=== PATIENT | male | born 1950 | race Caucasian/White ===

== ENCOUNTER 2018-10-28 15:31 | Emergency (ER) | payer MEDICARE, OTHER, SELFPAY ==
[2018-10-28 15:41] VITALS: BP 102/56; PULSE 75; RESP 16; TEMP 36.6; O2SAT 99; BMI 27.1
--- NOTE | 2018-10-28 15:46 | CT_ITS ---
CT abdomen pelvis w con CLINICAL INDICATION: Epigastric pain with nausea ITS.REASON: abd pain ORDERING PHYSICIAN: Shon Hedrick MD PATIENT AGE: 68 years COMPARISON: None TECHNIQUE: Axial images obtained with sagittal and coronal reformats. All CT scans at the facility use one or more dose reduction, viz: automated exposure control, ma/kV adjustment per patient size (including targeted exams where dose is matched to indication, i.e. head), or iterative reconstruction technique. PROCEDURE: Oral Contrast: None IV Contrast: 75 mL's Optiray 350. FINDINGS: Artifact is present from cardiac pacemaker device. There is a too small to categorize isodensity is present in the left hepatic lobe anteriorly at 5 mm. Subtle isodensity is also present in the mid aspect of the spleen at 7 mm. There is an additional subtle isodensity in the infrahilar aspect of the spleen anteriorly at 6 mm. There is borderline splenomegaly at 13 cm. The adrenal glands and pancreas have an unremarkable appearance. Unremarkable appearing gallbladder. There is an indeterminant lobular isodensity involving the right aspect of the kidney and 19 x 12 mm with irregular margins. No renal or ureteral calculi. No hydronephrosis. No evidence of appendicitis or diverticulitis. There is colonic diverticulosis. Bowel gas pattern is nonspecific. There are scattered gas-filled loops of small bowel the jejunum with questionable bowel wall thickening. This raises the possibility of enteritis. Prostate is enlarged at 5 cm x 6 cm with some coarse calcification. Along the anterior inferior aspect of the urinary bladder there is a rounded opacity measuring 2 cm which abuts the superior aspect of the symphysis pubis and contains a central area of decreased density. This is of questionable etiology possibly due to a year Muriel diverticulum or even prominent synovium from the symphysis pubis follow-up suggested to confirm stability. Hyperostosis is present along the lateral aspect of the superior acetabular region on the right. This has a somewhat irregular appearance and could be due to prior trauma.. IMPRESSION: 1. Indeterminate irregular low density mass of the right kidney. Recommend ultrasound for further evaluation. 2. Colonic diverticulosis. No diverticulitis. 3. Possible enteritis. 4. Rounded isodensity along the anterior and inferior aspect of the urinary bladder which could be due to a urachal diverticulum. Suggest follow-up to confirm stability
[2018-10-28 15:58] LABS: Microscopic, Urine URINE MICROSCOPIC (MICROSCOPIC)
[2018-10-28 16:00] LABS: Basophils % 0.4 % (0.1-2.0); Eosinophils # 0.1 K/mm3 (0.0-0.4); Eosinophils % 1.4 % (0.1-12.0); Hematocrit 36.8 % (42.0-52.0); Hemoglobin 12.2 g/dL (14.1-18.0); Lymphocytes # 0.9 K/mm3 (0.7-4.5); Lymphocytes % 9.5 % (10-50); Mean Corpuscular HGB Conc 33.3 g/dL (31.8-35.4); Mean Corpuscular Hemoglobin 30.2 pg (27.0-31.2); Mean Corpuscular Volume 90.5 fl (80-94); Mean Platelet Volume 7.3 fl (7.4-10.4); Monocytes # 0.4 K/mm3 (0.1-1.0); Monocytes % 4.5 % (1.7-9.3); Neutrophils # 7.5 K/mm3 (1.8-7.8); Neutrophils % 84.1 % (37.0-80.0); Platelet Count 353 K/mm3 (142-424); Red Blood Count 4.06 M/mm3 (4.60-6.20); Red Cell Distribution Width 12.4 % (11.5-17.5); White Blood Count 8.9 K/mm3 (4.8-10.8)
[2018-10-28 16:02] VITALS: BP 129/71; PULSE 74; O2SAT 94
[2018-10-28 16:08] LABS: Appearance,Urine SL CLOUDY (Clear); Bilirubin,Urine Negative (Negative); Blood, Urine 3+ (Negative); Color,Urine YELLOW (Yellow); Glucose,Urine (UA) Negative (Negative); Ketones,Urine Negative (Negative); Leukocyte Esterase,Urine 1+ (Negative); Nitrate,Urine Negative (Negative); Protein,Urine TRACE (Negative); Urobilinogen,Urine 0.2 EU/dl (0.2)
[2018-10-28 16:11] LABS: Alanine Aminotransferase 46 U/L (12-78); Albumin Level 3.1 gm/dL (3.4-5.0); Albumin/Globulin Ratio 0.7 (1.1-1.8); Alkaline Phosphatase 93 U/L (46-116); Amylase 49 U/L (25-115); Anion Gap 14.3 mEq/L (5-15); Aspartate Amino Transferase 22 U/L (15-37); Bilirubin,Total 0.8 mg/dL (0.2-1.0); Blood Urea Nitrogen 23 mg/dL (7-18); Calcium 8.5 mg/dL (8.5-10.1); Carbon Dioxide 25 mmol/L (21.0-32.0); Chloride 102 mmol/L (98-107); Creatinine Clearance Estimated 54 mL/min (50-200); Estimated Glomerular Filt Rate 43 ml/min (>60); GFR (African American) 52 ML/MIN (>60); Globulin 4.5 gm/dl (1.3-3.2); Glucose 115 mg/dL (74-106); Lipase 153 u/L (73-393); Potassium 4.3 mmoL/L (3.5-5.1); Sodium 137 mmol/L (136-145); Total Protein,Serum 7.6 gm/dL (6.4-8.2)
--- NOTE | 2018-10-28 16:12 | HMH.EDABDPAI ---
ED Disposition Clinical Impression: Abdominal pain, Malaise Disposition: Home, Self-Care Condition on Discharge: Good Instructions: DI for Acute Abdomen Prescriptions: levoFLOXacin [Levaquin 500mg tab] 500 mg PO DAILY #7 tab Referrals: Samson Valdez MD [Primary Care Provider] - Time of Disposition: 19:15 - Critical Care Critical Care Time: No Attestation: On , the high probability of a clinically significant, sudden or life threatening deterioration of the following system(s) required my full and direct attention, intervention and personal management. The time I documented below is in addition to time spent performing reported procedures but includes the following listed in this critical care notation. Medical Decision Making - Medical Records Medical records reviewed: Yes: I reviewed the patient's medical records. - Luigi Inquiry Pt receiving controlled substance: No Luigi was queried for this patient: No Vital Signs: 10/28/18 15:41 10/28/18 16:02 10/28/18 17:22 Temperature 97.8 F Temperature Source Oral Pulse Rate Pulse Rate [Right Brachial] 75 74 69 Respiratory Rate 16 Blood Pressure Blood Pressure [Right Arm] 102/56 L 129/71 145/71 H Blood Pressure Mean [Right Arm] 71 90 95 Blood Pressure Source [Right Arm] Automatic Cuff Blood Pressure Position [Right Arm] Sitting 02 Sat by Pulse Oximetry 99 94 L 99 Oxygen Delivery Method Room Air 10/28/18 19:20 Temperature 98.6 F Temperature Source Pulse Rate 70 Pulse Rate [Right Brachial] Respiratory Rate 20 Blood Pressure 140/70 Blood Pressure [Right Arm] Blood Pressure Mean [Right Arm] Blood Pressure Source [Right Arm] Blood Pressure Position [Right Arm] 02 Sat by Pulse Oximetry Oxygen Delivery Method - Lab Data Lab results reviewed: Yes: I reviewed the patient's lab results. Lab Results 10/28/18 15:50: WBC 8.9, RBC 4.06 L, Hgb 12.2 L, Hct 36.8 L, MCV 90.5, MCH 30.2, MCHC 33.3, RDW 12.4, Plt Count 353, MPV 7.3 L, Neut % (Auto) 84.1 H, Lymph % (Auto) 9.5 L, [place] % (Auto) 4.5, Eos % (Auto) 1.4, Baso % (Auto) 0.4, Neut # (Auto) 7.5, Lymph # (Auto) 0.9, [place] # (Auto) 0.4, Eos # (Auto) 0.1, Baso # (Auto) 0.0 10/28/18 15:50: Sodium 137, Potassium 4.3, Chloride 102, Carbon Dioxide 25, Anion Gap 14.3, BUN 23 H, Creatinine 1.60 H, Estimated Creat Clear 54, Estimated GFR 43 L, Est GFR ( Amer) 52 L, Glucose 115 H, Calcium 8.5, Total Bilirubin 0.8, AST 22, ALT 46, Alkaline Phosphatase 93, Total Protein 7.6, Albumin 3.1 L, Globulin 4.5 H, Albumin/Globulin Ratio 0.7 L, Amylase 49, Lipase 153 10/28/18 15:54: Urine Color Yellow, Urine Appearance Sl cloudy, Urine pH 6.0, Ur Specific [place] 1.020, Urine Protein Trace, Urine Glucose (UA) Negative, Urine Ketones Negative, Urine Blood 3+, Urine Nitrate Negative, Urine Bilirubin Negative, Urine Urobilinogen 0.2, Ur Leukocyte Esterase 1+ A, Urine RBC 3-5, Urine WBC 10-20, Ur Squamous Epith Cells Occasional, Urine Bacteria 2+, Hyaline Casts 3-5, Urine Mucus 1+ Result diagrams: 10/28/18 15:50 10/28/18 15:50 Orders (Tests/Meds): ED MEDICATIONS Discontinued Medications Generic Name Dose Route Start Last Admin Trade Name Freq PRN Reason Stop Dose Admin Lactated Ringer's 1,000 mls @ 999 mls/hr 10/28/18 16:30 10/28/18 16:28 Lactated Ringer's 1000 Ml Bag IV 10/28/18 17:30 999 mls/hr .Q1H1M MABEL Administration Ioversol 75 ml 10/28/18 17:09 10/28/18 17:13 Rad-Optiray 350 100ml Vial IV 10/28/18 17:10 75 ml ONCE ONE Administration Protocol Levofloxacin 500 mg 10/28/18 19:22 10/28/18 19:34 Levaquin 500mg Tab PO 10/28/18 19:23 500 mg ONCE ONE Administration Protocol Ondansetron HCl 4 mg 10/28/18 16:21 10/28/18 16:29 Zofran 4mg/2ml Vial IV 10/28/18 16:22 4 mg ONCE ONE Administration Sodium Chloride 10 ml 10/28/18 17:09 10/28/18 17:13 Rad-Saline Flush 10ml Syringe IV 10/28/18 17:10 10 ml ONCE ONE Administration
--- NOTE | 2018-10-28 16:16 | ED_ITS ---
ED Disposition Clinical Impression: Abdominal pain, Malaise Disposition: Home, Self-Care Condition on Discharge: Good Instructions: DI for Acute Abdomen Prescriptions: levoFLOXacin [Levaquin 500mg tab] 500 mg PO DAILY #7 tab Referrals: Samson Valdez MD [Primary Care Provider] - Time of Disposition: 19:15 - Critical Care Critical Care Time: No Attestation: On , the high probability of a clinically significant, sudden or life threatening deterioration of the following system(s) required my full and direct attention, intervention and personal management. The time I documented below is in addition to time spent performing reported procedures but includes the following listed in this critical care notation. Medical Decision Making - Medical Records Medical records reviewed: Yes: I reviewed the patient's medical records. - Luigi Inquiry Pt receiving controlled substance: No Luigi was queried for this patient: No Vital Signs: 10/28/18 15:41 10/28/18 16:02 10/28/18 17:22 Temperature 97.8 F Temperature Source Oral Pulse Rate Pulse Rate [Right Brachial] 75 74 69 Respiratory Rate 16 Blood Pressure Blood Pressure [Right Arm] 102/56 L 129/71 145/71 H Blood Pressure Mean [Right Arm] 71 90 95 Blood Pressure Source [Right Arm] Automatic Cuff Blood Pressure Position [Right Arm] Sitting 02 Sat by Pulse Oximetry 99 94 L 99 Oxygen Delivery Method Room Air 10/28/18 19:20 Temperature 98.6 F Temperature Source Pulse Rate 70 Pulse Rate [Right Brachial] Respiratory Rate 20 Blood Pressure 140/70 Blood Pressure [Right Arm] Blood Pressure Mean [Right Arm] Blood Pressure Source [Right Arm] Blood Pressure Position [Right Arm] 02 Sat by Pulse Oximetry Oxygen Delivery Method - Lab Data Lab results reviewed: Yes: I reviewed the patient's lab results. Lab Results 10/28/18 15:50: WBC 8.9, RBC 4.06 L, Hgb 12.2 L, Hct 36.8 L, MCV 90.5, MCH 30.2, MCHC 33.3, RDW 12.4, Plt Count 353, MPV 7.3 L, Neut % (Auto) 84.1 H, Lymph % (Auto) 9.5 L, [place] % (Auto) 4.5, Eos % (Auto) 1.4, Baso % (Auto) 0.4, Neut # (Auto) 7.5, Lymph # (Auto) 0.9, [place] # (Auto) 0.4, Eos # (Auto) 0.1, Baso # (Auto) 0.0 10/28/18 15:50: Sodium 137, Potassium 4.3, Chloride 102, Carbon Dioxide 25, Anion Gap 14.3, BUN 23 H, Creatinine 1.60 H, Estimated Creat Clear 54, Estimated GFR 43 L, Est GFR ( Amer) 52 L, Glucose 115 H, Calcium 8.5, Total Bilirubin 0.8, AST 22, ALT 46, Alkaline Phosphatase 93, Total Protein 7.6, Albumin 3.1 L, Globulin 4.5 H, Albumin/Globulin Ratio 0.7 L, Amylase 49, Lipase 153 10/28/18 15:54: Urine Color Yellow, Urine Appearance Sl cloudy, Urine pH 6.0, Ur Specific [place] 1.020, Urine Protein Trace, Urine Glucose (UA) Negative, Urine Ketones Negative, Urine Blood 3+, Urine Nitrate Negative, Urine Bilirubin Negative, Urine Urobilinogen 0.2, Ur Leukocyte Esterase 1+ A, Urine RBC 3-5, Urine WBC 10-20, Ur Squamous Epith Cells Occasional, Urine Bacteria 2+, Hyaline Casts 3-5, Urine Mucus 1+ Result diagrams: 10/28/18 15:50 10/28/18 15:50 Orders (Tests/Meds): ED MEDICATIONS Discontinued Medications Generic Name Dose
[2018-10-28 16:17] LABS: Bacteria,Urine 2+ /lpf; Squamous Epithelial Cell,Urine Occasional #/hpf (0-5)
[2018-10-28 16:18] LABS: Mucus,Urine 1+ /lpf
[2018-10-28 17:22] VITALS: BP 145/71; PULSE 69; O2SAT 99
[2018-10-28 19:20] VITALS: BP 140/70; PULSE 70; RESP 20; TEMP 37; O2SAT 98
== END 2018-10-28 19:34 | disposition home or self-care (01) ==
PROVIDERS: Emergency Provider Emergency Medicine; PCP Family Medicine
DX: R10.30 Lower abdominal pain, unspecified (principal); Z87.442 Personal history of urinary calculi; E11.9 Type 2 diabetes mellitus without complications; I10 Essential (primary) hypertension; Z95.0 Presence of cardiac pacemaker
CPT/HCPCS: 74177; 80053; 81001; 82150; 83690; 85025; 87086; 96365; 96375; 99284; J2405; Q9967

== ENCOUNTER → 2018-10-29 15:46 | Outpatient (CLI) | payer MEDICARE, OTHER, SELFPAY ==
--- NOTE | 2018-10-29 15:52 | US_ITS ---
US Kidney CLINICAL INDICATION: ITS.REASON: RENAL MASS, irregular right renal lesion ORDERING PHYSICIAN: Samson Valdez MD PATIENT AGE: 68 years Comparison: 10/28/2018 FINDINGS: The right kidney measures 13 x 7 x 8 cm. No hydronephrosis. There is a 2.4 x 1 cm cyst in the upper pole of the right kidney is lobular in configuration which has the same appearance as the CT scan abnormality. The left kidney is 12 x 6 x 6 cm and has an unremarkable appearance. IMPRESSION: Lobulated right renal cyst probably benign. Recommend 6 month sonographic follow-up
== END ==
PROVIDERS: PCP Family Medicine; Visit Provider Family Medicine
DX: N28.89 Other specified disorders of kidney and ureter
CPT/HCPCS: 76770

== ENCOUNTER 2020-01-30 01:41 | Emergency (ER) | payer MEDICARE, OTHER, SELFPAY ==
[2020-01-30 01:42] VITALS: BP 167/84; PULSE 87; RESP 18; TEMP 36.8; O2SAT 100; BMI 28.7
--- NOTE | 2020-01-30 02:06 | HMH.EDUROGM ---
ED Disposition Clinical Impression: Acute retention of urine Disposition: Home, Self-Care Condition on Discharge: Good Instructions: DI for Urinary Tract Infection (UTI), DI for Urinary Tract Infection in Children, How to Care for Your Carter Catheter -- Male Additional Instructions: Take flomax at night. Leave catheter in place until you see urology. Call to make appt by end of week. Return if issues with catheter or recurrent pain. Prescriptions: Tamsulosin HCl 0.4 mg PO HS 7 Days #7 cap Prescription Printed Referrals: Samosn Valdez MD [Primary Care Provider] - Roberto Ramos MD [Staff Physician] - (Followup within 7 days for catheter removal and further treatment of acute urinary retention most likely 2/2 bph) - Critical Care Critical Care Time: No Attestation: On 01/30/20, the high probability of a clinically significant, sudden or life threatening deterioration of the following system(s) required my full and direct attention, intervention and personal management. The time I documented below is in addition to time spent performing reported procedures but includes the following listed in this critical care notation. Medical Decision Making - Medical Records Medical records reviewed: Yes: I reviewed the patient's medical records. - Luigi Inquiry Pt receiving controlled substance: No Vital Signs: 01/30/20 01:42 01/30/20 02:40 Temperature 98.2 F Temperature Source Oral Pulse Rate [Right] 87 70 Respiratory Rate 18 18 Blood Pressure [Right Arm] 167/84 H 152/67 H Blood Pressure Mean [Right Arm] 111 95 02 Sat by Pulse Oximetry 100 94 L - Lab Data Lab Results 01/30/20 01:50: Urine Color Yellow, Urine Appearance Clear, Urine pH 6.0, Ur Specific [place] 1.010, Urine Protein Negative, Urine Glucose (UA) Negative, Urine Ketones Negative, Urine Blood 1+, Urine Nitrate Negative, Urine Bilirubin Negative, Urine Urobilinogen 0.2, Ur Leukocyte Esterase Negative, Urine RBC 5-10, Urine WBC 3-5 01/30/20 02:06: WBC 7.7, RBC 4.56 L, Hgb 14.6, Hct 42.7, MCV 93.7, MCH 32.1 H, MCHC 34.3, RDW 13.4, Plt Count 176, MPV 8.3, Neut % (Auto) 86.4 H, Lymph % (Auto) 8.3 L, [place] % (Auto) 3.3, Eos % (Auto) 1.6, Baso % (Auto) 0.4, Neut # (Auto) 6.6, Lymph # (Auto) 0.6 L, [place] # (Auto) 0.3, Eos # (Auto) 0.1, Baso # (Auto) 0.0, Total Counted 100, Neutrophils % (Manual) 83 H, Band Neutrophils % 5.0, Lymphocytes % (Manual) 10, Monocytes % (Manual) 1 L, Eosinophils % (Manual) 1, Platelet Estimate Normal, RBC Morphology Normal 01/30/20 02:06: Sodium 134 L, Potassium 4.3, Chloride 99, Carbon Dioxide 23, Anion Gap 16.3 H, BUN 22 H, Creatinine 1.20, Estimated Creat Clear 75, Estimated GFR 60, Est GFR ( Amer) 73, Glucose 169 H, Calcium 9.8, Total Bilirubin 0.9, AST 32, ALT 22, Alkaline Phosphatase 92, Total Protein 7.8, Albumin 4.7, Globulin 3.1, Albumin/Globulin Ratio 1.5 Result diagrams: 01/30/20 02:06 01/30/20 02:06 Medical Decision Narrative: Patient presents with acute urinary retention. Patient not on anticholinergic/antihistamine medicines I do not believe this is secondary to toxicity. Patient has been told by his primary care doctor that he has an enlarged prostate somewhat likely this is BPH causing acute urinary retention. Other differential diagnoses include cystitis versus stricture versus blood clot. Patient not a neurologic symptoms so low suspicion for neurogenic causes. No history of trauma. No tenderness to palpation of prostate on exam so less concern for prostatitis. At this time, basic lab will be obtained to ensure no renal insufficiency as well as urinalysis to ensure no cystitis. Patient comfortable after Carter catheter placed and output will be closely monitored. UA negative for infection. Only 1+ blood without obvious blood clots or significant hematuria. No renal insufficiency on lab work. At this time patient does not had significant post void diuresis and is rather well-appearing. Patient will be
[2020-01-30 02:11] LABS: Microscopic, Urine URINE MICROSCOPIC (MICROSCOPIC)
[2020-01-30 02:14] LABS: Appearance,Urine CLEAR (Clear); Bilirubin,Urine Negative (Negative); Blood, Urine 1+ (Negative); Color,Urine YELLOW (Yellow); Glucose,Urine (UA) Negative (Negative); Ketones,Urine Negative (Negative); Leukocyte Esterase,Urine Negative (Negative); Nitrate,Urine Negative (Negative); Protein,Urine Negative (Negative); Urobilinogen,Urine 0.2 EU/dl (0.2)
[2020-01-30 02:17] LABS: Basophils % 0.4 % (0.1-2.0); Eosinophils # 0.1 K/mm3 (0.0-0.4); Eosinophils % 1.6 % (0.1-12.0); Hematocrit 42.7 % (42.0-52.0); Hemoglobin 14.6 g/dL (14.1-18.0); Lymphocytes # 0.6 K/mm3 (0.7-4.5); Lymphocytes % 8.3 % (10-50); Mean Corpuscular HGB Conc 34.3 g/dL (31.8-35.4); Mean Corpuscular Hemoglobin 32.1 pg (27.0-31.2); Mean Corpuscular Volume 93.7 fl (80-94); Mean Platelet Volume 8.3 fl (7.4-10.4); Monocytes # 0.3 K/mm3 (0.1-1.0); Monocytes % 3.3 % (1.7-9.3); Neutrophils # 6.6 K/mm3 (1.8-7.8); Neutrophils % 86.4 % (37.0-80.0); Platelet Count 176 K/mm3 (142-424); Red Blood Count 4.56 M/mm3 (4.60-6.20); Red Cell Distribution Width 13.4 % (11.5-17.5); White Blood Count 7.7 K/mm3 (4.8-10.8)
[2020-01-30 02:21] LABS: MANUAL DIFFERENTIAL MANUAL DIFFERENTIAL (MANUAL DIFF)
[2020-01-30 02:25] LABS: Alanine Aminotransferase 22 U/L (12-78); Albumin Level 4.7 g/dl (3.5-5.0); Albumin/Globulin Ratio 1.5 (1.1-1.8); Alkaline Phosphatase 92 U/L (38-126); Anion Gap 16.3 mEq/L (5-15); Aspartate Amino Transferase 32 U/L (17-59); Bilirubin,Total 0.9 mg/dl (0.2-1.3); Blood Urea Nitrogen 22 mg/dl (9-20); Calcium 9.8 mg/dl (8.4-10.2); Carbon Dioxide 23 mmol/L (22.0-30.0); Chloride 99 mmol/L (98-107); Creatinine Clearance Estimated 75 mL/min (50-200); Estimated Glomerular Filt Rate 60 ml/min (>60); GFR (African American) 73 ML/MIN (>60); Globulin 3.1 g/dL (1.3-3.2); Glucose 169 mg/dl (74-100); Potassium 4.3 mmoL/L (3.5-5.1); Sodium 134 mmol/L (136-145); Total Protein,Serum 7.8 g/dl (6.3-8.2)
[2020-01-30 02:34] LABS: Eosinophils % 1 % (0-3); Lymphocytes % 10 % (10-50); Monocytes % 1 % (2-9); Neutrophils % 83 % (42-76); Platelet Estimate Normal; RBC Morphology Normal; Total Cells Counted 100
[2020-01-30 02:40] VITALS: BP 152/67; PULSE 70; RESP 18; O2SAT 94
[2020-01-30 03:23] VITALS: BP 156/73; PULSE 85; RESP 18; TEMP 37
== END 2020-01-30 03:25 | disposition home or self-care (01) ==
PROVIDERS: Emergency Provider Emergency Medicine; PCP Family Medicine
DX: R33.8 Other retention of urine (principal); N40.1 Benign prostatic hyperplasia with lower urinary tract symptoms; I10 Essential (primary) hypertension; Z95.0 Presence of cardiac pacemaker; E10.9 Type 1 diabetes mellitus without complications
CPT/HCPCS: 80053; 81001; 85007; 85025; 99284

== ENCOUNTER → 2020-07-25 13:07 | Outpatient (CLI) | payer MEDICARE, OTHER, SELFPAY ==
--- NOTE | 2020-07-25 13:10 | US_ITS ---
PROCEDURE: US KIDNEY CLINICAL INDICATION: RENAL MASS COMPARISON: CT [id number] CT abdomen pelvis w con from 10/28/2018 US KIDNEY US Kidney from 10/29/2018 FINDINGS: The right kidney is 10 x 8 cm. There is some mild cortical thinning. No hydronephrosis is apparent. Previously noted cyst in the mid aspect of the right kidney is no longer demonstrated. A small cyst is present in the upper pole measuring 8 mm. The left kidney is 11 x 6 x 7 cm and has an unremarkable appearance. IMPRESSION: Previously noted complex right renal cyst is no longer apparent. There is a small cyst in the upper pole at 8 mm. There is mild cortical thinning on the right. Dictated by: Jr Gambino MD 07/25/2020 18:16 Jr Gambino MD in [place] 07/25/2020 18:16
== END ==
PROVIDERS: PCP Family Medicine; Visit Provider Family Medicine
DX: N28.89 Other specified disorders of kidney and ureter (principal)
CPT/HCPCS: 76770

== ENCOUNTER → 2021-10-03 09:59 | Outpatient (CLI) | payer MEDICARE, OTHER, SELFPAY ==
--- NOTE | 2021-10-03 10:01 | CA_ITS ---
APPROVED REPORT EXAM: Comprehensive 2D, Doppler, and color-flow Echocardiogram Ice Crusher: DARWIN Raygoza, RVS Ht: 5 ft 9 in Wt: 211lbs BSA: 2.11 BP: 120/80 mmHg Indications: CM, AICD, HTN, DM 2D Dimensions IVSd 1.19 cm M: 0.6-1.2 LVEF (Visual) 55.00 % PWd 1.17 cm M: 0.6 - 1.2 LA Volume 67.20 mL LVDd 5.48 cm M: 4.2 - 5.9 LA Volume Index 31.84 mL/m2 (M/F) 16-34 LVDs 3.68 cm M: 2.5 - 4.0 Aortic Root 3.32 cm M: 3.1 - 3.7 Left Atrium 4.07 cm M: 3.0 - 4.0 LVOT 2.09 cm (M/F) 1.5-2.5 M-Mode Dimensions RVDd 3.05 cm (0.9-2.6) LA Diam 4.08 cm (1.9-4.0) LVDd 5.42 cm (3.5-5.7) Ao Diam 3.15 cm (2.0-3.7) LVDs 3.89 cm (3.5-5.7) IVSd 1.33 cm (0.6-1.1) PWd 0.84 cm (0.6-1.1) EF (Teich) 50.00% EPSs 0.69 cm FS 26.20% EDV (Teich) 142.50 mL TAPSE 2.47 (<1.7) ESV (Teich) 65.50 mL LV Diastology E Decel Time 200.00 (160-240 msec) E/A Ratio 1.38 MED E' 6.40 (< 7 cm/sec) MED A' 8.80 cm/s E'/MED E' Ratio 13.67 (>14) LAT E' 8.00 (<10 cm/sec) LAT A' 6.10 cm/s E/LAT E' Ratio 10.94 (>14) Aortic Valve LVOT Max 87.00 (70-110 cm/s) LVOT VTI 20.39 cm AoV Peak Juan. 114.00 (50-130 cm/s) AI PHT 384.00 ms AO Peak GR. 5.20 mmHg AO Mean GR. 2.60 (<5 mmHg) AO VTI 25.00 (18-25 cm) MOLINA (VTI) 2.80 (2.5-4.5 cm2) Mitral Valve MV A Velocity 63.00 (40-130 cm/s) E/A Ratio 1.38 MV Decel. Time 200.00 (160-240 ms) MV Mean Gr. 1.20 (<2mmHg) MV PHT 60.00 ms Pulmonary Valve PV Peak Velocity 84.00 (50-150 cm/s) [place] End VMAX 172.00 cm/s Tricuspid Valve TR P. Velocity 251.00 cm/s RAP Estimate 10.00 mmHg RVSP 35.10 mmHg Left Ventricle Atrium is mildly enlarged, left ventricle is normal size, mild concentric left ventricular hypertrophy, estimated ejection fraction 50% with no obvious regional wall motion abnormality, endocardial surfaces are poorly visualized, grade 1 diastolic dysfunction seen without tissue Doppler evidence of raise left atrial pressure. Right Ventricle Right atrium and right ventricle are normal size and contractility, there is an AICD leads in the right ventricle. Aortic Valve Aortic valve is minimally thickened and fibrosed there is no aortic stenosis, there is trace aortic insufficiency. Mitral Valve Mitral valve grossly normal, there is trace mitral regurgitation. Tricuspid Valve Tricuspid grossly normal, there is trace tricuspid rotation, tricuspid regurgitation jet velocity is inadequate for calculation of the right ventricular systolic pressure. Pulmonic Valve Pulmonic valve is poorly visualized. Great Vessels Aortic root is normal size. Inferior vena cava is normal size with normal inspiratory collapse. Pericardium No significant pericardial effusion noted. Conclusion 1. Mildly enlarged left atrium, normal left ventricular size, mild concentric left ventricular hypertrophy, estimated ejection fraction 50% with no regional wall motion abnormality, grade 1 diastolic dysfunction seen without tissue Doppler evidence of left atrial pressure. 2. Trace aortic, mitral and tricuspid regurgitation. 3. No significant pericardial effusion. 4. Inferior vena cava is normal size with normal inspiratory collapse. Electronically signed by : Ronald Brito MD 10/04/2021 11:23:21
== END ==
PROVIDERS: PCP Family Medicine; Visit Provider Family Medicine
DX: I42.0 Dilated cardiomyopathy (principal)
CPT/HCPCS: 93306

== ENCOUNTER → 2021-12-02 08:38 | Outpatient (CLI) | payer MEDICARE, OTHER, SELFPAY ==
[2021-11-29 19:59] LABS: Erythrocyte Sedimentation Rate 18 mm/hr (0-20)
[2021-12-01 09:40] LABS: RA Latex Turbid. <10.0 IU/mL (<14.0)
[2021-12-03 13:38] LABS: Anti-Centromere B Antibodies <0.2 AI (0.0-0.9); Anti-DNA (DS) Ab Qn <1 IU/mL (0-9); Anti-Jo-1 <0.2 AI (0.0-0.9); Anti-Smith Antibody <0.2 AI (0.0-0.9); Antichromatin Antibodies <0.2 AI (0.0-0.9); Antiscleroderma-70 Antibodies <0.2 AI (0.0-0.9); RNP Antibodies <0.2 AI (0.0-0.9); Sjogren's Anti-SS-A <0.2 AI (0.0-0.9); Sjogren's Anti-SS-B <0.2 AI (0.0-0.9)
== END ==
PROVIDERS: Visit Provider Family Medicine
DX: M79.605 Pain in left leg (principal); M79.604 Pain in right leg
CPT/HCPCS: 85651; 86225; 86235; 86431

== ENCOUNTER → 2022-04-08 10:10 | Outpatient (CLI) | payer MEDICARE, OTHER, SELFPAY ==
[2022-04-08 18:58] LABS: Blood Urea Nitrogen 14 mg/dl (9-20); Calcium 9.4 mg/dl (8.4-10.2); Carbon Dioxide 29 mmol/L (22.0-30.0); Chloride 100 mmol/L (98-107); Estimated Glomerular Filt Rate 73 ml/min (>60); GFR (African American) 89 ML/MIN (>60); Glucose 111 mg/dl (74-100); Sodium 138 mmol/L (136-145)
[2022-04-08 19:30] LABS: Prostate Specific Ag Screen 3.2 ng/ml (0.0-4.0)
[2022-04-08 21:15] LABS: Anion Gap 13.7 mEq/L (5-15); Potassium 4.7 mmoL/L (3.5-5.1)
== END ==
PROVIDERS: PCP Family Medicine; Visit Provider Family Medicine
DX: N40.0 Benign prostatic hyperplasia without lower urinary tract symptoms (principal); E11.9 Type 2 diabetes mellitus without complications; Z79.84 Long term (current) use of oral hypoglycemic drugs; Z12.5 Encounter for screening for malignant neoplasm of prostate
CPT/HCPCS: 80048; G0103

== ENCOUNTER → 2022-10-21 10:42 | Outpatient (CLI) | payer MEDICARE, OTHER, SELFPAY ==
[2022-10-21 18:28] LABS: Basophils % 0.5 % (0.1-2.0); Eosinophils # 0.1 K/mm3 (0.0-0.4); Eosinophils % 2.6 % (0.1-12.0); Hematocrit 46.2 % (42.0-52.0); Lymphocytes # 0.8 K/mm3 (0.7-4.5); Lymphocytes % 20.2 % (10-50); Mean Corpuscular HGB Conc 32.5 g/dL (31.8-35.4); Mean Corpuscular Hemoglobin 31.1 pg (27.0-31.2); Mean Corpuscular Volume 95.7 fl (80-94); Mean Platelet Volume 9.8 fl (7.4-10.4); Monocytes # 0.4 K/mm3 (0.1-1.0); Monocytes % 10.3 % (1.7-9.3); Neutrophils # 2.6 K/mm3 (1.8-7.8); Neutrophils % 66.4 % (37.0-80.0); Platelet Count 176 K/mm3 (142-424); Red Blood Count 4.83 M/mm3 (4.60-6.20); Red Cell Distribution Width 13.7 % (11.5-17.5); White Blood Count 3.9 K/mm3 (4.8-10.8)
[2022-10-21 18:37] LABS: Alanine Aminotransferase 30 U/L (12-78); Albumin Level 4.3 g/dl (3.5-5.0); Albumin/Globulin Ratio 1.8 (1.1-1.8); Alkaline Phosphatase 78 U/L (38-126); Anion Gap 16.4 mEq/L (5-15); Aspartate Amino Transferase 31 U/L (17-59); Bilirubin,Total 1.3 mg/dl (0.2-1.3); Blood Urea Nitrogen 23 mg/dl (9-20); Carbon Dioxide 28 mmol/L (22.0-30.0); Chloride 96 mmol/L (98-107); Estimated Glomerular Filt Rate 66 ml/min (>60); GFR (African American) 80 ML/MIN (>60); Globulin 2.4 g/dL (1.3-3.2); Glucose 104 mg/dl (74-100); Potassium 4.4 mmoL/L (3.5-5.1); Sodium 136 mmol/L (136-145); Total Protein,Serum 6.7 g/dl (6.3-8.2)
== END ==
PROVIDERS: PCP Family Medicine; Visit Provider Family Medicine
DX: I10 Essential (primary) hypertension (principal); R10.9 Unspecified abdominal pain
CPT/HCPCS: 80053; 85025

== ENCOUNTER → 2022-12-17 13:21 | Outpatient (CLI) | payer MEDICARE, OTHER, SELFPAY | PROVIDERS: PCP Family Medicine; Visit Provider Physician Assistant | DX: E11.9 Type 2 diabetes mellitus without complications (principal); I10 Essential (primary) hypertension; I50.20 Unspecified systolic (congestive) heart failure; R06.00 Dyspnea, unspecified; Z95.810 Presence of automatic (implantable) cardiac defibrillator; Z79.84 Long term (current) use of oral hypoglycemic drugs | CPT/HCPCS: 93306 ==

== ENCOUNTER → 2023-03-24 10:53 | Outpatient (CLI) | payer MEDICARE, OTHER, SELFPAY ==
[2023-03-24 17:59] LABS: Alanine Aminotransferase 37 U/L (12-78); Albumin Level 4.3 g/dl (3.5-5.0); Albumin/Globulin Ratio 1.7 (1.1-1.8); Alkaline Phosphatase 69 U/L (38-126); Anion Gap 11.3 mEq/L (5-15); Aspartate Amino Transferase 39 U/L (17-59); Bilirubin,Total 1.2 mg/dl (0.2-1.3); Blood Urea Nitrogen 17 mg/dl (9-20); Calcium 9.1 mg/dl (8.4-10.2); Carbon Dioxide 28 mmol/L (22.0-30.0); Chloride 101 mmol/L (98-107); Estimated Glomerular Filt Rate 66 ml/min (>60); GFR (African American) 79 ML/MIN (>60); Globulin 2.5 g/dL (1.3-3.2); Glucose 114 mg/dl (74-100); Potassium 4.3 mmoL/L (3.5-5.1); Sodium 136 mmol/L (136-145); Total Protein,Serum 6.8 g/dl (6.3-8.2)
== END ==
PROVIDERS: PCP Family Medicine; Visit Provider Family Medicine
DX: E11.9 Type 2 diabetes mellitus without complications (principal); I10 Essential (primary) hypertension; N40.0 Benign prostatic hyperplasia without lower urinary tract symptoms; Z95.810 Presence of automatic (implantable) cardiac defibrillator; Z79.84 Long term (current) use of oral hypoglycemic drugs
CPT/HCPCS: 80053

== ENCOUNTER → 2023-04-20 06:39 | Outpatient (CLI) | payer MEDICARE, OTHER, SELFPAY ==
--- NOTE | 2023-04-20 06:44 | NM_ITS ---
APPROVED REPORT Exam: Nuclear Stress Test Indication: HTN, HYPERLIPIDEMIA, SOB, FATIGUE, PACEMAKER, DE-FIBULATOR, A-FIB, ABN EKG Patient Location: Outpatient Stress Tech: Esther Travis [place] Tech:ALFONSO Jordan RT (R)(N)(M) Ht: 5 ft 10 in Wt: 211 lbs HR: 69 bpm BP: 157/79 mmHg BSA: 2.14 m2 Rhythm: V-paced rhythm TID: 1.18 BMI: 30.2 History: HTN, HYPERLIPIDEMIA, SOB, FATIGUE, PACEMAKER, A-FIB, ABN EKG Procedure: Patient received 0.4 mg of intravenous Lexiscan, resting heart rate 69 bpm, resting blood pressure 157/79 mmHg, with Lexiscan maximum heart rate achieved was 83 bpm which is % of the maximum predicted heart rate and blood pressure was 131/61 mmHg. With Lexiscan, patient denied any complaint of chest pain. Cardiac Stress and Resting SPECT Images: Cardiac Stress and Resting SPECT images were obtained using technetium 99m Myoview 30.5 mCi stress and 10.62 mCi at rest. Raw images demonstrate significant soft tissue overlap with the cardiac borders. This may affect the diagnostic interpretation of the study findings. Resting and stress imaging in supine position demonstrate a large sized, moderate fixed perfusion defect in the inferior and inferoapical LV wall. This is no longer visualized with prone stress imaging. Findings are suggestive of diaphragmatic and soft tissue attenuation, but true perfusion defect cannot be entirely ruled out in the setting of severe reduction in LV systolic function. Gated imaging demonstrates severe reduction in LV systolic function. LVEF is calculated at 28%. However the LVEF is likely inaccurate due to frequent PVCs and history of atrial fibrillation. Conclusion: Raw images demonstrate significant soft tissue overlap with the cardiac borders. This may affect the diagnostic interpretation of the study findings. Resting and stress imaging in supine position demonstrate a large sized, moderate fixed perfusion defect in the inferior and inferoapical LV wall. This is no longer visualized with prone stress imaging. Findings are suggestive of diaphragmatic and soft tissue attenuation, but true perfusion defect cannot be entirely ruled out in the setting of severe reduction in LV systolic function.. Gated imaging demonstrates severe reduction in LV systolic function. LVEF is calculated at 28%. However the LVEF is likely inaccurate due to frequent PVCs and history of atrial fibrillation. Electronically signed by : Danica Burroughs MD 04/21/2023 14:11:03
--- NOTE | 2023-04-20 09:14 | CA_ITS ---
APPROVED REPORT Exam: Pharmacologic Technologist: Esther Travis Ht: 5 ft 10 in Wt: 211 lbs BSA: 2.14 m2 HR: 69 bpm BP: 157/79 mmHg Rhythm: V-paced Indications: Dyspnea Medical History Medications: Amlodipine,,,,, Aspirin,,,,, Metformin,,,,, Carvedilol,,,,, XaRELTO,,,,, TAMSULOSIN,,,,, JaRDiance,,,,, RoSUVASTATIN,,,,, Irbesartan-hctz,,,,, Stress Test Details Test: LEXISCAN HR Resting HR: 67 bpm Max Heart Rate (APMHR): 147 bpm Max HR Achieved: 90 bpm Target HR (85% APMHR): 125 bpm % of APMHR: 61 Recovery HR: 75 bpm BP Resting BP: 157.0/79.0 mmHg Max BP: 157.0/79.0 mmHg Recovery BP: 150.0/71.0 mmHg ECG Resting ECG: V-paced rhythm Stress ECG: No significant ST changes Arrhythmia: PVCs Clinical Exercise duration: 05:33 min Highest Stage Achieved: Exercise capacity: 1.0 METs Stress ECG Conclusion Symptoms: Nausea Arrhythmias/Ectopy: Frequent PVCs ST-T Changes: No significant ST changes Conclusion: Non-diagnostic due to be V paced rhythm Test Summary REST . . . . . . . Resting REST 01:39 . . 67 . 157/ 79 . . Stage 1 . . . . . . . Myoview Injected Stage 1 01:00 . . 79 . . . . Stage 2 01:00 . . 87 . 131/ 61 . . Stage 3 01:00 . . 83 . . . . Stage 4 01:00 . . 80 . 143/ 77 . . Stage 4 02:00 . . 78 . 143/ 73 . . Stage 4 02:33 . . 77 . 135/ 76 . Stop exercise at 05:33 RECOVERY 01:00 . . 75 . . . . RECOVERY 02:00 . . 74 . 140/ 73 . . RECOVERY 02:49 . . 74 . 140/ 73 . . Electronically signed by : Danica Burroughs MD 04/21/2023 14:03:38
== END ==
PROVIDERS: PCP Family Medicine; Visit Provider Physician Assistant
DX: E11.9 Type 2 diabetes mellitus without complications (principal); I48.91 Unspecified atrial fibrillation; I50.20 Unspecified systolic (congestive) heart failure; R06.00 Dyspnea, unspecified; Z95.810 Presence of automatic (implantable) cardiac defibrillator; Z79.84 Long term (current) use of oral hypoglycemic drugs; I11.0 Hypertensive heart disease with heart failure
CPT/HCPCS: 78452; 93017; 93018; A9502; J2785

== ENCOUNTER 2023-04-28 07:56 | Day surgery (SDC) | payer MEDICARE, OTHER, SELFPAY ==
[2023-04-28] VITALS (13 sets, daily range): BP systolic 113–202; BP diastolic 64–174; PULSE 56–80; RESP 18–19; TEMP 37; O2SAT 92–98; BMI 30.2
--- NOTE | 2023-04-28 07:10 | IR_ITS ---
APPROVED REPORT Patient Location: Outpatient Apparel Patternmaker: ALFONSO Castro RT (R) PROCEDURES Left heart catheterization Left ventriculogram Selective coronary angiogram Intravascular ultrasound of the LAD and left main artery INDICATION High risk abnormal Myoview, Preoperative evaluation Informed consent was obtained prior to the procedure. COMPLICATIONS NONE Estimated Blood Loss: LESS THAN 10 ML TECHNIQUE One percent lidocaine used to anesthetize the right anterior aspect of the wrist. The right radial artery was accessed via the Seldinger technique. A 6 Citizen Of [place] sheath was placed in the right radial artery. 2.5 mg of Verapamil, 800 mcg of nitroglycerin, 1mg Lidocaine and 5000 U Heparin were given through the arterial sheath. The papa catheter was also used to perform left heart catheterization, left ventriculogram and selective coronary angiogram. At the end the diagnostic angiogram therapeutic heparin was administered giving a therapeutic ACT and a 6 Citizen Of [place] JL 3 guide catheter was placed in the left main artery followed by a BMW wire down the LAD. Intravascular ultrasound probe was advanced which demonstrated the MLA of the ostial left main artery was greater than 7 mm???. The proximal LAD had an MLA of 4.5 mm??? while the mid LAD had an MLA of 3.1 mm???. Given patient had normal ejection fraction based on both echocardiogram and LV gram the only lesions were in the mid LAD and posterior descending artery it was felt patient would be better served with medical management. A guide liner was also used for the procedure for catheter stabilization ANGIOGRAPHIC RESULTS The left main artery Is an ostial angiographically indeterminate lesion between 30 and 50%. The left anterior descending artery Has a proximal concentric 50% stenosis with mid vessel 60 and 70% stenoses. The distal LAD has additional 50% stenosis The circumflex artery Is nondominant and has mid vessel 60 to 70% stenoses and a solitary small obtuse marginal artery The right coronary artery Is a dominant vessel and has proximal 20% stenoses with a mid vessel eccentric 30% stenosis distal 40 to 50% stenosis. A large posterior descending artery has a proximal eccentric 80% stenosis. A large posterolateral branch is widely patent with mild proximal 20 to 30% stenosis The [place] ventriculogram reveals Normal 60 to 65% The left ventricular end-diastolic pressure 10 mmHg IMPRESSION Mild ostial left main disease as proven by intravascular ultrasound Nonischemic proximal LAD disease as proven by intravascular ultrasound Severe stenosis in the mid LAD which is best managed medically at this time given the normal ejection fraction and patient's preoperative status. Nothing from a percutaneous standpoint will reduce or mitigate patient's already low risk preoperative stratification Severe stenosis in a posterior descending artery which is also best managed medically at this time given the normal ejection fraction and patient's preoperative status. Revascularizing this lesion would not mitigate patient's already low risk preoperative stratification Normal ejection fraction Normal left ventricular end-diastolic pressure PLAN 1. Patient is an acceptable risk to proceed with prostate surgery 2. Continue medical management for coronary artery disease 3. LDL less than 55 to be achieved with high intensity statin 4. Should patient experience recalcitrant angina in the future it would be reasonable to revascularize the mid LAD and posterior descending artery from a symptomatic standpoint. Electronically signed by : Sven Clark MD 04/28/2023 11:03:33
[2023-04-28 08:27] LABS: Basophils % 0.6 % (0.1-2.0); Eosinophils # 0.2 K/mm3 (0.0-0.4); Eosinophils % 3.8 % (0.1-12.0); Hematocrit 50.8 % (42.0-52.0); Hemoglobin 16.8 g/dL (14.1-18.0); Lymphocytes # 0.7 K/mm3 (0.7-4.5); Lymphocytes % 16.2 % (10-50); Mean Corpuscular HGB Conc 33.1 g/dL (31.8-35.4); Mean Corpuscular Hemoglobin 31.9 pg (27.0-31.2); Mean Corpuscular Volume 96.3 fl (80-94); Mean Platelet Volume 8.7 fl (7.4-10.4); Monocytes # 0.4 K/mm3 (0.1-1.0); Monocytes % 8.5 % (1.7-9.3); Neutrophils # 3.3 K/mm3 (1.8-7.8); Platelet Count 162 K/mm3 (142-424); Red Blood Count 5.27 M/mm3 (4.60-6.20); Red Cell Distribution Width 13.5 % (11.5-17.5); White Blood Count 4.6 K/mm3 (4.8-10.8)
[2023-04-28 08:32] LABS: Chloride 102 mmol/L (98-107)
[2023-04-28 08:33] LABS: Sodium 138 mmol/L (136-145)
[2023-04-28 08:35] LABS: Blood Urea Nitrogen 20 mg/dl (9-20); Creatinine Clearance Estimated 69 mL/min (50-200); Estimated Glomerular Filt Rate 54 ml/min (>60); GFR (African American) 65 ML/MIN (>60)
[2023-04-28 08:36] LABS: Calcium 9.4 mg/dl (8.4-10.2); Carbon Dioxide 27 mmol/L (22.0-30.0); Glucose 141 mg/dl (74-100)
== END 2023-04-28 14:00 | disposition home or self-care (01) ==
PROVIDERS: PCP Psychiatry & Neurology Sleep Medicine; Visit Provider Internal Medicine
DX: R94.39 Abnormal result of other cardiovascular function study (principal); Z79.899 Other long term (current) drug therapy; Z79.01 Long term (current) use of anticoagulants; Z79.84 Long term (current) use of oral hypoglycemic drugs; F17.210 Nicotine dependence, cigarettes, uncomplicated; I48.11 Longstanding persistent atrial fibrillation; Z95.810 Presence of automatic (implantable) cardiac defibrillator; I50.20 Unspecified systolic (congestive) heart failure; I25.10 Atherosclerotic heart disease of native coronary artery without angina pectoris; I11.0 Hypertensive heart disease with heart failure
CPT/HCPCS: 80048; 85025; 92978; 92979; 93458; 99152; 99153; C1725; C1760; C1769; J1644; Q9967

== ENCOUNTER 2023-09-15 07:08 | Outpatient (CLI) | payer MEDICARE, OTHER, SELFPAY ==
[2023-09-15 19:34] LABS: Chloride 107 mmol/L (98-107)
[2023-09-15 19:35] LABS: Potassium 4.5 mmoL/L (3.5-5.1); Sodium 138 mmol/L (136-145)
[2023-09-15 19:37] LABS: Alanine Aminotransferase 22 U/L (12-78); Aspartate Amino Transferase 27 U/L (17-59); Blood Urea Nitrogen 22 mg/dl (9-20); Estimated Glomerular Filt Rate 59 ml/min (>60); GFR (African American) 72 ML/MIN (>60)
[2023-09-15 19:38] LABS: Albumin Level 3.9 g/dl (3.5-5.0); Albumin/Globulin Ratio 1.6 (1.1-1.8); Alkaline Phosphatase 84 U/L (38-126); Anion Gap 10.5 mEq/L (5-15); Bilirubin,Total 1.9 mg/dl (0.2-1.3); Calcium 9.4 mg/dl (8.4-10.2); Carbon Dioxide 25 mmol/L (22.0-30.0); Globulin 2.4 g/dL (1.3-3.2); Glucose 120 mg/dl (74-100); Total Protein,Serum 6.3 g/dl (6.3-8.2)
== END 2023-09-15 23:59 | disposition home or self-care (01) ==
LOC: LAB.DROPOF 09-17 07:09
PROVIDERS: PCP Family Medicine; Visit Provider Family Medicine
DX: I50.20 Unspecified systolic (congestive) heart failure (principal)
CPT/HCPCS: 80053

== ENCOUNTER 2023-09-17 09:16 | Outpatient (POV) | payer MEDICARE, OTHER, SELFPAY | END 2023-09-17 23:59 | disposition home or self-care (01) | LOC: SC 09:17 | PROVIDERS: Visit Provider Specialist/Technologist | DX: Z00.00 Encounter for general adult medical examination without abnormal findings (principal) ==

== ENCOUNTER 2023-12-02 10:00 | Outpatient (RCR) | payer MEDICARE, OTHER, SELFPAY ==
--- NOTE | 2023-11-02 13:35 | HMH.PTOPEV ---
PT Outpatient Evaluation Rehab PT Outpatient Evaluation Start: 11/02/23 11:18 Freq: Status: Active Protocol: Document 11/02/23 11:18 MONY (Rec: 11/02/23 12:52 MONY [email or web address]) E-signed By Elizabeth Livingston, PT Outpatient Therapy Subjective History Subjective History This is an initial evaluation for 73 y/o male, Jos Bolivar, who presents with referral for right-sided sciatica with weakness. Pt reports his leg pain began ~6 weeks ago insidiously but reports it has gotten better since. Pt reports all symptoms are right-sided, denies numbness or tingling, and does not recall an injury/falls leading to his pain. Reports weakness and some RLE giving out. Pt denies having any imaging of LB. Pt reports he has a neurology appointment on December 13. Pt is retired and helps care for his . Pt with hopes to get better and be able to do things he enjoys like fishing. PMH: Hypertension, pacemaker placement, Type 2 diabetes mellitus, DDD New diagnosis of cancer in past 12 No months? Chief Complaint Pain Symptom Type Sharp,Stabbing Symptoms Relieved By Rest/Positioning Symptoms Aggravated By Standing,Bending/Stooping, Walking Prior Functional Limitations None Current Functional Limitations Lifting,Desk Work/Reading, Driving,Squatting,Recreation Activity,Walking,Balance Symptom Description Intermittent Level of pain today (0-10) 0 Pain scale - at its best (0-10) 0 Pain scale - at its worst (0-10) 8 Lumbopelvic Eval Posture Thoracic Spine Posture Standing Position Neutral Lumbar Spine Posture Standing Position Neutral Assistive device Assistive Devices None / NA Gait Observation General Gait Pattern Observation Antalgic Gait Palapation tenderness right thoracic spinal tenderness No lumbar spinal tenderness No paraspinal tenderness Yes: 1/4 TTP left thoracic spinal tenderness No lumbar spinal tenderness Yes: 1/4 TTP paraspinal tenderness Yes: 1/4 TTP Range of Motion Lumbar Spine Active Flexion Range of 50 deg, painful Motion (degrees) Lumbar Spine Active Extension Range of 15 deg, painful Motion (degrees) Left Lumbar Spine Lateral Flexion Active WNL, painfree Range of Motion (degrees) Right Lumbar Spine Lateral Flexion WNL, painfree Active Range of Motion (degrees) Lumbar Spine ROM Limitations Soft Tissue Tightness,Pain Manual Muscle Test Right Knee Extension Strength Grade 4 Good Knee Flexion Strength Grade 4 Good Hip Flexion Strength Grade 4 Good Hip Abduction Strength Grade 4 Good Hip Adduction Strength Grade 4 Good Left Knee Extension Strength Grade 5 Normal Knee Flexion Strength Grade 5 Normal Hip Flexion Strength Grade 5 Normal Hip Abduction Strength Grade 5 Normal Hip Adduction Strength Grade 5 Normal Special Tests Hip Scouring (Quadrant) Test Negative Right Hip Gopi (EDSON) Test Negative Right Hip Piriformis Test Positive Right Sciatic Nerve Tension Test Positive Right Crossed Straight Leg Raise Test Negative Left,Negative Right Hip Melissa's Test Negative Left,Negative Right Oswestry Index Section 1 Pain Intensity The pain is severe and does not vary much Section 2 Personal Care (Washing,Dresing) increase the pain, but I manage not to change my way of doing it Section 3 Lifting Pain prevents me from lifting weights off the floor Section 4 Walking I cannot walk at all without increasing pain Section 5 Sitting I can sit in my favorite chair for as long as I like Section 6 Standing I have some pain on standing, but it does not increase with time Section 7 Sleeping I get pain in bed, but it does not prevent me from sleeping well Section 8 Social Life My social life is normal and gives me no extra pain Section 9 Traveling I get extra pain while traveling which compels me to seek alternate fo Section 10 Changing Degreee of Pain My pain is gradually getting worse Score and Risk Level Oswestry Sc 24 Oswestry Risk Level Moderate Disability Outpatient Therapy Assessment Impairments Problems/Impairmments Palpation Tenderness,Impaired Range of Motion,Impaired Strength,Impaired Transfers, Impaired Gait Pattern,Impaired Walking,Impaired Standing, Impaired Bending,Impaired Recreational Activities, Subjective C/O Pain Prognosis Rehab Potential Good Comment Pt presents with complaints and symptoms consistent with his medical diagnosis of sciatica (R). Pt would benefit from skilled OP PT to address deficits and return to PLOF. Clinical Impression Consistent with Diagnosis Yes Short Term Goals Number of Weeks 3 Increase Range of Motion Yes: Increase lumbar AROM by 10 degrees without increase in pain. Improve Oswestry Score Yes: Improve by 4 points to decrease disability Decrease Subjective C/O Pain Yes: At worst 6/10 to decrease pain severity. Patient to be Ind w/ Advanced HEP Yes Ranch Supervisor Goals Number of Weeks 6 Increase Range of Motion Yes: Lumbar AROM WNL to improve daily function. Increase Strength Yes: RLE 5/5 to return to PLOF and maximize functional strength. Improve Gait Pattern without Assistive Yes: Demo 50' with min-no Device antalgic gait/ with even BLE stance time without cues. Improve Oswestry Score Yes: Improve to score reflecting mild disability to improve QOL. Decrease Subjective C/O Pain Yes: At worst 3/10 to decrease severity and improve QOL. Patient to be Ind w/ Advanced HEP Yes Outpatient Therapy Plan of Care Treatment Plan May Include Therapeutic Exercise Including Home Yes Exercise Program Manual Therapy Techniques Yes Neuromuscular Re-education Yes Therapeutic Activities to Return to Yes Previous Functional/Work Level Gait Training Yes ADL/Self Care Education Yes Mechanical Traction Yes Dry Needling Yes Thermal Modalities Yes Electrical Stimulation No: Pacemaker Orthotics/Bracing/Splinting Yes Massage Yes Eval/Re-Eval Yes Aquatic Therapy Yes Frequency Times per week 2x Duration Number of Weeks 5-6 weeks Addendums This patient is a candidate for social No or vocational rehab? Patient/Guardian verbally acknowledges Yes understanding of treatment program and consents to further treatment? Patient/Guardian verbally acknowledges Yes understanding of diagnosis, prognosis and goals for treatment? Eval Complexity PT Charges 50837 - Low Complexity Shoulder/Elbow Eval Shoulder Objective Measurements Elbow Objective Measurements PHYSICIAN CERTIFICATION: I certify the specified therapy services for Jos Bolivar are required, authorized, and reviewed every 30 days.
--- NOTE | 2023-12-02 10:46 | HMH.RHREAS ---
Rehab Reassessment Rehab OP Re-assessment Start: 11/02/23 11:18 Freq: Status: Active Protocol: Document 12/02/23 10:07 VALENTINAURORA (Rec: 12/02/23 10:45 VALENTINAURORA [id number]) E-signed By Elizabeth Livingston, PT Oswestry Index Section 1 Pain Intensity The pain is moderate and does not vary much Section 2 Personal Care (Washing,Dresing) increase the pain, but I manage not to change my way of doing it Section 3 Lifting Pain prevents me from lifting weights off the floor Section 4 Walking I cannot walk at all without increasing pain Section 5 Sitting I can sit in any chair for as long as I like Section 6 Standing I have some pain on standing, but it does not increase with time Section 7 Sleeping I get no pain in bed Section 8 Social Life Pain has restricted my social life and I do not go out often Section 9 Traveling I get some pain when traveling , but none of my usual forms of travel m Section 10 Changing Degreee of Pain My pain fluctuates, but overall is definitely getting better Score and Risk Level Oswestry Sc 18 Oswestry Risk Level Moderate Disability Rehab Re-assessment Subjective Subjective Pt reports he feels 75% improved since IE. 24-hour pain average: 3/10 Pain at worst: 4/10 Pain today: 0/10 Pt reports he has noticed some improvement in his symptoms since starting PT Pt reports he goes to a neurology specialist on December 13 Objective Objective Notes Lumbar AROM: FLEX= 70, nonpainful EXT= 15, nonpainful R SB= WNL L SB= WNL RLE strength: Hip Flexion: 4+/5 Hip ABD: 4+/5 Hip ADD: 5/5 Knee ext: 5/5 Assessment Progress Assessment Progressing as Expected Assessment Notes This is a reassessment for Jos Bolivar who presents to PT for c/o R-sided sciatica. Since IE, pt has been seen for 4 visits that have consisted of modalities prn, education, and therapeutic exercises focusing on lumbar ROM, stretches, and core strengthening. Pt with good attendance to scheduled PT visits and reports adherence to some HEP items. Since IE, pt with improvements in lumbar ROM and self-reported outcome . Pt still presents with the pain complaints present upon initial evaluation and tight RLE HS. Pt wishes to continue therapy until after his neurology appointment. Pt would continue to benefit from skilled outpatient physical therapy to address remaining deficits and achieve LTGs. Patient goals met ST/4 LTG: In progress Plan Plan Continue POC Frequency of Therapy 2x Duration of therapy 3 weeks Time and Billing Re-Eval Time 10 Re-Eval Billing Units 1 PHYSICIAN CERTIFICATION: I certify the specified therapy services for Jos Bolivar are required, authorized, and reviewed every 30 days.
== END 2023-12-02 11:00 | disposition home or self-care (01) ==
LOC: PT 10:00
PROVIDERS: Visit Provider Family Medicine
DX: M54.31 Sciatica, right side (principal)
CPT/HCPCS: 97110; 97163; 97164; 97530; 97535

== ENCOUNTER 2024-02-16 12:20 | Outpatient (CLI) | payer MEDICARE, OTHER, SELFPAY ==
[2024-02-16 20:48] LABS: Alanine Aminotransferase 32 U/L (12-78); Albumin/Globulin Ratio 1.5 (1.1-1.8); Alkaline Phosphatase 75 U/L (38-126); Anion Gap 10.9 mEq/L (5-15); Aspartate Amino Transferase 28 U/L (17-59); Bilirubin,Total 1.3 mg/dl (0.2-1.3); Blood Urea Nitrogen 16 mg/dl (9-20); Calcium 9.1 mg/dl (8.4-10.2); Carbon Dioxide 25 mmol/L (22.0-30.0); Chloride 106 mmol/L (98-107); Estimated Glomerular Filt Rate 59 ml/min (>60); GFR (African American) 72 ML/MIN (>60); Globulin 2.6 g/dL (1.3-3.2); Glucose 139 mg/dl (74-100); Potassium 3.9 mmoL/L (3.5-5.1); Sodium 138 mmol/L (136-145); Total Protein,Serum 6.6 g/dl (6.3-8.2)
[2024-02-16 21:19] LABS: Prostate Specific Ag Screen 1.4 ng/ml (0.0-4.0)
== END 2024-02-16 23:59 | disposition home or self-care (01) ==
LOC: LAB.DROPOF 02-17 12:00
PROVIDERS: PCP Family Medicine; Visit Provider Family Medicine
DX: N40.0 Benign prostatic hyperplasia without lower urinary tract symptoms (principal); I10 Essential (primary) hypertension; I25.10 Atherosclerotic heart disease of native coronary artery without angina pectoris; Z12.5 Encounter for screening for malignant neoplasm of prostate
CPT/HCPCS: 80053; G0103

== ENCOUNTER 2024-04-26 14:31 | Inpatient (IN) | payer MEDICARE, SELFPAY ==
--- OUTSIDE RECORDS SUMMARY | 2024-04-26 14:35 | XMS_ITS | Encounter Summary ---
Author Organization [facility] Address [address] [place] [address] Care Team Providers Care Environmental Projects Advisor Name Role Phone Unavailable Primary Care Provider Unavailabl e Encounter Details Date Type Department Care Team (Latest Contact Info) Description 12/17/2022 3:10 PM EDT Ancillary Procedure [place] [id number] [facility] [address] [place] [address] CHF (congestive heart failure) (CMS/HCC) Social History Tobacco Use Types Packs/Day Years Used Date Smoking Tobacco: Never Assessed Sex and Gender Information Value Date Recorded Sex Assigned at Not on file Legal Sex Male 8:47 PM EDT Gender Identity Not on file Sexual Orientation Not on file documented as of this encounter Last Filed Vital Signs Vital Sign Reading Time Taken Comments Blood Pressure 137/75 12/17/2022 4:52 PM EDT Pulse - - Temperature - - Respiratory Rate - - Oxygen Saturation - - Inhaled Oxygen Concentration - - Weight 96.6 kg (213 lb) 12/17/2022 4:52 PM EDT Height 177.8 cm (5' 10 ) 12/17/2022 4:52 PM EDT Body Mass Index 30.56 12/17/2022 4:52 PM EDT documented in this encounter Plan of Treatment Not on file documented as of this encounter Procedures Procedure Name Priority Date/Time Associated Diagnosis Comments ADULT ECHO OUTSIDE READ Routine 12/17/2022 4:52 PM EDT CHF (congestive heart failure) (CMS/HCC) documented in this encounter Results * ADULT ECHO OUTSIDE READ (12/17/2022 4:52 PM EDT) BSA 2.14 m2 JARED ISCV Height 177.8 JARED ISCV Weight 96.6 JARED ISCV LVIDd 42 mm JARED ISCV LVIDs 27 mm JARED ISCV Anatomical Region Laterality Modality Echocardiography Narrative 12/17/2022 6:13 PM EDT ?Left??Ventricle: The left ventricular systolic function is normal. The LVEF is visually estimated at 60 - 65%. The diastolic function is abnormal. There is grade I (mild) diastolic dysfunction. The left ventricular filling pressure is normal. ?Right??Ventricle: The right ventricular systolic function is normal. ?Pericardium: No pericardial effusion. ?There is no recent study available for direct [id number] comparison. ?? Left Ventricle The left ventricle is normal size. There is normal left ventricular myocardial thickness and mass. No left ventricular mass or thrombus is seen. The left ventricular systolic function is normal. The LVEF is visually estimated at 60 - 65%. The diastolic function is abnormal. There is grade I (mild) diastolic dysfunction. The left ventricular filling pressure is normal. No regional wall motion abnormalities are seen. Right Ventricle The right ventricle was not well visualized. The right ventricle is mildly dilated. A catheter/lead is present in the right ventricle. The right ventricular systolic function is normal. The spectral Doppler envelope of TR is not adequate for calculating the right ventricular systolic pressure (RVSP). Based upon other 2D and Doppler features, the RVSP is probably normal or at most mildly elevated. Left Atrium The left atrium is mildly dilated by visual assessment. The interatrial septum is intact with no evidence for an atrial septal defect. IVC/SVC Based on the IVC size and respiratory variation, the estimated right atrial pressure is 3mmHg. Mitral Valve The mitral valve leaflets are normal in appearance with no evidence of mitral valve prolapse. There is no mitral regurgitation. There is no mitral stenosis. Tricuspid Valve The tricuspid valve is grossly normal in appearance. There is trace tricuspid regurgitation. There is no tricuspid stenosis. Aortic Valve The aortic valve appears grossly normal. There is trace aortic valve regurgitation. There is no hemodynamically significant valvular aortic stenosis. Pulmonic Valve The pulmonic valve is grossly normal. There is mild pulmonic regurgitation. There is no pulmonic stenosis. Pericardium No pericardial effusion. Great Vessels The aortic root is normal in size. The main pulmonary artery is not well visualized. Study Details Height: 177.8 cm. Weight: 96.6 kg. BSA: 2.14 m2. Study Recommendation There is no recent study available for direct [id number]-[id number] comparison. Benson HODGSON CV ECHO PROCEDURES Final Result documented in this encounter Visit Diagnoses Diagnosis CHF (congestive heart failure) (CMS/[facility]) Congestive heart failure, unspecified documented in this encounter
--- OUTSIDE RECORDS SUMMARY | 2024-04-26 14:35 | XMS_ITS ---
Laboratory report Created on: April 06, 2024 ORLY LOPEZ : 1950 Sex: Male Author Organization Unknown PROBLEMS Problems List Code Description RESULTS Laboratory Orders Date Order Code Test 2021-11-29 072599 RHEUMATOID FACTO R (RF) 2021-11-29 [id number] ANTINUCLEAR AB 9 BY MULTIPLEX Laboratory Results Date LOINC Test Value Unit Reference Range Interpre tation 2021-11-29 08129-1 RHEUMATOID FACTOR (RF) <10.0 IU/ML <14.0 2021-11-29 5130-0 ANTI-DNA (DS) AB QN <1 IU/ML 0-9 2021-11-29 69943-3 ENGRAVING PLATE MAKER ANTIBODIES <0.2 AI 0.0-0.9 2021-11-29 95252-1 BERRIOS ANTIBODIES <0.2 AI 0.0-0.9 2021-11-29 36567-2 ANTISCLERODERMA- 70 ANTIBODIES <0.2 AI 0.0-0.9 2021-11-29 38199-1 SJOGREN'S ANTI-SS-A <0.2 AI 0.0-0.9 2021-11-29 75562-2 SJOGREN'S ANTI-SS-B <0.2 AI 0.0-0.9 2021-11-29 67437-8 ANTICHROMATIN ANTIBODIES <0.2 AI 0.0-0.9 2021-11-29 63007-0 ANTI-OPHELIA-1 <0.2 AI 0.0-0.9 2021-11-29 45828-6 ANTI-CENTROMERE B ANTIBODIES <0.2 AI 0.0-0.9
--- OUTSIDE RECORDS SUMMARY | 2024-04-26 14:35 | XMS_ITS ---
Author Organization Unknown ALLERGIES AND ADVERSE REACTIONS No information ASSESSMENT No information CHIEF COMPLAINT No information MEDICATIONS No information OBJECTIVE DATA No information PHYSICAL EXAMINATION No information TREATMENT PLAN Planned Care Start Date Provider Encounter for Check-up [id number] [facility] PROBLEMS No information RESULTS No information REVIEW OF SYSTEMS No information SUBJECTIVE DATA No information VITAL SIGNS No information
--- OUTSIDE RECORDS SUMMARY | 2024-04-26 14:35 | XMS_ITS | Clinical Summary ---
Author Organization [facility] Address [address] [place] [address] Care Team Providers Care Remote Control Assembler Name Role Phone Unavailable Primary Care Provider Unavailabl e Social History Tobacco Use Types Packs/Day Years Used Date Smoking Tobacco: Never Assessed Sex and Gender Information Value Date Recorded Sex Assigned at Not on file Legal Sex Male 8:47 PM EDT Gender Identity Not on file Sexual Orientation Not on file Last Filed Vital Signs Vital Sign Reading Time Taken Comments Blood Pressure 137/75 12/17/2022 4:52 PM EDT Pulse - - Temperature - - Respiratory Rate - - Oxygen Saturation - - Inhaled Oxygen Concentration - - Weight 96.6 kg (213 lb) 12/17/2022 4:52 PM EDT Height 177.8 cm (5' 10 ) 12/17/2022 4:52 PM EDT Body Mass Index 30.56 12/17/2022 4:52 PM EDT Plan of Treatment Health Maintenance Due Date Last Done Comments [facility]-Depression Screening 1950 [facility]-Infant/Child/Adol SDOH Screenings 1950 [facility]- SDOH Screenings 1968 [facility]-Adult SDOH Screenings 1968 CT Colonography 1995 Colonoscopy 1995 FIT-DNA 1995 FIT 1995 FOBT 1995 Sigmoidoscopy 1995 [facility]-Colorectal Cancer Screening 1995 [facility]-Zoster Vaccines (1 of 2) 2000 [facility]-DTaP,Tdap,and Td Vaccine s (2 - Td or Tdap) 04/21/2021 04/21/2011, 08/03/1996 [facility]-Pneumococcal Vaccine: 65 + Years (2 of 2 - PCV) 07/06/2021 07/06/2020 [id number] Vaccine (3 - 2023- season) 2024 07/24/2020, 06/27/2020 [facility]-Influenza Vaccine (#1) 2024 05/10/2021 [facility]-RSV Vaccine: 60+ Years o r (1 - 1-dose 75+ series) 2025 [facility]-HIB Vaccines Aged Out No longer e ligible based on patient's age to complete this topic [facility]-HPV Vaccines Aged Out No longer e ligible based on patient's age to complete this topic [facility]-Hepatitis A Vaccines Aged Out No longer eligible based on patient's age to complete this topic [facility]-IPV Vaccines Aged Out No longer e ligible based on patient's age to complete this topic [facility]-Rotavirus Vaccines Aged Out No lo nger eligible based on patient's age to complete this topic Insurance MEDICARE [facility] [place] [id number]
--- OUTSIDE RECORDS SUMMARY | 2024-04-26 14:36 | XMS_ITS | Encounter Summary ---
Author Organization [facility] Address [address] [place] [address] Care Team Providers Care Clinical Team Lead Name Role Phone Jose Valdez MD Primary Care Provider [phone] Reason for Visit * Reason Onset Date Comments remote monitoring 01/19/2020 Encounter Details Date Type Department Care Team (Late st Contact Info) Description 01/19/[address] [facility] [address] [place] [address] [address] [place] [address] Nadia Cuevas, RN remote monitoring Social History Tobacco Use Types Packs/Day Years Used Date Smoking Tobacco: Former Cigarettes Q uit: 08/01/1981 Smokeless Tobacco: Never Alcohol Use Standard Drinks/Week Comments Yes 0 (1 standard drink = 0.6 oz pur e alcohol) occas Sex and Gender Information Value Date Recorded Sex Assigned at Not on file Legal Sex Male 12:24 PM EDT Gender Identity Not on file Sexual Orientation Not on file documented as of this encounter Miscellaneous Notes * Telephone Encounter - Nadia Cuevas RN - 01/19/2020 3:02 PM EDT Called pt due to Latitude home monitor didn't send in scheduled reading. Left message for pt to return my call. documented in this encounter Plan of Treatment Not on file documented as of this encounter Visit Diagnoses Not on filedocumented in this encounter Care Teams Clinical Team Lead Relationship Specialty Start Date End Date Jose Valdez MD [address] [facility] [address] [place] [address] PCP - General 07/27/15 documented as of this encounter
--- OUTSIDE RECORDS SUMMARY | 2024-04-26 14:36 | XMS_ITS | Encounter Summary ---
Author Organization [facility] Address [address] [place] [id number] Care Team Providers Care Mercerizing Range Controller Name Role Phone Jose Valdez MD Primary Care Provider [phone] Reason for Visit * Reason Onset Date Comments Remote cardiac monitoring 08/04/2022 Vance lin Afib Encounter Details Date Type Department Care Team (Late st Contact Info) Description 08/04/2022 Telephone [facility] [address] [facility] [address] [place] [address] Viktor Nelson MD [address] [facility] [address] [place] [address] Remote cardiac monitoring (Ongoing Afib) Social History Tobacco Use Types Packs/Day Years [...] encounter Miscellaneous Notes * Telephone Encounter - Johnna Chau RN - 08/04/2022 12:50 PM EST Per [facility] remote cardiac device transmission received today, 08/04/2022: Ongoing Afib in presenting EGM & since 07/31/2022. No Afib burden provided by device. V-rates controlled. Pt denies any symptomatology. Pt reports he's been in his usual state of health & denies recentillnesses. Pt states he ...can't take that blood thinner. documented in this encounter Plan of Treatment Not on file documented as of this encounter Visit Diagnoses Not on filedocumented in this encounter Care Teams Mercerizing Range Controller Relationship Specialty Start Date End Date Jose Valdez MD [facility] [address] [facility] [address] [place] [address] PCP - General 07/27/15 documented as of this encounter
--- OUTSIDE RECORDS SUMMARY | 2024-04-26 14:36 | XMS_ITS | Encounter Summary ---
Author Organization [facility] Address [address] [place] [address] Care Team Providers Care City Weighmaster Name Role Phone Jose Valdez MD Primary Care Provider +1 [phone] Reason for Visit * Reason Comments remote monitoring Encounter Details Date Type Department Care Team (Latest Contact Info) Description 03/30/2019 12:05 AM EDT Clinical Support No Requirements [facility] CARDIOLOGY [address] [place] [address] [address] [place] [address] Nonischemic cardiomyopathy; Paroxysmal atrial fibrillation Social History Tobacco Use Types Packs/Day Years [...] on file documented as of this encounter Plan of Treatment Not on file documented as of this encounter Procedures Procedure Name Priority Date/Time Associated Diagnosis Comments PACEART REMOTE DEVICE CHECK 03/30/2019 4:21 AM EDT documented in this encounter Results * PACEART REMOTE DEVICE CHECK (03/30/2019 4:21 AM EDT) Anatomical Region Laterality Modality Other Viktor Nelson MD CV CARDIAC SERVICES ORDERABLES F inal Result documented in this encounter Visit Diagnoses Diagnosis Nonischemic cardiomyopathy Other primary cardiomyopathies Paroxysmal atrial fibrillation Atrial fibrillation documented in this encounter Care Teams City Weighmaster Relationship Specialty Start Date End Date Jose Valdez MD [address] [place] [facility] [address] [facility] [address] [place] [address] PCP - General 07/27/15 documented as of this encounter
--- OUTSIDE RECORDS SUMMARY | 2024-04-26 14:36 | XMS_ITS | Encounter Summary ---
Author Organization [facility] Address [address] [place] [address] Care Team Providers Care Data Report Analyst Name Role Phone Jose Valdez MD Primary Care Provider [phone] [phone] Reason for Visit * Reason Onset Date Comments remote monitoring 04/14/2019 afib Encounter Details Date Type Department Care Team (Late st Contact Info) Description 04/14/2019 Telephone [facility] CARDIOLOGY [address] [place] [address] [address] [place] [address] Nadia Cuevas, RN remote monitoring (afib) Social History Tobacco Use Types Packs/Day Years [...] Telephone Encounter - Nadia Cuevas RN - 04/14/2019 8:32 AM EST Called to check in with pt regarding some afib episodes seen on his home monitor. Wanted to verify he is taking his Xarelto. Left message for pt to return my call. Pt returned my call and his is taking his Xarelto. He is feeling good and will call with any issues. documented in this encounter Plan of Treatment Not on file documented as of this encounter Visit Diagnoses Not on filedocumented in this encounter Care Teams Data Report Analyst Relationship Specialty Start Date End Date Jose Valdez MD 1210 [facility] [address] [facility] 2 [place] [address] PCP - General 07/27/15 documented as of this encounter
--- OUTSIDE RECORDS SUMMARY | 2024-04-26 14:36 | XMS_ITS | Clinical Summary ---
Author Organization [facility] Address [address] [place] [address] Care Team Providers Care Hair Boiler Name Role Phone Jose Valdez MD Primary Care Provider [phone] [phone] Allergies No known active allergies Medications metFORMIN (GLUCOPHAGE) 500 MG tablet Take 500 mg by mouth 2 (Two) Times a Day. 7 Active tamsulosin (FLOMAX) 0.4 MG capsule 24 hr capsule Take 2 capsules by mouth Daily. 7 Active aspirin 81 MG tablet Take 1 tablet by mouth Daily. 30 tablet 11 Active amLODIPine (NORVASC) 10 MG tabletIndications :Essential hypertension Take 1 tablet by mouth Daily. 90 tablet 3 0 Active DULoxetine (CYMBALTA) 30 MG capsule Take 30 mg by mouth Daily. 1 Active irbesartan-hydroc hlorothiazide (AVALIDE) 300-12.5 MG tablet Take 1 tablet by mouth Daily. 1 Active rosuvastatin (CRESTOR) 5 MG tablet Take 1 tablet by mouth Daily. Active empagliflozin (JARDIANCE) 10 MG tablet tablet Take by mouth Daily. Active carvedilol (COREG) 25 MG tablet TAKE 1 TABLET TWICE DAILY WITH MEALS 180 tablet 4 Active Active Problems Problem Noted Date Diagnosed Date Paroxysmal atrial fibrillation 03/04/2019 Overview (03/04/2019): ?? Noted on device interrogation Nonischemic cardiomyopathy 06/11/2016 Overview (08/29/2019): a. [facility] March 2005, showed nonobstructive coronary artery disease. Moderate left ventricular dysfunction with ejection fraction of 45%. b. Echocardiogram in October 2005, showed dilated cardiomyopathy with ejection fraction of 35%. c. [employer] ICD implant by Dr. Hooper on 05/01/2006 d. Echocardiogram (10/01/2012): Ejection fraction 50% to 55%. e. ICD interrogation 07/27/2015 revealed normal ICD function, 1 brief nonsustained ventricular tachycardia, 8 years of battery life. Hypertension 06/11/2016 Dyslipidemia 06/11/2016 Type 2 diabetes mellitus 06/11/2016 Obesity 06/11/2016 Overview (06/11/2016): 1. Obesity, BMI 31.6. Carotid artery disease 06/11/2016 Overview (06/11/2016): Nonocclusive carotid artery disease, has follow-up carotid ultrasound scheduled for today Family History Medical History Relation Name Comments Heart attack Father Relation Name Status Comments Father Mother Social History Tobacco Use Types Packs/Day Years Used Date Smoking Tobacco: Former Cigarettes Q uit: 08/01/1981 Smokeless Tobacco: Never Alcohol Use Standard Drinks/Week Comments Yes 0 (1 standard drink = 0.6 oz pur e alcohol) occas Abuse Screen Answer Date Recorded Unsafe at Home or Work/School Not on file Feels Threatened by Someone? Not on file 01/2023 Does Anyone Keep You from Co ntacting Others or Doint Things Outside the Home? Not on file 03/09/2023 Physical Sign of Abuse Present Not on file 1 Housing Stability Answer Date Recorded Current Living Arrangements Not on file 01/2023 Potentially Unsafe Housing Conditions Not on ifeanyi e 03/09/2023 Family and Community Support Answer Santos e Recorded Help with Day-to-Day Activities Not on file 03/09/2023 Lonely or Isolated Not on file 03/09/2023 Employment Answer Date Recorded Do you want help finding or keeping work or a lalita b? Not on file 03/09/2023 Disabilities Answer Date Recorded Concentrating, Remembering, or Making Decisions Difficulty Not on file 03/09/2023 Doing Errands Independently Difficulty Not on fi le 03/09/2023 Education Answer Date Recorded Help with school or training? Not on file Preferred Language Not on file 03/09/2023 Sex and Gender Information Value Date Recorded Sex Assigned at Not on file Legal Sex Male 12:24 PM EDT Gender Identity Not on file Sexual Orientation Not on file Last Filed Vital Signs Vital Sign Reading Time Taken Comments Blood Pressure 124/68 04/11/2022 1:36 PM EST Pulse 80 04/11/2022 1:36 PM EST Temperature 36.5 ??C (97.7 ??F) 08/02/2020 9:18 AM ES T Respiratory Rate 18 02/21/2019 1:20 PM EDT Oxygen Saturation 98% 04/11/2022 1:36 PM EST Inhaled Oxygen Concentration - - Weight 94.3 kg (208 lb) 04/11/2022 1:36 PM EST Height 177.8 cm (5' 10 ) 04/11/2022 1:36 PM EST Body Mass Index 29.84 04/11/2022 1:36 PM EST Plan of Treatment Health Maintenance Due Date Last Done Comments COLOGUARD 1950 COLON CANCER SCREENING 5 YEA R SIGMOIDOSCOPY 1950 COLONOSCOPY 1950 COLORECTAL CANCER SCREENING [address] COLONOGRAPHY 1950 FECAL OCCULT BLOOD TEST 1950 FIT Testing (1 year) 1950 Pneumococcal Vaccine 65+ (1 of 2 - PCV) 1956 DIABETIC EYE EXAM 1960 DIABETIC FOOT EXAM 1960 ZOSTER VACCINE (1 of 2) 2000 ANNUAL WELLNESS VISIT 12/19/2016 HEMOGLOBIN A1C 12/19/2016 HEPATITIS C SCREENING 12/19/2016 TDAP/TD VACCINES (3 - Td or Tdap) 04/21/2021 011, 08/03/1996 INFLUENZA VACCINE 12/31/2023 04/08/2022, , 03/20/2020 COVID-19 Vaccine ( season) 2024 Medical Devices Implanted Type Area Grant Coordinator Device Identifier Shelf Expiration Date Model / Serial / Lot Icd-12/27/2012 Implanted:12/27 by Austin Hooper MD (Quantity not on file) ICD [employer] Insurance MEDICARE A & B Member Subscriber Plan / Payer (Ef fective 2015-Present) Name:Jos Bolivar Member ID:[id number] Relation to Subscriber:Self Name:Jos Bolivar Subscriber ID:[id number] Payer ID:[id number] Group ID:Not on file Type:Not on file Address: [address] Care Teams Hair Boiler Relationship Specialty Start Date End Date Jose Valdez MD [address] [place] [facility] [address] [place] [address] PCP - General 07/27/15
--- OUTSIDE RECORDS SUMMARY | 2024-04-26 14:36 | XMS_ITS | Encounter Summary ---
Author Organization [facility] Address [address] [place] [address] Care Team Providers Care Distribution Systems Serviceperson Name Role Phone Jose Valdez MD Primary Care Provider [phone] [phone] Reason for Visit * Reason Comments Med Refill Encounter Details Date Type Department Care Team (Late st Contact Info) Description 06/29/2023 Refill [facility] CARDIOLOGY 1720 [facility] [address] [place] [address] Susan Joseph PA-C 1720 [facility] [address] [place] [phone] Med Refill Social History Tobacco Use Types Packs/Day Years [...] on filedocumented in this encounter Care Teams Distribution Systems Serviceperson Relationship Specialty Start Date End Date Jose Valdez MD [address] [place] [facility] [address] [facility] [address] [place] [address] PCP - General 07/27/15 documented as of this encounter
--- OUTSIDE RECORDS SUMMARY | 2024-04-26 14:36 | XMS_ITS | Encounter Summary ---
Author Organization [facility] Address [address] [place] [address] Care Team Providers Care Carpenter/Labor Name Role Phone Jose Valdez MD Primary Care Provider [phone] [phone] Reason for Visit * Reason Comments Med Refill Encounter Details Date Type Department Care Team (Late st Contact Info) Description 09/10/2023 Refill [facility] CARDIOLOGY 1720 [facility] 400 [place] [address] Susan Joseph PA-C 1720 [facility] 400 [place] [id number] Med Refill Social History Tobacco Use Types [...] on filedocumented in this encounter Care Teams Carpenter/Labor Relationship Specialty Start Date End Date Jose Valdez MD 1210 [place] [facility] 36 [address] [facility] [address] [place] [address] PCP - General 07/27/15 documented as of this encounter
--- OUTSIDE RECORDS SUMMARY | 2024-04-26 14:36 | XMS_ITS | Encounter Summary ---
Author Organization [facility] Address [address] [place] [address] Care Team Providers Care Composer Teaching Artist Name Role Phone Jose aVldez MD Primary Care Provider +1 -[phone] Reason for Visit * Reason Comments remote monitoring Encounter Details Date Type Department Care Team (Latest Contact Info) Description 07/14/2019 12:15 AM EST Clinical Support No Requirements [facility] CARDIOLOGY [address] [place] [address] [address] [place] [address] Nonischemic cardiomyopathy; Paroxysmal atrial fibrillation [...] Associated Diagnosis Comments PACEART REMOTE DEVICE CHECK 07/14/2019 5:21 AM EST SCANNED - CARDIOLOGY 07/14/2019 documented in this encounter Results * PACEART REMOTE DEVICE CHECK (07/14/2019 5:21 AM EST) Anatomical Region Laterality Modality Other Viktor Nelson MD CV CARDIAC SERVICES ORDERABLES F inal Result * SCANNED - CARDIOLOGY (07/14/2019) Anatomical Region Laterality Modality Other Viktor Nelson MD CV CARDIAC SERVICES ORDERABLES F inal Result documented in this encounter Visit Diagnoses Diagnosis Nonischemic cardiomyopathy Other primary cardiomyopathies Paroxysmal atrial fibrillation Atrial fibrillation documented in this encounter Care Teams Composer Teaching Artist Relationship Specialty Start Date End Date Jose Valdez MD 1210 [facility] [address] [facility] [address] [place] [address] PCP - General 07/27/15 documented as of this encounter
--- OUTSIDE RECORDS SUMMARY | 2024-04-26 14:36 | XMS_ITS | Encounter Summary ---
Author Organization [facility] Address [address] [place] [address] Care Team Providers Care Tire Repairer Name Role Phone Jose Valdez MD Primary Care Provider +1 -[phone] Reason for Visit * Reason Comments Cardiomyopathy Encounter Details Date Type Department Care Team (Late st Contact Info) Description 03/04/2019 1:30 PM EDT Office Visit [facility] CARDIOLOGY [address] [place] [address] Viktor Nelson MD [address] [facility] [address] [place] [address] Paroxysmal atrial fibrillation (Primary Dx); Nonischemic cardiomyopathy; Essential hypertension; Dyslipidemia Social History Tobacco Use Types Packs/Day Years [...] Sign Reading Time Taken Comments Blood Pressure 108/58 03/04/2019 1:07 PM EDT Pulse 85 03/04/2019 1:07 PM EDT Temperature - - Respiratory Rate - - Oxygen Saturation 96% 03/04/2019 1:07 PM EDT Inhaled Oxygen Concentration - - Weight 91.6 kg (202 lb) 03/04/2019 1:07 PM EDT Height 177.8 cm (5' 10 ) 03/04/2019 1:07 PM EDT Body Mass Index 28.98 03/04/2019 1:07 PM EDT documented in this encounter Progress Notes * Viktor Nelson MD - 03/04/2019 1:30 PM EDT [facility] Cardiology Encounter Date:03/04/2019 Patient ID: Jos Bolivar is a 68 y.o. male. : 1950 PCP: Jose Valdez MD Chief Complaint: Cardiomyopathy PROBLEM LIST: 1. Nonischemic cardiomyopathy. a. Symptoms of progressive angina-type ??symptoms in March 2005. b. Exercise/Cardiolite stress test on 03/13/2005, was remarkable for poor exercise tolerance and reversible anterior wall defect with EF 33%. c. [facility], March 2005, Dr. Nelson: Nonobstructive CAD involving the first diagonal, mid-LAD and RCA without evidence of hemodynamically significant stenosis. EF 45%. d. Onset of CHF type symptoms with initiation of appropriate medical therapy. e. Echocardiogram, October 2005: Dilated cardiomyopathy with EF 35%. f. [employer] ICD implant by Dr. Hooper on 05/01/2006. g. Limited echocardiogram, July 2006: EF 45% with global hypokinesis. h. Echocardiogram, December 2007: EF 50-55% with trace MR/TR/PI. i. Echocardiogram, July ??2008: Mild LVH with EF 45-50% and mild LAE. Trace MR/TR. j. Echocardiogram, March 2011: EF 45-50% with mild TR and trace PI. k. Echocardiogram, 10/01/2012: EF 50-55%. l. Echocardiogram, 09/11/2017: EF 51-55%. Left atrial cavity is borderline dilated. Mild MR, trace TR. 2. Hypertension. 3. Dyslipidemia. 4. Diabetes mellitus, type 2. 5. Episode of vertigo-type symptoms. a. Suspected TIA. b. CT scan of the brain with and without contrast, did not show any significant abnormalities. c. Carotid Duplex, 05/08/2014: 20% right ICA plaque and 20-49% left ICA plaque, essentially all velocities were within normal ??limits and the left ICA peak velocity 116 systolic with 38 diastolic. d. Symptoms resolved over 2-3 days spontaneously. ?? 6. Obesity, BMI 31.6. 7. Former smoker, quit 21 years ago. 8. Status post minor surgery many years ago for leg fracture. History of Present Illness Patient presents today for 6 month follow-up with a history of NICM and cardiac risk factors. Sincelast visit, he has been feeling well overall from a cardiovascular standpoint. He went to the ER two weeks ago for episodes of dizziness c/w vertigo, cardiac and neurologic evaluation in the ER was ne leela.. Pt denies any awareness of tachyarrhythmias. Denies chest pain, shortness of breath, leg swelling, palpitations, and syncope. Remains busy and active with with no significant cardiac limitations. We have previously prescribed Xarelto due to atrial fibrillation noted on his device interrogation but he has not been taking it due to high cost. No Known Allergies Current Outpatient Medications: ??? amLODIPine (NORVASC) 10 MG tablet, Take 1 tablet by mouth Daily., Disp: 90 tablet, Rfl: 3 ??? aspirin 81 MG tablet, Take 1 tablet by mouth Daily., Disp: 30 tablet, Rfl: 11 ??? carvedilol (COREG) 25 MG tablet, Take 1 tablet by mouth 2 (Two) Times a Day With Meals., Disp: 180 tablet, Rfl: 3 ??? metFORMIN (GLUCOPHAGE) 500 MG tablet, Take 500 mg by mouth 2 (Two) Times a Day., Disp: , Rfl: ??? pravastatin (PRAVACHOL) 40 MG tablet, Take 1 tablet by mouth Daily., Disp: 30 tablet, Rfl: 11 ??? tamsulosin (FLOMAX) 0.4 MG capsule 24 hr capsule, Take 1 capsule by mouth Daily., Disp: , Rfl: ??? valsartan-hydrochlorothiazide (DIOVAN-HCT) 320-25 MG per tablet, Take 1 tablet by mouth Daily.,Disp: 90 tablet, Rfl: 3 The following portions of the patient's history were reviewed and updated as appropriate: allergies, current medications, past family history, past medical history, past social history, past surgicalhistory and problem list. ROS Review of Systems Constitution: Negative for chills, fatigue, fever, generalized weakness, weight gain and weight loss. Cardiovascular: Negative for chest pain, claudication, dyspnea on exertion, leg swelling, orthopnea, palpitations, paroxysmal nocturnal dyspnea and syncope. Respiratory: Negative for cough, shortness of breath, and wheezing. HENT: Negative for ear pain, nosebleeds, and tinnitus. Gastrointestinal: Negative for abdominal pain, constipation, diarrhea, nausea and vomiting. Genitourinary: No urinary symptoms Musculoskeletal: Negative for muscle cramps. Neurological: Negative for dizziness, headaches, loss of balance, numbness, and symptoms of stroke. Psychiatric: Normal mental status. All other systems reviewed and are negative. Objective: BP 108/58 (BP Location: Left arm, Patient Position: Sitting) Pulse 85 Ht 177.8 cm (70 ) Wt 91.6 kg (202 lb) SpO2 96% BMI 28.98 kg/m?? Physical Exam Constitutional: Patient appears well-developed and well-nourished. HENT: HEENT exam unremarkable. Neck: Neck supple. No JVD present. No carotid bruits. Cardiovascular: Normal rate, regular rhythm and normal heart sounds. No murmur heard. 2+ symmetric pulses. Pulmonary/Chest: Breath sounds normal. Does not exhibit tenderness. Abdominal: Abdomen benign. Musculoskeletal: Does not exhibit edema. Neurological: Neurological exam unremarkable. Vitals reviewed. Lab Review: Lab Results Component Value Date GLUCOSE 259 (H) 02/21/2019 BUN 18 02/21/2019 CREATININE 1.34 (H) 02/21/2019 EGFRIFNONA 53 (L) 02/21/2019 BCR 13.4 02/21/2019 K 3.8 02/21/2019 CO2 25.0 02/21/2019 CALCIUM 9.4 02/21/2019 ALBUMIN 4.80 02/21/2019 AST 15 02/21/2019 ALT 14 02/21/2019 Lab Results Component Value Date WBC 6.81 02/21/2019 HGB 14.7 02/21/2019 HCT 43.9 02/21/2019 MCV 91.8 02/21/2019 PLT 157 02/21/2019 Procedures Manual device interrogation, 03/04/19: Normal, well-functioning [employer] BiV ICD with 6 years of battery life remaining. Events: 57 mode switches, max 13 hours, total < 1% burden. 41 VHR events. 99% RV paced, 99% LV paced, <1% A-paced. Assessment: Diagnosis Plan 1. Paroxysmal atrial fibrillation (CMS/HCC) Samples of Xarelto 20 mg given to the patient for stroke prophylaxis given his PAF. We will try to get this medication pre-authorized for it. 2. Nonischemic cardiomyopathy (CMS/HCC) Normal functioning ICD, repeat check in 6 months. 3. Essential hypertension Well-controlled, continue current medications. 4. Dyslipidemia Monitored by PCP, continue pravastatin 40 mg. Plan: Samples of Xarelto 20 mg given to the patient for stroke prophylaxis given his PAF. We will try to get this medication pre-authorized for free care. Continue all other current medications. FU in 6 MO with device check, sooner as needed. Thank you for allowing us to participate in the care of your patient. Scribed for Viktor Nelson MD by Alicia De Paz. 03/04/2019 1:27 PM IViktor MD, personally performed the services described in this documentation as scribed bythe above named individual in my presence, and it is both accurate and complete. 03/04/2019 2:08 PM Please note that portions of this note may have been completed with a voice recognition program. Efforts were made to edit the dictations, but occasionally words are mistranscribed. documented in this encounter Plan of Treatment Not on file documented as of this encounter Visit Diagnoses Diagnosis Paroxysmal atrial fibrillation- Primary Atrial fibrillation Nonischemic cardiomyopathy Other primary cardiomyopathies Essential hypertension Unspecified essential hypertension Dyslipidemia Other and unspecified hyperlipidemia documented in this encounter Care Teams Tire Repairer Relationship Specialty Start Date End Date Jose Valdez MD [facility] [place] [address] [address] [facility] [address] [place] [address] PCP - General 07/27/15 documented as of this encounter
--- OUTSIDE RECORDS SUMMARY | 2024-04-26 14:36 | XMS_ITS | Encounter Summary ---
Author Organization [facility] Address [address] [place] [id number] Care Team Providers Care Lasting Machine Operator Bed Name Role Phone Jose Valdez MD Primary Care Provider +1 -[phone] Reason for Visit * Reason Onset Date Comments Remote Device Check 10/17/2021 Encounter Details Date Type Department Care Team (Late st Contact Info) Description 10/17/2021 Telephone [facility] CARDIOLOGY [address] [facility] [address] [place] [address] Viktor Nelson MD [address] [facility] [address] [place] [address] Remote Device Check Social History Tobacco Use Types Packs/Day Years [...] encounter Miscellaneous Notes * Telephone Encounter - Kamala Manuel - 10/17/2021 2:44 PM EDT Left a message on Mr. Bolivar's phone letting him know that his home monitor didn't send in its scheduled reading. Asked him to check the connections and to send in a manual reading or to give me a call back for assistance. documented in this encounter Plan of Treatment Not on file documented as of this encounter Visit Diagnoses Not on filedocumented in this encounter Care Teams Lasting Machine Operator Bed Relationship Specialty Start Date End Date Jose Valdez MD 1210 [facility] [address] [facility] 2 [place] [address] PCP - General 07/27/15 documented as of this encounter
--- OUTSIDE RECORDS SUMMARY | 2024-04-26 14:36 | XMS_ITS | Encounter Summary ---
Author Organization [facility] Address [address] [place] [id number] Care Team Providers Care Sales Consulting Director Name Role Phone Jose Valdez MD Primary Care Provider +1 -[phone] Reason for Visit * Reason Comments Med Refill Encounter Details Date Type Department Care Team (Late st Contact Info) Description 01/30/2023 Refill [facility] CARDIOLOGY [address] [facility] [address] [place] [id number] Susan Joseph PA-C [address] [place] [id number] Med Refill Social History Tobacco Use Types [...] on filedocumented in this encounter Care Teams Sales Consulting Director Relationship Specialty Start Date End Date Jose Valdez MD [address] [place] [address] [place] [address] PCP - General 07/27/15 documented as of this encounter
--- OUTSIDE RECORDS SUMMARY | 2024-04-26 14:36 | XMS_ITS | Encounter Summary ---
Author Organization [facility] Address [address] [place] [address] Care Team Providers Care Copy Supervisor Name Role Phone Jose Valdez MD Primary Care Provider [phone] Reason for Visit * Reason Comments Nonischemic cardiomyopathy (CMS/HCC) Paroxysmal atrial fibrillation (CMS/HCC) Encounter Details Date Type Department Care Team (Late st Contact Info) Description 08/30/2021 12:15 PM EDT Office Visit [facility] CARDIOLOGY [address] [place] [address] Viktor Nelson MD [address] [facility] [address] [place] [address] Nonischemic cardiomyopathy (Primary Dx); Paroxysmal atrial fibrillation; Essential hypertension; Dyslipidemia Social History Tobacco Use [...] Sign Reading Time Taken Comments Blood Pressure 130/72 08/30/2021 12:21 PM EDT Pulse 70 08/30/2021 12:21 PM EDT Temperature - - Respiratory Rate - - Oxygen Saturation 97% 08/30/2021 12:21 PM EDT Inhaled Oxygen Concentration - - Weight 96.2 kg (212 lb) 08/30/2021 12:21 PM EDT Height 177.8 cm (5' 10 ) 08/30/2021 12:21 PM EDT Body Mass Index 30.42 08/30/2021 12:21 PM EDT documented in this encounter Progress Notes * Viktor Nelson MD - 08/30/2021 12:15 PM EDT [facility] Cardiology Encounter Date: 08/30/2021 Patient ID: Jos Bolivar is a 71 y.o. male. : 1950 PCP: Jose Valdez MD Chief Complaint: Nonischemic cardiomyopathy (CMS/HCC) and Paroxysmal atrial fibrillation (CMS/HCC) PROBLEM LIST: 1. Nonischemic cardiomyopathy. a. Symptoms of progressive angina-type symptoms in March 2005. b. Exercise/Cardiolite stress test on 03/13/2005, was remarkable for poor exercise tolerance and reversible anterior wall defect with EF 33%. c. [facility], March 2005, Dr. Nelson: Nonobstructive CAD involving the first diagonal, mid-LAD and RCA without evidence of hemodynamically significant stenosis. EF 45%. d. Onset of CHF type symptoms with initiation of appropriate medical therapy. e. Echocardiogram, October 2005: Dilated cardiomyopathy with EF 35%. f. [employer] ICD implant by Dr. Hooper on 05/01/2006. g. Limited echocardiogram, July 2006: EF 45% with global hypokinesis. h. Echocardiogram, December 2007: EF 50-55% with trace MR/TR/PI. i. Echocardiogram, July?2008: Mild LVH with EF 45-50% and mild LAE. Trace MR/TR. j. Echocardiogram, March 2011: EF 45-50% with mild TR and trace PI. k. Echocardiogram, 10/01/2012: EF 50-55%. l. Echocardiogram, 09/11/2017: EF 51-55%. Left atrial cavity is borderline dilated. Mild MR, trace TR. 2. Paroxysmal atrial fibrillation a. CHADS-VASc = 3 on Eliquis b. Noted on device interrogation 03/2019 and 08/30/2021 3. Hypertension. 4. Dyslipidemia. 5. Diabetes mellitus, type 2. 6. Episode of vertigo-type symptoms. a. Suspected TIA. b. CT scan of the brain with and without contrast, did not show any significant abnormalities. c. Carotid Duplex, 05/08/2014: 20% right ICA plaque and 20-49% left ICA plaque, essentially all velocities were within normal ??limits and the left ICA peak velocity 116 systolic with 38 diastolic. d. Symptoms resolved over 2-3 days spontaneously. ?? 7. Obesity, BMI 31.6. 8. Former smoker, quit 21 years ago. 9. Status post minor surgery many years ago for leg fracture. History of Present Illness Patient presents today for a follow-up with a history of nonischemic cardiomyopathy, paroxysmal atrial fibrillation, and cardiac risk factors. Since last visit, the patient has been doing well overall from a cardiovascular standpoint. He stopped rosuvastatin due to myalgias and is PCP will recheck l ipid panel at next visit. He denies any ICD shocks. Patient denies chest pain, shortness of breath,palpitations, edema, dizziness, and syncope. Patient has had no interim ER visits, hospitalizations, serious illnesses, or injuries. No Known Allergies Current Outpatient Medications: ??? amLODIPine (NORVASC) 10 MG tablet, Take 1 tablet by mouth Daily., Disp: 90 tablet, Rfl: 3 ??? aspirin 81 MG tablet, Take 1 tablet by mouth Daily., Disp: 30 tablet, Rfl: 11 ??? carvedilol (COREG) 25 MG tablet, Take 1 tablet by mouth 2 (Two) Times a Day With Meals., Disp: 180 tablet, Rfl: 3 ??? DULoxetine (CYMBALTA) 30 MG capsule, Take 30 mg by mouth Daily., Disp: , Rfl: ??? irbesartan-hydrochlorothiazide (AVALIDE) 300-12.5 MG tablet, Take 1 tablet by mouth Daily., Disp: , Rfl: ??? metFORMIN (GLUCOPHAGE) 500 MG tablet, Take 500 mg by mouth 2 (Two) Times a Day., Disp: , Rfl: ??? tamsulosin (FLOMAX) 0.4 MG capsule 24 hr capsule, Take 2 capsules by mouth Daily., Disp: , Rfl: ??? apixaban (ELIQUIS) 5 MG tablet tablet, Take 1 tablet by mouth 2 (Two) Times a Day., Disp: 60 tablet, Rfl: 5 The following portions of the patient's history were reviewed and updated as appropriate: allergies, current medications, past family history, past medical history, past social history, past surgicalhistory and problem list. ROS Review of Systems Constitution: Negative for chills, fever, fatigue, generalized weakness. Cardiovascular: Negative for chest pain, dyspnea on exertion, leg swelling, palpitations, orthopnea, and syncope. Respiratory: Negative for cough, shortness of breath, and wheezing. HENT: Negative for ear pain, nosebleeds, and tinnitus. Gastrointestinal: Negative for abdominal pain, constipation, diarrhea, nausea and vomiting. Genitourinary: No urinary symptoms. Musculoskeletal: Negative for muscle cramps. Neurological: Negative for dizziness, headaches, loss of balance, numbness, and symptoms of stroke. Psychiatric: Normal mental status. All other systems reviewed and are negative. Objective: BP 130/72 (BP Location: Right arm, Patient Position: Sitting, Cuff Size: Adult) Pulse 70 Ht 177.8 cm (70 ) Wt 96.2 kg (212 lb) SpO2 97% BMI 30.42 kg/m?? Physical Exam Constitutional: Patient appears well-developed and well-nourished. HENT: HEENT exam unremarkable. Neck: Neck supple. No JVD present. No carotid bruits. Cardiovascular: Normal rate, regular rhythm and normal heart sounds. No murmur heard. 2+ symmetric pulses. Pulmonary/Chest: Breath sounds normal. Does not exhibit tenderness. Abdominal: Abdomen benign. Musculoskeletal: Does not exhibit edema. Neurological: Neurological exam unremarkable. Vitals reviewed. Data Review: Procedures Manual device interrogation, 08/30/21: Normal, well-functioning [employer] ICD with 3.5 years of battery life remaining. Events: 34 1:1 Atach episodes - all <10 sec ~ 180-190 bpm. 3% mode switch longest 48 hrs. Device updates: None Assessment: Diagnosis Plan 1. Nonischemic cardiomyopathy (HCC) Stable and asymptomatic with normal functioning ICD; continue 2. Paroxysmal atrial fibrillation (HCC) DI showed 3% mode switch longest 48 hrs; begin Eliquis 5 mgBID 3. Essential hypertension Well controlled; continue amlodipine 10 mg , carvedilol 25 mg, and Avalide 300-12.5 mg 4. Dyslipidemia Statin intolerant, PCP repeating FLP at next visit to re address Plan: Begin Eliquis 5 mg BID for stroke prophylaxis due to 3% mode switch in the setting of atrial fibrillation lasting up to 48 hrs seen on DI. Continue current medications. FU in 6 MO, sooner as needed. Thank you for allowing us to participate in the care of your patient. Scribed for Viktor Nelson MD by Shireen Rangel. 08/30/2021 12:24 EDT Viktor Chiu MD, personally performed the services described in this documentation as scribed bythe above named individual in my presence, and it is both accurate and complete. 08/30/2021 16:33 EDT Part of this note may be an electronic computer aided design technician/translation of spoken language to printed textusing the TargetingMantraation System. documented in this encounter Plan of Treatment Not on file documented as of this encounter Visit Diagnoses Diagnosis Nonischemic cardiomyopathy- Primary Other primary cardiomyopathies Paroxysmal atrial fibrillation Atrial fibrillation Essential hypertension Unspecified essential hypertension Dyslipidemia Other and unspecified hyperlipidemia documented in this encounter Care Teams Copy Supervisor Relationship Specialty Start Date End Date Jose Valdez MD [address] [place] [address] [address] [facility] [address] [place] [address] PCP - General 07/27/15 documented as of this encounter
--- OUTSIDE RECORDS SUMMARY | 2024-04-26 14:36 | XMS_ITS | Encounter Summary ---
Author Organization [facility] Address [address] [place] [address] Care Team Providers Care Supervisor Matrix Name Role Phone Jose Valdez MD Primary Care Provider [phone] [phone] Reason for Visit * Reason Comments Med Refill Encounter Details Date Type Department Care Team (Late st Contact Info) Description 11/22/2023 Refill [facility] CARDIOLOGY [address] [facility] [address] [place] [address] Susan Joseph PA-C [address] [facility] [address] [place] [id number] Med Refill Social History Tobacco Use Types [...] on filedocumented in this encounter Care Teams Supervisor Matrix Relationship Specialty Start Date End Date Jose Valdez MD [address] [facility] [address] [facility] [address] [place] [address] PCP - General 07/27/15 documented as of this encounter
--- OUTSIDE RECORDS SUMMARY | 2024-04-26 14:36 | XMS_ITS | Encounter Summary ---
[facility] Address [address] [place] [id number] Care Team Providers Care Heel Molder Name Role Phone Jose Valdez MD Primary Care Provider [phone] [phone] Reason for Visit * Reason Comments Coronary Artery Disease Cardiomyopathy Hypertension PAF Encounter Details Date Type Department Care Team (Late st Contact Info) Description 08/02/2020 9:30 AM EST Office Visit [facility] CARDIOLOGY [address] [facility] [address] [place] [address] Roberto Small PA [address] [facility] [address] [place] [address] Nonischemic cardiomyopathy (Primary Dx); Paroxysmal atrial fibrillation; Dyslipidemia; Essential hypertension Social History Tobacco Use Types Packs/Day Years [...] Sign Reading Time Taken Comments Blood Pressure 128/72 08/02/2020 9:18 AM EST Pulse 96 08/02/2020 9:18 AM EST Temperature 36.5 ??C (97.7 ??F) 08/02/2020 9:18 AM ES T Respiratory Rate - - Oxygen Saturation 96% 08/02/2020 9:18 AM EST Inhaled Oxygen Concentration - - Weight 95.3 kg (210 lb) 08/02/2020 9:18 AM EST Height 177.8 cm (5' 10 ) 08/02/2020 9:18 AM EST Body Mass Index 30.13 08/02/2020 9:18 AM EST documented in this encounter Progress Notes * Roberto Small PA - 08/02/2020 9:30 AM EST Encounter Date:08/02/2020 Patient ID: Jos Bolivar is a 70 y.o. male. Jose Valdez MD Chief Complaint: Coronary Artery Disease, Cardiomyopathy, Hypertension, and PAF PROBLEM LIST: Patient Active Problem List Diagnosis Date Noted ??? Paroxysmal atrial fibrillation ([facility]) 03/04/2019 Priority: High Note Last Updated: 03/04/2019 ?? Noted on device interrogation ??? Nonischemic cardiomyopathy ([facility]) 06/11/2016 Priority: High Note Last Updated: 08/29/2019 a. LHC March 2005, showed nonobstructive coronary artery disease. Moderate left ventricular dysfunction with ejection fraction of 45%. b. Echocardiogram in October 2005, showed dilated cardiomyopathy with ejection fraction of 35%. c. [employer] ICD implant by Dr. Hooper on 05/01/2006 d. Echocardiogram (10/01/2012): Ejection fraction 50% to 55%. e. ICD interrogation 07/27/2015 revealed normal ICD function, 1 brief nonsustained ventricular tachycardia, 8 years of battery life. ??? Hypertension 06/11/2016 Priority: Medium ??? Dyslipidemia 06/11/2016 Priority: Medium ??? Type 2 diabetes mellitus ([facility]) 06/11/2016 Priority: Low ??? Carotid artery disease ([facility]) 06/11/2016 Priority: Low Note Last Updated: 06/11/2016 Nonocclusive carotid artery disease, has follow-up carotid ultrasound scheduled for today ??? Obesity 06/11/2016 Note Last Updated: 06/11/2016 2. Obesity, BMI 31.6. History of Present Illness Patient presents today for follow-up with a history of atrial fibrillation, nonischemic cardiomyopathy, hypertension dyslipidemia and nonocclusive carotid artery disease. He returns today for scheduled follow-up. He has no current complaint exertional chest pain or dyspnea orthopnea no PND no claudication no lower extreme edema. He has no awareness of tachyarrhythmias, denies dizziness or syncope. He does not check his blood pressure regularly at home. His primary care recently discontinued pravastatin in favor of rosuvastatin and he is due to have a recheck lipid panel in about a month. States compliance current med regimen reports no significant adverse side effects. He requests a refill of carvedilol. No Known Allergies Current Outpatient Medications Medication Instructions ??? amLODIPine (NORVASC) 10 mg, Oral, Daily ??? aspirin 81 mg, Oral, Daily ??? carvedilol (COREG) 25 mg, Oral, 2 Times Daily With Meals ??? DULoxetine (CYMBALTA) 30 MG capsule No dose, route, or frequency recorded. ??? irbesartan-hydrochlorothiazide (AVALIDE) 300-12.5 MG tablet No dose, route, or frequency recorded. ??? metFORMIN (GLUCOPHAGE) 500 mg, Oral, 2 Times Daily ??? rosuvastatin (CRESTOR) 5 MG tablet No dose, route, or frequency recorded. ??? tamsulosin (FLOMAX) 0.4 MG capsule 24 hr capsule 1 capsule, Oral, Daily ??? valsartan-hydrochlorothiazide (DIOVAN-HCT) 320-25 MG per tablet 1 tablet, Oral, Daily The following portions of the patient's history were reviewed and updated as appropriate: allergies, current medications, past family history, past medical history, past social history, past surgicalhistory and problem list. . Objective: BP 128/72 Pulse 96 Temp 97.7 ??F (36.5 ??C) Ht 177.8 cm (70 ) Wt 95.3 kg (210 lb) SpO2 96% BMI 30.13 kg/m?? Body mass index is 30.13 kg/m??. Constitutional: Appearance: Well-developed. Pulmonary: Effort: Pulmonary effort is normal. No respiratory distress. Breath sounds: Normal breath sounds. No wheezing. No rales. Comments: Bases clear Chest: Chest wall: Not tender to palpatation. Cardiovascular: Normal rate. Regular rhythm. Murmurs: There is no murmur. No gallop. No click. No rub. Pulses: Intact distal pulses. Edema: Peripheral edema absent. Musculoskeletal: Normal range of motion. Lab Review: Procedures Device interrogation: [employer] ICD Mode DDD Right atrium less than 1% paced threshold 0.7 V at 0.5 ms RV is 99% paced, R 12.9 mV, threshold 0.8 V at 0.5 ms, impedance 505 ohms LV 99% paced, R7 0.4 mV, threshold 1 V at 0.5 ms, impedance 718 ohms Battery voltage 4.5-5.9 years, charge time 11.2 seconds Underlying rhythm normal sinus rhythm Events less than 1% mode switching since March 04, 2019 No reprogramming Next normal device function Advance Care Planning ACP discussion was held with the patient during this visit. Patient does not have an advance directive, declines further assistance. Assessment: Diagnosis Plan 1. Nonischemic cardiomyopathy (CMS/HCC) well compensated and without current heart failure symptoms, continue current medical regimen 2. Paroxysmal atrial fibrillation (CMS/HCC) maintaining sinus rhythm, continue current medical regimen 3. Dyslipidemia recently started on rosuvastatin and due for follow-up lipid panel in about 1 monththrough primary care 4. Essential hypertension well managed on current medical regimen, refilled carvedilol at current dose Plan: Stable cardiac status. Continue current medications. in 6 months, sooner as needed. Thank you for allowing us to participate in the care of your patient. Electronically signed by REMA Morse, 08/02/20, 9:44 AM EST. Please note that portions of this note may have been completed with a voice recognition program. Efforts were made to edit the dictations, but occasionally words are mis-translated. documented in this encounter Plan of Treatment Not on file documented as of this encounter Visit Diagnoses Diagnosis Nonischemic cardiomyopathy- Primary Other primary cardiomyopathies Paroxysmal atrial fibrillation Atrial fibrillation Dyslipidemia Other and unspecified hyperlipidemia Essential hypertension Unspecified essential hypertension documented in this encounter Care Teams Heel Molder Relationship Specialty Start Date End Date Jose Valdez MD [facility] [address] [facility] [address] [place] [address] PCP - General 07/27/15 documented as of this encounter
--- OUTSIDE RECORDS SUMMARY | 2024-04-26 14:36 | XMS_ITS ---
Laboratory report Created on: April 04, 2024 ORLY LOPEZ : 1950 Sex: Male Author Name MARANDA MELGAR Organization Unknown PROBLEMS Problems List Code Description E78.5 RESULTS Laboratory Orders Date Order Code Test 2021-09-27 414866 COMP. METABOLIC PANEL (14) Laboratory Results Date LOINC Test Value Unit Reference Range Interpre tation 2021-09-27 2345-7 GLUCOSE 119 MG/DL 65-99 H 2021-09-27 3094-0 BUN 18 MG/DL 8-27 2021-09-27 2160-0 CREATININE 1.16 MG/DL 0.76-1.27 2021-09-27 69341-1 EGFR 67 ML/MIN/1.73 >59 2021-09-27 3097-3 BUN/CREATININE RATIO 16 10-24 2021-09-27 2951-2 SODIUM 138 MMOL/L 612-993 9613-04-29 2823-3 POTASSIUM 4.3 MMOL/L 3.5-5.2 2021-09-27 2075-0 CHLORIDE 100 MMOL/L 96-106 2021-09-27 2028-9 CARBON DIOXIDE, TOTAL 20 MMOL/L -2021-09-27 31938-9 CALCIUM 9 MG/DL 8.6-10.2 2021-09-27 2885-2 PROTEIN, TOTAL 6.5 G/DL 6.0-8.5 2021-09-27 1751-7 ALBUMIN 4.3 G/DL 3.7-4.7 2021-09-27 36333-8 GLOBULIN, TOTAL 2.2 G/DL 1.5-4.5 2021-09-27 1759-0 A/G RATIO 2 1.2-2.2 2021-09-27 1975-2 BILIRUBIN, TOTAL .8 MG/DL 0.0-1.2 2021-09-27 6768-6 ALKALINE PHOSPHATASE 65 IU/L 44-121 2021-09-27 1920-8 AST (SGOT) 15 IU/L 0-40 2021-09-27 1742-6 ALT (SGPT) 20 IU/L 0-44
--- OUTSIDE RECORDS SUMMARY | 2024-04-26 14:36 | XMS_ITS | Encounter Summary ---
Author Organization [facility] Address [address] [place] [address] Care Team Providers Care Loan Reviewer Name Role Phone Jose Valdez MD Primary Care Provider [phone] Reason for Visit * Reason Comments Cardiomyopathy Encounter Details Date Type Department Care Team (Late st Contact Info) Description 04/11/2022 1:45 PM EST Office Visit [facility] CARDIOLOGY [address] [facility] [address] [place] [address] Susan Joseph PA-C [address] [facility] [address] [place] [id number] Nonischemic cardiomyopathy (Primary Dx); Paroxysmal atrial fibrillation; [...] Pulse 80 04/11/2022 1:36 PM EST Temperature - - Respiratory Rate - - Oxygen Saturation 98% 04/11/2022 1:36 PM EST Inhaled Oxygen Concentration - - Weight 94.3 kg (208 lb) 04/11/2022 1:36 PM EST Height 177.8 cm (5' 10 ) 04/11/2022 1:36 PM EST Body Mass Index 29.84 04/11/2022 1:36 PM EST documented in this encounter Progress Notes * Susan Joseph PA-C - 04/11/2022 1:45 PM ESTAssociated Order(s): ECG 12 Lead [facility] Cardiology Encounter Date: 04/11/2022 Patient ID: Jos Bolivar is a 72 y.o. male. : 1950 PCP: Jose Valdez MD Chief Complaint: Cardiomyopathy PROBLEM LIST: 1. Nonischemic cardiomyopathy. a. Symptoms of progressive angina-type symptoms in March 2005. b. Exercise/Cardiolite stress test on 03/13/2005, was remarkable for poor exercise tolerance and reversible anterior wall defect with??EF??33%. c. LHC,??03/2005,??Dr. 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 d. Onset of??CHF??type symptoms with initiation of appropriate medical therapy. e. Echo,??10/2005: Dilated cardiomyopathy with??EF??35%. f. [employer] ICD implant by Dr. Hooper on 05/01/2006. g. Limited echo,??07/2006: EF 45% with global hypokinesis. h. Echo,??12/2007: EF 50-55% with trace??MR/TR/PI. i. Echo,??07/2008: Mild??LVH??with??EF??45-50% and mild??LAE. Trace??MR/TR. j. Echo, 03/2011:??EF 45-50% with mild??TR??and trace PI. k. Echo,??10/01/2012:??EF??50-55%. l. Echo, 09/11/2017: EF 51-55%. Left atrial cavity is [...] not show any significant abnormalities. c. Carotid Duplex,??05/08/2014:??20% right ICA plaque and 20-49% left ICA [...] follow-up with a history of nonischemic cardiomyopathy, PAF, and cardiac risk factors. Since last visit, patient has been doing well overall from a cardiovascular standpoint. He has been monitoring his blood pressure at home with normal measurements. He states that his activity levels have decreased since his is currently ill. Patient no longer takes a blood thinner other than aspirin 81 mg since he had severe nose bleeds while on Eliquis. He would not like to proceed with a procedure as an alternative for medical therapy if he is a candidate to do so. Patient requested a refill of Coreg in visit today. He states that he has not had his device monitored carmen tely since July. Patient denies chest pain, shortness of breath, orthopnea, palpitations, edema, dizziness, and syncope. No Known Allergies Current Outpatient Medications: ??? amLODIPine (NORVASC) 10 MG tablet, Take 1 tablet by mouth Daily., Disp: 90 tablet, Rfl: 3 ??? aspirin 81 MG tablet, Take 1 tablet by mouth Daily., Disp: 30 tablet, Rfl: 11 ??? carvedilol (COREG) 25 MG tablet, TAKE 1 TABLET BY MOUTH 2 (TWO) TIMES A DAY WITH MEALS., Disp: 180 tablet, Rfl: 3 ??? DULoxetine (CYMBALTA) 30 MG capsule, Take 30 mg by mouth Daily., Disp: , Rfl: ??? empagliflozin (JARDIANCE) 10 MG tablet tablet, Take by mouth Daily., Disp: , Rfl: ??? irbesartan-hydrochlorothiazide (AVALIDE) 300-12.5 MG tablet, Take 1 tablet by mouth Daily., Disp: , Rfl: ??? metFORMIN (GLUCOPHAGE) 500 MG tablet, Take 500 mg by mouth 2 (Two) Times a Day., Disp: , Rfl: ??? rosuvastatin (CRESTOR) 5 MG tablet, Take 1 tablet by mouth Daily., Disp: , Rfl: ??? tamsulosin (FLOMAX) 0.4 MG capsule 24 hr capsule, Take 2 capsules by mouth Daily., Disp: , Rfl: The following portions of the patient's history were reviewed and updated as appropriate: allergies, current medications, past family history, past medical history, past social history, past surgicalhistory and problem list. ROS Review of Systems 14 point ROS negative except for that listed in the HPI. Objective: BP 124/68 (BP Location: Right arm, Patient Position: Sitting) Pulse 80 Ht 177.8 cm (70 ) Wt 94.3 kg (208 lb) SpO2 98% BMI 29.84 kg/m?? Physical Exam Constitutional: Patient appears well-developed and well-nourished. HENT: HEENT exam unremarkable. Neck: Neck supple. No JVD present. No carotid bruits. Cardiovascular: Normal rate, regular rhythm and normal heart sounds. No murmur heard. 2+ symmetric pulses. Pulmonary/Chest: Breath sounds normal. Does not exhibit tenderness. Abdominal: Abdomen benign. Musculoskeletal: Does not exhibit edema. Neurological: Neurological exam unremarkable. Vitals reviewed. Data Review: No recent laboratory studies available for review today. ECG 12 Lead Date/Time: 04/11/2022 2:06 PM Performed by: Susan Jospeh PA-C Authorized by: Susan Joseph PA-C Comparison: compared with previous ECG from 02/21/2019 Similar to previous ECG BPM: 79 Clinical impression: abnormal EKG Comments: Atrial-sensed ventricular-paced rhythm DEVICE INTERROGATION: [employer]/2016, BIV-ICD: RA pacing <1%, RV pacing 99%. P wave is 4.0 mV with a threshold of 0.6 V at 0.5 msec and an impedance of 570 ohms. R wave is 22 mV with a threshold of 0.7 V at 0.5 msec and an impedance of 527 ohms. Battery voltage is 3 years. Events: <1%AT/AF, 16 total episodes (longest 13 hour), 12 VHR, all appear 1:1 Assessment: Diagnosis Plan 1. Nonischemic cardiomyopathy (HCC) Stable and asymptomatic. Normal device interrogation in visit. ICD in place. 2. Paroxysmal atrial fibrillation (HCC) 16 Episodes of AF/AT with the longest lasting 13 hours. Continue on aspirin 81 mg for antiplatelet therapy. Patient discontinued his Eliquis secondary to severe nosebleeds. I discussed the importance of anticoagulation in the setting of atrial fibrillation and he does not wish to be on any anticoagulation despite the increased risk for stroke. He does not want to be considered for maze procedure. 3. Essential hypertension Well controlled. Continue on irbesartan-HCTZ 1 tablet daily, amlodipine 10 mg daily, and carvedilol 25 mg BID for hypertension. 4. Dyslipidemia No recent labs for review in visit today. Continue on rosuvastatin 5 mg daily for hyperlipidemia. Plan: Stable cardiac status. No angina or CHF symptoms. 16 episodes of AF/AT with the longest lasting 13 hours. Discussed the importance for need for anticoagulation but the patient declines this due to increased bleeding. He does not wish to take any anticoagulation or be considered for any procedures despite risk for stroke. Continue current medications. FU in 6 MO, sooner as needed. Thank you for allowing us to participate in the care of your patient. Scribed for Susan Joseph PA-C by Albertina Arroyo. 04/11/2022 14:05 EST I have seen and examined the patient, reviewed the above note, necessary changes were made and I agree with the final note. Susan Joseph PA-C Please note that portions of this note may have been completed with a voice recognition program. Efforts were made to edit the dictations, but occasionally words are mistranscribed. documented in this encounter Plan of Treatment Scheduled Orders Name Type Priority Associated Diagnoses Orde r Schedule SCANNED - CARDIOLOGY Cardiac Services Ordered: 04/11/2022 documented as of this encounter Procedures Procedure Name Priority Date/Time Associated Diagnosis Comments ECG 12-LEAD Routine 04/11/2022 Nonischemic cardiomyopathy documented in this encounter Results * ECG 12-LEAD (04/11/2022) Narrative 04/11/2022 Susan Joseph PA-C ? 04/11/2022 ??2:28 PM ECG 12 Lead Date/Time: 04/11/2022 2:06 PM Performed by: Susan Joseph PA-C Authorized by: Susan Joseph PA-C Comparison: compared with previous ECG from 02/21/2019 Similar to previous ECG BPM: 79 Clinical impression: abnormal EKG Comments: Atrial-sensed ventricular-paced rhythm Procedure Note Susan Joseph PA-C - 04/11/2022 1:45 PM EST [facility] Cardiology Encounter Date: 04/11/2022 Patient ID: Jos Bolivar is a 72 y.o. male. : 1950 PCP: Jose Valdez MD Chief Complaint: Cardiomyopathy PROBLEM LIST: 1. Nonischemic cardiomyopathy. a. Symptoms of progressive angina-type symptoms in March 2005. b. Exercise/Cardiolite stress test on 03/13/2005, was remarkable for poorexercise tolerance and reversible anterior wall defect with??EF??33%. c. LHC,??03/2005,??Dr. Nelson: Nonobstructive??CAD??involving the firstdiagonal, mid-LAD and??RCA??without evidence of hemodynamically significantstenosis.??EF??45%. d. Onset of??CHF??type symptoms with initiation of appropriate medicaltherapy. e. Echo,??10/2005: Dilated cardiomyopathy with??EF??35%. f. [employer] ICD implant by Dr. Hooper on 05/01/2006. g. Limited echo,??07/2006: EF 45% with global hypokinesis. h. Echo,??12/2007: EF 50-55% with trace??MR/TR/PI. i. Echo,??07/2008: Mild??LVH??with??EF??45-50% and mild??LAE. Trace??MR/TR. j. Echo, 03/2011:??EF 45-50% with mild??TR??and trace PI. k. Echo,??10/01/2012:??EF??50-55%. l. Echo, 09/11/2017: EF 51-55%. Left atrial cavity is borderline dilated.Mild MR, trace TR. 2. Paroxysmal atrial fibrillation a. CHADS-VASc = 3 on Eliquis b. Noted on device interrogation 03/2019 and 08/30/2021 3. Hypertension. 4. Dyslipidemia. 5. Diabetes mellitus, type 2. 6. Episode of vertigo-type symptoms. a. Suspected TIA. b. CT scan of the brain with and without contrast, did not show anysignificant abnormalities. c. Carotid Duplex,??05/08/2014:??20% right ICA plaque and 20-49% left ICAplaque, essentially all velocities were within normal ??limits and the leftICA peak velocity 116 systolic with 38 diastolic. d. Symptoms resolved over 2-3 days spontaneously. ?? 7. Obesity, BMI 31.6. 8. Former smoker, quit 21 years ago. 9. Status post minor surgery many years ago for leg fracture. History of Present Illness Patient presents today for a follow-up with a history of nonischemiccardiomyopathy, PAF, and cardiac risk factors. Since last visit, patienthas been doing well overall from a cardiovascular standpoint. He has beenmonitoring his blood pressure at home with normal measurements. He statesthat his activity levels have decreased since his is currently ill.Patient no longer takes a blood thinner other than aspirin 81 mg since hehad severe nose bleeds while on Eliquis. He would not like to proceed witha procedure as an alternative for medical therapy if he is a candidate todo so. Patient requested a refill of Coreg in visit today. He states thathe has not had his device monitored remotely since July. Patientdenies chest pain, shortness of breath, orthopnea, palpitations, edema,dizziness, and syncope. No Known Allergies Current Outpatient Medications: ? ? amLODIPine (NORVASC) 10 MG tablet, Take 1 tablet by mouth Daily., Disp:90 tablet, Rfl: 3 ? ? aspirin 81 MG tablet, Take 1 tablet by mouth Daily., Disp: 30 tablet,Rfl: 11 ? ? carvedilol (COREG) 25 MG tablet, TAKE 1 TABLET BY MOUTH 2 (TWO) TIMES ADAY WITH MEALS., Disp: 180 tablet, Rfl: 3 ? ? DULoxetine (CYMBALTA) 30 MG capsule, Take 30 mg by mouth Daily., Disp:, Rfl: ? ? empagliflozin (JARDIANCE) 10 MG tablet tablet, Take by mouth Daily.,Disp: , Rfl: ? ? irbesartan-hydrochlorothiazide (AVALIDE) 300-12.5 MG tablet, Take 1tablet by mouth Daily., Disp: , Rfl: ? ? metFORMIN (GLUCOPHAGE) 500 MG tablet, Take 500 mg by mouth 2 (Two)Times a Day., Disp: , Rfl: ? ? rosuvastatin (CRESTOR) 5 MG tablet, Take 1 tablet by mouth Daily.,Disp: , Rfl: ? ? tamsulosin (FLOMAX) 0.4 MG capsule 24 hr capsule, Take 2 capsules bymouth Daily., Disp: , Rfl: The following portions of the patient's history were reviewed and updatedas appropriate: allergies, current medications, past family history, pastmedical history, past social history, past surgical history and problemlist. ROS Review of Systems 14 point ROS negative except for that listed in the HPI. Objective: BP 124/68 (BP Location: Right arm, Patient Position: Sitting) Pulse 80 Ht 177.8 cm (70 ) Wt 94.3 kg (208 lb) SpO2 98% BMI 29.84 kg/m?? Physical Exam Constitutional: Patient appears well-developed and well-nourished. HENT: HEENT exam unremarkable. Neck: Neck supple. No JVD present. No carotid bruits. Cardiovascular: Normal rate, regular rhythm and normal heart sounds. Nomurmur heard. 2+ symmetric pulses. Pulmonary/Chest: Breath sounds normal. Does not exhibit tenderness. Abdominal: Abdomen benign. Musculoskeletal: Does not exhibit edema. Neurological: Neurological exam unremarkable. Vitals reviewed. Data Review: No recent laboratory studies available for review today. ECG 12 Lead Date/Time: 04/11/2022 2:06 PM Performed by: Susan Joseph PA-C Authorized by: Susan Joseph PA-C Comparison: compared with previous ECG from 02/21/2019 Similar to previous ECG BPM: 79 Clinical impression: abnormal EKG Comments: Atrial-sensed ventricular-paced rhythm DEVICE INTERROGATION: [employer]/2016, BIV-ICD: RA pacing <1%, RVpacing 99%. P wave is 4.0 mV with a threshold of 0.6 V at 0.5 msec and animpedance of 570 ohms. R wave is 22 mV with a threshold of 0.7 V at 0.5msec and an impedance of 527 ohms. Battery voltage is 3 years. Events: <1%AT/AF, 16 total episodes (longest 13 hour), 12 VHR, all appear 1:1 Assessment: Diagnosis Plan 1. Nonischemic cardiomyopathy (HCC) Stable and asymptomatic. Normaldevice interrogation in visit. ICD in place. 2. Paroxysmal atrial fibrillation (HCC) 16 Episodes of AF/AT with thelongest lasting 13 hours. Continue on aspirin 81 mg for antiplatelettherapy. Patient discontinued his Eliquis secondary to severe nosebleeds.I discussed the importance of anticoagulation in the setting of atrialfibrillation and he does not wish to be on any anticoagulation despite theincreased risk for stroke. He does not want to be considered for mazeprocedure. 3. Essential hypertension Well controlled. Continue on irbesartan-HCTZ 1tablet daily, amlodipine 10 mg daily, and carvedilol 25 mg BID forhypertension. 4. Dyslipidemia No recent labs for review in visit today. Continue onrosuvastatin 5 mg daily for hyperlipidemia. Plan: Stable cardiac status. No angina or CHF symptoms. 16 episodes of AF/AT with the longest lasting 13 hours. Discussed theimportance for need for anticoagulation but the patient declines this dueto increased bleeding. He does not wish to take any anticoagulation or beconsidered for any procedures despite risk for stroke. Continue current medications. FU in 6 MO, sooner as needed. Thank you for allowing us to participate in the care of your patient. Scribed for Susan Joseph PA-C by Albertina Arroyo. 04/11/2022 14:05EST I have seen and examined the patient, reviewed the above note, necessarychanges were made and I agree with the final note. Susan Joseph PA-C Please note that portions of this note may have been completed with avoice recognition program. Efforts were made to edit the dictations, butoccasionally words are mistranscribed. us Susan Joseph PA-C ECG ORDERABLES Final Resu lt documented in this encounter Visit Diagnoses Diagnosis Nonischemic cardiomyopathy- Primary Other primary cardiomyopathies Paroxysmal atrial fibrillation Atrial fibrillation Essential hypertension Unspecified essential hypertension Dyslipidemia Other and unspecified hyperlipidemia documented in this encounter Care Teams Loan Reviewer Relationship Specialty Start Date End Date Jose Valdez MD [address] [facility] [address] [place] [id number] PCP - General 07/27/15 documented as of this encounter
--- OUTSIDE RECORDS SUMMARY | 2024-04-26 14:36 | XMS_ITS | Encounter Summary ---
Author Organization [facility] Address [address] [place] [id number] Care Team Providers Care Surgery Technician Name Role Phone Jose Valdez MD Primary Care Provider [phone] Reason for Visit * Reason Onset Date Comments Med Refill 09/06/2019 Encounter Details Date Type Department Care Team (Late st Contact Info) Description 09/06/2019 Refill [facility] CARDIOLOGY [address] [place] [id number] Viktor Nelson MD [address] [facility] [address] [place] [address] Med Refill Social History Tobacco Use Types [...] as of this encounter Visit Diagnoses Diagnosis Essential hypertension Unspecified essential hypertension documented in this encounter Care Teams Surgery Technician Relationship Specialty Start Date End Date Jose Valdez MD [address] [place] [address] PCP - General 07/27/15 documented as of this encounter
--- OUTSIDE RECORDS SUMMARY | 2024-04-26 14:36 | XMS_ITS | Encounter Summary ---
Author Organization [facility] Address [address] [place] [id number] Care Team Providers Care Rivet Tosser Name Role Phone Jose Valdez MD Primary Care Provider [phone] Reason for Visit * Reason Comments Med Refill Encounter Details Date Type Department Care Team (Late st Contact Info) Description 09/10/2021 Refill [facility] CARDIOLOGY [address] [place] [address] Roberto Small, PA [address] [place] [address] Med Refill Social History Tobacco Use Types [...] on filedocumented in this encounter Care Teams Rivet Tosser Relationship Specialty Start Date End Date Jose Valdez MD [address] [place] [address] PCP - General 07/27/15 documented as of this encounter
--- OUTSIDE RECORDS SUMMARY | 2024-04-26 14:36 | XMS_ITS | Encounter Summary ---
Author Organization [facility] Address [address] [place] [id number] Care Team Providers Care Ancillary Services Manager Therapy Name Role Phone Jose Valdez MD Primary Care Provider [phone] [phone] Reason for Visit * Reason Onset Date Comments remote monitoring 04/17/2023 AF Encounter Details Date Type Department Care Team (Late st Contact Info) Description 04/17/2023 Telephone [facility] CARDIOLOGY [address] [facility] [address] [place] [phone] Viktor Nelson MD [address] [facility] [address] [place] [address] remote monitoring (AF) Social History Tobacco Use Types Packs/Day Years [...] encounter Miscellaneous Notes * Telephone Encounter - Elda Dias RN - 04/20/2023 11:51 AM EST Please reach out to the patient and explained that anticoagulation is important to lower the risk of stroke. If he is agreeable start him on Eliquis 5 mg twice daily. Also give him an appointment to see me NORA to discuss this in the office. Patient states he is no longer a patient of Dr. Nelson and is seeing a mdm sr in [facility]. He had an appointment with them today. * Telephone Encounter - Nadia Cuevas RN - 04/17/2023 8:59 AM EST Remote monitor reading received showing ongoing AF with controlled rates since 04/14/23. Mr Bolivar has stated he can't take blood thinner in the past. Called to check in with him to see if he is having symptoms. No answer and left voicemail for a return call. He canceled his last appt in October. documented in this encounter Plan of Treatment Not on file documented as of this encounter Visit Diagnoses Not on filedocumented in this encounter Care Teams Ancillary Services Manager Therapy Relationship Specialty Start Date End Date Jose Valdez MD [address] [facility] [address] [facility] [address] [place] [address] PCP - General 07/27/15 documented as of this encounter
--- OUTSIDE RECORDS SUMMARY | 2024-04-26 14:37 | XMS_ITS | Encounter Summary ---
Author Organization [facility] Address [address] [place] [address] Care Team Providers Care Manager Bilingual Name Role Phone Jose Valdez MD Primary Care Provider [phone] Encounter Details Date Type Department Care Team (Late st Contact Info) Description 09/23/2018 Telephone [facility] CARDIOLOGY [address] [facility] [address] [place] [address] Bela Leyva Social History Tobacco Use Types Packs/Day Years [...] encounter Miscellaneous Notes * Telephone Encounter - Bela Leyva - 09/23/2018 1:09 PM EDT Patients information forwarded to me from REM[facility] Mcmillan. Patient had 17 hour episode of SCAF noted on latitude. He meets the criteria for [place] study. He currently is taking 81 mg Aspirin daily.Phone call placed to patient. Discussed with patient that it was noted that he had the device detected episode of a-fib. Explained increased stroke risk. Reviewed with patient study purpose and proced ure and follow-up. Patient declined to hear further about the study and/or read a consent. Encouraged patient to be diligent about taking his aspirin and let him know I would let Bello Darby know that I had spoken with him and the office would contact him if there is to be any further instructions. documented in this encounter Plan of Treatment Not on file documented as of this encounter Visit Diagnoses Not on filedocumented in this encounter Care Teams Manager Bilingual Relationship Specialty Start Date End Date Jose Valdez MD [address] [facility] [address] [facility] [address] [place] [address] PCP - General 07/27/15 documented as of this encounter
--- OUTSIDE RECORDS SUMMARY | 2024-04-26 14:37 | XMS_ITS | Encounter Summary ---
Author Organization [facility] Address [address] [place] [address] Care Team Providers Care Wool Mixer Name Role Phone Chucho Valdez MD Primary Care Provider [phone] Encounter Details Date Type Department Care Team (Late st Contact Info) Description 06/09/2014 Office Visit Converted [facility] C[facility]IOLOGY [address] [facility] [address] [place] [phone] Viktor Nelson MD [address] [facility] [address] [place] [address] Social History Tobacco Use Types Packs/Day Years Used Date Smoking Tobacco: Never Assessed Sex and Gender Information Value Date Recorded Sex Assigned at Not on file Legal Sex Male 12:24 PM EDT Gender Identity Not on file Sexual Orientation Not on file documented as of this encounter Progress Notes * Viktor Nelson MD - 06/09/2014 10:45 AM EST LOCATION: [place] Office REFERRING PHYSICIAN: Chucho Valdez MD IDENTIFICATION: This is a 63-year-old white male, resident of [place], [place]. CHIEF COMPLAINT: Follow up for non-ischemic cardiomyopathy. PROBLEM LIST: 1. Nonischemic cardiomyopathy: a. Symptoms of progressive angina type symptoms in March 2005. Exercise/Cardiolite stress test on March, was remarkable for poor exercise tolerance and reversible anterior wall defect with ejection fraction of 33%. Cardiac cath by Dr. Nelson in March 2005 showed nonobstructive coronary artery disease involving the first diagonal, mid LAD and RCA without evidence of hemodynamically significant stenosis. Moderate LV dysfunction with ejection fraction of 45%. Onset of congestive heart failure type symptoms with initiation of appropriate medical therapy. Echocardiogram in October 2005 showed dilated cardiomyopathy with ejection fraction of 35%. [employer] ICD implant by Dr. Hooper on May,. Limited Echo in July 2006 showed global hypokinesis with ejection fraction of 45%. Echocardiogram December 2007 showed ejection fraction 50-55% with trace mitral and trace tricuspid regurgitation and trace pulmonic regurgitation. Echocardiogram July 2008 showed mild LVH with ejection fraction 45-50% and mild left atrial enlargement with trace mitral and trace tricuspid regurgitation. Echocardiogram, March 2011: Showed ejection fraction 45 to 50% with mild tricuspid and trace pulmonic regurgitation. Echocardiogram (10/01/2012): EF 50% to 55%. 2. Hypertension. Dyslipidemia. Diabetes mellitus, type 2. Episode of vertigo-type symptoms: a. Suspected TIA. CT scan of the brain with and without contrast, did not show any significant abnormalities. Carotid Duplex scan 05/08/2014, showed 20% right ICA plaque and 20% to 49% left ICA plaque, essentially all velocities were within normal limits and the left ICA peak velocity 116 systolic with 38 diastolic. Symptoms resolved over 2 to 3 days spontaneously. 6. Obesity, BMI 31.6. Former smoker, quit 21 years ago. Status post minor surgery many years ago for leg fracture. ALLERGIES/DRUG INTOLERANCES: NKDA. CURRENT MEDICATIONS: 1. Coreg 25 mg b.i.d. Zoloft 100 mg b.i.d. Valsartan hydrochlorothiazide 320/25 daily. Glucophage 500 mg b.i.d. Amlodipine 5 mg daily. Pravachol 40 mg daily. Plavix 75 mg daily. Aspirin 81 mg daily. SUBJECTIVE: Patient returns for followup of cardiomyopathy and cardiovascular risk factors. Patientstates that in the beginning of May, he woke up 1 day feeling lightheaded and staggery. He went and saw his primary care physician after the weekend and was still somewhat staggering and dizzy. The primary care physician was concerned about possibility of stroke and the patient was sent for a CT scan of the brain and carotid ultrasound and was subsequently started on aspirin and Plavix. He states that his symptoms have gradually resolved over 3 days and he has not had any recurrence. He continues to have usual complaints of feeling nervous and jittery, what he describes as feeling honoree?? . He is already on Zoloft 100 mg b.i.d. He states that despite adequate rest at night, he just feels tired and fatigued and is ready to go to bed by 8 or 9:00. OBJECTIVE: VITAL SIGNS: Pulse 85, blood pressure 126/76. CHEST: Clear. HEART: Sounds regular. EXTREMITIES: No edema. DEVICE INTERROGATION: ICD interrogation revealed, normal dual-chamber ICD function with 4 bouts of NSVT, lasting less than 3 seconds. ASSESSMENT: 1. History of nonischemic cardiomyopathy, status post implantable cardioverter defibrillator implant, stable. No heart failure type symptoms. Hypertension, well controlled. Dyslipidemia, on pravastatin. Vertigo-type symptoms were probably labyrinthitis, resolved, no significant carotid artery disease by ultrasound and mild plaque was noted. PLAN: 1. Patient is more than 1 month out from his vertigo-type symptoms, he did not have any significantcarotid disease, he wishes to go off Plavix, we did not have the reports at the time of his visit here; however, after reviewing the reports, I feel he would be reasonable for him to stop Plavix. He will continue all current medications. Regarding his jittery symptoms and fatigue symptoms I have recommended, he should see his primary physician for further evaluation and possibly have a sleep study and further management of what couldbe depression. Followup with me in 6 months with same day device interrogation. Dr. Valdez, thank you for allowing me to participate in the care of your patient. Viktor Nelson MD* AA/va cc: Chucho Valdez MD [facility] Electronically signed by:Viktor Nelson MD Jun 20 2014 8:25AM EST documented in this encounter Plan of Treatment Not on file documented as of this encounter Visit Diagnoses Not on filedocumented in this encounter Care Teams Wool Mixer Relationship Specialty Start Date End Date Chucho Valdez MD PCP - General 01/11/15 07/26/15 documented as of this encounter
--- OUTSIDE RECORDS SUMMARY | 2024-04-26 14:37 | XMS_ITS | Encounter Summary ---
Author Organization [facility] Address [address] [place] [address] Care Team Providers Care Wool Shearer Name Role Phone Jose Valdez MD Primary Care Provider [phone] Reason for Visit * Reason Comments Pacemaker Check BSC BiV ICD remote Encounter Details Date Type Department Care Team (Latest Contact Info) Description 12/22/2018 Clinical Support No Requirements [facility] CARDIOLOGY [address] [place] [address] [address] [place] [address] Nonischemic cardiomyopathy (Primary Dx); Hypertension, unspecified type Social History Tobacco Use Types Packs/Day Years [...] Associated Diagnosis Comments PACEART REMOTE DEVICE CHECK 12/22/2018 4:21 AM EDT documented in this encounter Results * PACEART REMOTE DEVICE CHECK (12/22/2018 4:21 AM EDT) Anatomical Region Laterality Modality Other REMA Payton [facility] ORDERA BLES Final Result documented in this encounter Visit Diagnoses Diagnosis Nonischemic cardiomyopathy- Primary Other primary cardiomyopathies Hypertension, unspecified type documented in this encounter Care Teams Wool Shearer Relationship Specialty Start Date End Date Jose Valdez MD [address] [place] [address] [place] [address] PCP - General 07/27/15 documented as of this encounter
--- OUTSIDE RECORDS SUMMARY | 2024-04-26 14:37 | XMS_ITS | Encounter Summary ---
Author Organization [facility] Address [address] [place] [address] Care Team Providers Care Ski Instructor Name Role Phone Jose Valdez MD Primary Care Provider [phone] Reason for Visit * Reason Comments Remote monitoring Encounter Details Date Type Department Care Team (Latest Contact Info) Description 11/19/2017 Clinical Support No Requirements [facility] CARDIOLOGY [address] [place] [address] [address] [place] [phone] Nonischemic cardiomyopathy Social History Tobacco Use Types Packs/Day Years [...] Associated Diagnosis Comments PACEART REMOTE DEVICE CHECK 11/19/2017 4:21 AM EDT SCANNED - CARDIOLOGY 11/19/2017 documented in this encounter Results * PACEART REMOTE DEVICE CHECK (11/19/2017 4:21 AM EDT) Anatomical Region Laterality Modality Other us Viral Hernandez MD [facility] ORDERABL ES Final Result * SCANNED - CARDIOLOGY (11/19/2017) Anatomical Region Laterality Modality Other us Viral Hernandez MD [facility] ORDERABL ES Final Result documented in this encounter Visit Diagnoses Diagnosis Nonischemic cardiomyopathy Other primary cardiomyopathies documented in this encounter Care Teams Ski Instructor Relationship Specialty Start Date End Date Jose Valdez MD [address] [facility] [address] [facility] [address] [place] [id number] PCP - General 07/27/15 documented as of this encounter
--- OUTSIDE RECORDS SUMMARY | 2024-04-26 14:37 | XMS_ITS | Encounter Summary ---
Author Organization [facility] Address [address] [place] [address] Care Team Providers Care Nib Inspector Name Role Phone Jose Valdez MD Primary Care Provider [phone] Reason for Visit * Reason Comments remote monitoring Encounter Details Date Type Department Care Team (Latest Contact Info) Description 05/20/2018 Clinical Support No Requirements [facility] CARDIOLOGY [address] [place] [address] [address] [place] [phone] Nonischemic cardiomyopathy Social History Tobacco Use Types [...] Associated Diagnosis Comments PACEART REMOTE DEVICE CHECK 05/20/2018 5:21 AM EST documented in this encounter Results * PACEART REMOTE DEVICE CHECK (05/20/2018 5:21 AM EST) Anatomical Region Laterality Modality Other REMA [place] [facility] ORDERA BLES Final Result documented in this encounter Visit Diagnoses Diagnosis Nonischemic cardiomyopathy Other primary cardiomyopathies documented in this encounter Care Teams Nib Inspector Relationship Specialty Start Date End Date Jose Valdez MD [address] [place] [address] [place] [address] PCP - General 07/27/15 documented as of this encounter
--- OUTSIDE RECORDS SUMMARY | 2024-04-26 14:37 | XMS_ITS | Encounter Summary ---
Author Organization [facility] Address [address] [place] [address] Care Team Providers Care Customer Engagement Manager Name Role Phone Jose Valdez MD Primary Care Provider [phone] Reason for Visit * Reason Comments remote monitoring Encounter Details Date Type Department Care Team (Latest Contact Info) Description 02/18/2018 Clinical Support No Requirements [facility] CARDIOLOGY [address] [place] [address] [address] [place] [phone] Nonischemic cardiomyopathy Social History Tobacco Use Types [...] Associated Diagnosis Comments PACEART REMOTE DEVICE CHECK 02/18/2018 4:21 AM EDT documented in this encounter Results * PACEART REMOTE DEVICE CHECK (02/18/2018 4:21 AM EDT) Anatomical Region Laterality Modality Other Suman Stevens DO [facility] ORDERABLES Final Result documented in this encounter Visit Diagnoses Diagnosis Nonischemic cardiomyopathy Other primary cardiomyopathies documented in this encounter Care Teams Customer Engagement Manager Relationship Specialty Start Date End Date Jose Valdez MD [address] [place] [address] [place] [address] PCP - General 07/27/15 documented as of this encounter
--- OUTSIDE RECORDS SUMMARY | 2024-04-26 14:37 | XMS_ITS | Encounter Summary ---
Author Organization [facility] [place] [address] Care Team Providers Care Press Reader Name Role Phone Unavailable Primary Care Provider Unavailabl e Reason for Referral * MRI/CAT Scan (Routine) - Closed Specialty Diagnoses / Procedures Referred By Naveen perez Referred To Contact Radiology Diagnoses Stomach ache Microscopic hematuria Procedures CT ABDOMEN PELVIS WO ORAL OR IV CONTRAST Feliberto Martínez [address] [place] [address] [address] [place] [id number] Phone: tel: fax: Referral ID Status Reason Start Date Expiration Date Visits Re quested Visits Authorized [id number] Closed 10/19/2018 10/19/2019 1 1 Reason for Visit * MRI/CAT Scan (Routine) - Closed Specialty Diagnoses / Procedures Referred By Naveen perez Referred To Contact Radiology Diagnoses Stomach ache Microscopic hematuria Procedures CT ABDOMEN PELVIS WO ORAL OR IV CONTRAST Feliberto Martínez [address] [place] [address] [address] [place] [address] Phone: tel: fax: Referral ID Status Reason Start Date Expiration Date Visits Re quested Visits Authorized [id number] Closed 10/19/2018 10/19/2019 1 1 Encounter Details Date Type Department Care Team (Latest Contact Info) Description 10/20/2018 3:58 PM EDT - 10/20/2018 11:59 PM EDT [facility] [address] [place] [address] Feliberto Martínez [address] [facility] [address] [place] [address] Stomach ache; Microscopic hematuria Discharge Disposition: Home or Self Care Social History Tobacco Use Types Packs/Day Years Used Date Smoking Tobacco: Never Assessed Sex and Gender Information Value Date Recorded Sex Assigned at Not on file Legal Sex Male 9:18 AM EDT Gender Identity Not on file Sexual Orientation Not on file documented as of this encounter Discharge Disposition Disposition Code Departure Means Destination Home or Self Care documented in this encounter Plan of Treatment Not on file documented as of this encounter Procedures Procedure Name Priority Date/Time Associated Diagnosis Comments CT ABDOMEN PELVIS WO ORAL OR IV CONTRAST Routine 10/20/2018 4:06 PM EDT Stomach ache Microscopic hematuria documented in this encounter Results * CT ABDOMEN PELVIS WO ORAL OR IV CONTRAST (10/20/2018 4:06 PM EDT) Anatomical Region Laterality Modality Abdomen, Pelvis Computed Tomogra phy 10/20/2018 4:06 PM EDT Impressions 10/20/2018 5:22 PM EDT Multiple adjacent small stones suspected within the distal right ureter. No significant acute obstructive changes of the right kidney. Please see above detailed report. - - Narrative 10/20/2018 5:[address] ABDOMEN AND PELVIS WITHOUT IV OR ORAL CONTRAST, ??10/20/2018 4:06 PM CLINICAL HISTORY: ??R10.9-Unspecified abdominal emqx-RGY-06-CM R31.29-Other microscopic [id number]-CM. Right-sided flank pain. COMPARISON: ??No comparison abdominal/pelvic CT imaging studies. PROCEDURE COMMENTS: Noncontrast multidetector CT examination of the abdomen and pelvis without IV or oral contrast per protocol. Multiplanar reconstructions. Automated exposure control for dose reduction was used. CTDIvol: 21.3 mGy. DLP: 930 mGy-cm. FINDINGS: ?? LOWER THORAX: ??The visualized lung bases are clear. No focal pleural effusion. ABDOMEN AND PELVIS: ?? Unremarkable CT appearance of the visualized unopacified liver, spleen, adrenals, pancreas and contracted gallbladder. No visualized gallstones or acute pancreatitis changes. The kidneys are symmetric in size. No evidence of acute obstruction or nephrolithiasis. Chronic multilevel degenerative bony discogenic endplate changes and facet arthropathy of the lower thoracic and entire lumbar spine. Normal appendix. Diffuse diverticular changes of the colon. No CT findings characteristic of acute diverticulitis. Moderate prostate enlargement. No focal bladder abnormality. Asymmetric degenerative changes of the right hip. I believe the patient has several small stones within the distal right ureter. Focal 3 mm stone noted just proximal to the bladder lumen, axial images #[id number]. Additional adjacent tiny stones are questioned at the right UVJ, axial images #[id number]. Procedure Note Andres Rust DO - 10/20/2018 CT ABDOMEN AND PELVIS WITHOUT IV OR ORAL CONTRAST, 10/20/2018 4:06 PM CLINICAL HISTORY: R10.9-Unspecified abdominal txsv-DIQ-38-CM R31.29-Other microscopic otemdiecp-PTU-38-CM. Right-sided flank pain. COMPARISON: No comparison abdominal/pelvic CT imaging studies. PROCEDURE COMMENTS: Noncontrast multidetector CT examination of theabdomen and pelvis without IV or oral contrast per protocol. Multiplanarreconstructions. Automated exposure control for dose reduction was used. CTDIvol: 21.3 mGy.DLP: 930 mGy-cm. FINDINGS: LOWER THORAX: The visualized lung bases are clear. No focal pleuraleffusion. ABDOMEN AND PELVIS: Unremarkable CT appearance of the visualized unopacified liver, spleen, adrenals, pancreas and contracted gallbladder. No visualized gallstones oracute pancreatitis changes. The kidneys are symmetric in size. No evidence ofacute obstruction or nephrolithiasis. Chronic multilevel degenerative bonydiscogenic endplate changes and facet arthropathy of the lower thoracic and entirelumbar spine. Normal appendix. Diffuse diverticular changes of the colon. No CTfindings characteristic of acute diverticulitis. Moderate prostate enlargement. Nofocal bladder abnormality. Asymmetric degenerative changes of the right hip. Ibelieve the patient has several small stones within the distal right ureter. Focal3 mm stone noted just proximal to the bladder lumen, axial images #[id number].Additional adjacent tiny stones are questioned at the right UVJ, axial images#[id number]. IMPRESSION: Multiple adjacent small stones suspected within the distal right ureter. No significant acute obstructive changes of the right kidney.Please see above detailed report. - - [facility] Ron Martínez [facility] ORDERABLES Final Result documented in this encounter Visit Diagnoses Diagnosis Stomach ache Dyspepsia and other specified disorders of function of stomach Microscopic hematuria documented in this encounter
--- OUTSIDE RECORDS SUMMARY | 2024-04-26 14:37 | XMS_ITS | Encounter Summary ---
Author Organization [facility] Address [address] [place] [address] Care Team Providers Care Helmet Binder Name Role Phone Jose Valdez MD Primary Care Provider [phone] Reason for Visit * Reason Onset Date Comments Home monitoring 01/07/2018 Encounter Details Date Type Department Care Team (Late st Contact Info) Description 01/07/2018 Telephone [facility] CARDIOLOGY [address] [place] [address] [address] [place] [address] Ray Carballo Home monitoring Social History Tobacco Use Types Packs/Day [...] encounter Miscellaneous Notes * Telephone Encounter - Ray Carballo - 01/07/2018 2:[address] Stevens ask me to send the paceart write up to Dr Nelson also to let him know pt had episode of Afib and is not on anitcoagulation.I sent the report and message to Vince Small in the absence of Dr Nelson * Telephone Encounter - Ray Carballo - 01/07/2018 8:37 AM EDT Received a transmission on Mr Bolivar showing increase in Atrial Fibrillation. However, it does not show a presenting EGM. I called to ask him to send a manual transmission and there was no answer. I left my name and number and ask him to return my call. documented in this encounter Plan of Treatment Not on file documented as of this encounter Visit Diagnoses Not on filedocumented in this encounter Care Teams Helmet Binder Relationship Specialty Start Date End Date Jose Valdez MD [facility] [address] [facility] [address] [place] [address] PCP - General 07/27/15 documented as of this encounter
--- OUTSIDE RECORDS SUMMARY | 2024-04-26 14:37 | XMS_ITS | Encounter Summary ---
Author Organization [facility] Address [address] [place] [id number] Care Team Providers Care Desk Pens Assembler Name Role Phone Jose Valdez MD Primary Care Provider [phone] Reason for Visit * Reason Comments Dizziness Encounter Details Date Type Department Care Team (Late st Contact Info) Description 02/21/2019 1:19 PM EDT - 02/21/2019 6:22 PM EDT Emergency PSYCHIATRIC EMERGENCY DEPARTMENT [address] [place] [address] Chuck Crook MD [address] [facility] [place] [address] Postural dizziness with near syncope (Primary Dx); Nonischemic cardiomyopathy Discharge Disposition: Home or Self Care Social [...] Sign Reading Time Taken Comments Blood Pressure 160/81 02/21/2019 5:00 PM EDT Pulse 82 02/21/2019 5:00 PM EDT Temperature 36.5 ??C (97.7 ??F) 02/21/2019 1:20 PM ED T Respiratory Rate 18 02/21/2019 1:20 PM EDT Oxygen Saturation 95% 02/21/2019 5:00 PM EDT Inhaled Oxygen Concentration - - Weight 93 kg (205 lb) 02/21/2019 1:20 PM EDT Height 177.8 cm (5' 10 ) 02/21/2019 1:20 PM EDT Body Mass Index 29.41 02/21/2019 1:20 PM EDT documented in this encounter Discharge Instructions * Discharge Instructions* Chuck Crook MD - 02/21/2019 6:07 PM EDT If you feel dizzy again, try to lie down with your feet up or at least get your head lower. If you have persistent dizziness, longer than today, especially if you have other problems with it like vomiting, one sided weakness, difficulty swallowing, etc., return to the ER promptly. * Attachments The following attachments cannot be sent through Care Everywhere. * Cardiomyopathy Adult (Armenian) * Dizziness (Armenian) documented in this encounter Medications at Time of Discharge aspirin 81 MG tablet Take 1 tablet by mouth Daily. 30 tablet 11 metFORMIN (GLUCOPHAGE) 500 MG tablet Take 500 mg by mouth 2 (Two) Times a Day. 07/28/2016 tamsulosin (FLOMAX) 0.4 MG capsule 24 hr capsule Take 2 capsules by mouth Daily. 07/27/2016 amLODIPine (NORVASC) 10 MG tabletIndications: Essential hypertension Take 1 tablet by mouth Daily. 90 tablet 3 08/13/2018 0 carvedilol (COREG) 25 MG tablet Take 1 tablet by mouth 2 (Two) Times a Day With Meals. 180 tablet 3 08/07/2017 1 pravastatin (PRAVACHOL) 40 MG tablet Take 1 tablet by mouth Daily. 30 tablet 11 08/01/2016 1 valsartan-hydrochl orothiazide (DIOVAN-HCT) 320-25 MG per tablet Take 1 tablet by mouth Daily. 90 tablet 3 08/07/2017 2 documented as of this encounter H&P Notes * Rafael Mondragon MD - 02/21/2019 4:28 PM EDT [facility] - Cardiology History & Physical Jos Bolivar 1950 06/01 PCP: Jose Valdez MD Jos Bolivar is a 68 y.o. male. 02/21/19 Chief Complaint: Dizziness. PROBLEM LIST/PMHx: 1. Nonischemic cardiomyopathy. a. Symptoms of progressive angina-type ??symptoms in March 2005. b. Exercise/Cardiolite stress test on 03/13/2005, was remarkable for poor exercise tolerance and reversible anterior wall defect with EF 33%. c. [facility], March 2005, Dr. Nelson: Nonobstructive CAD involving the first diagonal, mid-LAD and RCA without evidence of hemodynamically significant stenosis. EF 45%. d. Onset of CHF type symptoms with initiation of appropriate medical therapy. e. Echocardiogram, October 2005: Dilated cardiomyopathy with EF 35%. f. [employer] ICD implant by Dr. Hooper on [...] borderline dilated. Mild MR, trace TR. 2. Essential Hypertension. 3. Paroxysmal Atrial Fibrillation A. CHADS2 Vasc = 5. Rx Xarelto 09/24/18. B. Discovered by device interrogation only. 4. Dyslipidemia. 5. Diabetes mellitus, type 2. [...] resolved over 2-3 days spontaneously. ?? 7. ??Obesity 8. Former smoker, quit 21 years ago. 9. Status post minor surgery many years ago for leg fracture. ?? Allergies: has No Known Allergies. No current facility-administered medications on file prior to encounter. Current Outpatient Medications on File Prior to Encounter Medication Sig ??? amLODIPine (NORVASC) 10 MG tablet Take 1 tablet by mouth Daily. ??? aspirin 81 MG tablet Take 1 tablet by mouth Daily. ??? carvedilol (COREG) 25 MG tablet Take 1 tablet by mouth 2 (Two) Times a Day With Meals. ??? metFORMIN (GLUCOPHAGE) 500 MG tablet Take 500 mg by mouth 2 (Two) Times a Day. ??? pravastatin (PRAVACHOL) 40 MG tablet Take 1 tablet by mouth Daily. ??? tamsulosin (FLOMAX) 0.4 MG capsule 24 hr capsule Take 1 capsule by mouth Daily. ??? valsartan-hydrochlorothiazide (DIOVAN-HCT) 320-25 MG per tablet Take 1 tablet by mouth Daily. ??? potassium chloride (K-DUR) 10 MEQ CR tablet Take 10 mEq by mouth Daily. ??? rivaroxaban (XARELTO) 20 MG tablet Take 1 tablet by mouth Daily With Dinner. - NOT TAKING 2/2 COST CARDIAC RISK FACTORS: advanced age (older than 55 for men, 65 for women), diabetes mellitus, dyslipidemia, family historyof premature cardiovascular disease, hypertension, male gender, obesity (BMI >= 30 kg/m2) and smoking/ tobacco exposure. HPI: Jos Bolivar is a 68 yo CM with PMHx of NICM with [employer] ICD, non obstructive CAD, HTN, PAF and HLP. He was last seen in the office 07/2018 at which time he was doing well. No changes made at that time. Shortly after, a remote interrogation of his device indicated PAF - asymptomatic. When notified, the patient was unaware of palpitations/irregular heart beat. He was prescribed Xarelto 20mg but could not afford to get it filled. He was in his usual state of health. Woke up this morning, drank coffee and went to work. He took abreak around 10:30 a.m. to use the restroom and on his way, he became very dizzy and diaphoretic. He states he was very hot but also states that the area of work was also hot. He went to a cooler area to rest and felt like he might pass out but did not. When his grandson saw him, he was also very pale. He continued to feel weak and was brought to [facility] ED. Upon arrival, vitals were essentially stable. Device interrogation performed in the ED indicates brief AF and AT but not at a correlation timeof his symptoms. He has been compliant with all medications - except the xarelto which he couldn't afford. He rarely eats breakfast so today's habits were no different than any other day. He's had nochange in bowel/bladder habits. He has a history of vertigo type symptoms but states this was different. Symptoms resolved. He ate lunch without difficulty. Denies chest pain, shortness of breath, PND, orthopnea, or lower extremity edema. No palpitations recently. Social History Socioeconomic History ??? Marital status: Spouse name: Not on file ??? Number of children: Not on file ??? Years of education: Not on file ??? Highest education level: Not on file Tobacco Use ??? Smoking status: Former Smoker Types: Cigarettes Last attempt to quit: 08/01/1981 Years since quittin.5 ??? Smokeless tobacco: Never Used Substance and Sexual Activity ??? Alcohol use: Yes Comment: occas ??? Drug use: No ??? Sexual activity: Defer Family History Problem Relation Age of Onset ??? Heart attack Father 79 Past Surgical History: Procedure Laterality Date ??? CARDIAC CATHETERIZATION 03/2005 showed nonobstructive coronary artery disease involving the first diagonal, mid LAD and right coronary artery without evidence of hemodynamically significant stenosis. Moderate left ventricular dysfunction with ejection fraction of 45%. ??? CARDIAC DEFIBRILLATOR PLACEMENT 05/01/2006 [employer] ICD implant by Dr. Hooper ??? LEG SURGERY Status post minor surgery many years ago for leg fracture. Review of Systems: Pertinent positives are listed above and in physical exam. All others have been reviewed and are negative. Objective: Vitals: height is 177.8 cm (70 ) and weight is 93 kg (205 lb). His oral temperature is 97.7 ??F (36.5 ??C). His blood pressure is 161/83 and his pulse is 83. His respiration is 18 and oxygen saturation is 95%. No intake or output data in the 24 hours ending 02/21/19 1628 Physical exam: General Appearance: ?? well developed ?? well nourished HENT: ?? oropharynx moist ?? lips not cyanotic Neck: ?? thyroid not enlarged ?? supple Respiratory: ?? no respiratory distress ?? normal breath sounds ?? no rales Cardiovascular: ?? no jugular venous distention ?? regular rhythm ?? apical impulse normal ?? S1 normal, S2 normal ?? no S3, no S4 ?? no murmur ?? no rub, no thrill ?? carotid pulses normal; no bruit ?? pedal pulses normal ?? lower extremity edema: none Gastrointestinal: ?? bowel sounds normal ?? non-tender ?? no hepatomegaly, no splenomegaly Musculoskeletal: ?? no clubbing of fingers. ?? normocephalic, head atraumatic Skin: ?? warm ?? dry Psychiatric: ?? judgement and insight appropriate ?? normal mood and affect Results Review: I personally reviewed the patient's clinical results. Results from last 7 days Lab Units 02/21/19 1326 WBC 10*3/mm3 6.81 HEMOGLOBIN g/dL 14.7 HEMATOCRIT % 43.9 PLATELETS 10*3/mm3 157 Results from last 7 days Lab Units 02/21/19 1326 SODIUM mmol/L 137 POTASSIUM mmol/L 3.8 CHLORIDE mmol/L 98 CO2 mmol/L 25.0 BUN mg/dL 18 CREATININE mg/dL 1.34* CALCIUM mg/dL 9.4 BILIRUBIN mg/dL 1.0 ALK PHOS U/L 55 ALT (SGPT) U/L 14 AST (SGOT) U/L 15 GLUCOSE mg/dL 259* Troponin x 2: <0.01 M.8 UA: Trace glucose, negative bacteria. Radiology: Imaging Results (last 72 hours) Procedure Component Value Units Date/Time XR Chest 1 View [[id number]] Collected: 02/21/19 1408 Updated: 02/21/19 1411 Narrative: EXAMINATION: XR CHEST 1 VW- 02/21/2019 INDICATION: Weak/Dizzy/AMS triage protocol COMPARISON: NONE FINDINGS: Portable chest reveals cardiac pacer leads in satisfactory position. Cardiac and mediastinal silhouettes within normal limits. There is vascular calcification seen within the thoracic aorta. No pleural effusion or pneumothorax. Degenerative changes seen within the spine. Pulmonary vascularity is within normal limits. No focal parenchymal opacification present. Impression: No acute cardiopulmonary disease. E: 02/21/2019 Tele: V-paced Assessment and Plan: 1. Dizziness - Occurred while working, walking to restroom. C/O profuse sweating, palor. - EKG shows V paced. Negative enzymes x2. Device interrogation shows brief AT/AF - which did not correlate with timing of symptoms. CXR shows NAD. - CT Head has been ordered by ED Physician to rule out neuro involvement (no MRI with ICD). - Symptoms have essentially resolved. -Low risk for adverse cardiovascular events after discharge, negative troponin, no evidence of acute heart failure, no malignant arrhythmia on device interrogation. Patient may be discharged home from a cardiac standpoint barring abnormality on CT of the head. Patient has follow-up in [address] Nelson, advised patient to continue close monitoring of symptoms and increase water intake to at least 4-6 bottles of water daily. 2. Non Ischemic Cardiomyopathy - [employer] ICD interrogation reveals brief AF/AT at times other than symptoms - Last echo 09/11/17 shows EF 51-55%. - Last C 2004 showed non obstructive CAD without stenosis. - Continue medications: Coreg, ARB/Diuretic. - Labs reviewed/noted. Will need to follow Cr (1.34). Possibly prerenal 3. Paroxysmal Atrial Fibrillation - Again, device interrogation reviewed. - CHADS2 Vasc = 5. Could not afford Xarelto - Needs to be on AC and our office needs to work on pre authorization/assistance. Will discuss at next office visit. 4. Essential Hypertension - Elevated readings at time of arrival. -Possible brief vasodepressor episode causing his presyncopal episode. Increase water intake, continue all current antihypertensive medications, consider stopping HCTZ I discussed the patients findings and my recommendations with the patient, any present family members, and the nursing staff. Rafael Mondragon MD saw and examined patient, verified hx and PE, read all radiographic studies, reviewed labs and micro data, and formulated dx, plan for treatment and all medical decision making. Courtney Brantley PA-C working with Rafael Mondragon MD 02/21/19 4:28 PM Electronically signed by REMA [place]field, 02/21/19, 5:16 PM. I have seen and examined the patient, performing a [id number] diagnostic evaluation with plan of care reviewed and developed with the [employer] and nursing staff. I have addended and modified the above history of present illness, physical examination, and assessment and plan to reflect my findings and impressions Rafael Mondragon MD, [facility] 02/21/19 documented in this encounter ED Notes * Chuck Crook MD - 02/21/2019 1:23 PM EDT Subjective Jos Bolivar is a 68 y.o.male who presents to the ED with complaints of dizziness. The patient had a sudden onset of dizziness while he was walking to the restroom earlier today. He describes hisdizziness as a lightheadedness sensation. Since onset, his dizziness has been improving. He has nottaken any medication for his dizziness. He also complains of generalized weakness, nausea, and shortness of breath, but he denies any vomiting, focal weakness, or palpitations. He also denies experiencing an episode of syncope, but he was diaphoretic and pale. He states he developed chest soreness once his symptoms started to improve. There are no other complaints at this time. History provided by: Patient Dizziness Quality: Lightheadedness Severity: Moderate Onset quality: Sudden Duration: 1 day Timing: Constant Progression: Improving Chronicity: New Context: standing up Relieved by: None tried Worsened by: Nothing Ineffective treatments: None tried Associated symptoms: chest pain, nausea, shortness of breath and weakness (generalized) Associated symptoms: no palpitations, no syncope and no vomiting Review of Systems Constitutional: Positive for diaphoresis. Respiratory: Positive for shortness of breath. Cardiovascular: Positive for chest pain. Negative for palpitations and syncope. Gastrointestinal: Positive for nausea. Negative for vomiting. Skin: Positive for pallor. Neurological: Positive for dizziness, weakness (generalized) and light- headedness. Negative for syncope. All other systems reviewed and are negative. Past Medical History: Diagnosis Date ??? Carotid artery disease (CMS/HCC) 06/11/2016 ??? Dyslipidemia 06/11/2016 ??? Hypertension 06/11/2016 ??? Nonischemic cardiomyopathy (CMS/HCC) 06/11/2016 ??? Obesity 06/11/2016 ??? Type 2 diabetes mellitus (CMS/HCC) ??? Vertigo Episode of vertigo-type symptoms.Suspected TIA. CT scan of the brain with and without contrast, didnot show any significant abnormalities.Carotid Duplex scan 05/08/2014, showed 20% right ICA plaque and 20% to 49% left ICA plaque, essentially all velocities were within normal limits and the left ICA peak velocity 116 systolic with 38 diastolic. Symptoms resolved over 2-3 days spontaneously. No Known Allergies Past Surgical History: Procedure Laterality Date ??? CARDIAC CATHETERIZATION 03/2005 showed nonobstructive coronary artery disease involving the first diagonal, mid LAD and right coronary artery without evidence of hemodynamically significant stenosis. Moderate left ventricular dysfunction with ejection fraction of 45%. ??? CARDIAC DEFIBRILLATOR PLACEMENT 05/01/2006 [employer] ICD implant by Dr. Hooper ??? LEG SURGERY Status post minor surgery many years ago for leg fracture. Family History Problem Relation Age of Onset ??? Heart attack Father 79 Social History Socioeconomic History ??? Marital status: Spouse name: Not on file ??? Number of children: Not on file ??? Years of education: Not on file ??? Highest education level: Not on file Tobacco Use ??? Smoking status: Former Smoker Types: Cigarettes Last attempt to quit: 08/01/1981 Years since quittin.5 ??? Smokeless tobacco: Never Used Substance and Sexual Activity ??? Alcohol use: Yes Comment: occas ??? Drug use: No ??? Sexual activity: Defer Objective Physical Exam Constitutional: He is oriented to person, place, and time. He appears well- developed and well-nourished. HENT: Head: Normocephalic and atraumatic. Nose: Nose normal. Mouth/Throat: Oropharynx is clear and moist. Airway patent. Pharynx benign. Eyes: Conjunctivae and EOM are normal. Pupils are equal, round, and reactive to light. No scleral icterus. Neck: Normal range of motion. Neck supple. No JVD present. Cardiovascular: Normal rate, regular rhythm, normal heart sounds and intact distal pulses. No murmur heard. Pulmonary/Chest: Effort normal and breath sounds normal. No respiratory distress. He has no wheezes. He has no rales. Abdominal: Soft. Bowel sounds are normal. There is tenderness in the right upper quadrant. Musculoskeletal: Normal range of motion. He exhibits no edema. No pretibial edema. Lymphadenopathy: He has no cervical adenopathy. Neurological: He is alert and oriented to person, place, and time. Skin: Skin is warm and dry. Psychiatric: He has a normal mood and affect. His behavior is normal. Nursing note and vitals reviewed. Procedures ED Course ED Course as of Feb 21 2211 Mon Feb 21, 2019 1647 History suggested an orthostatic cause of his dizziness, but device interrogation showed no arrhythmia to correspond with the time and length of his dizziness. Cannot MRI, will check CT head. [LI] 2209 Review of records revealed PAF by device interrogation earlier in the year. Xarelto was prescribed but not started due to cost. [LI] ED Course User Index [LI] Chuck Crook MD Recent Results (from the past 24 hour(s)) Comprehensive Metabolic Panel Collection Time: 02/21/19 1:26 PM Result Value Ref Range Glucose 259 (H) 65 - 99 mg/dL BUN 18 8 - 23 mg/dL Creatinine 1.34 (H) 0.76 - 1.27 mg/dL Sodium 137 136 - 145 mmol/L Potassium 3.8 3.5 - 5.2 mmol/L Chloride 98 98 - 107 mmol/L CO2 25.0 22.0 - 29.0 mmol/L Calcium 9.4 8.6 - 10.5 mg/dL Total Protein 7.1 6.0 - 8.5 g/dL Albumin 4.80 3.50 - 5.20 g/dL ALT (SGPT) 14 1 - 41 U/L AST (SGOT) 15 1 - 40 U/L Alkaline Phosphatase 55 39 - 117 U/L Total Bilirubin 1.0 0.2 - 1.2 mg/dL eGFR Non Amer 53 (L) >60 mL/min/1.73 Globulin 2.3 gm/dL A/G Ratio 2.1 g/dL BUN/Creatinine Ratio 13.4 7.0 - 25.0 Anion Gap 14.0 5.0 - 15.0 mmol/L Troponin Collection Time: 02/21/19 1:26 PM Result Value Ref Range Troponin T <0.010 0.000 - 0.030 ng/mL Magnesium Collection Time: 02/21/19 1:26 PM Result Value Ref Range Magnesium 1.8 1.6 - 2.4 mg/dL Light Blue Top Collection Time: 02/21/19 1:26 PM Result Value Ref Range Extra Tube hold for add-on Green Top (Gel) Collection Time: 02/21/19 1:26 PM Result Value Ref Range Extra Tube Hold for add-ons. Lavender Top Collection Time: 02/21/19 1:26 PM Result Value Ref Range Extra Tube hold for add-on Gold Top - SST Collection Time: 02/21/19 1:26 PM Result Value Ref Range Extra Tube Hold for add-ons. CBC Auto Differential Collection Time: 02/21/19 1:26 PM Result Value Ref Range WBC 6.81 3.40 - 10.80 10*3/mm3 RBC 4.78 4.14 - 5.80 10*6/mm3 Hemoglobin 14.7 13.0 - 17.7 g/dL Hematocrit 43.9 37.5 - 51.0 % MCV 91.8 79.0 - 97.0 fL MCH 30.8 26.6 - 33.0 pg MCHC 33.5 31.5 - 35.7 g/dL RDW 12.3 12.3 - 15.4 % RDW-SD 41.7 37.0 - 54.0 fl MPV 11.1 6.0 - 12.0 fL Platelets 157 140 - 450 10*3/mm3 Neutrophil % 81.9 (H) 42.7 - 76.0 % Lymphocyte % 10.9 (L) 19.6 - 45.3 % Monocyte % 4.1 (L) 5.0 - 12.0 % Eosinophil % 2.1 0.3 - 6.2 % Basophil % 0.7 0.0 - 1.5 % Immature Grans % 0.3 0.0 - 0.5 % Neutrophils, Absolute 5.58 1.70 - 7.00 10*3/mm3 Lymphocytes, Absolute 0.74 0.70 - 3.10 10*3/mm3 Monocytes, Absolute 0.28 0.10 - 0.90 10*3/mm3 Eosinophils, Absolute 0.14 0.00 - 0.40 10*3/mm3 Basophils, Absolute 0.05 0.00 - 0.20 10*3/mm3 Immature Grans, Absolute 0.02 0.00 - 0.05 10*3/mm3 nRBC 0.0 0.0 - 0.2 /100 WBC Urinalysis With Microscopic If Indicated (No Culture) - Urine, Clean Catch Collection Time: 02/21/19 2:43 PM Result Value Ref Range Color, UA Yellow Yellow, Straw Appearance, UA Clear Clear pH, UA 6.5 5.0 - 8.0 Specific [place], UA 1.009 1.001 - 1.030 Glucose, UA 100 mg/dL (Trace) (A) Negative Ketones, UA Negative Negative Bilirubin, UA Negative Negative Blood, UA Negative Negative Protein, UA Negative Negative Leuk Esterase, UA Negative Negative Nitrite, UA Negative Negative Urobilinogen, UA 0.2 E.U./dL 0.2 - 1.0 E.U./dL Troponin Collection Time: 02/21/19 3:42 PM Result Value Ref Range Troponin T <0.010 0.000 - 0.030 ng/mL Note: In addition to lab results from this visit, the labs listed above may include labs taken at another facility or during a different encounter within the last 24 hours. Please correlate lab timeswith ED admission and discharge times for further clarification of the services performed during this visit. CT Head Without Contrast Preliminary Result Atrophy and chronic changes seen within the brain with no acute intracranial abnormality identified. XR Chest 1 View Preliminary Result No acute cardiopulmonary disease. E: 02/21/2019 Vitals: 02/21/19 1530 02/21/19 1600 02/21/19 1630 02/21/19 1700 BP: 161/83 157/79 156/79 160/81 BP Location: Patient Position: Pulse: 83 81 75 82 Resp: Temp: TempSrc: SpO2: 95% 95% 96% 95% Weight: Height: Medications - No data to display ECG/EMG Results (last 24 hours) Procedure Component Value Units Date/Time ECG 12 Lead [[id number]] Collected: 02/21/19 1325 Updated: 02/21/19 132 ECG 12 Lead ECG 12 Lead Final Result Test Reason : Weak/Dizzy/AMS protocol Blood Pressure : / mmHG Vent. Rate : 083 BPM Atrial Rate : 083 BPM P-R Int : 126 ms QRS Dur : 122 ms QT Int : 404 ms P-R-T Axes : 051 007 050 degrees QTc Int : 474 ms Electronic ventricular pacemaker No previous ECGs available Confirmed by CHUCK CROOK MD ([id number]) on 02/21/2019 1:40:24 PM Referred By: EDMD Confirmed By:CHUCK CROOK MD MDM Number of Diagnoses or Management Options Postural dizziness with near syncope: Final diagnoses: Postural dizziness with near syncope Nonischemic cardiomyopathy (CMS/HCC) Documentation assistance provided by jorje Lovelace. Information recorded by the jorje mallory at my direction and has been verified and validated by me. Chidi Lovelace 02/21/19 1338 Chidi Lovelace 02/21/19 1805 Chuck Crook MD 02/21/19 2211 documented in this encounter Plan of Treatment Not on file documented as of this encounter Procedures Procedure Name Priority Date/Time Associated Diagnosis Comments CT HEAD WO CONTRAST STAT 02/21/2019 5 :37 PM EDT ECG 12-LEAD STAT 02/21/2019 3:55 PM EDT TROPONIN STAT 02/21/2019 3:42 PM EDT URINALYSIS W/ MICROSCOPIC IF INDICATED (NO CULTURE) STAT 02/21/2019 2:43 PM EDT XR CHEST 1 VW STAT 02/21/2019 2:07 PM EDT GOLD TOP - SST STAT 02/21/2019 1:26 PM EDT DK GREEN TOP STAT 02/21/2019 1:26 PM EDT CBC WITH AUTO DIFFERENTIAL STAT 02/21/2019 1:26 PM EDT LAVENDER TOP STAT 02/21/2019 1:26 PM EDT LIGHT BLUE TOP STAT 02/21/2019 1:26 PM EDT RAINBOW DRAW STAT 02/21/2019 1:26 PM EDT TROPONIN STAT 02/21/2019 1:26 PM EDT CBC AND DIFFERENTIAL STAT 02/21/2019 1:26 PM EDT MAGNESIUM STAT 02/21/2019 1:26 PM EDT COMPREHENSIVE METABOLIC PANEL STAT 02/21/2019 1:26 PM EDT ECG 12-LEAD STAT 02/21/2019 1:25 PM EDT documented in this encounter Results * CT Head Without Contrast (02/21/2019 5:37 PM EDT) Anatomical Region Laterality Modality Head N/A Computed Tomogra phy 02/21/2019 5:52 PM EDT Impressions 02/23/2019 5:23 PM EDT Atrophy and chronic changes seen within the brain with no acute intracranial abnormality identified. D: ??02/21/2019 E: ??02/22/2019 This report was finalized on 02/23/2019 5:[address] Jyoti Madrigal MD. Narrative 02/23/2019 5:23 PM EDT EXAMINATION: CT HEAD WO CONTRAST-02/21/2019: INDICATION: Stroke, weakness. TECHNIQUE: Multiple axial CT imaging was obtained of the head from the skull base to the skull vertex without the administration of intravenous contrast. The radiation dose reduction device was turned on for each scan per the ALARA (As Low as Reasonably Achievable) protocol. COMPARISON: NONE. FINDINGS: The brain parenchyma is unremarkable in appearance. Minimal low-density areas seen in the periventricular and subcortical white matter with physiologic calcification seen of the basal ganglia. There is no hemorrhage or hydrocephalus. There is no mass, mass effect, or midline shift. The visualized paranasal sinuses are clear. The mastoid air cells are patent. The bony structures are unremarkable. Procedure Note Jyoti Madrigal MD - 02/23/2019 EXAMINATION: CT HEAD WO CONTRAST-02/21/2019: INDICATION: Stroke, weakness. TECHNIQUE: Multiple axial CT imaging was obtained of the head from the skull base to the skull vertex without the administration of intravenous contrast. The radiation dose reduction device was turned on for each scan per the ALARA (As Low as Reasonably Achievable) protocol. COMPARISON: NONE. FINDINGS: The brain parenchyma is unremarkable in appearance. Minimal low-density areas seen in the periventricular and subcortical white matter with physiologic calcification seen of the basal ganglia. There is no hemorrhage or hydrocephalus. There is no mass, mass effect, or midline shift. The visualized paranasal sinuses are clear. The mastoid air cells are patent. The bony structures are unremarkable. IMPRESSION: Atrophy and chronic changes seen within the brain with no acute intracranial abnormality identified. E: 02/22/2019 This report was finalized on 02/23/2019 5:[address] Jyoti Madrigal MD. us Chuck Crook MD IMG CT ORDERABLES Final Result * ECG 12 Lead (02/21/2019 3:55 PM EDT) 02/21/2019 3:55 PM EDT 02/25/2019 10:14 AM EDT Narrative ECG - 02/25/2019 10:14 AM EDT Test Reason : DIZZINESS Blood Pressure : / mmHG Vent. Rate : 076 BPM ? Atrial Rate : 076 BPM ?? P-R Int : 128 ms ?QRS Dur : 120 ms ?QT Int : 420 ms ? P-R-T Axes : 051 004 047 degrees ?? QTc Int : 472 ms Electronic ventricular pacemaker When compared with ECG of 21-FEB-2019 13:25, Vent. rate has decreased BY ?? 7 BPM Confirmed by ROMI ??CHUCK ESTEVEZ ([id number]) on 02/25/2019 10:14:53 AM Referred By: ??ROMI ? Confirmed By:CHUCK CROOK ?? Procedure Note Chuck Crook MD - 02/25/2019 Test Reason : DIZZINESS Blood Pressure : / mmHG Vent. Rate : 076 BPM Atrial Rate : 076 BPM P-R Int : 128 ms QRS Dur : 120 ms QT Int : 420 ms P-R-T Axes : 051 004 047 degrees QTc Int : 472 ms Electronic ventricular pacemaker When compared with ECG of 21-FEB-2019 13:25, Vent. rate has decreased BY 7 BPM Confirmed by CHUCK CROOK MD ([id number]) on 02/25/2019 10:14:53 AM Referred By: ROMI Confirmed By:CHUCK CROOK MD Chuck Crook MD ECG ORDERABLES Final Result Performing Organization Address [facility] Co de Phone Number ECG * Troponin (02/21/2019 3:42 PM EDT) Troponin T <0.010 0.000 - 0.030 ng/mL 02/21/2019 4:25 PM EDT [facility] Blood Line / Unknown 02/21/2019 3: 42 PM EDT 02/21/2019 3:56 PM EDT [facility] - 02/21/2019 4:25 PM EDT Troponin T Reference Range: <= 0.03 ng/mL- ?? Negative for AMI >0.03 ng/mL- ? Abnormal for myocardial necrosis. ??Clinicians would have to utilize clinical acumen, EKG, Troponin and serial changes to determine if it is an Acute Myocardial Infarction or myocardial injury due to an underlying chronic condition. Chuck Crook MD LAB BLOOD ORDERABLES Final Res ult Performing Organization Address [facility] Co de Phone Number [facility]ORY
[address] [place] [address], * (ABNORMAL) Urinalysis With Microscopic If Indicated (No Culture) - Urine, Clean Catch (02/21/2019 2:43 PM EDT) Color, UA Yellow Yellow, Straw 02/21/2019 3:18 PM EDT [facility] Appearance, UA Clear Clear 02/21/2019 3:18 PM EDT [facility] pH, UA 6.5 5.0 - 8.0 02/21/2019 3:18 PM EDT [facility] Specific [place], UA 1.009 1.001 - 1.030 02/21/2019 3:18 PM EDT [facility] Glucose, UA 100 mg/dL (Trace)(A) Negative 02/21/2019 3:18 PM EDT [facility] Ketones, UA Negative Negative 02/21/2019 3:18 PM EDT [facility] Bilirubin, UA Negative Negative 02/21/2019 3:18 PM EDT [facility] Blood, UA Negative Negative 02/21/2019 3:18 PM EDT [facility] Protein, UA Negative Negative 02/21/2019 3:18 PM EDT [facility] Leuk Esterase, UA Negative Negative 02/21/2019 3:18 PM EDT [facility] Nitrite, UA Negative Negative 02/21/2019 3:18 PM EDT [facility] Urobilinogen, UA 0.2 E.U./dL 0.2 - 1.0 E.U./dL 02/21/2019 3:18 PM EDT [facility] Urine Urine specimen collection, clean catch / Unknown Collection / Unknown 02/21/2019 2:43 PM EDT 02/21/2019 3:14 PM EDT Narrative [facility] - 02/21/2019 3:18 PM EDT Urine microscopic not indicated. Chuck Crook MD URINE ORDERABLES Final Result [facility]
[address] [place] [address], * XR Chest 1 View (02/21/2019 2:07 PM EDT) Anatomical Region Laterality Modality Body N/A Radiographic Yvonne ging 02/21/2019 2:08 PM EDT Impressions 02/23/2019 5:19 PM EDT No acute cardiopulmonary disease. D: ??02/21/2019 E: ??02/21/2019 This report was finalized on 02/23/2019 5:[address] Jyoti Madrigal MD. Narrative 02/23/2019 5:19 PM EDT EXAMINATION: XR CHEST 1 VW- 02/21/2019 INDICATION: Weak/Dizzy/AMS triage protocol COMPARISON: NONE FINDINGS: Portable chest reveals cardiac pacer leads in satisfactory position. Cardiac and mediastinal silhouettes within normal limits. There is vascular calcification seen within the thoracic aorta. ??No pleural effusion or pneumothorax. Degenerative changes seen within the spine. Pulmonary vascularity is within normal limits. No focal parenchymal opacification present. ? Procedure Note Jyoti Madrigal MD - 02/23/2019 EXAMINATION: XR CHEST 1 VW- 02/21/2019 INDICATION: Weak/Dizzy/AMS triage protocol COMPARISON: NONE FINDINGS: Portable chest reveals cardiac pacer leads in satisfactory position. Cardiac and mediastinal silhouettes within normal limits. There is vascular calcification seen within the thoracic aorta. No pleural effusion or pneumothorax. Degenerative changes seen within the spine. Pulmonary vascularity is within normal limits. No focal parenchymal opacification present. IMPRESSION: No acute cardiopulmonary disease. E: 02/21/2019 This report was finalized on 02/23/2019 5:[address] Jyoti Madrigal MD. Chuck Crook MD IMG DIAGNOSTIC IMAGING ORDERAB LES Final Result * (ABNORMAL) CBC Auto Differential (02/21/2019 1:26 PM EDT) WBC 6.81 3.40 - 10.80 10*3/mm3 02/21/2019 1:44 PM EDT [facility] RBC 4.78 4.14 - 5.80 10*6/mm3 02/21/2019 1:44 PM EDT [facility] Hemoglobin 14.7 13.0 - 17.7 g/dL 02/21/2019 1:44 PM EDT [facility] Hematocrit 43.9 37.5 - 51.0 % 02/21/2019 1:44 PM EDT [facility] MCV 91.8 79.0 - 97.0 fL 02/21/2019 1:44 PM EDT [facility] MCH 30.8 26.6 - 33.0 pg 02/21/2019 1:44 PM EDT [facility] MCHC 33.5 31.5 - 35.7 g/dL 02/21/2019 1:44 PM EDT [facility] RDW 12.3 12.3 - 15.4 % 02/21/2019 1:44 PM EDT [facility] RDW-SD 41.7 37.0 - 54.0 fl 02/21/2019 1:44 PM EDT [facility] MPV 11.1 6.0 - 12.0 fL 02/21/2019 1:44 PM EDT [facility] Platelets 157 140 - 450 10*3/mm3 02/21/2019 1:44 PM EDT [facility] Neutrophil % 81.9(H) 42.7 - 76.0 % 02/21/2019 1:44 PM EDT [facility] Lymphocyte % 10.9(L) 19.6 - 45.3 % 02/21/2019 1:44 PM EDT [facility] Monocyte % 4.1(L) 5.0 - 12.0 % 02/21/2019 1:44 PM EDT [facility] Eosinophil % 2.1 0.3 - 6.2 % 02/21/2019 1:44 PM EDT [facility] Basophil % 0.7 0.0 - 1.5 % 02/21/2019 1:44 PM EDT [facility] Immature Grans % 0.3 0.0 - 0.5 % 02/21/2019 1:44 PM EDT [facility] Neutrophils, Absolute 5.58 1.70 - 7.00 10*3/mm3 02/21/2019 1:44 PM EDT [facility] Lymphocytes, Absolute 0.74 0.70 - 3.10 10*3/mm3 02/21/2019 1:44 PM EDT [facility] Monocytes, Absolute 0.28 0.10 - 0.90 10*3/mm3 02/21/2019 1:44 PM EDT [facility] Eosinophils, Absolute 0.14 0.00 - 0.40 10*3/mm3 02/21/2019 1:44 PM EDT [facility] Basophils, Absolute 0.05 0.00 - 0.20 10*3/mm3 02/21/2019 1:44 PM EDT [facility] Immature Grans, Absolute 0.02 0.00 - 0.05 10*3/mm3 02/21/2019 1:44 PM EDT [facility] nRBC 0.0 0.0 - 0.2 /100 WBC 02/21/2019 1:44 PM EDT [facility] Blood Venipuncture / Unknown 02/21/2019 1:26 PM EDT 02/21/2019 1:38 PM EDT us Chuck Crook MD LAB BLOOD ORDERABLES Final Res ult Performing Organization Address City/[facility]/ZIP Co de Phone Number [facility]IATR[facility] LABORATORY
[address] [place] [address], * Gold Top - SST (02/21/2019 1:26 PM EDT) Extra Tube Hold for add-ons. 02/21/2019 2:31 PM EDT [facility] Comment:Auto resulted. Blood Venipuncture / Unknown 02/21/2019 1:26 PM EDT 02/21/2019 1:38 PM EDT us Chuck Crook MD LAB BLOOD ORDER ONLY Final Res ult [facility]
[address] [place] [address], [place] [phone] * Lavender Top (02/21/2019 1:26 PM EDT) Extra Tube hold for add-on 02/21/2019 2:31 PM EDT [facility] Comment:Auto resulted Blood Venipuncture / Unknown 02/21/2019 1:26 PM EDT 02/21/2019 1:38 PM EDT Chuck Crook MD LAB BLOOD ORDER ONLY Final Res ult Performing Organization Address [facility] Co de Phone Number [facility]IAT[facility] LABORATORY
[address] [place] [address], * Green Top (Gel) (02/21/2019 1:26 PM EDT) Extra Tube Hold for add-ons. 02/21/2019 2:31 PM EDT [facility] Comment:Auto resulted. Blood Venipuncture / Unknown 02/21/2019 1:26 PM EDT 02/21/2019 1:38 PM EDT Chuck Crook MD LAB BLOOD ORDER ONLY Final Res ult Performing Organization Address [facility] Co de Phone Number [facility]IAT[facility] LABORATORY
[address] [place] [address], * Light Blue Top (02/21/2019 1:26 PM EDT) Extra Tube hold for add-on 02/21/2019 2:31 PM EDT [facility] Comment:Auto resulted Blood Venipuncture / Unknown 02/21/2019 1:26 PM EDT 02/21/2019 1:38 PM EDT Chuck Crook MD LAB BLOOD ORDER ONLY Final Res ult Performing Organization Address [facility] Co de Phone Number [facility]AT[facility] LAB[facility]ATORY
[address] [place] [address], * Magnesium (02/21/2019 1:26 PM EDT) Magnesium 1.8 1.6 - 2.4 mg/dL 02/21/2019 2:03 PM EDT [facility] Blood Venipuncture / Unknown 02/21/2019 1:26 PM EDT 02/21/2019 1:38 PM EDT Chuck Crook MD LAB BLOOD ORDERABLES Final Res ult Performing Organization Address City/[facility]/ZIP Co de Phone Number [facility]AT[facility] LAB[facility]ORY
[address] [place] [address], * Troponin (02/21/2019 1:26 PM EDT) Troponin T <0.010 0.000 - 0.030 ng/mL 02/21/2019 2:05 PM EDT [facility] Blood Venipuncture / Unknown 02/21/2019 1:26 PM EDT 02/21/2019 1:38 PM EDT Narrative [facility] - 02/21/2019 2:05 PM EDT Troponin T Reference Range: <= 0.03 ng/mL- ?? Negative for AMI >0.03 ng/mL- ? Abnormal for myocardial necrosis. ??Clinicians would have to utilize clinical acumen, EKG, Troponin and serial changes to determine if it is an Acute Myocardial Infarction or myocardial injury due to an underlying chronic condition. Chuck Crook MD LAB BLOOD ORDERABLES Final Res ult Performing Organization Address [facility] Co de Phone Number [facility]AT[facility] LAB[facility]ORY
[address] [place] [address], * (ABNORMAL) Comprehensive Metabolic Panel (02/21/2019 1:26 PM EDT) Glucose 259(H) 65 - 99 mg/dL 02/21/2019 2:03 PM EDT [facility] BUN 18 8 - 23 mg/dL 02/21/2019 2:03 PM EDT [facility] Creatinine 1.34(H) 0.76 - 1.27 mg/dL 02/21/2019 2:03 PM EDT [facility] Sodium 137 136 - 145 mmol/L 02/21/2019 2:03 PM EDT [facility] Potassium 3.8 3.5 - 5.2 mmol/L 02/21/2019 2:03 PM EDT [facility] Chloride 98 98 - 107 mmol/L 02/21/2019 2:03 PM EDT [facility] CO2 25.0 22.0 - 29.0 mmol/L 02/21/2019 2:03 PM EDT [facility] Calcium 9.4 8.6 - 10.5 mg/dL 02/21/2019 2:03 PM EDT [facility] Total Protein 7.1 6.0 - 8.5 g/dL 02/21/2019 2:03 PM EDT [facility] Albumin 4.80 3.50 - 5.20 g/dL 02/21/2019 2:03 PM EDT [facility] ALT (SGPT) 14 1 - 41 U/L 02/21/2019 2:03 PM EDT [facility] AST (SGOT) 15 1 - 40 U/L 02/21/2019 2:03 PM EDT [facility] Alkaline Phosphatase 55 39 - 117 U/L 02/21/2019 2:03 PM EDT [facility] Total Bilirubin 1.0 0.2 - 1.2 mg/dL 02/21/2019 2:03 PM EDT [facility] eGFR Non Amer 53(L) >60 mL/min/1.7 3 02/21/2019 2:03 PM EDT [facility] Globulin 2.3 gm/dL 02/21/2019 2:03 PM T [facility] A/G Ratio 2.1 g/dL 02/21/2019 2:03 PM T [facility] BUN/Creatinine Ratio 13.4 7.0 - 25.0 02/21/2019 2:03 PM T [facility] Anion Gap 14.0 5.0 - 15.0 mmol/L 02/21/2019 2:03 PM T [facility] Blood Venipuncture / Unknown 02/21/2019 1:26 PM EDT 02/21/2019 1:38 PM EDT Narrative [facility] - 02/21/2019 2:03 PM EDT GFR Normal >60 Chronic Kidney Disease <60 Kidney Failure <15 us Chuck Crook MD LAB BLOOD ORDERABLES Final Res ult Performing Organization Address [facility] Co de Phone Number [facility]IAT[facility] LAB[facility]ORY
[address] [place] [address], * ECG 12 Lead (02/21/2019 1:25 PM EDT) 02/21/2019 1:25 PM EDT 02/21/2019 1:40 PM EDT Narrative ECG - 02/21/2019 1:40 PM EDT Test Reason : Weak/Dizzy/AMS protocol Blood Pressure : / mmHG Vent. Rate : 083 BPM ? Atrial Rate : 083 BPM ?? P-R Int : 126 ms ?QRS Dur : 122 ms ?QT Int : 404 ms ? P-R-T Axes : 051 007 050 degrees ?? QTc Int : 474 ms Electronic ventricular pacemaker No previous ECGs available Confirmed by ROMI ??CHUCK ESTEVEZ ([id number]) on 02/21/2019 1:40:24 PM Referred By: ??EDMD ? Confirmed By:CHUCK CROOK ??MD Procedure Note Chuck Crook MD - 02/21/2019 Test Reason : Weak/Dizzy/AMS protocol Blood Pressure : / mmHG Vent. Rate : 083 BPM Atrial Rate : 083 BPM P-R Int : 126 ms QRS Dur : 122 ms QT Int : 404 ms P-R-T Axes : 051 007 050 degrees QTc Int : 474 ms Electronic ventricular pacemaker No previous ECGs available Confirmed by CHUCK CROOK MD ([id number]) on 02/21/2019 1:40:24 PM Referred By: EDMD Confirmed By:CHUCK CROOK MD us Chuck Crook MD ECG ORDERABLES Final Result BH ECG documented in this encounter Visit Diagnoses Diagnosis Postural dizziness with near syncope- Primary Nonischemic cardiomyopathy Other primary cardiomyopathies documented in this encounter Administered Medications Inactive Administered Medications - up to 3 most recent administrations Medication Order MAR Action Action Date Dose Rate Site sodium chloride 0.9 % flush 10 mL 10 mL, Intravenous, As Needed, Line Care, Starting on Thu02/21/19 at 1322 documented in this encounter Active and Recently Administered Medications Times are shown in EDT. PRN Medication Order 02/19/2019 02/20/2019 02/21/2019 sodium chloride 0.9 % flush 10 mL 10 mL, Intravenous, As Needed, Line Care, Starting on 02/21/19 at 1322 documented in this encounter Care Teams Desk Pens Assembler Relationship Specialty Start Date End Date Jose Valdez MD [address] [facility] [address] [facility] [address] [facility] [place] [address] PCP - General 07/27/15 documented as of this encounter
--- OUTSIDE RECORDS SUMMARY | 2024-04-26 14:37 | XMS_ITS | Data Portability ---
Author Organization [facility] and [facility] Warner Address [address] [place] [address] Assessment No assessment recorded. Plan of Treatment Reminders Order Date Submit Date Provider Last Modified By Organization Details Last Modified Time Details Appointments None recorded. Lab urinalysis, dipstick [email or web address], [address], 3 10:22:38 urinalysis, dipstick 2023 [email or web address], [address], 4 13:21:48 PSA, serum or plasma [email or web address], [address], 4 16:16:55 testosteron e, free + total, serum 2023 [email or web address], [address], 4 07:28:50 urinalysis, dipstick 2023 [email or web address], [address], 4 15:54:54 urinalysis, dipstick [address], [address], 4 21:19:45 Referral None recorded. Procedures bladder scan (PROC) [address], [address], 3 11:28:47 bladder scan (PROC) [address], [address], 4 13:21:48 bladder scan (PROC) [address], [address], 4 15:54:54 bladder scan (PROC) [address], [address], 4 21:19:45 Surgeries None recorded. Imaging None recorded. Medication Orders cefdinir 300 mg capsule 2023 024 [place], [address] [place], [address], 4 12:32:26 testosteron e cypionate 200 mg/mL intramuscul ar oil [address] [facility], [address] [place], [address], 4 20:02:55 Patient TargetsNo targets recorded. Patient InstructionsNo instructions recorded. Reason for Referral None Reported. Results Created Date Observation Date Name Description Value Unit Range Abnormal Flag Note LastModifiedBy Organization Detail LastModifiedTime 04/17/20 23 04/17/2023 urina lysis , dipst ick Leukocytes (reference range) negati ve Not Available [address], [address], 04/17/2023 09:51:53 04/17/20 23 04/17/2023 urina lysis , dipst ick Nitrite (reference range:) negati ve Not Available [address], [address], 04/17/2023 09:51:53 04/17/20 23 04/17/2023 urina lysis , dipst ick Urobilinogen (reference range) 1 Not Available [address], [address], 04/17/2023 09:51:53 04/17/20 23 04/17/2023 urina lysis , dipst ick Protein (reference range) negati ve Not Available [address], [address], 04/17/2023 09:51:53 04/17/20 23 04/17/2023 urina lysis , dipst ick pH (reference range 5-8.5) 6.0 Not Available [address], [address], 04/17/2023 09:51:53 04/17/20 23 04/17/2023 urina lysis , dipst ick Blood (reference range:) negati ve Not Available [address], [address], 04/17/2023 09:51:53 04/17/20 23 04/17/2023 urina lysis , dipst ick Specific Eden (reference range) 1.010 Not Available [address], [address], 04/17/2023 09:51:53 04/17/20 23 04/17/2023 urina lysis , dipst ick Ketone (reference range) negati ve Not Available [address], [address], 04/17/2023 09:51:53 04/17/20 23 04/17/2023 urina lysis , dipst ick Bilirubin (reference range) negati ve Not Available [address], [address], 04/17/2023 09:51:53 04/17/20 23 04/17/2023 urina lysis , dipst ick Glucose (reference range) 1000 Not Available [address], [address], 04/17/2023 09:51:53 04/17/20 23 04/17/2023 bladd er scan (PROC ) Calculated Residual Urine: 81 cc Not Available [address], [address], 04/17/2023 09:51:54 05/01/20 23 05/01/2023 BASIC METAB OLIC PANEL sodium 142 mmol/ L 137-14 7 Not Available [facility] ([facility]Op [facility]) [address] [place] [address] [place], [address], 05/01/2023 09:07:39 05/01/20 23 05/01/2023 BASIC METAB OLIC PANEL potassium 4.0 mmol/ L 3.5-5. 1 Not Available [facility] ([facility]Op [facility]) [address] [place] [address] [place], [address], 05/01/2023 09:07:39 05/01/20 23 05/01/2023 BASIC METAB OLIC PANEL chloride 107 mmol/ L 98-110 Not Available [facility] ([facility]Op [facility]) [address] [place] [address] [place], [address], 05/01/2023 09:07:39 05/01/20 23 05/01/2023 BASIC METAB OLIC PANEL carbon dioxide 23 mmol/ L 21-30 Not Available [facility] ([facility]Op [facility]) [address] [facility] [place], [address], 05/01/2023 09:07:39 05/01/20 23 05/01/2023 BASIC METAB OLIC PANEL anion gap 12 mmol/ L 6-14 Not Available [facility] ([facility]Op [facility]) [address] [facility] [place], [address], 05/01/2023 09:07:39 05/01/20 23 05/01/2023 BASIC METAB OLIC PANEL glucose 144 mg/dL 70-115 high Not Available [facility] (Pre-Op Clinic) [address] [place] [address] [place], [address], 05/01/2023 09:07:39 05/01/20 23 05/01/2023 BASIC METAB OLIC PANEL BUN 23 mg/dL 9-20 high Not Available [facility] (Pre-Op Clinic) [address] [place] [address] [place], [address], 05/01/2023 09:07:39 05/01/20 23 05/01/2023 BASIC METAB OLIC PANEL creatinine 1.1 mg/dL 0.5-1. 5 Not Available [facility] (Pre-Op [facility]) [address] [place] [address] [place], [address], 05/01/2023 09:07:39 05/01/20 23 05/01/2023 BASIC METAB OLIC PANEL BUN/creatini ne ratio 21 ratio 10-20 high Not Available [facility] (Pre-Op Clinic) [address] [place] [address] [place], [address], 05/01/2023 09:07:39 05/01/20 23 05/01/2023 BASIC METAB OLIC PANEL glom filtration rate TNP mL/mi n >60- GFR has only been valid ated for patie nts 18-70 years of age. Not Available [facility] ([facility]Op [facility]) [address] [place] [address] [place], [address], 05/01/2023 09:07:39 05/01/20 23 05/01/2023 BASIC METAB OLIC PANEL osmolality (calculated) 301 mosmo l/kg 275-30 1 OSMOL ALITY IS A CALCU LATIO N UTILI ZING THE SERUM /PLAS MA SODIU M, GLUCO SE AND UREA NITRO GEN (BUN) LEVEL S. FOR THE MOST ACCUR ATE RESUL T A MEASU RED SERUM OSMOL ALITY IS SUGGE STED. Not Available [facility] ([facility]Op [facility]) [address] [place] [address] [place], [address], 05/01/2023 09:07:39 05/01/20 23 05/01/2023 BASIC METAB OLIC PANEL calcium 9.2 mg/dL 8.5-10 .8 Not Available [facility] ([facility]) [address] [place] [address] [place], [address], 05/01/2023 09:07:39 05/01/2005/01/2023 BASIC METAB OLIC PANEL note Unles s other urban noted testi ng perfo rmed at: [facility] [address] [place] [address] James calvert MD Not Available [facility] ([facility]Op [facility]) [address] [place] [address] [place], [address], 05/01/2023 09:07:39 05/01/20 23 05/01/2023 RFS-P ATHOL OGY SPECI MEN REQUE ST pathreq Patho logy [address] [place] [address] Phone or [phone] Fax Otoniel duncan Jr., M.D., Medic al Direc tor [facility] [address] : [place] [address] Phone Numbe r: [phone] James calvert M.D. PATHO LOGY REPOR T Patie nt Name: LIZZY VILLALBA Date of : [birth year] Age/S ex: 73/M Accou nt Numbe r: [id number] Medic al Recor d Anu r: [id number] 2 Order ing MD: DARLENE REEDER AM Date Colle cted : 2022 Date Recei miguel : 2022 Date Repor lulú : 2022 Exam: Biops y Acces angelica# : [id number] Labor atory #: [id number] Copie s To: Techn ician : Clini jacobo Histo ry Harbeson lulú Benig n prost atic hyper plasi a Previ ous Patie nt Histo ry and Files JOS COLLADO ([birth year] 0 M) i??SS N: [id number] ?? 1. [id number] , DateC ollec lulú: 04/21 1: Diagn osis: TRANS VERSE COLON POLYP : Tubul ovill ous adeno ma with surfa ce high grade dyspl dragan The polyp keiko n is clear 2. [id number] , DateC ollec lulú: 07/28 1: Diagn osis: TRANS VERSE COLON , BIOPS Y: Melan osis coli DESCE NDING COLON , BIOPS Y: Adeno matou s polyp witho ut high grade dyspl dragan Melan osis coli BodyS ite PROST ATE, TUR Gross Descr iptio n Label ed pros thorne chips are multi ple maxwell-b rown and pink soft turbi amanda tissu e fragm ents weigh ing 29.6 g and measu ring appro ximat theodore 8.8 x 7.5 x 1.5 [address] in aggre gate. Repre senta tive porti ons are submi tted in 6 block s. 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 There are scatt ered foci of atrop hy along with patch y chron ic infla mmati on. No evide nce of neopl dragan is obser miguel. Profe tyroneon al inter preta tion rende red by James calvert Jr., MSania. at [facility], [address] [place] [address] . Legal ly authe ntica lulú by JAMES REGALADO MD 05-05 09:50 :00 Final Diagn osis BENIG N PROST ATIC HYPER PLASI A EJT/S M Stain *Recu t-PCL ;[place] [id number] Legal ly authe ntica lulú by JAMES REGALADO MD 05-05 09:50 :00 Not Available [facility] ([facility]) [address] [place] [address] [place], [address], 05/05/2023 10:12:31 05/02/20 23 05/02/2023 CBC W/ AUTO DIFF WBC 11.00 K/uL 4.5-11 .5 Not Available [facility] (Pre-Op Clinic) [address] [place] [address] [place], [address], 05/02/2023 07:30:07 05/02/20 23 05/02/2023 CBC W/ AUTO DIFF RBC 4.36 M/uL 4.0-5. 4 Not Available [facility] (Pre-Op Clinic) [address] [place] [address] [place], [address], 05/02/2023 07:30:07 05/02/20 23 05/02/2023 CBC W/ AUTO DIFF HGB 13.5 g/dL 14.0-1 8.0 low Not Available [facility] (Pre-Op [facility]) [address] [place] [address] [place], [address], 05/02/2023 07:30:07 05/02/20 23 05/02/2023 CBC W/ AUTO DIFF HCT 40.3 % 40-54 Not Available [facility] (Pre-Op [facility]) [address] [place] [address] [place], [address], 05/02/2023 07:30:07 05/02/20 23 05/02/2023 CBC W/ AUTO DIFF MCV 92.4 fL 80.0-1 00.0 Not Available [facility] ([facility]Op [facility]) [address] [facility] [place], [address], 05/02/2023 07:30:07 05/02/20 23 05/02/2023 CBC W/ AUTO DIFF MCH 31.0 pg 26.0-3 2.0 Not Available [facility] ([facility]Op [facility]) [address] [place] [address] [place], [address], 05/02/2023 07:30:07 05/02/20 23 05/02/2023 CBC W/ AUTO DIFF MCHC 33.5 g/dL 32.0-3 6.0 Not Available [facility] ([facility]Op [facility]) [address] [place] [address] [place], [address], 05/02/2023 07:30:07 05/02/20 23 05/02/2023 CBC W/ AUTO DIFF RDW 12.8 % 11.5-1 4.5 Not Available [facility] ([facility]Op [facility]) [address] [place] [address] [place], [address], 05/02/2023 07:30:07 05/02/20 23 05/02/2023 CBC W/ AUTO DIFF platelet count 150 K/uL 142-42 4 Not Available [facility] (Pre[facility]Op [facility]) [address] [place] [address] [place], [address], 05/02/2023 07:30:07 05/02/20 23 05/02/2023 CBC W/ AUTO DIFF MPV 10.7 fL 6.8-10 .2 high Not Available [facility] ([facility]Op [facility]) [address] [place] [address] [place], [address], 05/02/2023 07:30:07 05/02/20 23 05/02/2023 CBC W/ AUTO DIFF neutrophil % 86.2 % 50-70 high Not Available [facility] (Pre[facility]Op [facility]) [address] [place] [address] [place], [address], 05/02/2023 07:30:07 05/02/20 23 05/02/2023 CBC W/ AUTO DIFF lymphocyte % 5.3 % 18.0-4 2.0 low Not Available [facility] ([facility]Op [facility]) [address] [place] [address] [place], [address], 05/02/2023 07:30:07 05/02/20 23 05/02/2023 CBC W/ AUTO DIFF monocyte % 7.8 % 2.0-11 .0 Not Available [facility] ([facility]Op [facility]) [address] [place] [address] [place], [address], 05/02/2023 07:30:07 05/02/20 23 05/02/2023 CBC W/ AUTO DIFF eosinophil % 0.1 % 1.0-3. 0 low Not Available [facility] ([facility]) [address] [place] [address] [place], [address], 05/02/2023 07:30:07 05/02/20 23 05/02/2023 CBC W/ AUTO DIFF basophil % 0.1 % 0.0-2. 0 Not Available [facility] ([facility]Op [facility]) [address] [place] [address] [place], [address], 05/02/2023 07:30:07 05/02/20 23 05/02/2023 CBC W/ AUTO DIFF immature granulocytes % 0.5 % 0.0-0. 8 Not Available [facility] ([facility]Op [facility]) [address] [place] [address] [place], [address], 05/02/2023 07:30:07 05/02/20 23 05/02/2023 CBC W/ AUTO DIFF nucleated red blood cells % 0.0 % Not Available [facility] ([facility]) [address] [place] [address] [place], [address], 05/02/2023 07:30:07 05/02/20 23 05/02/2023 CBC W/ AUTO DIFF neutrophil # 9.49 K/uL Not Available [facility] ([facility]) [address] [place] [address] [place], [address], 05/02/2023 07:30:07 05/02/20 23 05/02/2023 CBC W/ AUTO DIFF lymphocyte # 0.58 K/uL Not Available [facility] ([facility]Op [facility]) [address] [place] [address] [place], [address], 05/02/2023 07:30:07 05/02/20 23 05/02/2023 CBC W/ AUTO DIFF monocyte # 0.86 K/uL Not Available [facility] ([facility]Op [facility]) [address] [place] [address] [place], [address], 05/02/2023 07:30:07 05/02/20 23 05/02/2023 CBC W/ AUTO DIFF eosinophil # 0.01 K/uL Not Available [facility] ([facility]) [address] [place] [address] [place], [address], 05/02/2023 07:30:07 05/02/20 23 05/02/2023 CBC W/ AUTO DIFF basophil # 0.01 K/uL Not Available [facility]Op [facility]) [address] [place] [address] [place], [address], 05/02/2023 07:30:07 05/02/20 23 05/02/2023 CBC W/ AUTO DIFF immature gramulocytes # 0.05 K/uL Not Available [facility]) [address] [place] [address] [place], [address], 05/02/2023 07:30:07 05/02/20 23 05/02/2023 CBC W/ AUTO DIFF nucleated red blood cells # 0.00 k/uL Not Available [facility]) [address] [place] [address] [place], [address], 05/02/2023 07:30:07 05/02/20 23 05/02/2023 CBC W/ AUTO DIFF manual differential NO Not Available [facility]) [address] [place] [address] [place], [address], 05/02/2023 07:30:07 05/02/20 23 05/02/2023 CBC W/ AUTO DIFF note Unles s other urban noted testi ng perfo rmed at: [facility] [address] [place] [address] James calvert MD Not Available [facility] ([facility]) [address] [place] [address] [place], [address], 05/02/2023 07:30:07 05/02/20 23 05/02/2023 BASIC METAB OLIC PANEL sodium 138 mmol/ L 137-14 7 Not Available [facility] ([facility]) [address] [place] [address] [place], [address], 05/02/2023 07:59:02 05/02/20 23 05/02/2023 BASIC METAB OLIC PANEL potassium 3.9 mmol/ L 3.5-5. 1 Not Available [facility] ([facility]Op [facility]) [address] [place] [address] [place], [address], 05/02/2023 07:59:02 05/02/20 23 05/02/2023 BASIC METAB OLIC PANEL chloride 105 mmol/ L 98-110 Not Available [facility] ([facility]) [address] [place] [address] [place], [address], 05/02/2023 07:59:02 05/02/20 23 05/02/2023 BASIC METAB OLIC PANEL carbon dioxide 22 mmol/ L 21-30 Not Available [facility] ([facility]Op [facility]) [address] [place] [address] [place], [address], 05/02/2023 07:59:02 05/02/20 23 05/02/2023 BASIC METAB OLIC PANEL anion gap 11 mmol/ L 6-14 Not Available [facility] ([facility]) [address] [facility] [place], [address], 05/02/2023 07:59:02 05/02/20 23 05/02/2023 BASIC METAB OLIC PANEL glucose 139 mg/dL 70-115 high Not Available [facility] ([facility]) [address] [place] [address] [place], [address], 05/02/2023 07:59:02 05/02/20 23 05/02/2023 BASIC METAB OLIC PANEL BUN 18 mg/dL 9-20 Not Available [facility]) [address] [place] [address] [place], [address], 05/02/2023 07:59:02 05/02/20 23 05/02/2023 BASIC METAB OLIC PANEL creatinine 1.0 mg/dL 0.5-1. 5 Not Available [facility] ([facility]) [address] [place] [address] [place], [address], 05/02/2023 07:59:02 05/02/20 23 05/02/2023 BASIC METAB OLIC PANEL BUN/creatini ne ratio 18 ratio 10-20 Not Available [facility] ([facility]Op [facility]) [address] [place] [address] [place], [address], 05/02/2023 07:59:02 05/02/20 23 05/02/2023 BASIC METAB OLIC PANEL glom filtration rate TNP mL/mi n >60- GFR has only been valid ated for patie nts 18-70 years of age. Not Available [facility] ([facility]Op [facility]) [address] [place] [address] [place], [address], 05/02/2023 07:59:02 05/02/20 23 05/02/2023 BASIC METAB OLIC PANEL osmolality (calculated) 291 mosmo l/kg 275-30 1 OSMOL ALITY IS A CALCU LATIO N UTILI ZING THE SERUM /PLAS MA SODIU M, GLUCO SE AND UREA NITRO GEN (BUN) LEVEL S. FOR THE MOST ACCUR ATE RESUL T A MEASU RED SERUM OSMOL ALITY IS SUMANTH CANTU. Not Available [facility] ([facility]Op [facility]) [address] [place] [address] [place], [address], 05/02/2023 07:59:02 05/02/20 23 05/02/2023 BASIC METAB OLIC PANEL calcium 8.4 mg/dL 8.5-10 .8 low Not Available [facility] ([facility]) [address] [place] [address] [place], [address], 05/02/2023 07:59:02 05/02/20 23 05/02/2023 BASIC METAB OLIC PANEL note Unles s other urban noted testi ng perfo rmed at: [facility] [address] [place] [address] James calvert MD Not Available [facility] ([facility]) [address] [place] [address] [place], [address], 05/02/2023 07:59:02 06/10/19 24 06/10/2023 urina lysis , dipst ick Leukocytes (reference range) large Not Available [facility] [address], [address], 06/10/2023 11:58:10 06/10/19 24 06/10/2023 urina lysis , dipst ick Nitrite (reference range:) negati ve Not Available [facility] [address], [address], 06/10/2023 11:58:10 06/10/19 24 06/10/2023 urina lysis , dipst ick Urobilinogen (reference range) 0.2 Not Available [address], [address], 06/10/2023 11:58:10 06/10/19 24 06/10/2023 urina lysis , dipst ick Protein (reference range) 100 Not Available [address], [address], 06/10/2023 11:58:10 06/10/19 24 06/10/2023 urina lysis , dipst ick pH (reference range 5-8.5) 6.0 Not Available [address], [address], 06/10/2023 11:58:10 06/10/19 24 06/10/2023 urina lysis , dipst ick Blood (reference range:) modera te Not Available [address], [address], 06/10/2023 11:58:10 06/10/19 24 06/10/2023 urina lysis , dipst ick Specific Eden (reference range) 1.015 Not Available [address], [address], 06/10/2023 11:58:10 06/10/19 24 06/10/2023 urina lysis , dipst ick Ketone (reference range) negati ve Not Available [address], [address], 06/10/2023 11:58:10 06/10/19 24 06/10/2023 urina lysis , dipst ick Bilirubin (reference range) negati ve Not Available [address], [address], 06/10/2023 11:58:10 06/10/19 24 06/10/2023 urina lysis , dipst ick Glucose (reference range) 100 Not Available [address], [address], 06/10/2023 11:58:10 06/10/19 06/10/2023 bladd er scan (PROC ) Calculated Residual Urine: 43 ML Not Available [facility] [address] [place], [address], 06/10/2023 11:58:12 01/27/20 24 01/27/2024 PROST ATE SPECI FIC AG (PSA) prostate specific Ag (PSA) 1.09 NG/mL 0.0-4. 0 Not Available [facility] (Lab Registration) [address] , [place], [address], 01/27/2024 16:16:54 01/27/20 24 01/27/2024 PROST ATE SPECI FIC AG (PSA) note Unles s other urban noted testi ng perfo rmed at: [facility] [address] [place] [address] [phone] James calvert MD CLIA: [id number] Not Available [facility] (Lab Registration) [address] , [place], [address], 01/27/2024 16:16:54 01/27/20 24 01/27/2024 TESTO STERO NE TOTAL note Unles s other urban noted testi ng perfo rmed at: [facility] [address] [place] [address] [phone] James calvert MD CLIA: [id number] Not Available [facility] (Lab Registration) [address] , [place], [address], 01/29/2024 03:37:48 01/27/20 24 01/29/2024 TESTO STERO NE TOTAL testosterone , serum 261 NG/dL 264-91 6 low Adult male refer ence inter naveed is based on a popul ation of healt hy nonob fili males (BMI <30) betwe en 19 and 39 years old. Jed lujan et.al . JCEM 2017, 102;1 161-1 173. PMID: 48410 103. Perfo rmed at: [facility] [place] [address] [facility], [place] [id number] Lab Direc tor: Henrique arroyo PhD, Phone : [phone] Not Available [facility] (Lab Registration) [address] , [place], [address], 01/29/2024 03:37:48 01/27/20 24 01/27/2024 TESTO STERO NE FREE note Unles s other urban noted testi ng perfo rmed at: [facility] [address] [place] [address] [phone] James calvert MD CLIA: [id number] Not Available [facility] (Lab Registration) [address] , [place], [address], 01/30/2024 23:08:44 01/27/20 24 01/30/2024 TESTO STERO NE FREE free testosterone (direct) 4.8 pg/mL 6.6-18 .1 low Perfo rmed at: [facility] [place] [address] [facility] , [place] [address] Lab Direc tor: Edelmira mcbride MD, Phone : [phone] SENT TO REFER ENCE LAB Not Available [facility] (Lab Registration) [address] , [place], [address], 01/30/2024 23:08:44 01/27/20 24 01/27/2024 urina lysis , dipst ick Leukocytes (reference range) negati ve Not Available [facility] [place] [address] [place], [address], 01/27/2024 14:04:47 01/27/20 24 01/27/2024 urina lysis , dipst ick Nitrite (reference range:) negati ve Not Available [facility] [place] [address] [place], [address], 01/27/2024 14:04:47 01/27/20 24 01/27/2024 urina lysis , dipst ick Urobilinogen (reference range) 0.2 Not Available [address], [address], 01/27/2024 14:04:47 01/27/20 24 01/27/2024 urina lysis , dipst ick Protein (reference range) negati ve Not Available [address], [address], 01/27/2024 14:04:47 01/27/20 24 01/27/2024 urina lysis , dipst ick pH (reference range 5-8.5) 6.0 Not Available [address], [address], 01/27/2024 14:04:47 01/27/20 24 01/27/2024 urina lysis , dipst ick Blood (reference range:) negati ve Not Available [address], [address], 01/27/2024 14:04:47 01/27/20 24 01/27/2024 urina lysis , dipst ick Specific [place] (reference range) 1.015 Not Available [address], [address], 01/27/2024 14:04:47 01/27/20 24 01/27/2024 urina lysis , dipst ick Ketone (reference range) negati ve Not Available [address], [address], 01/27/2024 14:04:47 01/27/20 24 01/27/2024 urina lysis , dipst ick Bilirubin (reference range) negati ve Not Available [address], [address], 01/27/2024 14:04:47 01/27/20 24 01/27/2024 urina lysis , dipst ick Glucose (reference range) 1000 Not Available [address], [address], 01/27/2024 14:04:47 01/27/20 24 01/27/2024 bladd er scan (PROC ) Calculated Residual Urine: 43 ML Not Available [address], [address], 01/27/2024 14:04:48 02/24/20 24 02/24/2024 urina lysis , dipst ick Leukocytes (reference range) negati ve Not Available [address], [address], 02/24/2024 11:45:57 02/24/20 24 02/24/2024 urina lysis , dipst ick Nitrite (reference range:) negati ve Not Available [address], [address], 02/24/2024 11:45:57 02/24/20 24 02/24/2024 urina lysis , dipst ick Urobilinogen (reference range) 0.2 Not Available [address], [address], 02/24/2024 11:45:57 02/24/20 24 02/24/2024 urina lysis , dipst ick Protein (reference range) negati ve Not Available [address], [address], 02/24/2024 11:45:57 02/24/20 24 02/24/2024 urina lysis , dipst ick pH (reference range 5-8.5) 6.0 Not Available [address], [address], 02/24/2024 11:45:57 02/24/20 24 02/24/2024 urina lysis , dipst ick Blood (reference range:) negati ve Not Available [address], [address], 02/24/2024 11:45:57 02/24/20 24 02/24/2024 urina lysis , dipst ick Specific Eden (reference range) 1.020 Not Available [address], [address], 02/24/2024 11:45:57 02/24/20 24 02/24/2024 urina lysis , dipst ick Ketone (reference range) negati ve Not Available [address], [address], 02/24/2024 11:45:57 02/24/20 24 02/24/2024 urina lysis , dipst ick Bilirubin (reference range) negati ve Not Available [address], [address], 02/24/2024 11:45:57 02/24/20 24 02/24/2024 urina lysis , dipst ick Glucose (reference range) 500 Not Available [address], [address], 02/24/2024 11:45:57 02/24/20 24 02/24/2024 urina lysis , dipst ick Color (reference range: yellow-brown ) Yellow Not Available [address], [address], 02/24/2024 11:45:57 02/24/20 24 02/24/2024 bladd er scan (PROC ) Calculated Residual Urine: 52 ml Not Available [address], [address], 02/24/2024 11:45:59 04/28/20 23 04/28/2023 cardi ac clear ance* No observ ation record ed. [address] (Med Record) [address], [place], [address], 05/19/2023 06:54:22 Result Notes None recorded. Problems Name Problem SNOMED Code Status Onset Date Resolution Date Notes Provider Name and Address Organization Details Recorded Time Cardiac pacemaker in situ 427825978 Active 2022 Zeenat Brody null, [place] - [facility] - [place] & [place] 3 11:00:49 Irregular heart beat 865483663 Active 2022 Zeenat Brody null, [place] - [facility] - [place] & [place] 3 11:00:49 Benign prostatic hyperplasia with outflow obstruction 447574886 Active Zeenat Brody null, [place] - [facility] - [place] & [place] 3 11:00:49 Problem Notes None recorded. Procedures Surgical History Date Name Laterality Status Provider Name and Address Organization Details Recorded Time 04/17/2023 Cystoscopy -Male completed Roberto Reeder Jr, MD [address] [place] [address], [address] [facility], [place], [address], [place] - [facility] - [place] & [place] 04/17/2023 11:27:38 Imaging Results Imaging Date Name Status LastModified by Organiz ation Details LastModified Time 04/28/2023 cardiac clearance* completed [address] (Med Record) [address], [place], [address], 05/19/2023 06:54:22 Procedure Notes None recorded. Medical Equipment None Reported. Allergies Allergen ID Allergen Name Allergen Category Reaction Reaction Severity Criticality Documentation Date Start Date Code Code System Note Provider Name and Address Organization Details Recorded Time [id number] No known allergy (situatio n) Not available Not available Not available Not available 05/05/2023 [id number] [id number] SNOMED Zeenat Brody null, [place] - [facility] - [place] & [place] 3 11:00:48 Medications Name Sig Start Date Stop Date Status Note LastModified by Organization Details LastModified Time Flomax 0.4 mg capsule Take 0.8 mg by oral route. 01/26 completed Not Available Not Available Not Available metformin 500 mg tablet 500 mg by oral route. active Not Available Not Available No t Available carvedilol 25 mg tablet TAKE 2 TABLETS BY MOUTH TWICE DAILY. active Not Available Not Available No t Available carvedilol 12.5 mg tablet 25 mg by oral route. active Not Available Not Available No t Available atorvastati n 10 mg tablet 10 mg by oral route. 05/01 completed Not Available Not Available Not Available hydrocodone 5 mg-acetamin ophen 325 mg tablet 1 tablet by oral route. 05/02 completed Not Available Not Available Not Available Diprivan 10 mg/mL intravenous emulsion 200 mg by intraven. route. 05/01 completed Not Available Not Available Not Available sodium chloride 0.45 % intravenous solution 1000 mL by intraven. route. 05/02 completed Not Available Not Available Not Available amlodipine 5 mg tablet 10 mg by oral route. active Not Available Not Available No t Available bisoprolol fumarate 5 mg tablet TAKE 1 TABLET BY MOUTH DAILY active Not Available Not Available No t Available amlodipine 10 mg tablet TAKE 1 TABLET BY MOUTH ONCE DAILY. active Not Available Not Available No t Available irbesartan 300 mg-hydrochl orothiazide 12.5 mg tablet TAKE 1 TABLET BY MOUTH ONCE DAILY. active Not Available Not Available No t Available fentanyl (PF) 50 mcg/mL injection solution 100 microgram s by injection route. 05/01 completed Not Available Not Available Not Available hydrochloro thiazide 25 mg tablet 12.5 mg by oral route. 2022 active Not Available Not Available Not Avai lable dexamethaso ne sodium phosphate 4 mg/mL injection solution 4 mg by injection route. 05/01 completed Not Available Not Available Not Available testosteron e cypionate 200 mg/mL intramuscul ar oil Inject 2 mL as needed by intramusc ular route. 2023 active Not Available Not Available Not Avai lable levofloxaci n 500 mg tablet Take 500 mg by oral route. 01/26 completed Not Available Not Available Not Available methylpredn isolone 4 mg tablets in a dose pack TAKE 6 TABLETS ON DAY 1,THEN 5 TABS ON DAY 2,THEN 4 TABS ON DAY 3, 3 TABS ON DAY 4,THEN 2 TABS ON DAY 5 AND 1 TAB ON DAY 6. *TAKE WITH FOOD* active Not Available Not Available No t Available cefdinir 300 mg capsule TAKE 1 CAPSULE BY MOUTH EVERY 12 HOURS active Not Available Not Available No t Available sertraline 50 mg tablet TAKE 1 TABLET BY MOUTH ONCE DAILY. active Not Available Not Available No t Available Cozaar 50 mg tablet 100 mg by oral route. 05/02 completed Not Available Not Available Not Available sodium chloride 0.9 % (flush) injection syringe 10 mL by injection route. 05/02 completed Not Available Not Available Not Available rosuvastati n 5 mg tablet 1 tablet by oral route. active Not Available Not Available No t Available duloxetine 30 mg capsule,del ayed release 30 mg by oral route. active Not Available Not Available No t Available lidocaine (PF) 20 mg/mL (2 %) injection solution 5 mL by injection route. 05/01 completed Not Available Not Available Not Available ondansetron HCl (PF) 4 mg/2 mL injection solution 4 mg by injection route. 05/02 completed Not Available Not Available Not Available phenylephri ne 1 mg/10 mL (100 mcg/mL) in 0.9 % sod.chlorid e IV syringe 1 mg by intraven. route. 05/01 completed Not Available Not Available Not Available Vitals Date Recorded Body height Body mass index (BMI) Body weight Body temperature Provider Name and Address Organization Details Last Updated DateTime 04/17/2023 177.8 cm 30.3 kg/m2 44662.99 g 97.7 [degF] Mary Alice Byrnes [place] - [facility] & [place] 04/17/2023 08:53:05 Date Recorded Body height Body mass index (BMI) Body weight Body temperature Provider Name and Address Organization Details Last Updated DateTime 05/05/2023 177.8 cm 30.3 kg/m2 48230.99 g 98 [degF] Zeenat Brody [facility] & [place] 05/05/2023 11:00:35 Date Recorded Body height Body mass index (BMI) Body weight Body temperature Provider Name and Address Organization Details Last Updated DateTime 06/10/2023 177.8 cm 30.3 kg/m2 84285.99 g 98.1 [degF] Mary Alice PALOMINO [facility] & [place] 06/10/2023 11:45:46 Date Recorded Body height Body mass index (BMI) Body weight Provider Name and Address Organization Details Last Updated DateTime 01/27/2024 177.8 cm 30.3 kg/m2 93129.99 g Kellen Stephens [facility] & [place] 01/27/2024 13:41:25 Date Recorded Body height Body mass index (BMI) Body weight Body temperature Provider Name and Address Organization Details Last Updated DateTime 02/24/2024 177.8 cm 30.3 kg/m2 57909.99 g 98.2 [degF] Mary Alice Byrnes [facility] & [place] 02/24/2024 11:30:19 Social History Question Answer Notes LastModified by Organizat ion Details LastModified Time Tobacco Smoking Status Never Smoker [facility] [place] 04/17/2023 08:48:31 What Is Your Level Of Alcohol Consumption? Occasional [email or web address] Information not available 04/17/2023 Sex: Unknown Functional Status None recorded. Mental Status None recorded. Family History Nothing Reported. Medical History No medical history recorded. Past Encounters Encounter ID Performer Location Encounter Start Date Encounter Closed Date Diagnosis/Indication Diagnosis SNOMED-CT Code Diagnosis ICD10 Code [id number] Roberto Reeder Jr, MD [facility] [address] [address] 04/17/2023 08:32:59 04/17/2023 09:45:36 Benign prostatic hyperplasia with outflow obstruction 687647598 N40.1 [id number] Roberto Reeder Jr, MD [facility] [address] [place] [address] 05/05/2023 10:57:49 05/05/2023 12:11:00 Benign prostatic hyperplasia with outflow obstruction 283271579 N40.1 [id number] Roberto Reeder Jr, MD [facility] [address] [address] 06/10/2023 11:34:58 06/10/2023 11:57:15 Benign prostatic hyperplasia with outflow obstruction 183826690 N40.1 Pain of ri ght testicle 6292793410 6686368 N50.189 [id number] Roberto Reeder Jr, MD [facility] [address] [address] 01/27/2024 13:23:10 01/27/2024 13:55:28 Screening for malignant neoplasm of prostate 109543967 Z12.5 Benign pro static hyperplasia with outflow obstruction 120781543 N40.1 Fatigue 97363807 R53.83 Pain of ri ght testicle 1012663659 9057172 N50.560 [id number] Roberto Reeder Jr, MD [facility] [address] [address] 02/24/2024 11:04:39 02/24/2024 11:49:00 Benign prostatic hyperplasia without outflow obstruction 167659812 N40.0 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 Screening for malignant neoplasm of prostate 273499597 Z12.5 Pain of ri ght testicle 4649622139 0075140 N50.811 Health Concerns Section Related Observation LastModified by Organization Detai ls LastModified Time None Recorded Concern Status LastModified by Organization Details LastModified Time None Recorded Advance Directives Directive None Recorded Payers Encounter Date Sequence Insurance Name Policy Number Policy Cline Covered Member ID Cline Member ID Guarantor Name 04/17/2023 1 [place] Jos R Katt [id number] Jos Katt 04/17/2023 2 [employer] (MEDICARE SUPPLEMENT) Jos R Katt [id number] Jos Katt 05/05/2023 1 [place] Jos R Katt [id number] Jos Katt 05/05/2023 2 [employer] [place] (MEDICARE SUPPLEMENT) Jos R Katt [id number] Jos Katt 06/10/2023 1 [place] Jos R Katt [id number] Jos Katt 06/10/2023 2 [employer] [place] (MEDICARE SUPPLEMENT) Jos R Katt [id number] Jos Katt 01/27/2024 1 [place] Jos R Katt [id number] Jos Katt 01/27/2024 2 [employer] [place] (MEDICARE SUPPLEMENT) Jos R Katt [id number] Jos Katt 02/24/2024 1 [place] Jos R Katt [id number] Jos Katt 02/24/2024 2 [employer] [place] (MEDICARE SUPPLEMENT) Jos R Katt [id number] Jos Katt Notes Date Note Type Note Provider Name and Address Organization Details Recorded Time 04/17/2023 text/html Patient is a 73-year-old white male referred for recent urinary retention. Saw this patient Alyssa Hernandez in April 2021 and he wishes to transfer care to [facility]. Patient states he was on a road trip to [place] a couple of weeks ago and had difficulty voiding and went to the emergency room where a catheter was placed. He states that 1 L came out once it was placed but he was not discharged with his Carter. Patient went on to [place] and states he had to stop frequently. He continues to have urinary frequency, weak and dribbling stream and nocturia hourly. A PSA in April 2022 was within normal limits at 3.2. CT scan from July 2020 showed resolution of a previously noted complex right renal cyst in his small cyst in the upper pole at 8 mm.Patient's interval medical history significant for atrial fibrillation for which he is now on Xarelto and aspirin. He also has a history of defibrillator placed in the distant past.Bladder scan today shows a residual of 81 cc. His IPSS is 32. He is currently on tamsulosin 0.4 mg a day. He was previously on tamsulosin 0.8 mg a day. Roberto Reeder Jr, MD [address] [place] [address], [address], [place], [address], [place] [address]17/2023 11:30:01 05/05/2023 text/html patient is a 73-year-old white male status post a TURP on May 01. Was discharged home the following day with his Carter catheter and returns today for a voiding trial. He denies any problems at home other than some difficulty sleeping. Urine in his catheter bag today is clear. His pathology showed only BPH. Roberto Reeder Jr, MD [address] [place] [address], [address], [place], [address], [facility] & [place] 05/05/2023 12:16:43 06/10/2023 text/html Patient is a 73 white male with history of bladder outlet obstruction. He underwent a TURP on May 01 in returns today in follow-up. States that his stream is much better and feels like he is emptying out better. He is happy with the results. He states he still has some blood in his urine if he starts his Xarelto so he is held it. He still gets up at night 3-4 times but he states he is done this for a long time. His bladder scan today indicates a residual of 43 cc. Urinalysis shows moderate blood and large leukocytes.Does have new complaint of some right testicular discomfort. He denies any focal tenderness. Roberto Reeder Jr, MD [address] [place] [address], [address], [place], [address], [facility] 06/10/2023 12:30:56 01/27/2024 text/html Patient is a 73-year-old white male with a history of bladder outlet obstruction. He underwent a TURP May 01, 2023. He returns today in routine follow-up and states he continues to void well. His pathology showed no evidence of prostate cancer. Bladder scan today indicates a residual of 43 cc. His urinalysis is unremarkable. He is off of the Flomax.Patient does have new complaint today of easy fatigue and decreased energy levels. Roberto Reeder Jr, MD [address] [facility], [address], [place], [address], [facility] & [place] 01/27/2024 15:17:59 02/24/2024 text/html 73 yo male with h/o BPH, fatigue and R testicular pain returns for 1 mo f/u.Pt underwent a TURP 05/2023 and is voiding well.At last visit we checked T levels and he returns to discuss those. Total T was 261 and free was 4.8.R testicular pain resolved. Roberto Reeder Jr, MD [address] [place] [address], [address], [place], [address], [facility] & [place] 02/24/2024 20:06:42
--- OUTSIDE RECORDS SUMMARY | 2024-04-26 14:37 | XMS_ITS | Encounter Summary ---
Author Organization [facility] Address [address] [place] [address] Care Team Providers Care Cement Loader Name Role Phone Jose Valdez MD Primary Care Provider [phone] Reason for Visit * Reason Comments remote monitoring Encounter Details Date Type Department Care Team (Latest Contact Info) Description 09/22/2018 Clinical Support No Requirements [facility] [address] [place] [address] [address] [place] [phone] Nonischemic cardiomyopathy Social History Tobacco Use Types [...] Associated Diagnosis Comments PACEART REMOTE DEVICE CHECK 09/22/2018 9:07 AM EDT SCANNED - CARDIOLOGY 09/22/2018 documented in this encounter Results * PACEART REMOTE DEVICE CHECK (09/22/2018 9:07 AM EDT) Anatomical Region Laterality Modality Other [facility] ORDERA BLES Final Result * SCANNED - CARDIOLOGY (09/22/2018) Anatomical Region Laterality Modality Other [facility] ORDERA BLES Final Result documented in this encounter Visit Diagnoses Diagnosis Nonischemic cardiomyopathy Other primary cardiomyopathies documented in this encounter Care Teams Cement Loader Relationship Specialty Start Date End Date Jose Valdez MD [address] [facility] [address] [facility] [address] [place] [id number] PCP - General 07/27/15 documented as of this encounter
--- OUTSIDE RECORDS SUMMARY | 2024-04-26 14:37 | XMS_ITS | Encounter Summary ---
[facility] Organization [facility] Address [address] [place] [id number] Care Team Providers Care Piece Goods Clerk Name Role Phone Jose Valdez MD Primary Care Provider [phone] Reason for Visit * Reason Comments Cardiomyopathy Encounter Details Date Type Department Care Team (Late st Contact Info) Description 08/13/2018 10:15 AM EDT Office Visit [facility] [address] [facility] [address] [place] [address] Viktor Nelson MD [address] [facility] [address] [place] [address] Essential hypertension (Primary Dx); Nonischemic cardiomyopathy; Dyslipidemia Social History Tobacco Use Types Packs/Day [...] Sign Reading Time Taken Comments Blood Pressure 150/90 08/13/2018 10:25 AM EDT Pulse 67 08/13/2018 10:25 AM EDT Temperature - - Respiratory Rate - - Oxygen Saturation - - Inhaled Oxygen Concentration - - Weight 91.6 kg (202 lb) 08/13/2018 10:25 AM EDT Height 177.8 cm (5' 10 ) 08/13/2018 10:25 AM EDT Body Mass Index 28.98 08/13/2018 10:25 AM EDT documented in this encounter Progress Notes * Viktor Nelson MD - 08/13/2018 10:15 AM EDT Encounter Date:08/13/2018 Patient ID: Jos Bolivar is a 68 y.o. male. Chief Complaint: Cardiomyopathy PROBLEM LIST: 1. Nonischemic cardiomyopathy. a. Symptoms of progressive angina-type symptoms in March 2005. b. Exercise/Cardiolite stress test on 03/13/2005, was remarkable for poor exercise tolerance and reversible anterior wall defect with EF 33%. c. [facility], March 2005, Dr. Nelson: Nonobstructive CAD involving the first diagonal, mid-LAD and RCA without evidence of hemodynamically significant stenosis. EF 45%. d. Onset of CHF type symptoms with initiation of appropriate medical therapy. e. Echocardiogram, October 2005: Dilated cardiomyopathy with EF 35%. f. [employer] ICD implant by Dr. Hooper on 05/01/2006. g. Limited echocardiogram, July 2006: EF 45% with global hypokinesis. h. Echocardiogram, December 2007: EF 50-55% with trace MR/TR/PI. i. Echocardiogram, July 2008: Mild LVH with EF 45-50% and mild [...] d. Symptoms resolved over 2-3 days spontaneously. 6. Obesity, BMI 31.6. 7. Former smoker, quit 21 years ago. 8. Status post minor surgery many years ago for leg fracture. ?? History of Present Illness Patient presents today for annual follow-up with a history of nonischemic cardiomyopathy and cardiac risk factors. Since last visit, he has been doing well overall from a cardiovascular standpoint. Denies chest pain, shortness of breath, leg swelling, palpitations, and syncope. Remains busy and active with no significant cardiac limitations. 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 No Known Allergies Current Outpatient Medications: ??? amLODIPine (NORVASC) 5 MG tablet, Take 1 tablet by mouth Daily., Disp: 90 tablet, Rfl: 3 ??? aspirin 81 MG chewable tablet, Chew 81 mg Daily., Disp: , Rfl: ??? carvedilol (COREG) 25 MG tablet, Take 1 tablet by mouth 2 (Two) Times a Day With Meals., Disp: 180 tablet, Rfl: 3 ??? metFORMIN (GLUCOPHAGE) 500 MG tablet, Take 500 mg by mouth 2 (Two) Times a Day., Disp: , Rfl: ??? potassium chloride (K-DUR) 10 MEQ CR tablet, Take 10 mEq by mouth Daily., Disp: , Rfl: ??? pravastatin (PRAVACHOL) 40 [...] Respiratory: Negative for cough, shortness of breath, snoring, and wheezing. HENT: Negative for ear pain, nosebleeds, and tinnitus. Gastrointestinal: Negative for abdominal pain, constipation, diarrhea, nausea and vomiting. Genitourinary: No urinary symptoms Neurological: Negative for dizziness, headaches, loss of balance, numbness, and symptoms of stroke. Psychiatric: Normal mental status. All other systems reviewed and are negative. Objective: BP 150/90 (BP Location: Right arm, Patient Position: Sitting) Pulse 67 Ht 177.8 cm (70 ) Wt 91.6 kg (202 lb) BMI 28.98 kg/m?? Repeat blood pressure measurement by, Viktor Nelson MD, at 158/88 Physical Exam Constitutional: Patient appears well-developed and well-nourished. HENT: HEENT exam unremarkable. Neck: Neck supple. No JVD present. No carotid bruits. Cardiovascular: Normal rate, regular rhythm and normal heart sounds. No murmur heard. 2+ symmetric pulses. Pulmonary/Chest: Breath sounds normal. Does not exhibit tenderness. Abdominal: Abdomen benign. Musculoskeletal: Does not exhibit edema. Neurological: Neurological exam unremarkable. Vitals reviewed. Lab Review: No recent lab results available for review. Procedures Normal biventricular ICD function with 6.5-7 years of battery life. No significant mode switch. Assessment: Diagnosis Plan 1. Essential hypertension Poor control, increase amlodipine from 5 to 10 mg daily, and continue allother current medications. Monitor BP at home. 2. Nonischemic cardiomyopathy (CMS/HCC), status post ICD, stable with normal ICD function. Stable. Continue current medications. 3. Dyslipidemia Continue pravastatin 40 mg. Plan: Increase amlodipine from 5 to 10 mg for better control of hypertension. Patient advised to monitor blood pressure at home and report back if this remains persistently elevated. Stable cardiac status. Continue all other current medications. FU in 6 MO with device check, sooner as needed. Thank you for allowing us to participate in the care of your patient. Scribed for Viktor Nelson MD by Alicia De Paz. 08/13/2018 10:41 AM I, Viktor Nelson MD, personally performed the services described in this documentation as scribed bythe above named individual in my presence, and it is both accurate and complete. 08/13/2018 10:43 AM Please note that portions of this note may have been completed with a voice recognition program. Efforts were made to edit the dictations, but occasionally words are mistranscribed. documented in this encounter Plan of Treatment Not on file documented as of this encounter Visit Diagnoses Diagnosis Essential hypertension- Primary Unspecified essential hypertension Nonischemic cardiomyopathy Other primary cardiomyopathies Dyslipidemia Other and unspecified hyperlipidemia documented in this encounter Care Teams Piece Goods Clerk Relationship Specialty Start Date End Date Jose Valdez MD [address] [facility] [address] [facility] [address] [place] [address] PCP - General 07/27/15 documented as of this encounter
--- OUTSIDE RECORDS SUMMARY | 2024-04-26 14:37 | XMS_ITS | Encounter Summary ---
Author Organization [facility] Address [address] [place] [id number] Care Team Providers Care Legal Writing Professor Name Role Phone Jose Valdez MD Primary Care Provider [phone] Reason for Visit * Reason Comments Cardiomyopathy Hypertension Encounter Details Date Type Department Care Team (Late st Contact Info) Description 08/01/2016 10:00 AM EST Office Visit [facility] CARDIOLOGY [address] [place] [address] Viktor Nelson MD [address] [place] [address] Nonischemic cardiomyopathy (Primary Dx); Essential hypertension; Dyslipidemia; Bilateral carotid artery disease Social History Tobacco Use Types Packs/Day Years Used Date Smoking Tobacco: Former Cigarettes Q uit: 08/01/1981 Smokeless Tobacco: Never Alcohol Use Standard Drinks/Week Comments Yes 0 (1 standard drink = 0.6 oz pur e alcohol) Sex and Gender Information Value Date Recorded Sex Assigned at Not on file Legal Sex Male 12:24 PM EDT Gender Identity Not on file Sexual Orientation Not on file documented as of this encounter Last Filed Vital Signs Vital Sign Reading Time Taken Comments Blood Pressure 150/82 08/01/2016 10:23 AM EST Pulse 62 08/01/2016 10:23 AM EST Temperature - - Respiratory Rate - - Oxygen Saturation - - Inhaled Oxygen Concentration - - Weight 93.4 kg (206 lb) 08/01/2016 10:23 AM EST Height 177.8 cm (5' 10 ) 08/01/2016 10:23 AM EST Body Mass Index 29.56 08/01/2016 10:23 AM EST documented in this encounter Progress Notes * Viktor Nelson MD - 08/01/2016 10:00 AM EST Encounter Date:08/01/2016 Patient ID: Jos Bolivar is a 66 y.o. male. Chief Complaint: Cardiomyopathy and Hypertension PROBLEM LIST: 1. Nonischemic cardiomyopathy. a. Symptoms of progressive angina-type symptoms in March 2005. b. Exercise/Cardiolite stress test on 03/13/2005, was remarkable for poor exercise tolerance and reversible anterior wall defect with ejection fraction of 33%. c. Cardiac catheterization by Dr. Nelson in March 2005, showed nonobstructive coronary artery disease involving the first diagonal, mid LAD and right coronary artery without evidence of hemodynamically significant stenosis. Moderate left ventricular dysfunction with ejection fraction of 45%. d. Onset of congestive heart failure type symptoms with initiation of appropriate medical therapy. e. Echocardiogram in October 2005, showed dilated cardiomyopathy with ejection fraction of 35%. f. [employer] ICD implant by Dr. Hooper on 05/01/2006. g. Limited echocardiogram in July 2006, showed global hypokinesis with ejection fraction of 45%. h. Echocardiogram December 2007, showed ejection fraction 50% to 55% with trace mitral and trace tricuspid regurgitation and trace pulmonic regurgitation. i. Echocardiogram July 2008, showed mild left ventricular hypertrophy with ejection fraction 45% to 50% and mild left atrial enlargement with trace mitral and trace tricuspid regurgitation. j. Echocardiogram, March 2011: Showed ejection fraction 45% to 50% with mild tricuspid and trace pulmonic regurgitation. k. Echocardiogram (10/01/2012): Ejection fraction 50% to 55%. 2. Hypertension. 3. Dyslipidemia. 4. Diabetes mellitus, type 2. 5. Episode of vertigo-type symptoms. a. Suspected TIA. b. CT scan of the brain with and without contrast, did not show any significant abnormalities. c. Carotid Duplex scan 05/08/2014, showed 20% right ICA plaque and 20% to 49% left ICA plaque, essentially all velocities were within normal limits and the left ICA peak velocity 116 systolic with 38diastolic. d. Symptoms resolved over 2-3 days spontaneously. 6. Obesity, BMI 31.6. 7. Former smoker, quit 21 years ago. 8. Status post minor surgery many years ago for leg fracture. History of Present Illness Patient presents today for follow-up. Recently been under a lot of stress as his is currently hospitalized for undetermined etiology of syncope. Otherwise stable from a cardiac standpoint. Has his blood pressures checked regularly at his PCP's office and states that this has been quite normal.. Denies chest pain, shortness of breath, leg swelling, dizzy spells, palpitations, or syncope. Remai ns busy and active. No Known Allergies Current Outpatient Prescriptions: ??? amLODIPine (NORVASC) 5 MG tablet, Take 5 mg by mouth Daily., Disp: , Rfl: ??? aspirin 81 MG chewable tablet, Chew 81 mg Daily., Disp: , Rfl: ??? carvedilol (COREG) 25 MG tablet, Take 25 mg by mouth 2 (Two) Times a Day., Disp: , Rfl: ??? metFORMIN (GLUCOPHAGE) 500 MG tablet, Take 500 mg by mouth 2 (Two) Times a Day., Disp: , Rfl: ??? potassium chloride (K-DUR) 10 MEQ CR tablet, Take 10 mEq by mouth Daily., Disp: , Rfl: ??? pravastatin (PRAVACHOL) 40 MG tablet, Take 40 mg by mouth Daily., Disp: , Rfl: ??? tamsulosin (FLOMAX) 0.4 MG capsule 24 hr capsule, Take 1 capsule by mouth Daily., Disp: , Rfl: ??? valsartan-hydrochlorothiazide (DIOVAN-HCT) 320-25 MG per tablet, Take 1 tablet by mouth Daily.,Disp: , Rfl: The following portions of the patient's history were reviewed and updated as appropriate: current medications, past family history, past medical history, past social history and problem list. Review of Systems Constitution: Negative for chills, fever, weight gain and weight loss. Cardiovascular: Negative for chest pain, claudication, dyspnea on exertion, leg swelling, orthopnea, palpitations, paroxysmal nocturnal dyspnea and syncope. No dizziness Gastrointestinal: Negative for abdominal pain, constipation, diarrhea, nausea and vomiting. Genitourinary: No urinary symptoms Neurological: No symptoms of stroke. All other systems reviewed and are negative. Objective: Blood pressure 150/82, pulse 62, height 70 (177.8 cm), weight 206 lb (93.4 kg). Repeat blood pressure measurement byViktor MD, at 146/78 Physical Exam Constitutional: He appears well-developed and well-nourished. HENT: HEENT exam unremarkable. Neck: Neck supple. No JVD present. No carotid bruits. Cardiovascular: Normal rate, regular rhythm and normal heart sounds. No murmur heard. 2 plus symmetric pulses. Pulmonary/Chest: Breath sounds normal. He exhibits no tenderness. Abdominal: Abdomen benign. Musculoskeletal: He exhibits no edema. Neurological: Neurological exam unremarkable. Vitals reviewed. Lab Review: Procedures Device interrogation showed normal dual-chamber ICD function, one brief NSVT without therapy, more than 80 years of battery life. Assessment: Diagnosis Plan 1. Nonischemic cardiomyopathy 2. Essential hypertension 3. Dyslipidemia 4. Bilateral carotid artery disease Plan: Overall stable from Cardec standpoint, mild elevation of blood pressures due to recent stress, haverecommended diet and exercise especially restriction of salt/sodium. We recommended increasing the dose of Norvasc however he strongly feels that this is unusual and most of the blood pressure readings have been normal and he will keep close monitoring of his blood pressure. Continue current medications. FU in 12 MO with device check, sooner as needed. Thank you for allowing us to participate in the care of your patient. Scribed for Viktor Nelson MD by Charles Tripathi. 08/01/2016 10:44 AM I, Viktor Nelson MD, personally performed the services described in this documentation as scribed bythe above named individual in my presence, and it is both accurate and complete. 08/01/2016 11:13 AM Please note that portions of this note may have been completed with a voice recognition program. Efforts were made to edit the dictations, but occasionally words are mistranscribed. documented in this encounter Plan of Treatment Not on file documented as of this encounter Visit Diagnoses Diagnosis Nonischemic cardiomyopathy- Primary Other primary cardiomyopathies Essential hypertension Unspecified essential hypertension Dyslipidemia Other and unspecified hyperlipidemia Bilateral carotid artery disease Unspecified disorders of arteries and arterioles documented in this encounter Care Teams Legal Writing Professor Relationship Specialty Start Date End Date Jose Valdez MD [facility]0 [facility] [address] [facility] [address] [place] [address] PCP - General 07/27/15 documented as of this encounter
--- OUTSIDE RECORDS SUMMARY | 2024-04-26 14:37 | XMS_ITS | Clinical Summary ---
Author Organization [facility] Address [address] [place] [address] Phone Care Team Providers Care Level Vial Curvature Gauger Name Role Phone Unavailable Primary Care Provider Unavailabl e Social History Tobacco Use Types Packs/Day Years Used Date Smoking Tobacco: Never Assessed Sex and Gender Information Value Date Recorded Sex Assigned at Not on file Legal Sex Male 9:18 AM EDT Gender Identity Not on file Sexual Orientation Not on file Plan of Treatment Health Maintenance Due Date Last Done Comments Wellness Exam Medicare 1952 Hepatitis C Screening 1968 DTaP/TDaP/Td (1 - Tdap) 1969 Cologuard 1995 Colon Cancer Screening 1995 Colonoscopy 1995 FIT 1995 Sigmoidoscopy 1995 Virtual Colonography 1995 Zoster (1 of 2) 2000 Pneumococcal Vaccine 65+ (1 of 1 - PCV) 2015 COVID-19 Vaccine (2023-2 5 season) 2024 Influenza Vaccine (#1) 2024 Hepatitis B Vaccine Aged Out No longe r eligible based on patient's age to complete this topic Insurance Member Subscriber Plan / Payer (Ef fective 2015-Present) Name:Jos Bolivar Member ID:[id number] Relation to Subscriber:Self Name:Jos Bolivar Subscriber ID:[id number] Payer ID:Not on file Group ID:Not on file Type:Not on file Address: [address]
--- OUTSIDE RECORDS SUMMARY | 2024-04-26 14:37 | XMS_ITS | Encounter Summary ---
Author Organization [facility] Address [address] [place] [id number] Care Team Providers Care Tap And Die Maker Technician Name Role Phone Jose Valdez MD Primary Care Provider [phone] Reason for Referral * Diagnostic Imaging (Routine) - Closed Specialty Diagnoses / Procedures Referred By Contac t Referred To Contact Diagnoses Nonischemic cardiomyopathy Procedures Adult Transthoracic Echo Complete W/ Cont if Necessary Per Protocol ND ECHO HEART XTHORACIC,COMPLETE W DOPPLER Viktor Nelson MD [address] [place] [address] Phone: tel: fax: [address] [address] Phone: tel: Referral ID Status Reason Start Date Expiration Date Visits Re quested Visits Authorized [id number] Closed 09/11/2017 08/07/2018 1 1 Reason for Visit * Reason Comments Cardiomyopathy Carotid Artery Disease Hypertension Encounter Details Date Type Department Care Team (Late st Contact Info) Description 08/07/2017 9:15 AM EST Office Visit [facility] CARDIOLOGY [address] [place] [address] Viktor Nelson MD [address] [facility] [address] [place] [address] Nonischemic cardiomyopathy (Primary Dx); Essential hypertension; Dyslipidemia Social History Tobacco Use [...] Sign Reading Time Taken Comments Blood Pressure 136/74 08/07/2017 9:22 AM EST Pulse 66 08/07/2017 9:22 AM EST Temperature - - Respiratory Rate - - Oxygen Saturation - - Inhaled Oxygen Concentration - - Weight 93.2 kg (205 lb 6.4 oz) 08/07/2017 9:22 A M EST Height 177.8 cm (5' 10 ) 08/07/2017 9:22 AM EST Body Mass Index 29.47 08/07/2017 9:22 AM EST documented in this encounter Progress Notes * Viktor Nelson MD - 08/07/2017 9:15 AM EST Encounter Date:08/07/2017 Patient ID: Jos Bolivar is a 67 y.o. male. Chief Complaint: Cardiomyopathy; Carotid Artery Disease; and Hypertension PROBLEM LIST: 1. Nonischemic cardiomyopathy. [...] cardiomyopathy with ejection fraction of 35%. f. [employer] ICD implant by Dr. Hooper on [...] today for follow-up with a history of nonischemic cardiomyopathy and cardiac risk factors. Since last visit has been doing well form acardiac standpoint. Has had no recent hospital admission. Monitors his diet regularly, but has gained minimal weight, but has a target weight of 185. Denies chest pain, shortness of breath, leg swelling, palpitations, and syncope. Remains busy and active with work three days a week with no limitations. No Known Allergies Current Outpatient Prescriptions: ??? [...] reviewed and are negative. Objective: Blood pressure 136/74, pulse 66, height 177.8 cm (70 ), weight 93.2 kg (205 lb 6.4 oz). Physical Exam Constitutional: She appears well-developed and well-nourished. HENT: HEENT exam unremarkable. Neck: Neck supple. No JVD present. No carotid bruits. Cardiovascular: Normal rate, regular rhythm and normal heart sounds. No murmur heard. 2 plus symmetric pulses. Pulmonary/Chest: Breath sounds normal. Does not exhibit tenderness. Abdominal: Abdomen benign. Musculoskeletal: Does not exhibit edema. Neurological: Neurological exam unremarkable. Vitals reviewed. Lab Review: Procedures ICD interrogation showed normal biventricular ICD function, 7.5 years of battery life. Rare ventricular high rates, longest was 17 beats with no therapy (NSVT). Assessment: Diagnosis Plan 1. Nonischemic cardiomyopathy , Stable/well compensated, status post biventricular ICD with normal ICD function. Adult Transthoracic Echo Complete W/ Cont if Necessary Per Protocol 2. Essential hypertension Controlled, continue present medications. 3. Dyslipidemia Continue pravastatin, followed by PCP. Plan: Cardiac status is stable. We will check echocardiogram to follow-up on his LV function. Diet exercise and weight loss recommended. Continue current medications. FU in 12 MO, sooner as needed. Thank you for allowing us to participate in the care of your patient. Scribed for Viktor Nelson MD by Gilbert Tripathi. 08/07/2017 9:42 AM IViktor MD, personally performed the services described in this documentation as scribed bythe above named individual in my presence, and it is both accurate and complete. 08/07/2017 9:43 AM Please note that portions of this note may have been completed with a voice recognition program. Efforts were made to edit the dictations, but occasionally words are mistranscribed. documented in this encounter Plan of Treatment Not on file documented as of this encounter Results * ECHO COMPLETE W/ DOPPLER AND COLOR FLOW (09/11/2017 11:32 AM EDT) BSA 2.3 m^2 EMC RAD RVIDd 3.8 cm EMC RAD IVSd 1.1 cm EMC RAD LVIDd 4.6 cm EMC RAD LVIDs 3.5 cm EMC RAD LVPWd 1.0 cm EMC RAD IVS/LVPW 1.0 EMC RAD FS 20.3 % EMC RAD EDV(Teich) 98.8 ml EMC RAD ESV(Teich) 57.7 ml EMC RAD EF(Teich) 41.6 % EMC RAD EDV(cubed) 99.2 ml EMC RAD ESV(cubed) 50.2 ml EMC RAD EF(cubed) 49.5 % EMC RAD LV mass(C)d 167.8 grams EMC RAD LV mass(C)dI 73.7 grams/m^2 EMC RAD SV(Teich) 41.1 ml EMC RAD SI(Teich) 18.1 ml/m^2 EMC RAD SV(cubed) 49.1 ml EMC RAD SI(cubed) 21.6 ml/m^2 EMC RAD Ao root diam 3.4 cm EMC RAD Ao root area 9.2 cm^2 EMC RAD LA dimension (2D) 4.2 cm EMC RAD LA/Ao 1.2 EMC RAD LVOT diam 2.0 cm EMC RAD LVOT area 3.3 cm^2 EMC RAD LVOT area(traced) 3.1 cm^2 EMC RAD LVLd ap4 8.5 cm EMC RAD EDV(MOD-sp4) 133.0 ml EMC RAD LVLs ap4 6.8 cm EMC RAD ESV(MOD-sp4) 53.0 ml EMC RAD LVLd ap2 7.7 cm EMC RAD EDV(MOD-sp2) 101.0 ml EMC RAD LVLs ap2 6.8 cm EMC RAD ESV(MOD-sp2) 42.0 ml EMC RAD EF(MOD-sp2) 58.4 % EMC RAD SV(MOD-sp4) 80.0 ml EMC RAD SVi(MOD-SP4) 35.2 ml/m^2 EMC RAD SV(MOD-sp2) 59.0 ml EMC RAD SVi(MOD-SP2) 25.9 ml/m^2 EMC RAD Ao root area (BSA corrected) 1.5 EMC RAD EF - Contrast (2Ch) 58.4 ml/m^2 EMC RAD EF - Contrast (4Ch) 60.2 ml/m^2 EMC RAD LV Bradford Vol (BSA corrected) 58.5 ml/m^2 EMC RAD LV Sys Vol (BSA corrected) 23.3 ml/m^2 EMC RAD MV E max juan 64.4 cm/sec EMC RAD MV A max juan 70.3 cm/sec EMC RAD MV E/A 0.92 EMC RAD MV dec time 0.24 sec EMC RAD Ao pk juan 113.5 cm/sec EMC RAD Ao max PG 5.0 mmHg EMC RAD Ao max PG (full) 2.8 mmHg EMC RAD MOLINA(V,A) 2.2 cm^2 EMC RAD MOLINA(V,D) 2.2 cm^2 EMC RAD LV V1 max PG 2.2 mmHg EMC RAD LV V1 max 74.7 cm/sec EMC RAD PA acc slope 597.7 cm/sec^2 EMC RAD PA acc time 0.11 sec EMC RAD TR max juan 200.7 cm/sec EMC RAD PA pr(Accel) 27.9 mmHg EMC RAD Pulm Sys Juan 49.0 cm/sec EMC RAD Pulm Bradford Juan 54.2 cm/sec EMC RAD Pulm S/D 0.91 EMC RAD BH CV ECHO ION - BZI_BMI 35.2 kilograms/ m^2 EMC RAD BH CV ECHO ION - BSA([facility]) 2.4 m^2 EMC RAD BH CV ECHO ION - BZI_METRIC_WEIG HT 111.1 kg EMC RAD BH CV ECHO ION - BZI_METRIC_HEIG HT 177.8 cm EMC RAD Target HR (85%) 130 bpm EMC RAD Max. Pred. HR (100%) 153 bpm EMC RAD BH CV VAS BP LEFT ARM 155/90 mmHg EMC RAD RV S' 2.00 cm/sec EMC RAD RV Base 3.40 cm EMC RAD RV Length 6.40 cm EMC RAD RV Mid 3.60 cm EMC RAD E/E' ratio 9.1 EMC RAD LA ESV Index (BP) 33.8 mL/m2 EMC RAD Lat Peak E' Juan 8.1 cm/sec EMC RAD Med Peak E' Juan 6.27 cm/sec EMC RAD RVSP(TR) 19 mmHg EMC RAD TR max grad 16 mmHg EMC RAD TAPSE (>1.6) 13.30 cm2 EMC RAD Anatomical Region Laterality Modality Ultrasound 09/11/2017 7:51 AM EDT Narrative 09/11/2017 3:17 PM EDT ?? Left atrial cavity size is borderline dilated. ?? Left ventricular systolic function is normal. Estimated EF 51-55%. ?? Mild mitral regurgitation, trace tricuspid regurgitation. Left Ventricle Left ventricular systolic function is normal. Estimated EF appears to be in the range of 51 - 55%. Normal left ventricular cavity size and wall thickness noted. All left ventricular wall segments contract normally. Right Ventricle Normal right ventricular cavity size, wall thickness, systolic function and septal motion noted. Electronic lead present in the ventricle. Left Atrium Normal left atrial volume noted. Left atrial cavity size is borderline dilated. Right Atrium Right atrial cavity size is dilated. The inferior vena cava is normally sized. Normal IVC inspiratory collapse of greater than 50% noted. Mitral Valve The mitral valve is normal in structure. Mild mitral valve regurgitation is present. No significant mitral valve stenosis is present. Tricuspid Valve The tricuspid valve is normal. No tricuspid valve stenosis is present. Trace tricuspid valve regurgitation is present. Estimated right ventricular systolic pressure from tricuspid regurgitation is normal (<35 mmHg). Aortic Valve The aortic valve is structurally normal. No aortic valve regurgitation is present. No aortic valve stenosis is present. Pulmonic Valve The pulmonic valve is structurally normal. There is no significant pulmonic valve stenosis present. There is no pulmonic valve regurgitation present. Pericardium The pericardium is normal. There is no evidence of pericardial effusion. Additional Study Details A two-dimensional transesophageal echocardiogram was performed with complete color and Doppler interrogation. The study is technically good for diagnosis. Greater Vessels No dilation of the aortic root is present. No dilation of the sinuses of Valsalva is present. Viktor Nelson MD CV ECHO ORDERABLES Final Result documented in this encounter Visit Diagnoses Diagnosis Nonischemic cardiomyopathy- Primary Other primary cardiomyopathies Essential hypertension Unspecified essential hypertension Dyslipidemia Other and unspecified hyperlipidemia Nonischemic cardiomyopathy Other primary cardiomyopathies documented in this encounter Care Teams Tap And Die Maker Technician Relationship Specialty Start Date End Date Jose Valdez MD [facility] [address] [facility] [address] [place] [address] PCP - General 07/27/15 documented as of this encounter
--- OUTSIDE RECORDS SUMMARY | 2024-04-26 14:37 | XMS_ITS | Encounter Summary ---
Author Organization [facility] Address [address] [place] [address] Care Team Providers Care Flat Cutter Name Role Phone Jose Valdez MD Primary Care Provider [phone] Reason for Visit * Reason Comments Pacemaker Check remote Encounter Details Date Type Department Care Team (Latest Contact Info) Description 12/19/2016 1:00 AM EDT Clinical Support No Requirements [facility] CARDIOLOGY [address] [place] [address] [address] [place] [address] Nonischemic cardiomyopathy (Primary Dx) Social History Tobacco Use Types Packs/Day Years [...] Procedure Name Priority Date/Time Associated Diagnosis Comments SCANNED - CARDIOLOGY 12/19/2016 documented in this encounter Results * SCANNED - CARDIOLOGY (12/19/2016) Anatomical Region Laterality Modality Other [facility] [place] [facility] ORDERA BLES Final Result documented in this encounter Visit Diagnoses Diagnosis Nonischemic cardiomyopathy- Primary Other primary cardiomyopathies documented in this encounter Care Teams Flat Cutter Relationship Specialty Start Date End Date Jose Valdez MD [address] [place] [address] [facility] [place] [address] PCP - General 07/27/15 documented as of this encounter
--- OUTSIDE RECORDS SUMMARY | 2024-04-26 14:37 | XMS_ITS | Encounter Summary ---
Author Organization [facility] Address [address] [id number] Care Team Providers Care Stem Assembler Name Role Phone Jose Valdez MD Primary Care Provider [phone] Reason for Referral * Diagnostic Imaging (Routine) - Closed Specialty Diagnoses / Procedures Referred By Contac t Referred To Contact Diagnoses Nonischemic cardiomyopathy Procedures Adult Transthoracic Echo Complete W/ Cont if Necessary Per Protocol CA ECHO HEART XTHORACIC,COMPLETE W DOPPLER Viktor Nelson MD [address] [place] [address] Phone: tel: fax: [place] [address] Phone: tel: Referral ID Status Reason Start Date Expiration Date Visits Re quested Visits Authorized [id number] Closed 09/11/2017 08/07/2018 1 1 Reason for Visit * Diagnostic Imaging (Routine) - Closed Specialty Diagnoses / Procedures Referred By Contac t Referred To Contact Diagnoses Nonischemic cardiomyopathy Procedures Adult Transthoracic Echo Complete W/ Cont if Necessary Per Protocol CA ECHO HEART XTHORACIC,COMPLETE W DOPPLER Viktor Nelson MD [address] [place] [address] Phone: tel: fax: [address] [phone] Phone: tel: Referral ID Status Reason Start Date Expiration Date Visits Re quested Visits Authorized [id number] Closed 09/11/2017 08/07/2018 1 1 Encounter Details Date Type Department Care Team (Late st Contact Info) Description 09/11/2017 7:44 AM EDT - 09/11/2017 11:59 PM EDT Hospital Encounter [facility] NONINVASIVE LAB [address] [place] [address] Viktor Nelson MD [address] [place] [address] Nonischemic cardiomyopathy Discharge Disposition: Home or Self [...] Sign Reading Time Taken Comments Blood Pressure 155/90 09/11/2017 7:48 AM EDT Pulse - - Temperature - - Respiratory Rate - - Oxygen Saturation - - Inhaled Oxygen Concentration - - Weight 93 kg (205 lb) 09/11/2017 7:48 AM EDT Height 177.8 cm (5' 10 ) 09/11/2017 7:48 AM EDT Body Mass Index 29.41 09/11/2017 7:48 AM EDT documented in this encounter Medications at Time of Discharge metFORMIN (GLUCOPHAGE) 500 MG tablet Take 500 mg by mouth 2 (Two) Times a Day. 07/28/2016 tamsulosin (FLOMAX) 0.4 MG capsule 24 hr capsule Take 2 capsules by mouth Daily. 07/27/2016 amLODIPine (NORVASC) 5 MG tablet Take 1 tablet by mouth Daily. 90 tablet 3 08/07/2017 08/13/2018 aspirin 81 MG chewable tablet Chew 81 mg Daily. 09/24/2018 carvedilol (COREG) 25 MG tablet Take 1 tablet by mouth 2 (Two) Times a Day With Meals. 180 tablet 3 08/07/2017 08/02/2020 potassium chloride (K-DUR) 10 MEQ CR tablet Take 10 mEq by mouth Daily. 07/27/2016 02/21/2019 pravastatin (PRAVACHOL) 40 MG tablet Take 1 tablet by mouth Daily. 30 tablet 11 08/01/2016 08/02/2020 valsartan-hydroc hlorothiazide (DIOVAN-HCT) 320-25 MG per tablet Take 1 tablet by mouth Daily. 90 tablet 3 08/07/2017 08/30/2021 documented as of this encounter Plan of Treatment Not on file documented as of this encounter Procedures Procedure Name Priority Date/Time Associated Diagnosis Comments ECHO COMPLETE W/ DOPPLER AND COLOR FLOW Routine 09/11/2017 11:32 AM EDT Nonischemic cardiomyopathy documented in this encounter Results * ECHO COMPLETE W/ [...] [facility] CV ECHO ION - BSA([place]) 2.4 m^2 [facility] CV ECHO [...] cardiomyopathies documented in this encounter Care Teams Stem Assembler Relationship Specialty Start Date End Date Jose Valdez MD [facility] [address] [facility] [address] [place] [address] PCP - General 07/27/15 documented as of this encounter
--- OUTSIDE RECORDS SUMMARY | 2024-04-26 14:37 | XMS_ITS | Continuity of Care Document ---
Author Organization [place] - [facility] Address [address] [place] [address] Assessment No assessment recorded. Plan of Treatment Reminders Order Date Submit Date Provider Last Modified By Organization Details Last Modified Time Details Appointments None recorded. Lab PSA, serum or plasma 2023 024 [email or web address] [facility], [address] [place] [address], [id number], 4 16:16:55 testostero ne, free + total, serum 2023 024 [email or web address] [facility], [address] [place] [address], [id number], 4 07:28:50 urinalysis , dipstick 2023 024 [email or web address] [facility], [address] [place] [address], [id number], 4 15:54:54 Referral None recorded. Procedures bladder scan (PROC) 2023 024 [email or web address] [facility], [address] [place] [address], [id number], 4 15:54:54 Surgeries None recorded. Imaging None recorded. Medication Orders None recorded. Patient TargetsNo targets recorded. Patient InstructionsNo instructions recorded. Reason for Referral None Reported. Results Created Date Observation Date Name Description Value Unit Range Abnormal Flag Note LastModifiedBy Organization Detail LastModifiedTime 01/27/20 24 01/27/2024 urina lysis , dipst ick Leukocytes (reference range) negati ve Not Available [address], [address], 01/27/2024 14:04:47 01/27/20 24 01/27/2024 urina lysis , dipst ick Nitrite (reference range:) negati ve Not Available [address], [address], 01/27/2024 14:04:47 01/27/20 24 01/27/2024 urina lysis , dipst ick Urobilinogen (reference range) 0.2 Not Available [address], [address], 01/27/2024 14:04:47 01/27/20 24 01/27/2024 urina lysis , dipst ick Protein (reference range) negati ve Not Available [address], [address], 01/27/2024 14:04:47 01/27/20 24 01/27/2024 urina lysis , dipst ick pH (reference range 5-8.5) 6.0 Not Available [address], [address], 01/27/2024 14:04:47 01/27/20 24 01/27/2024 urina lysis , dipst ick Blood (reference range:) negati ve Not Available [address], [address], 01/27/2024 14:04:47 01/27/20 24 01/27/2024 urina lysis , dipst ick Specific [place] (reference range) 1.015 Not Available [address], [address], 01/27/2024 14:04:47 01/27/20 24 01/27/2024 urina lysis , dipst ick Ketone (reference range) negati ve Not Available [address], [address], 01/27/2024 14:04:47 01/27/20 24 01/27/2024 urina lysis , dipst ick Bilirubin (reference range) negati ve Not Available [address], [address], 01/27/2024 14:04:47 01/27/20 24 01/27/2024 urina lysis , dipst ick Glucose (reference range) 1000 Not Available [address], [address], 01/27/2024 14:04:47 01/27/20 24 01/27/2024 bladd er scan (PROC ) Calculated Residual Urine: 43 ML Not Available [address], [address], 01/27/2024 14:04:48 Result Notes None recorded. Problems Name Problem SNOMED Code Status Onset Date Resolution Date Notes Provider Name and Address Organization Details Recorded Time Cardiac pacemaker in situ 754786628 Active 2022 Zeenat Slaters null, [place] - [facility] & [place] 3 11:00:49 Irregular heart beat 037836617 Active 2022 Zeenat Brody null, [place] - [facility] - [place] & [place] 3 11:00:49 Benign prostatic hyperplasia with outflow obstruction 643647690 Active Zeenat Brody null, [place] - [facility] - [place] & [place] 3 11:00:49 Problem Notes None recorded. Procedures Surgical History Date Name Laterality Status Provider Name and Address Organization Details Recorded Time 04/17/2023 Cystoscopy -Male completed Roberto Ramos Jr, MD [address] [place] [address] Drive, [address], [place], [address] [place], [place] [address]NT [facility] & [place] 04/17/2023 11:27:38 Imaging Results None recorded. Procedure Notes None recorded. Medical Equipment None Reported. Allergies Allergen ID Allergen Name Allergen Category Reaction Reaction Severity Criticality Documentation Date Start Date Code Code System Note Provider Name and Address Organization Details Recorded Time 365537 No known allergy (situatio n) Not available Not available Not available Not available 05/05/2023 94813 6003 SNOMED Zeenat Brody [facility] & [place] 11:00:48 Medications Name Sig Start Date Stop [...] Updated DateTime 01/27/2024 177.8 cm 30.3 kg/m2 44660.99 g Kellen Stephens [facility] & [place] 01/27/2024 13:41:25 Social History Question Answer Notes LastModified by Organizat ion Details LastModified Time Tobacco Smoking Status Never Smoker Mary Alice cotter, [facility] & [place] 04/17/2023 08:48:31 What Is Your Level Of Alcohol Consumption? Occasional Information not available 04/17/2023 Sex: Unknown Functional Status None recorded. Mental Status None recorded. Family History Nothing Reported. Medical History No medical history recorded. Past Encounters Encounter ID Performer Location Encounter Start Date Encounter Closed Date Diagnosis/Indication Diagnosis SNOMED-CT Code Diagnosis ICD10 Code [id number] Roberto Ramos Jr, MD [facility] [address] [address] 01/27/2024 13:23:10 01/27/2024 13:55:28 Screening for malignant neoplasm of prostate 181252134 Z12.5 Benign pro static hyperplasia with outflow obstruction 485970318 N40.1 Fatigue 50533902 R53.83 Pain of ri ght testicle 2106078318 8695967 N50.811 Health Concerns Section Related Observation LastModified by Organization Detai ls LastModified Time None Recorded Concern Status LastModified by Organization Details LastModified Time None Recorded Payers Encounter Date Sequence Insurance Name Policy Number Policy Cline Covered Member ID Cline Member ID Guarantor Name 01/27/2024 1 [place]ARE[place] Jos Bolivar [id number] Jos Katt 01/27/2024 2 [employer] [place] (MEDICARE SUPPLEMENT) Jos Bolivar [id number] Jos Bolivar Notes Date Note Type Note Provider Name and Address Organization Details Recorded Time 01/27/2024 text/html Patient is a 73-year-old white [...] easy fatigue and decreased energy levels. Roberto Ramos Jr, MD [address] [place] [address], [address], [place], [address], [facility] - [place] - [place] & [place] 01/27/2024 15:17:59
--- OUTSIDE RECORDS SUMMARY | 2024-04-26 14:37 | XMS_ITS | Referral Summary ---
Author Organization [facility] Address [address] [place] [address] Phone Care Team Providers Care Cutting Tool Sharpener Name Role Phone Unavailable Primary Care Provider Unavailabl e Social History Tobacco Use Types Packs/Day Years Used Date Smoking Tobacco: Never Assessed Sex and Gender Information Value Date Recorded Sex Assigned at Not on file Legal Sex Male 9:18 AM EDT Gender Identity Not on file Sexual Orientation Not on file Plan of Treatment Not on file Insurance MEDICARE [place] PART A AND B [employer] [facility]
--- OUTSIDE RECORDS SUMMARY | 2024-04-26 14:37 | XMS_ITS | Encounter Summary ---
Author Organization [facility] Address [address] [place] [address] Care Team Providers Care Service Station Manager Name Role Phone Jose Valdez MD Primary Care Provider [phone] Reason for Visit * Reason Comments remote monitoring Encounter Details Date Type Department Care Team (Latest Contact Info) Description 04/30/2017 Clinical Support No Requirements [facility] CARDIOLOGY [address] [place] [address] [address] [place] [phone] Nonischemic cardiomyopathy Social History Tobacco Use Types [...] Date/Time Associated Diagnosis Comments SCANNED - CARDIOLOGY 04/30/2017 documented in this encounter Results * SCANNED - CARDIOLOGY (04/30/2017) Anatomical Region Laterality Modality Other Viktor Nelson MD [facility] CARDIAC SERVICES ORDERABLES F inal Result documented in this encounter Visit Diagnoses Diagnosis Nonischemic cardiomyopathy Other primary cardiomyopathies documented in this encounter Care Teams Service Station Manager Relationship Specialty Start Date End Date Jose Valdez MD [address] [place] [address] [place] [address] PCP - General 07/27/15 documented as of this encounter
--- OUTSIDE RECORDS SUMMARY | 2024-04-26 14:37 | XMS_ITS | Encounter Summary ---
Author Organization [facility] Address [address] [place] [address] Care Team Providers Care Fitness Supervisor Name Role Phone Chucho Valdez MD Primary Care Provider [phone] Encounter Details Date Type Department Care Team (Late st Contact Info) Description 12/29/2014 Office Visit Converted [facility] [address] [facility] [address] [place] [phone] Viktor Nelson MD [address] [facility] [address] [place] [address] Social History Tobacco Use Types Packs/Day Years Used Date Smoking Tobacco: Never Assessed Sex and Gender Information Value Date Recorded Sex Assigned at Not on file Legal Sex Male 12:24 PM EDT Gender Identity Not on file Sexual Orientation Not on file documented as of this encounter Progress Notes * Viktor Nelson MD - 12/29/2014 10:15 AM EDT LOCATION: [place] Office PRIMARY CARE PHYSICIAN: Chucho Valdez MD IDENTIFICATION: This is a 64-year-old white male, resident of [place], [place]. CHIEF COMPLAINT: Followup for nonischemic cardiomyopathy. PROBLEM LIST: 1. Nonischemic cardiomyopathy: a. Symptoms of progressive angina-type symptoms in March 2005. Exercise/Cardiolite stress test on 03/13/2005, was remarkable for poor exercise tolerance and reversible anterior wall defect with ejection fraction of 33%. Cardiac catheterization by Dr. Nelson in March 2005, showed nonobstructive coronary artery diseaseinvolving the first diagonal, mid LAD and RCA without evidence of hemodynamically significant stenosis. Moderate LV dysfunction with ejection fraction of 45%. Onset of congestive heart failure type symptoms with initiation of appropriate medical therapy. Echocardiogram in October 2005, showed dilated cardiomyopathy with ejection fraction of 35%. [employer] ICD implant by Dr. Hooper on 05/01/2006. Limited echocardiogram in July 2006, showed global hypokinesis with ejection fraction of 45%. Echocardiogram December 2007, showed ejection fraction 50% to 55% with trace mitral and trace tricuspid regurgitation and trace pulmonic regurgitation. Echocardiogram July 2008, showed mild LVH with ejection fraction 45% to 50% and mild left atrial enlargement with trace mitral and trace tricuspid regurgitation. Echocardiogram, March 2011: Showed ejection fraction 45% [...] diastolic. Symptoms resolved over 2-3 days spontaneously. 6. Obesity, BMI 31.6. Former smoker, quit 21 years ago. Status post minor surgery many years ago for leg fracture. ALLERGIES/DRUG INTOLERANCES: NKDA. CURRENT MEDICATIONS: 1. Pravastatin 40 mg daily. Amlodipine 5 mg daily. Glucophage 500 mg daily. Coreg 25 mg b.i.d. Plavix 75 mg daily. Zoloft 100 mg b.i.d. Diovan/hydrochlorothiazide 320/25 mg daily. Aspirin 81 mg daily. SUBJECTIVE: Patient returns for followup of nonischemic cardiomyopathy. He is doing well from a cardiac standpoint He is complaining of easy bruising and wants to know if he can discontinue his Plavix. He was started on it following vertigo-type symptoms, which was suspected to be TIA; however, this was not confirmed, and he has not had any recurrence of such symptoms. He has no current chest pain, shortness of breath, edema, palpitations or syncope. He remains active and busy, working full-time. OBJECTIVE: VITAL SIGNS: Pulse 75, blood pressure 138/76. CHEST: Clear. HEART: Sounds regular. EXTREMITIES: No edema. DIAGNOSTIC DATA: ICD interrogation revealed normal dual-chamber ICD function with 1 short nonsustained ventricular tachycardia. Eight years on battery life. ASSESSMENT: 1. Nonischemic cardiomyopathy, status post implantable cardioverter defibrillator implant; normal implantable cardioverter defibrillator function, stable. Hypertension, controlled. Nonocclusive carotid artery disease without any current symptoms of stroke or transient ischemic attack. Diabetes and dyslipidemia, on appropriate treatment. PLAN: 1. He can discontinue Plavix. Continue all present medications. Followup in 6 months and we will repeat a carotid ultrasound at that time. Dr. Valdez, thank you for allowing us to participate in the care of your patient. Viktor Nelson MD* AA/va cc: Chucho Valdez MD [facility] Electronically signed by:Viktor Nelson MD Jan 26 2015 3:36PM EST documented in this encounter Plan of Treatment Not on file documented as of this encounter Visit Diagnoses Not on filedocumented in this encounter Care Teams Fitness Supervisor Relationship Specialty Start Date End Date Chucho Valdez MD PCP - General 01/11/15 07/26/15 documented as of this encounter
--- OUTSIDE RECORDS SUMMARY | 2024-04-26 14:37 | XMS_ITS | Encounter Summary ---
Author Organization [facility] Address [address] [place] [address] Care Team Providers Care Back Order Clerk Name Role Phone Chucho Valdez MD Primary Care Provider [phone] Encounter Details Date Type Department Care Team (Late st Contact Info) Description 10/28/2013 Office Visit Converted [facility] CARDIOLOGY [address] [facility] [address] [place] [phone] Viktor Nelson MD [address] [facility] [address] [place] [address] Social History Tobacco Use Types Packs/Day Years Used Date Smoking Tobacco: Never Assessed Sex and Gender Information Value Date Recorded Sex Assigned at Not on file Legal Sex Male 12:24 PM EDT Gender Identity Not on file Sexual Orientation Not on file documented as of this encounter Progress Notes * Viktor Nelson MD - 10/28/2013 9:15 AM EDT LOCATION: [place] Office REFERRING PHYSICIAN: Chucho Valdez MD IDENTIFICATION: This is a 63-year-old white male, resident of [place], [place]. CHIEF COMPLAINT: Follow up for non-ischemic [...] dilated cardiomyopathy with ejection fraction of 35%. [employer] ICD implant by Dr. Hooper on [...] 2. Hypertension. Dyslipidemia. Diabetes mellitus, type 2. Obesity, BMI 31.6. Former smoker, quit 21 years ago. Status post minor surgery many years ago for leg fracture. ALLERGIES/DRUG INTOLERANCES: NKDA. CURRENT MEDICATIONS: 1. Coreg 25 mg b.i.d. Zoloft 100 mg 2 tablets daily. Diovan/hydrochlorothiazide 320/25 daily. Amlodipine 5 mg daily. Pravachol 40 mg daily. Aspirin 81 mg daily. He has the medication Formin HCl 500 mg daily on his list, which is not clear. SUBJECTIVE: The patient returns for followup of non-ischemic cardiomyopathy and defibrillator check-up. He has done very well since last visit. He is having an active and busy summer, mows his yard, works around the house. He has no complaints of chest pain, shortness of breath, edema, palpitations. Denies other symptoms. OBJECTIVE: VITAL SIGNS: Pulse 72. Blood pressure 112/70 CHEST: Clear. HEART: Sounds are regular. EXTREMITIES: No edema. DIAGNOSTIC DATA: ICD interrogation revealed less than 1% atrial, 100% ventricular pacing. ICD function is normal. Brief NSVT is noted. ASSESSMENT: 1. Non-ischemic cardiomyopathy, status post biventricular implantable cardioverter defibrillator implant with generator change, stable. No current heart failure or angina-type symptoms. Hypertension, well controlled. Dyslipidemia, on Pravachol. PLAN: 1. Continue current medications. Cardiology followup in 6 months with same day ICD interrogation. Dr. Valdez, thank you for allowing us to participate in the care of this patient. Viktor Nelson MD, FACC, [facility] [id number] cc: Chucho Valdez MD [facility] Electronically signed by:Viktor Nelson MD Feb 09 2014 1:51PM EST documented in this encounter Plan of Treatment Not on file documented as of this encounter Visit Diagnoses Not on filedocumented in this encounter Care Teams Back Order Clerk Relationship Specialty Start Date End Date Chucho Valdez MD PCP - General 01/11/15 07/26/15 documented as of this encounter
--- OUTSIDE RECORDS SUMMARY | 2024-04-26 14:37 | XMS_ITS | Encounter Summary ---
Author Organization [facility] Address [address] [place] [id number] Care Team Providers Care Signal Maintainer Name Role Phone Jose Valdez MD Primary Care Provider [phone] Encounter Details Date Type Department Care Team (Late st Contact Info) Description 07/27/2015 Office Visit Converted [facility] CARDIOLOGY [address] [facility] [address] [place] [id number] Viktor Nelson MD [address] [facility] [address] [place] [address] Social History Tobacco Use Types Packs/Day Years Used Date Smoking Tobacco: Never Assessed Sex and Gender Information Value Date Recorded Sex Assigned at Not on file Legal Sex Male 12:24 PM EDT Gender Identity Not on file Sexual Orientation Not on file documented as of this encounter Progress Notes * Viktor Nelson MD - 07/27/2015 11:30 AM EST LOCATION: [place] Office PRIMARY CARE PHYSICIAN: Chucho Valdez MD IDENTIFICATION: A 65-year-old white male, resident of [place], [place]. CHIEF COMPLAINT: Followup for nonischemic cardiomyopathy. PROBLEM LIST: 1. Nonischemic cardiomyopathy. a. Symptoms of progressive angina-type symptoms in March 2005. Exercise/Cardiolite stress test on 03/13/2005, was remarkable for poor exercise tolerance and reversible anterior wall defect with ejection fraction of 33%. Cardiac catheterization by Dr. Nelson in March 2005, showed nonobstructive coronary artery diseaseinvolving the first diagonal, mid LAD and right coronary artery without evidence of hemodynamicallysignificant stenosis. Moderate left ventricular dysfunction with ejection fraction of 45%. Onset of congestive heart failure type symptoms with initiation of appropriate medical therapy. Echocardiogram in October 2005, showed dilated cardiomyopathy with ejection fraction of 35%. [employer] ICD implant by Dr. Hooper on 05/01/2006. Limited echocardiogram in July 2006, showed global hypokinesis with ejection fraction of 45%. Echocardiogram December 2007, showed ejection fraction 50% to 55% with trace mitral and trace tricuspid regurgitation and trace pulmonic regurgitation. Echocardiogram July 2008, showed mild left ventricular hypertrophy with ejection fraction 45% to 50% and mild left atrial enlargement with trace mitral and trace tricuspid regurgitation. Echocardiogram, March 2011: Showed ejection fraction 45% to 50% with mild tricuspid and trace pulmonic regurgitation. Echocardiogram (10/01/2012): Ejection fraction 50% to 55%. 2. Hypertension. Dyslipidemia. Diabetes mellitus, type 2. Episode of vertigo-type symptoms. a. Suspected TIA. CT scan of the [...] fracture. ALLERGIES/DRUG INTOLERANCES: NKDA. CURRENT MEDICATIONS: 1. Amlodipine 5 mg daily. Flomax 0.4 mg daily. Pravachol 40 mg daily. Glucophage 500 mg daily. Coreg 25 mg b.i.d. Valsartan/hydrochlorothiazide 320/25 mg daily. Aspirin 81 mg daily. SUBJECTIVE: Patient returns for follow-up of cardiomyopathy and nonocclusive carotid artery disease. He is doing well from a cardiac standpoint. He has no chest pain, shortness of breath, edema, palpitations or syncope. OBJECTIVE: VITAL SIGNS: Pulse 72. Blood pressure is 142/80 mmHg, initially. Repeat blood pressure is 128/78 mmHg. CHEST: Clear. CARDIAC: Heart sounds regular. EXTREMITIES: No edema. DIAGNOSTIC DATA: His ICD interrogation revealed normal ICD function, 1 brief nonsustained ventricular tachycardia, 8 years of battery life. ASSESSMENT: 1. Nonischemic cardiomyopathy, status post implantable cardioverter defibrillator, stable/normal implantable cardioverter defibrillator function. Nonocclusive carotid artery disease, has follow-up carotid ultrasound scheduled for today. Hypertension, fair control. Dyslipidemia and diabetes, managed by primary care physician. PLAN: 1. Continue current medications. We will review his carotid ultrasound. Follow-up in 1 year with same day implantable cardioverter defibrillator interrogation. Dr. Valdez, thank you for allowing us to participate in the care of your patient. Viktor Nelson MD* AA/rxkmr cc: Chucho Valdez MD [facility] Electronically signed by:Viktor Nelson MD Aug 09 2015 6:04PM EST documented in this encounter Plan of Treatment Not on file documented as of this encounter Visit Diagnoses Not on filedocumented in this encounter Care Teams Signal Maintainer Relationship Specialty Start Date End Date Jose Valdez MD [facility] [address] [facility] [address] [place] [address] PCP - General 07/27/15 documented as of this encounter
--- OUTSIDE RECORDS SUMMARY | 2024-04-26 14:37 | XMS_ITS | Encounter Summary ---
Author Organization [facility] Address [address] [place] [id number] Care Team Providers Care Electronics Mechanic Name Role Phone Jose Valdez MD Primary Care Provider [phone] Encounter Details Date Type Department Care Team (Late st Contact Info) Description 07/27/2015 10:40 AM EST - 07/27/2015 11:59 PM [facility] Hospital Encounter [facility]UL[facility] [address] [place] [address] Viktor Nelson MD [address] [facility] [address] [place] [address] Discharge Disposition: Home or Self Care Social [...] on filedocumented in this encounter Care Teams Electronics Mechanic Relationship Specialty Start Date End Date Jose Valdez MD [address] [place] [facility] [address] [place] [address] PCP - General 07/27/15 documented as of this encounter
--- OUTSIDE RECORDS SUMMARY | 2024-04-26 14:37 | XMS_ITS | Encounter Summary ---
Author Organization [facility] Address [address] [place] [address] Care Team Providers Care Sales Receptionist Name Role Phone Jose Valdez MD Primary Care Provider [phone] Reason for Visit * Reason Comments Remote monitoring Encounter Details Date Type Department Care Team (Latest Contact Info) Description 01/07/2018 12:10 AM EDT Clinical Support No Requirements [facility] CARDIOLOGY [address] [place] [address] [address] [place] [address] Cardiomyopathy, unspecified type (Primary Dx) Social History Tobacco Use Types [...] Associated Diagnosis Comments PACEART REMOTE DEVICE CHECK 01/07/2018 8:51 AM EDT SCANNED - CARDIOLOGY 01/07/2018 documented in this encounter Results * PACEART REMOTE DEVICE CHECK (01/07/2018 8:51 AM EDT) Anatomical Region Laterality Modality Other Suman Stevens DO CV CARDIAC SERVICES ORDERABLES Final Result * SCANNED - CARDIOLOGY (01/07/2018) Anatomical Region Laterality Modality Other Suman Stevens DO CV CARDIAC SERVICES ORDERABLES Final Result documented in this encounter Visit Diagnoses Diagnosis Cardiomyopathy, unspecified type- Primary documented in this encounter Care Teams Sales Receptionist Relationship Specialty Start Date End Date Jose Valdez MD [address] [place] [facility] [address] [facility] [address] [place] [address] PCP - General 07/27/15 documented as of this encounter
--- OUTSIDE RECORDS SUMMARY | 2024-04-26 14:37 | XMS_ITS | Encounter Summary ---
Author Organization [facility] Address [address] [place] [id number] Care Team Providers Care Electronic Service Technician Name Role Phone Jose Valdez MD Primary Care Provider [phone] Encounter Details Date Type Department Care Team (Late st Contact Info) Description 10/01/2018 Telephone [facility] C[facility]IOLOGY [address] [facility] [address] [place] [address] Viktor Nelson MD [address] [facility] [address] [place] [address] Social History Tobacco Use Types Packs/Day Years [...] encounter Miscellaneous Notes * Telephone Encounter - Jorge Alberto Morillo RN - 10/01/2018 2:34 PM EDT Pharmacy faxed auth request for Gracy. Patient does not have any prescription coverage and uses adiscount card. Advised patient to f/u with pharmacy on cost and get back with us. Patient verbalized understanding. documented in this encounter Plan of Treatment Not on file documented as of this encounter Visit Diagnoses Not on filedocumented in this encounter Care Teams Electronic Service Technician Relationship Specialty Start Date End Date Jose Valdez MD [address] [place] [facility] [address] [place] [address] PCP - General 07/27/15 documented as of this encounter
--- OUTSIDE RECORDS SUMMARY | 2024-04-26 14:37 | XMS_ITS | Encounter Summary ---
Author Organization [facility] Address [address] [place] [address] Care Team Providers Care Life Insurance Sales Name Role Phone Jose Valdez MD Primary Care Provider [phone] Encounter Details Date Type Department Care Team (Late st Contact Info) Description 09/24/2018 Documentation [facility] CARDIOLOGY [address] [facility] [address] [place] [phone] Roberto Clements PA [address] [facility] [address] [place] [address] Social History Tobacco Use Types Packs/Day Years [...] as of this encounter Progress Notes * Roberto Clements PA - 09/24/2018 9:53 AM EDT Today discussed with Mr. Bolivar episode of atrial fibrillation detected by his ICD. He had 17 hours of A. fib. We discussed re-enrolling in [place] trial he is not interested in pursuing this. Dr. Nelson has recommended that the patient start Xarelto 20MG daily secondary to his elevated ChadsVAsc score. I explained the risk and benefits of starting anti-coagulation medication with the patient heunderstands agreeable to proceed. He will start Xarelto 20 mg daily. He has a history of Carotid disease and will continue 81mg Daily. documented in this encounter Plan of Treatment Not on file documented as of this encounter Visit Diagnoses Not on filedocumented in this encounter Care Teams Life Insurance Sales Relationship Specialty Start Date End Date Jose Valdez MD [address] [facility] [address] [facility] [address] [place] [address] PCP - General 07/27/15 documented as of this encounter
[2024-04-26 14:49] VITALS: BP 123/79; PULSE 115; RESP 20; O2SAT 95
[2024-04-26 14:51] VITALS: BMI 31.4
--- NOTE | 2024-04-26 14:58 | ECG_ITS ---
APPROVED REPORT Exam: Resting ECG HR:132 bpm ECG Measurements Heart Rate 132 AXES NE 229 P 263 QRSd 143 QRS 254 QT 368 T 62 QTc 446 Conclusion ELECTRONIC VENTRICULAR PACEMAKER ABNORMAL RHYTHM ECG UNCONFIRMED REPORT Electronically signed by : Andres Murphy MD 04/26/2024 20:55:57
[2024-04-26 15:30] VITALS: BP 141/83; PULSE 104; RESP 18; O2SAT 95
[2024-04-26 16:00] VITALS: BP 128/85; PULSE 118; RESP 22; O2SAT 96
[2024-04-26 16:02] LABS: Albumin Level 3.7 g/dl (3.5-5.0); Chloride 107 mmol/L (98-107)
[2024-04-26 16:03] LABS: Basophils # 0.1 K/mm3 (0-0.2); Basophils % 0.9 % (0.1-2.0); Eosinophils # 0.1 K/mm3 (0.0-0.4); Eosinophils % 1.8 % (0.1-12.0); Hematocrit 42.3 % (42.0-52.0); Hemoglobin 14.8 g/dL (14.1-18.0); Lymphocytes # 1.1 K/mm3 (0.7-4.5); Lymphocytes % 17.1 % (10-50); Mean Corpuscular Hemoglobin 31.6 pg (27.0-31.2); Mean Corpuscular Volume 90.5 fl (80-94); Mean Platelet Volume 9.2 fl (7.4-10.4); Monocytes # 0.5 K/mm3 (0.1-1.0); Monocytes % 7.8 % (1.7-9.3); Neutrophils # 4.6 K/mm3 (1.8-7.8); Neutrophils % 72.4 % (37.0-80.0); Platelet Count 162 K/mm3 (142-424); Potassium 3.9 mmoL/L (3.5-5.1); Red Blood Count 4.67 M/mm3 (4.60-6.20); Sodium 138 mmol/L (136-145); White Blood Count 6.3 K/mm3 (4.8-10.8)
[2024-04-26 16:05] LABS: Alanine Aminotransferase 25 U/L (12-78); Alkaline Phosphatase 50 U/L (38-126); Anion Gap 12.9 mEq/L (5-15); Aspartate Amino Transferase 32 U/L (17-59); Blood Urea Nitrogen 18 mg/dl (9-20); Carbon Dioxide 22 mmol/L (22.0-30.0); Creatinine Clearance Estimated 68 mL/min (50-200); Estimated Glomerular Filt Rate 54 ml/min (>60); GFR (African American) 65 ML/MIN (>60)
[2024-04-26 16:06] LABS: Albumin/Globulin Ratio 1.5 (1.1-1.8); Globulin 2.4 g/dL (1.3-3.2); Glucose 89 mg/dl (74-100); Magnesium 1.9 mg/dl (1.6-2.3); Total Protein,Serum 6.1 g/dl (6.3-8.2)
[2024-04-26] MEDS: AMIODARONE HCL 150 MG in DEXTROSE 5 % IN WATER 100 ML 618 MG IV (16:14)
[2024-04-26 16:36] LABS: Thyroid Stimulating Hormone 1.52 uIU/mL (0.465-4.68)
[2024-04-26] MEDS: AMIODARONE HCL 900 MG in DEXTROSE 5 % IN WATER 500 ML 34.53 MG IV (16:38)
[2024-04-26 16:43] LABS: POC Glucose,Bedside 96 (70-110)
[2024-04-26 16:52] LABS: Hemoglobin A1C 6.1 % (4.0-6.0)
--- NOTE | 2024-04-26 17:31 | EXP.HP ---
History of Present Illness *Admission Date: 04/26/24 *Reason for visit:: V. 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 tach after AICD battery . Patient states he was shocked on Thursday, but denies other symptoms including dizziness, chest pain, shortness of breath. Has been adherent with his medications. I spoke to provider in our cardiology clinic about direct admission for loading IV amiodarone and performing LHC for known CAD and agreed for admission. [facility] Disclaimer: The information contained in this section may have been updated after the patient was seen, as this information can be updated by other users. Medical History Hearing difficulty recommended using hearing aids more frequently Situational depression Mini Mental Status exam administered and scored 29/30 Degenerative disc disease, lumbar Right sided sciatica Actinic keratosis Neoplasm of skin of face Encounter for immunization Atrial fibrillation Dyspnea Systolic heart failure Presence of combination internal cardiac defibrillator (ICD) and pacemaker Benign prostatic hyperplasia Hyperlipemia Hypertension Type 2 diabetes mellitus Continuing with Jardiance samples Social History (Updated 04/26/24 @ 15:05 by Analisa Smyth RN) Smoking Status: Never smoker alcohol intake: current alcohol intake frequency: holidays/special occasions only substance use type: denies use current occupational status: retired household members: family housing: house Other Medical History Have you received the Flu Vaccine for this season: No Have you received the Pneumonia Vaccine: Yes Meds Home Medications and Allergies Home Medications ?Medication ?Instructions ?Recorded ?Confirmed ?Type aspirin 81 mg tablet,delayed 81 mg PO DAILY 01/31/20 04/26/24 History release (Adult Aspirin Regimen) empagliflozin 10 mg tablet 10 mg PO DAILY 12/04/22 04/26/24 History (Jardiance) metformin 500 mg tablet 500 mg PO DAILY 12/04/22 04/26/24 History amlodipine 10 mg tablet See Rx Instructions .Route 01/19/24 04/26/24 Rx .COMPLEX #90 tabs rivaroxaban 20 mg tablet (Xarelto) 20 mg PO DAILY #90 tabs 09/17/24 11/26/24 Rx rosuvastatin 5 mg tablet See Rx Instructions .Route 02/16/24 04/26/24 Rx .COMPLEX #90 tabs sertraline 50 mg tablet 50 mg PO DAILY #30 tabs 02/16/24 04/26/24 Rx bisoprolol fumarate 5 mg tablet 5 mg PO BID #60 tabs 02/17/24 04/26/24 Rx irbesartan 300 1 tab PO DAILY #90 tabs 03/29/24 04/26/24 Rx mg-hydrochlorothiazide 12.5 mg tablet New Prescriptions to Start Prescriptions: Allergies Allergy/AdvReac Type Severity Reaction Status Date / Time NO KNOWN ALLERGIES Allergy Uncoded 04/26/24 13:30 Exam Data for Last 24 hours Vital signs and Labs for Last 24 Hours: Pulse Resp BP Pulse Ox O2 Del Method 118 H 22 128/85 96 Room Air 04/26/24 16:00 04/26/24 16:00 04/26/24 16:00 04/26/24 16:00 04/26/24 17:00 Laboratory Results - last 24 hr 04/26/24 15:15: WBC 6.3, RBC 4.67, Hgb 14.8, Hct 42.3, MCV 90.5, MCH 31.6 H, MCHC 35.0, RDW 14.0, Plt Count 162, MPV 9.2, Neut % (Auto) 72.4, Lymph % (Auto) 17.1, [place] % (Auto) 7.8, Eos % (Auto) 1.8, Baso % (Auto) 0.9, Neut # (Auto) 4.6, Lymph # (Auto) 1.1, Stafford # (Auto) 0.5, Eos # (Auto) 0.1, Baso # (Auto) 0.1, Sodium 138, Potassium 3.9, Chloride 107, Carbon Dioxide 22, Anion Gap 12.9, BUN 18, Creatinine 1.30 H, Estimated Creat Clear 68, Estimated GFR 54 L, Est GFR ( Amer) 65, Glucose 89, Hemoglobin A1c 6.1 H, Calcium 9.0, Magnesium 1.9, Total Bilirubin 1.0, AST 32, ALT 25, Alkaline Phosphatase 50, Total Protein 6.1 L, Albumin 3.7, Globulin 2.4, Albumin/Globulin Ratio 1.5, TSH 1.52 04/26/24 16:22: POC Glucose 96 I & O for Last 24 hours: Intake & Output 04/23/24 04/24/24 04/25/24 04/26/24 23:59 23:59 23:59 23:59 Intake Total 618 / 618 Output Total 0 / 0 Balance 618 / 618 Weight 96.434 kg Constitutional Constitutional: no acute distress and obese *Routine HEENT Exam Head: Present normocephalic Eye: Present EOMI and PERRL ENT: Present mucous membranes moist *Routine Neck Exam Neck: Present supple; Absent lymphadenopathy *Routine Respiratory Exam Respiratory: Present CTA bilaterally *Routine Cardiovascular Exam Cardiovascular: Present RRR *Routine Abdominal Exam Abdominal: Present soft and normoactive bowel sounds; Absent tenderness *Routine Rectal Exam Rectal:: deferred *Routine Genitalia Exam Genitalia:: deferred *Routine Extremities Exam Extremities: Absent cyanosis, clubbing or edema *Routine Skin Exam Skin: Present warm; Absent rash *Routine Neurological Exam Neurological: Present alert and oriented X3 Assessment and Plan *Assessment and plan (1) Elective replacement indicated for implantable cardioverter-defibrillator (ICD): Status: Acute Category: Medical Code(s): Z45.02 - Encounter for adjustment and management of automatic implantable cardiac defibrillator (2) V tach: Status: Acute Category: Medical Code(s): I47.20 - Ventricular tachycardia, unspecified (3) Coronary artery disease: Status: Acute Qualifiers: Coronary Disease-Associated Artery/Lesion type: [place] artery [place] vs. 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 tach after AICD battery . Patient states he was shocked on Thursday, but denies other symptoms including dizziness, chest pain, shortness of breath. Has been adherent with his medications. I spoke to provider in our cardiology clinic about direct admission for loading IV amiodarone and performing LHC for known CAD and agreed for admission. #Sustained V. tach #AICD needing replacement #CAD #A-fib RVR ? EKG today shows A-fib with RVR with heart rate between 130 and 140. PVC's, V. pacing with LBBB and STT abnormalities. ? Cardiology consulted, started IV amiodarone drip. ? Resumed home bisoprolol 5 mg twice daily. ? Plan for LHC and AICD replacement in the morning. N.p.o. at midnight. ? Follow-up ECHO when HR is less than 110. ? Follow-up TSH, T4, A1C, lipid panel. ? Continuous cardiac telemetry. ? Hold Xarelto for AICD generator change in the morning. ? Continue home aspirin 81 mg, statin. #HFpEF ? Stable. ? Continue home bisoprolol, Jardiance. #Hypertension ? Hold home amlodipine, irbesartan, hydrochlorothiazide given recent soft pressures outpatient. Restart as appropriate. #Type 2 diabetes ? ACHS glucose checks, LDSSI. ? Continue home Jardiance. DNR DVT prophylaxis: Hold home Xarelto for AICD change tomorrow
[2024-04-26 17:52] VITALS: PULSE 110
--- NOTE | 2024-04-26 18:33 | PC.NURSE ---
Patient voided while in the bed. Patient's underwear and pants were wet. Patient took pants off but refusing to take soiled underwear off. Patient educated about risks of infection and excoriation if he continued to keep wet undergarments on. Patient stated he was not taking his underwear off and was leaving them on. Hospital undergarments offered, patient refused. Undergarments taken to bedside in case patient decides to use them.
[2024-04-26 20:00] VITALS: BP 131/74; PULSE 100; PULSE 94; RESP 16; TEMP 36.9; O2SAT 95
[2024-04-26] MEDS: BISOPROLOL 5MG TABLET 5 MG PO (20:05)
[2024-04-26 20:06] LABS: POC Glucose,Bedside 113 (70-110)
[2024-04-26 22:00] VITALS: BP 132/79; PULSE 76; RESP 16; O2SAT 93
[2024-04-27] VITALS (20 sets, daily range): BP systolic 115–137; BP diastolic 53–84; PULSE 60–92; RESP 16–20; TEMP 36.5–36.7; O2SAT 90–98; BMI 31.4
[2024-04-27] MEDS: MELATONIN 5MG TABLET 5 MG PO (00:12)
[2024-04-27 06:20] LABS: Basophils % 0.6 % (0.1-2.0); Eosinophils # 0.2 K/mm3 (0.0-0.4); Eosinophils % 2.5 % (0.1-12.0); Hematocrit 42.5 % (42.0-52.0); Hemoglobin 14.7 g/dL (14.1-18.0); Lymphocytes # 1.4 K/mm3 (0.7-4.5); Lymphocytes % 20.2 % (10-50); Mean Corpuscular HGB Conc 34.6 g/dL (31.8-35.4); Mean Corpuscular Hemoglobin 31.2 pg (27.0-31.2); Mean Corpuscular Volume 90.3 fl (80-94); Monocytes # 0.6 K/mm3 (0.1-1.0); Monocytes % 8.2 % (1.7-9.3); Neutrophils # 4.6 K/mm3 (1.8-7.8); Neutrophils % 68.6 % (37.0-80.0); Platelet Count 142 K/mm3 (142-424); Red Blood Count 4.71 M/mm3 (4.60-6.20); Red Cell Distribution Width 14.2 % (11.5-17.5); White Blood Count 6.7 K/mm3 (4.8-10.8)
[2024-04-27 06:29] LABS: Alanine Aminotransferase 22 U/L (12-78); Albumin Level 3.7 g/dl (3.5-5.0); Albumin/Globulin Ratio 1.8 (1.1-1.8); Alkaline Phosphatase 65 U/L (38-126); Anion Gap 10.9 mEq/L (5-15); Aspartate Amino Transferase 25 U/L (17-59); Bilirubin,Total 1.2 mg/dl (0.2-1.3); Blood Urea Nitrogen 16 mg/dl (9-20); Calcium 8.9 mg/dl (8.4-10.2); Carbon Dioxide 24 mmol/L (22.0-30.0); Chloride 106 mmol/L (98-107); Chol/HDL Ratio 3.3 (1-3.5); Cholesterol 120 mg/dl (140-200); Creatinine Clearance Estimated 63 mL/min (50-200); Estimated Glomerular Filt Rate 50 ml/min (>60); GFR (African American) 60 ML/MIN (>60); Globulin 2.1 g/dL (1.3-3.2); Glucose 126 mg/dl (74-100); HDL Cholesterol 36 mg/dl (40-60); Potassium 3.9 mmoL/L (3.5-5.1); Sodium 137 mmol/L (136-145); Total Protein,Serum 5.8 g/dl (6.3-8.2); Triglycerides 123 mg/dl (30-150); VLDL Cholesterol 25 mg/dL (0-40)
[2024-04-27 06:39] LABS: Direct LDL Cholesterol 64.95 mg/dL (100-129)
[2024-04-27 07:22] LABS: Free T4 (Free Thyroxine) 1.12 ng/dl (0.78-2.19)
--- NOTE | 2024-04-27 08:03 | HMH.PHAINT1 ---
Pharmacy Intervention Comments: HOME MEDICATIONS VERIFIED VIA OUTPATIENT PHARMACY AND PATIENT INTERVIEW
[2024-04-27] MEDS: SERTRALINE 50MG TABLET 50 MG PO (08:31)
[2024-04-27] MEDS: EMPAGLIFLOZIN 10MG TABLET 10 MG PO (08:31)
[2024-04-27] MEDS: BISOPROLOL 5MG TABLET 5 MG PO (08:31)
[2024-04-27] MEDS: ASPIRIN EC 81MG TABLET 81 MG PO (08:31)
[2024-04-27] MEDS: 0.9 % SODIUM CHLORIDE 1000ML 500 ML IV (09:03)
--- NOTE | 2024-04-27 10:25 | EXP.CARD.CON ---
History of Present Illness History of Present Illness Consult date: 04/27/24 Requesting physician: Jose Whatley Consult reason: atrial fibrillation and known to you Chief complaint: tachycardia History of present illness: 74-year-old white male with history of heart failure improved ejection fraction status post ICD several years ago. Patient also has paroxysmal atrial fibrillation treated with bisoprolol and Xarelto. Patient had heart cath for preoperative clearance earlier this year which found extensive multivessel disease was was left to medical management as patient had no angina and normal EF. Patient evaluated in our clinic as an outpatient yesterday with complaints of tachycardia and ICD shock administered on Thursday. He was interrogated and found to have A-fib RVR in the VT zone which did result in ICD shock. He was still tachycardic in the office at 130s and systolic blood pressure in the 90s. He was admitted for stabilization and intervention. Patient started on amiodarone IV last night, this morning he is rate controlled and symptoms improving. Repeat echo is pending. Patient is scheduled for left heart cath today to evaluate his ischemia. Device is MAMADOU and he will need generator change next week. [facility] Disclaimer: The information contained in this section may have been updated after the patient was seen, as this information can be updated by other users. Medical History Hearing difficulty Situational depression Degenerative disc disease, lumbar Right sided sciatica Actinic keratosis Neoplasm of skin of face Encounter for immunization Atrial fibrillation Dyspnea Systolic heart failure Presence of combination internal cardiac defibrillator (ICD) and pacemaker Benign prostatic hyperplasia Hyperlipemia Hypertension Type 2 diabetes mellitus Social History Smoking Status: Former smoker alcohol intake: current alcohol intake frequency: holidays/special occasions only substance use type: denies use current occupational status: retired household members: family housing: house Review of Systems Constitutional Constitutional: Denies fatigue and Denies weakness Eyes Eyes: Denies loss of vision ENT Ears, Nose, Mouth, and Throat: Denies hearing loss and Denies vertigo *Cardiovascular Cardiovascular: Denies chest pain, Denies dyspnea, Reports irregular heart rhythm and Denies syncope *Respiratory Respiratory: Denies cough and Denies dyspnea *Gastrointestinal Gastrointestinal: Denies change in stool character, Denies nausea and Denies vomiting *Genitourinary Genitourinary: Denies difficulty urinating *Musculoskeletal Musculoskeletal: Denies muscle weakness Integumentary/Breasts Skin/Breast: Denies changing lesions *Neurologic Neurologic: Denies loss of vision, Denies syncope, Denies vertigo and Denies weakness Endocrine Endocrine: Denies fatigue Exam Data for Last 24 hours Vital signs and Labs for Last 24 Hours: Temp Pulse Resp BP Pulse Ox O2 Del Method 97.7 F 77 16 137/74 98 Room Air 04/27/24 08:00 04/27/24 08:42 04/27/24 08:00 04/27/24 08:00 04/27/24 08:42 04/27/24 08:42 Laboratory Results - last 24 hr 04/26/24 15:15: WBC 6.3, RBC 4.67, Hgb 14.8, Hct 42.3, MCV 90.5, MCH 31.6 H, MCHC 35.0, RDW 14.0, Plt Count 162, MPV 9.2, Neut % (Auto) 72.4, Lymph % (Auto) 17.1, [place] % (Auto) 7.8, Eos % (Auto) 1.8, Baso % (Auto) 0.9, Neut # (Auto) 4.6, Lymph # (Auto) 1.1, [place] # (Auto) 0.5, Eos # (Auto) 0.1, Baso # (Auto) 0.1, Sodium 138, Potassium 3.9, Chloride 107, Carbon Dioxide 22, Anion Gap 12.9, BUN 18, Creatinine 1.30 H, Estimated Creat Clear 68, Estimated GFR 54 L, Est GFR ( Amer) 65, Glucose 89, Hemoglobin A1c 6.1 H, Calcium 9.0, Magnesium 1.9, Total Bilirubin 1.0, AST 32, ALT 25, Alkaline Phosphatase 50, Total Protein 6.1 L, Albumin 3.7, Globulin 2.4, Albumin/Globulin Ratio 1.5, TSH 1.52 04/26/24 16:22: POC Glucose 96 04/26/24 19:52: POC Glucose 113 H 04/27/24 05:31: WBC 6.7, RBC 4.71, Hgb 14.7, Hct 42.5, MCV 90.3, MCH 31.2, MCHC 34.6, RDW 14.2, Plt Count 142, MPV 9.0, Neut % (Auto) 68.6, Lymph % (Auto) 20.2, [place] % (Auto) 8.2, Eos % (Auto) 2.5, Baso % (Auto) 0.6, Neut # (Auto) 4.6, Lymph # (Auto) 1.4, [place] # (Auto) 0.6, Eos # (Auto) 0.2, Baso # (Auto) 0.0, Sodium 137, Potassium 3.9, Chloride 106, Carbon Dioxide 24, Anion Gap 10.9, BUN 16, Creatinine 1.40 H, Estimated Creat Clear 63, Estimated GFR 50 L, Est GFR ( Amer) 60, Glucose 126 H D, Calcium 8.9, Magnesium 2.0, Total Bilirubin 1.2, AST 25, ALT 22, Alkaline Phosphatase 65, Total Protein 5.8 L, Albumin 3.7, Globulin 2.1, Albumin/Globulin Ratio 1.8, Triglycerides 123, Cholesterol 120 L, LDL Cholesterol Direct 64.95 L, VLDL Cholesterol 25, HDL Cholesterol 36 L, Cholesterol/HDL Ratio 3.3, Free T4 1.12 I & O for Last 24 hours: Intake & Output 04/24/24 04/25/24 04/26/24 04/27/24 23:59 23:59 23:59 23:59 Intake Total 1182.303 / 1182.303 Output Total 400 / 875 1075 / 1075 Balance 782.303 / 307.303 -1075 / -1075 Weight 212 lb 9.6 oz 212 lb 9.609 oz Constitutional Constitutional: no acute distress and cooperative *Routine HEENT Exam Eye: Present PERRL *Routine Respiratory Exam Respiratory: Present CTA bilaterally; Absent accessory muscle use, wheezes or crackles *Routine Cardiovascular Exam Cardiovascular: Present RRR, Normal S1 and Normal S2; Absent murmur, gallop or rubs *Routine Abdominal Exam Abdominal: Present soft; Absent tenderness *Routine Extremities Exam Extremities: Present pulses intact; Absent cyanosis or edema *Routine Skin Exam Skin: Present intact; Absent erythema or wounds *Routine Neurological Exam Neurological: Present alert and oriented X3 Routine Psychiatric Exam Psychiatric: Present cooperative Meds Home Medications and Allergies Home Medications ?Medication ?Instructions ?Recorded ?Confirmed ?Type aspirin 81 mg tablet,delayed 81 mg PO DAILY 01/31/20 04/27/24 History release (Adult Aspirin Regimen) empagliflozin 10 mg tablet 10 mg PO DAILY 12/04/22 04/27/24 History (Jardiance) metformin 500 mg tablet 500 mg PO DAILY 12/04/22 04/27/24 History rivaroxaban 20 mg tablet (Xarelto) 20 mg PO DAILY #90 tabs 02/16/24 04/27/24 Rx sertraline 50 mg tablet 50 mg PO DAILY #30 tabs 02/16/24 04/27/24 Rx irbesartan 300 1 tab PO DAILY #90 tabs 03/29/24 04/27/24 Rx mg-hydrochlorothiazide 12.5 mg tablet amlodipine 10 mg tablet 10 mg PO DAILY 04/27/24 04/27/24 History bisoprolol fumarate 5 mg tablet 5 mg PO DAILY 04/27/24 04/27/24 History rosuvastatin 5 mg tablet 5 mg PO HS 04/27/24 04/27/24 History New Prescriptions to Start Prescriptions: Allergies Allergy/AdvReac Type Severity Reaction Status Date / Time No Known Allergies Allergy Unverified 04/27/24 07:09 Assessment and Plan *Assessment and plan (1) Atrial fibrillation with rapid ventricular response: Status: Acute Category: Medical Code(s): I48.91 - Unspecified atrial fibrillation (2) ICD (implantable cardioverter-defibrillator) discharge: Status: Acute Category: Medical Code(s): Z45.02 - Encounter for adjustment and management of automatic implantable cardiac defibrillator (3) Coronary artery disease: Status: Acute Qualifiers: Associated angina: without angina Coronary Disease-Associated Artery/Lesion type: [place] artery [place] vs. transplanted heart: [place] heart Qualified Code(s): I25.10 - Atherosclerotic heart disease of [place] coronary artery without angina pectoris Category: Medical Code(s): I25.10 - Atherosclerotic heart disease of [place] coronary artery without angina pectoris (4) Acute kidney injury: Status: Acute Category: Medical Code(s): N17.9 - Acute kidney failure, unspecified Plan PAF, RVR - HR up to VT zone and received ICD shock on 04/24 - BB at max tolerated dose due to low BP - pt stable now on IV Amio - will change to PO loading dose - Xarelto on hold - LHC to eval for worsening ischemia HFimpEF s/p ICD - history of ICD implant, recovered EF 50% 2021 - interrogation 04/27 reveals pt in MAMADOU but has several months normal function remaining, will schedule gen change likely for next week - unknown etiology - cont home meds Irbesartan, Farxiga, bisoprolol as tolerated - repeat ECHO here with new arrhythmia and need for ICD gen change MV-CAD - LHC 11/22: 50% left main, LAD 70%, LCX 70%, RCA 50% PDA 80% - left to med management due to normal EF and no symptoms - pt denies angina - will repeat LHC today - cont ASA, BB, Statin WILLAM - Cr up from 0.9 to 1.4 - likely dehydration - 500mL NS pending - trend daily CV summary: Pt stable with addition of Amio. Will transition to PO and check LHC for worsening ischemia today - further plans pending results. Will await gen change until next week due to holiday/lab availability Addendum: ECHO shows EF 40%
[2024-04-27] MEDS: AMIODARONE 200MG TABLET 400 MG PO (11:14)
[2024-04-27 11:27] LABS: POC Glucose,Bedside 115 (70-110)
--- NOTE | 2024-04-27 12:00 | PC.NURSE ---
Addendum entered by Riana Jorge RN 04/27/24 13:09: 1259 pt returned to floor with Elizabeth Thakkar from [employer] Original Note: 1155 pt left floor with Josephine from clinical laboratory technologist
[2024-04-27] MEDS: VERAPAMIL 2.5MG/ML 2ML VIAL 2.5 MG IV (12:08)
[2024-04-27] MEDS: HEPARIN 1,000 UNITS/ML 10ML VIAL (CATH LAB) 10000 UNIT IV (12:08)
[2024-04-27] MEDS: diphenhydrAMINE 50MG/ML VIAL 50 MG IV (12:08)
[2024-04-27] MEDS: HEPARIN 1,000 UNITS/500ML NS (CATH LAB) 3000 UNIT IV (12:08)
[2024-04-27] MEDS: LIDOCAINE 1% 10ML MDV 20 ML IJ (12:08)
[2024-04-27] MEDS: 0.9 % SODIUM CHLORIDE 500 ML 25 ML IV (12:09)
[2024-04-27] MEDS: NITROGLYCERIN 800MCG/8ML SYR (CATH LAB) 800 MCG IA (12:09)
[2024-04-27] MEDS: FENTANYL 100MCG/2ML VIAL 50 MCG IV (12:09)
[2024-04-27] MEDS: MIDAZOLAM HCL 1MG/ML 5ML VIAL 1 MG IV (12:09)
--- NOTE | 2024-04-27 13:58 | EXP.DC.SUM ---
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 tach after AICD battery . Patient states he was shocked on Thursday, but denies other symptoms including dizziness, chest pain, shortness of breath. Has been adherent with his medications. I spoke to provider in our cardiology clinic about direct admission for loading IV amiodarone and performing LHC for known CAD and agreed for admission. Hospital Course Hospital Course Hospital Course: Jos Bolivar is a 74-year-old male with a medical history significant for CAD, hypertension, HFpEF, recurrent V. tach with AICD in place, hyperlipidemia, A-fib on Xarelto, type 2 diabetes, former smoker who presents as a direct admit for recurrent V. tach after AICD battery . Patient states he was shocked on Thursday, but denies other symptoms including dizziness, chest pain, shortness of breath. Has been adherent with his medications. I spoke to provider in our cardiology clinic about direct admission for loading IV amiodarone and performing LHC for known CAD and agreed for admission. #CAD #A-fib RVR - AICD shock on Thursday after HR went into VT zone ? EKG in clinic 04/26/24 showed A-fib with RVR with heart rate between 130 and 140. PVC's, V. pacing with LBBB and STT abnormalities. ? Cardiology consulted, started IV amiodarone drip with improvement in RVR. ? Resumed home bisoprolol 5 mg twice daily, max tolerated dose due to soft pressures at higher doses. - S/p LHC with multivessel disease. Patient has been referred to [facility] surgery for further evaluation for possible bypass. - Will be scheduled next week for AICD generator change. - ECHO LVEF 50%, mil reduction in RV function. ? A1c 6.1%, TSH wnl. LDL 65. - Discharged with amiodorone 400mg BID. Continue aspirin 81mg, rosuvastatin 20mg, Xarelto 20mg, bisoprolol 5mg BID. - Will follow-up with cardiology within 1 week. #HFpEF ? Stable. ? Continue home bisoprolol, Jardiance. #Hypertension ? Continue amlodipine, irbesartan, hydrochlorothiazide. #Type 2 diabetes ? Continue home Jardiance. Exam Data for Last 24 hours Vital signs and Labs for Last 24 Hours: Temp Pulse Resp BP Pulse Ox O2 Del Method 97.7 F 71 18 132/77 93 L Room Air 04/27/24 08:00 04/27/24 13:11 04/27/24 12:55 04/27/24 12:55 04/27/24 13:11 04/27/24 13:19 Laboratory Results - last 24 hr 04/26/24 15:15: WBC 6.3, RBC 4.67, Hgb 14.8, Hct 42.3, MCV 90.5, MCH 31.6 H, MCHC 35.0, RDW 14.0, Plt Count 162, MPV 9.2, Neut % (Auto) 72.4, Lymph % (Auto) 17.1, [place] % (Auto) 7.8, Eos % (Auto) 1.8, Baso % (Auto) 0.9, Neut # (Auto) 4.6, Lymph # (Auto) 1.1, [place] # (Auto) 0.5, Eos # (Auto) 0.1, Baso # (Auto) 0.1, Sodium 138, Potassium 3.9, Chloride 107, Carbon Dioxide 22, Anion Gap 12.9, BUN 18, Creatinine 1.30 H, Estimated Creat Clear 68, Estimated GFR 54 L, Est GFR ( Amer) 65, Glucose 89, Hemoglobin A1c 6.1 H, Calcium 9.0, Magnesium 1.9, Total Bilirubin 1.0, AST 32, ALT 25, Alkaline Phosphatase 50, Total Protein 6.1 L, Albumin 3.7, Globulin 2.4, Albumin/Globulin Ratio 1.5, TSH 1.52 04/26/24 16:22: POC Glucose 96 04/26/24 19:52: POC Glucose 113 H 04/27/24 05:31: WBC 6.7, RBC 4.71, Hgb 14.7, Hct 42.5, MCV 90.3, MCH 31.2, MCHC 34.6, RDW 14.2, Plt Count 142, MPV 9.0, Neut % (Auto) 68.6, Lymph % (Auto) 20.2, [place] % (Auto) 8.2, Eos % (Auto) 2.5, Baso % (Auto) 0.6, Neut # (Auto) 4.6, Lymph # (Auto) 1.4, [place] # (Auto) 0.6, Eos # (Auto) 0.2, Baso # (Auto) 0.0, Sodium 137, Potassium 3.9, Chloride 106, Carbon Dioxide 24, Anion Gap 10.9, BUN 16, Creatinine 1.40 H, Estimated Creat Clear 63, Estimated GFR 50 L, Est GFR ( Amer) 60, Glucose 126 H D, Calcium 8.9, Magnesium 2.0, Total Bilirubin 1.2, AST 25, ALT 22, Alkaline Phosphatase 65, Total Protein 5.8 L, Albumin 3.7, Globulin 2.1, Albumin/Globulin Ratio 1.8, Triglycerides 123, Cholesterol 120 L, LDL Cholesterol Direct 64.95 L, VLDL Cholesterol 25, HDL Cholesterol 36 L, Cholesterol/HDL Ratio 3.3, Free T4 1.12 04/27/24 11:20: POC Glucose 115 H Temp Pulse Resp BP Pulse Ox O2 Del Method 97.7 F 77 16 137/74 98 Room Air 04/27/24 08:00 04/27/24 08:42 04/27/24 08:00 04/27/24 08:00 04/27/24 08:42 04/27/24 08:42 Laboratory Results - last 24 hr 04/26/24 15:15: WBC 6.3, RBC 4.67, Hgb 14.8, Hct 42.3, MCV 90.5, MCH 31.6 H, MCHC 35.0, RDW 14.0, Plt Count 162, MPV 9.2, Neut % (Auto) 72.4, Lymph % (Auto) 17.1, [place] % (Auto) 7.8, Eos % (Auto) 1.8, Baso % (Auto) 0.9, Neut # (Auto) 4.6, Lymph # (Auto) 1.1, [place] # (Auto) 0.5, Eos # (Auto) 0.1, Baso # (Auto) 0.1, Sodium 138, Potassium 3.9, Chloride 107, Carbon Dioxide 22, Anion Gap 12.9, BUN 18, Creatinine 1.30 H, Estimated Creat Clear 68, Estimated GFR 54 L, Est GFR ( Amer) 65, Glucose 89, Hemoglobin A1c 6.1 H, Calcium 9.0, Magnesium 1.9, Total Bilirubin 1.0, AST 32, ALT 25, Alkaline Phosphatase 50, Total Protein 6.1 L, Albumin 3.7, Globulin 2.4, Albumin/Globulin Ratio 1.5, TSH 1.52 04/26/24 16:22: POC Glucose 96 04/26/24 19:52: POC Glucose 113 H 04/27/24 05:31: WBC 6.7, RBC 4.71, Hgb 14.7, Hct 42.5, MCV 90.3, MCH 31.2, MCHC 34.6, RDW 14.2, Plt Count 142, MPV 9.0, Neut % (Auto) 68.6, Lymph % (Auto) 20.2, [place] % (Auto) 8.2, Eos % (Auto) 2.5, Baso % (Auto) 0.6, Neut # (Auto) 4.6, Lymph # (Auto) 1.4, [place] # (Auto) 0.6, Eos # (Auto) 0.2, Baso # (Auto) 0.0, Sodium 137, Potassium 3.9, Chloride 106, Carbon Dioxide 24, Anion Gap 10.9, BUN 16, Creatinine 1.40 H, Estimated Creat Clear 63, Estimated GFR 50 L, Est GFR ( Amer) 60, Glucose 126 H D, Calcium 8.9, Magnesium 2.0, Total Bilirubin 1.2, AST 25, ALT 22, Alkaline Phosphatase 65, Total Protein 5.8 L, Albumin 3.7, Globulin 2.1, Albumin/Globulin Ratio 1.8, Triglycerides 123, Cholesterol 120 L, LDL Cholesterol Direct 64.95 L, VLDL Cholesterol 25, HDL Cholesterol 36 L, Cholesterol/HDL Ratio 3.3, Free T4 1.12 I & O for Last 24 hours: Intake & Output 04/24/24 04/25/24 04/26/24 04/27/24 23:59 23:59 23:59 23:59 Intake Total 1182.303 / 1182.303 847 / 847 Output Total 400 / 875 1275 / 1275 Balance 782.303 / 307.303 -428 / -428 Weight 96.434 kg 96.434 kg Intake & Output 04/24/24 04/25/24 04/26/24 04/27/24 23:59 23:59 23:59 23:59 Intake Total 1182.303 / 1182.303 Output Total 400 / 875 1075 / 1075 Balance 782.303 / 307.303 -1075 / -1075 Weight 212 lb 9.6 oz 212 lb 9.609 oz Constitutional Constitutional: no acute distress and cooperative *Routine HEENT Exam Eye: Present PERRL *Routine Respiratory Exam Respiratory: Present CTA bilaterally; Absent accessory muscle use, wheezes or crackles *Routine Cardiovascular Exam Cardiovascular: Present RRR, Normal S1 and Normal S2; Absent murmur, gallop or rubs *Routine Abdominal Exam Abdominal: Present soft; Absent tenderness *Routine Extremities Exam Extremities: Present pulses intact; Absent cyanosis or edema *Routine Skin Exam Skin: Present intact; Absent erythema or wounds *Routine Neurological Exam Neurological: Present alert and oriented X3 Routine Psychiatric Exam Psychiatric: Present cooperative Results Data Completed and Pending Labs on day of discharge: Labs from last 24 hours 04/27/24 04/27/24 04/26/24 11:20 05:31 19:52 WBC 6.7 RBC 4.71 Hgb 14.7 Hct 42.5 MCV 90.3 MCH 31.2 MCHC 34.6 RDW 14.2 Plt Count 142 MPV 9.0 Neut % (Auto) 68.6 Lymph % (Auto) 20.2 [place] % (Auto) 8.2 Eos % (Auto) 2.5 Baso % (Auto) 0.6 Neut # (Auto) 4.6 Lymph # (Auto) 1.4 [place] # (Auto) 0.6 Eos # (Auto) 0.2 Baso # (Auto) 0.0 Sodium 137 Potassium 3.9 Chloride 106 Carbon Dioxide 24 Anion Gap 10.9 BUN 16 Creatinine 1.40 H Estimated Creat Clear 63 Estimated GFR 50 L Est GFR ( Amer) 60 Glucose 126 H D POC Glucose 115 H 113 H Hemoglobin A1c Calcium 8.9 Magnesium 2.0 Total Bilirubin 1.2 AST 25 ALT 22 Alkaline Phosphatase 65 Total Protein 5.8 L Albumin 3.7 Globulin 2.1 Albumin/Globulin Ratio 1.8 Triglycerides 123 Cholesterol 120 L LDL Cholesterol Direct 64.95 L VLDL Cholesterol 25 HDL Cholesterol 36 L Cholesterol/HDL Ratio 3.3 TSH Free T4 1.12 04/26/24 04/26/24 16:22 15:15 WBC 6.3 RBC 4.67 Hgb 14.8 Hct 42.3 MCV 90.5 MCH 31.6 H MCHC 35.0 RDW 14.0 Plt Count 162 MPV 9.2 Neut % (Auto) 72.4 Lymph % (Auto) 17.1 [place] % (Auto) 7.8 Eos % (Auto) 1.8 Baso % (Auto) 0.9 Neut # (Auto) 4.6 Lymph # (Auto) 1.1 [place] # (Auto) 0.5 Eos # (Auto) 0.1 Baso # (Auto) 0.1 Sodium 138 Potassium 3.9 Chloride 107 Carbon Dioxide 22 Anion Gap 12.9 BUN 18 Creatinine 1.30 H Estimated Creat Clear 68 Estimated GFR 54 L Est GFR ( Amer) 65 Glucose 89 POC Glucose 96 Hemoglobin A1c 6.1 H Calcium 9.0 Magnesium 1.9 Total Bilirubin 1.0 AST 32 ALT 25 Alkaline Phosphatase 50 Total Protein 6.1 L Albumin 3.7 Globulin 2.4 Albumin/Globulin Ratio 1.5 Triglycerides Cholesterol LDL Cholesterol Direct VLDL Cholesterol HDL Cholesterol Cholesterol/HDL Ratio TSH 1.52 Free T4 DS: Diagnosis Discharge Diagnosis (1) Atrial fibrillation with rapid ventricular response: Status: Acute Code(s): I48.91 - Unspecified atrial fibrillation (2) ICD (implantable cardioverter-defibrillator) discharge: Status: Acute Code(s): Z45.02 - Encounter for adjustment and management of automatic implantable cardiac defibrillator (3) Coronary artery disease: Status: Acute Code(s): I25.10 - Atherosclerotic heart disease of [place] coronary artery without angina pectoris Qualifiers: Associated angina: without angina Coronary Disease-Associated Artery/Lesion type: [place] artery [place] vs. transplanted heart: [place] heart Qualified Code(s): I25.10 - Atherosclerotic heart disease of [place] coronary artery without angina pectoris (4) Acute kidney injury: Status: Acute Code(s): N17.9 - Acute kidney failure, unspecified Meds Home Medications and Allergies Home Medications ?Medication ?Instructions ?Recorded ?Confirmed ?Type aspirin 81 mg tablet,delayed 81 mg PO DAILY 01/31/20 04/27/24 History release (Adult Aspirin Regimen) empagliflozin 10 mg tablet 10 mg PO DAILY 12/04/22 04/27/24 History (Jardiance) metformin 500 mg tablet 500 mg PO DAILY 12/04/22 04/27/24 History rivaroxaban 20 mg tablet (Xarelto) 20 mg PO DAILY #90 tabs 02/16/24 04/27/24 Rx sertraline 50 mg tablet 50 mg PO DAILY #30 tabs 02/16/24 04/27/24 Rx irbesartan 300 1 tab PO DAILY #90 tabs 03/29/24 04/27/24 Rx mg-hydrochlorothiazide 12.5 mg tablet amiodarone 200 mg tablet 400 mg (2 x 200 mg) PO BID 10 days 04/27/24 Rx #40 tabs amlodipine 10 mg tablet 10 mg PO DAILY 04/27/24 04/27/24 History bisoprolol fumarate 5 mg tablet 5 mg PO DAILY 04/27/24 04/27/24 History rosuvastatin 5 mg tablet 20 mg (4 x 5 mg) PO HS 30 days 04/27/24 Rx #120 tabs New Prescriptions to Start Prescriptions: amiodarone Jose Whatley rosuvastatin Jose Whatley Allergies Allergy/AdvReac Type Severity Reaction Status Date / Time No Known Allergies Allergy Unverified 04/27/24 07:09 Discharge Plan Disposition Patient Disposition: Home, Self-Care Discharge Order Discharge Orders: Discharge Order (Routine); Ordered 04/27/24 Ordered By: Jose Whatley Follow up Plan Follow up with: Mine Coon APRN [Nurse Practitioner] - 05/04/24 1:15 pm Samson Valdez MD [Primary Care Provider] - 05/05/24 2:15 pm Prescriptions/Medication Reconciliation: New amiodarone 200 mg Tablet 400 mg PO BID 10 Days Qty: 40 0RF Continued metformin 500 mg tablet 500 mg PO DAILY Jardiance 10 mg tablet 10 mg PO DAILY Xarelto 20 mg tablet 20 mg PO DAILY Qty: 90 3RF Rx Instructions: must administer with evening meal sertraline 50 mg tablet 50 mg PO DAILY Qty: 30 2RF aspirin [Adult Aspirin Regimen] 81 mg tablet,delayed release (DR/EC) 81 mg PO DAILY irbesartan-hydrochlorothiazide 300-12.5 mg tablet 1 tab PO DAILY Qty: 90 0RF amlodipine 10 mg tablet 10 mg PO DAILY Patient Comments: TAKE 1 TABLET BY MOUTH ONCE DAILY. bisoprolol fumarate 5 mg tablet 5 mg PO DAILY Changed rosuvastatin 5 mg tablet 20 mg PO HS 30 Days Qty: 120 0RF Problem Reconciliation Problems Reviewed?: Yes Patient Discharge Instructions Patient Instructions: DI for Cardiac Catheterization, DI for Ventricular Tachycardia, DI for Surgical Site Infection Print Language: [place] Providers Primary Care Provider: Samson Valdez Admit Provider: Jose Whatley Attending Provider: Jose Whatley
--- NOTE | 2024-04-27 15:30 | CA_ITS ---
APPROVED REPORT EXAM: Comprehensive 2D, Doppler, and color-flow Echocardiogram [place]er: Alice Guo CRT Ht: 5 ft 9 in Wt: 212lbs BSA: 2.12 BP: 89/40 mmHg Indications: Shortness of Breath, Atrial Fibrillation, Diabetes, Hypertension/HDD, CAD, AICD, PPM generator change, AICD fired yesterday 2D Dimensions LA Volume 58.10 mL LA Volume Index 26.80 mL/m2 (M/F) 16-34 M-Mode Dimensions RVDd 2.54 cm (0.9-2.6) LA Diam 4.52 cm (1.9-4.0) LVDd 5.62 cm (3.5-5.7) LVDs 4.58 cm (3.5-5.7) IVSd 1.55 cm (0.6-1.1) PWd 0.86 cm (0.6-1.1) EF (Teich) 37.80% FS 18.50% EDV (Teich) 154.90 mL TAPSE 1.53 (<1.7) ESV (Teich) 96.30 mL LV Diastology E Decel Time 150 (160-240 msec) E/A Ratio 4.45 MED A' 2.80 cm/s LAT A' 4.10 cm/s Aortic Valve AI PHT 415.00 ms AO Peak GR. 2.60 mmHg Mitral Valve MV E Max Juan. 73.0 (40-130 cm/s) MV A Velocity 16.0 (40-130 cm/s) E/A Ratio 4.45 MV PHT 44.0 ms Pulmonary Valve PV Peak Velocity 157.0 (50-150 cm/s) Tricuspid Valve TR P. Velocity 244.00 cm/s RAP Estimate 10.00 mmHg RVSP 33.80 mmHg Left Ventricle The left ventricle is normal size. The left ventricular systolic function is low normal. There is increased LV wall thickness. Diastolic function is indeterminate. There is normal LV segmental wall motion. LVEF is 50%. Right Ventricle The right ventricle is mildly dilated. Right ventricle is mildly hypokinetic. There is a device lead in the right ventricle. Atria Left atrium is mildly dilated. Right atrium is mildly dilated. There is no Doppler evidence of interatrial shunt. Aortic Valve Aortic valve is mildly thickened. There is no aortic valvular stenosis. Mild aortic regurgitation. Mitral Valve The mitral valve leaflets are mildly thickened. No evidence of mitral valve stenosis. Mild mitral regurgitation. Tricuspid Valve The tricuspid valve leaflets are thin and pliable. Mild tricuspid regurgitation. RVSP is 20-25 mmHg. Pulmonic Valve The pulmonary valve is normal in structure. Mild pulmonic regurgitation. Great Vessels The aortic root is normal in size. IVC is normal in size and collapses >50% with inspiration. Pericardium There is no pericardial effusion. Other Information Study Quality: Technically Difficult Conclusion Technically difficult study due to poor acoustic windows. Low normal LV systolic function (LVEF 50%). Mild RV dilation with mild reduction in RV function. Mild biatrial dilation. Mild AI, mild MR, mild TR, mild PI. Electronically signed by : Danica Burroughs MD 04/29/2024 12:16:01
--- NOTE | 2024-04-27 15:33 | IR_ITS ---
APPROVED REPORT Patient Location: Inpatient PROCEDURES Selective coronary angiogram INDICATION Ventricular tachycardia, Systolic congestive heart failure, Known ischemic heart disease Informed consent was obtained prior to the procedure. COMPLICATIONS NONE Estimated Blood Loss: LESS THAN 10 ML TECHNIQUE One percent lidocaine used to anesthetize the right anterior aspect of the wrist. The right radial artery was accessed via the Seldinger technique. A 6 Malawian sheath was placed in the right radial artery. 2.5 mg of Verapamil, 800 mcg of nitroglycerin, 1mg Lidocaine and 5000 U Heparin were given through the arterial sheath. The 6 Malawian JL 3 guide catheter was used to perform selective coronary angiogram. At the end of the procedure the sheath was removed good hemostasis was achieved using Traclet band, patient was transferred to the postop holding area in stable condition. ANGIOGRAPHIC RESULTS The left main artery Has an ostial 40 to 50% stenosis The left anterior descending artery Has proximal 30 to 40% stenoses with mid vessel 40-59% diffuse calcified stenoses. The distal LAD has a concentric 90% stenosis followed by an additional 70% stenosis. A large first diagonal artery has a proximal eccentric 60% stenosis The circumflex artery Is nondominant gives rise to a moderate-sized first obtuse marginal artery. The first obtuse marginal artery has a proximal 60% followed by 70% concentric stenosis The right coronary artery Is dominant and has an ostial 20% stenosis with mid vessel 40% followed by an additional 50 to 60% stenosis. Medium size posterior descending artery has a proximal eccentric 80 to 90% stenosis The M[place] ventriculogram reveals Not performed The left ventricular end-diastolic pressure Not measured IMPRESSION Diffuse coronary artery disease as described above PLAN 1. Increase beta-blockers and treat with medical management at this time 2. Patient will be scheduled for AICD generator change next week 3. I would like to refer patient to [facility] surgery for their opinion if they believe patient would benefit from bypass surgery. Most of patient's disease is in the mid to distal segments and I am not completely convinced bypass grafting is going to help. I would like a CT surgeons opinion 4. Aggressive risk factor modification 5. LDL less than 55 Electronically signed by : Sven Clark MD 04/27/2024 14:05:27
--- NOTE | 2024-04-27 16:44 | PC.NURSE ---
1435 2ml of air removed, no hematoma/drainage noted 1450 2ml of air removed, no hematoma/drainage noted 1505 2ml of air removed, no hematoma/drainage noted 1520 2ml of air removed, no hematoma/drainage noted 1535 2ml of air removed, no hematoma/drainage noted 1550 2ml of air removed, no hematoma/drainage noted 1605 2ml of air removed, no hematoma/drainage noted 1625 radial band removed. no hematom/drainage noted. site cleaned with chlorhexadine. t/t dressing applied
--- NOTE | 2024-05-02 10:18 | SW/DCPLANNER ---
Spoke with patient on the phone. Patient stated that he is aware of his upcoming appointments and that he was able to get his new medication filled. Patient stated that he has no concerns or questions at this time. Marco Dietz
== END 2024-04-27 14:40 | disposition home or self-care (01) | DRG 287 ==
PROVIDERS: Internal Medicine; Admitting Provider Student in an Organized Health Care Education/Training Program; PCP Family Medicine; Visit Provider Student in an Organized Health Care Education/Training Program
PROC: B2151ZZ Fluoroscopy of Left Heart using Low Osmolar Contrast (ICD-10-PCS; principal; 2024-04-27 11:00)
DX: I47.20 Ventricular tachycardia, unspecified (principal); I50.30 Unspecified diastolic (congestive) heart failure; N17.9 Acute kidney failure, unspecified; I25.10 Atherosclerotic heart disease of native coronary artery without angina pectoris; I11.0 Hypertensive heart disease with heart failure; Z95.810 Presence of automatic (implantable) cardiac defibrillator; Z87.891 Personal history of nicotine dependence; E11.9 Type 2 diabetes mellitus without complications; I48.0 Paroxysmal atrial fibrillation
CPT/HCPCS: 36415; 80053; 80061; 82962; 83036; 83735; 84439; 84443; 85025; 93005; 93306; 93454; 99152; C1725; C1769; J0282; J1200; J1644; J2250; J3010; J7030; J7060

== ENCOUNTER 2024-05-10 14:04 | Outpatient (CLI) | payer MEDICARE, SELFPAY ==
[2024-05-10 15:13] LABS: Albumin Level 4.1 g/dl (3.5-5.0); Chloride 105 mmol/L (98-107); Potassium 3.5 mmoL/L (3.5-5.1); Sodium 140 mmol/L (136-145)
[2024-05-10 15:16] LABS: Alanine Aminotransferase 26 U/L (12-78); Alkaline Phosphatase 66 U/L (38-126); Anion Gap 9.5 mEq/L (5-15); Aspartate Amino Transferase 28 U/L (17-59); Bilirubin,Total 1.4 mg/dl (0.2-1.3); Blood Urea Nitrogen 19 mg/dl (9-20); Calcium 9.2 mg/dl (8.4-10.2); Carbon Dioxide 29 mmol/L (22.0-30.0); Estimated Glomerular Filt Rate 50 ml/min (>60); GFR (African American) 60 ML/MIN (>60); Globulin 2.1 g/dL (1.3-3.2); Glucose 126 mg/dl (74-100); Total Protein,Serum 6.2 g/dl (6.3-8.2)
== END 2024-05-10 23:59 | disposition home or self-care (01) ==
PROVIDERS: PCP Family Medicine; Visit Provider Nurse Practitioner
DX: N17.9 Acute kidney failure, unspecified (principal); I25.10 Atherosclerotic heart disease of native coronary artery without angina pectoris
CPT/HCPCS: 36415; 80053

== ENCOUNTER 2024-05-17 08:58 | Day surgery (SDC) | payer MEDICARE, SELFPAY ==
[2024-05-17] VITALS (8 sets, daily range): BP systolic 120–187; BP diastolic 63–98; PULSE 69–82; RESP 16–18; TEMP 36.6; O2SAT 92–96; BMI 30.9
--- NOTE | 2024-05-17 07:35 | IR_ITS ---
APPROVED REPORT Patient Location: Outpatient Manager Landscape: ALFONSO Montes RT (R) PROCEDURES 1. Pocket Revision 2. Removal of old Defibrilator generator 3. Implant of Defibrilator generator INDICATION End of battery life Informed consent was obtained prior to the procedure. COMPLICATIONS None Estimated Blood Loss: Less than 10 ML TECHNIQUE 1% lidocaine with epinephrine used to anesthetize the left anterior aspect of the chest. Scalpel was used to make the initial cutaneous incision and then used to dissect down to the existing pacemaker generator. The generator was removed from the existing pocket. Digital manipulation was required along with intermittent usage of scalpel in order to revise the pocket. The leads were removed from the old generator. The new generator was screwed to the existing leads and secured into place. Electronic interrogation proved acceptable thresholds and voltage within the lead. Antibiotics were used to flush the pocket and the pacemaker was secured using 3-0 silk into the newly revised pocket. Vicryl was used to close the subcutaneous tissue and then marci were placed on the cutaneous area in order to approximate the incision. Patient was transferred to the postop holding area in stable condition. INTERROGATION Generator Model number: Jared Le [id number] Generator Serial number: [id number] Atrial lead model number: [id number] Atrial lead serial number: [id number] P-wave: 2.0 mV Impedance: 400 Ohms Threshold: 0.5V @ 0.5ms Right Ventricular lead model number: [id number] Right Ventricular lead serial number: [id number] R-wave: 12.0 mV Impedance: 430 Ohms Threshold: 0.75V @ 0.5ms Left Ventricular lead model number: [id number] Left Ventricular lead serial number: [id number] R-wave: Impedance: 650 Ohms Threshold: 2.75V @ 0.5ms BiPolar: 840 Ohms Explanted Generator model number: N119 Explanted Generator serial number: [id number] Pacing Parameters: Mode: DDDR Base/Max Track:60 ppm / 130 ppm No diaphragmatic stimulation at 10 volts. IMPRESSION 1. Successful Pocket Revision 2. Successful Removal of old Defibrilator generator 3. Successful Implant of Defibrilator generator PLAN 1. Postop wound care. Electronically signed by : Sven Clark MD 05/18/2024 10:06:20
[2024-05-17 09:27] LABS: Basophils # 0.1 K/mm3 (0-0.2); Basophils % 1.6 % (0.1-2.0); Eosinophils # 0.2 K/mm3 (0.0-0.4); Eosinophils % 2.9 % (0.1-12.0); Hematocrit 45.8 % (42.0-52.0); Hemoglobin 15.7 g/dL (14.1-18.0); Lymphocytes # 0.6 K/mm3 (0.7-4.5); Lymphocytes % 11.7 % (10-50); Mean Corpuscular HGB Conc 34.3 g/dL (31.8-35.4); Mean Corpuscular Hemoglobin 31.3 pg (27.0-31.2); Mean Corpuscular Volume 91.1 fl (80-94); Monocytes # 0.4 K/mm3 (0.1-1.0); Neutrophils # 4.2 K/mm3 (1.8-7.8); Neutrophils % 76.9 % (37.0-80.0); Platelet Count 140 K/mm3 (142-424); Red Blood Count 5.03 M/mm3 (4.60-6.20); Red Cell Distribution Width 13.9 % (11.5-17.5); White Blood Count 5.4 K/mm3 (4.8-10.8)
[2024-05-17 09:40] LABS: Chloride 105 mmol/L (98-107); Sodium 136 mmol/L (136-145)
[2024-05-17 09:43] LABS: Blood Urea Nitrogen 23 mg/dl (9-20); Creatinine Clearance Estimated 69 mL/min (50-200); Estimated Glomerular Filt Rate 54 ml/min (>60); GFR (African American) 65 ML/MIN (>60)
[2024-05-17 09:44] LABS: Calcium 9.3 mg/dl (8.4-10.2); Carbon Dioxide 28 mmol/L (22.0-30.0); Glucose 131 mg/dl (74-100)
--- NOTE | 2024-05-17 11:23 | EXP.ANES.CKL ---
[facility] Disclaimer: The information contained in this section may have been updated after the patient was seen, as this information can be updated by other users. Medical History V tach Elective replacement indicated for implantable cardioverter-defibrillator (ICD) Heart failure of unknown etiology Acute retention of urine Malaise Abdominal pain Caregiver role strain Hearing difficulty Situational depression Degenerative disc disease, lumbar Right sided sciatica Actinic keratosis Neoplasm of skin of face Encounter for immunization Atrial fibrillation Dyspnea Systolic heart failure Presence of combination internal cardiac defibrillator (ICD) and pacemaker Benign prostatic hyperplasia Hyperlipemia Hypertension Type 2 diabetes mellitus Surgical History History of cardiac cath Social History Smoking Status: Former smoker alcohol intake: current alcohol intake frequency: holidays/special occasions only substance use type: denies use current occupational status: retired Travel in the last 8 weeks: None household members: family housing: house Have you lived/traveled outside US in past 30 days?: No Contact w/someone who lives/traveled outside US past 30 days?: No Exposure to someone with infectious disease in past 14 days?: No Do you have a fever (greater than 100.4 F or 38 C)?: No Have you tested positive for COVID-19: No Exposed to someone with COVID-19 in past 14 days?: No Do you have a sore throat?: No Do you have a cough?: No Do you have any weakness?: No Do you have any diarrhea?: No Are you experiencing any unusual bleeding?: No Do you have any muscle aches/pain?: No Do you have any abdominal pain?: No Are you experiencing loss of taste or smell?: No [facility] Anesthesia Checklist Patient Identification Patient Identification: Arm Band and Verbal (Name & ) Structural Data Admitted From: Home Planned Operative Procedure/s: AICD generator change Consent for Planned Operative Procedure(s) Verified: Yes Verified Documents: Surgical Consent and History and Physical NPO Status Verified Time NPO: 18:00 Chart Verification Results Verified: CBC, BMP and ECG Additional verifications Fingerstick Blood Glucose: 111 Patient : No Anesthesia Reactions: No Cardiovascular Assessment Heart Sounds: S1 & S2 Pulse Rhythm: Irregular Peripheral Edema: No Airway Assessment Mallampati Score:: Class II C-Spine Mobility Assessed: Yes (FROM demonstrated) TMJ Mobility Assessed: Yes Dentition: Poor Dentition (Nothing loose per pt.) Neurological Assessment Level of Consciousness: Awake, Alert, Appropriate and Follows Commands Hx Seizures: No Numbness or tingling in extremities: No Anesthesia Plan Anesthesia Risk discussed: Yes Anesthesia Plan: Verified ASA Class: III Anesthesia Type: MAC
[2024-05-17] MEDS: CEFAZOLIN SODIUM 1 GM in 0.9 % SODIUM CHLORIDE 50 ML IV (11:36)
[2024-05-17] MEDS: CEFAZOLIN 1GM VIAL 1 GM TP (11:37)
[2024-05-17] MEDS: diphenhydrAMINE 50MG/ML VIAL 50 MG IV (11:37)
[2024-05-17] MEDS: LIDOCAINE 1% W/EPI 1:100,000 20ML VIAL 20 ML SQ (11:37)
--- NOTE | 2024-07-07 07:25 | IR_ITS ---
APPROVED REPORT Patient Location: Outpatient Support Team Assoc: Shon Thomas RT (R) PROCEDURES Selective coronary angiogram Drug-eluting stent deployment to the ostial proximal left main artery Drug-eluting stent deployment to the proximal LAD extending into the mid LAD in a non-contiguous manner Drug-eluting stent deployment to the right coronary artery's posterior descending artery INDICATION Ischemic cardiomyopathy, Coronary artery disease, LV dysfunction, Patient deemed a nonsurgical candidate Informed consent was obtained prior to the procedure. COMPLICATIONS NONE Estimated Blood Loss: LESS THAN 10 ML TECHNIQUE One percent lidocaine used to anesthetize the right anterior aspect of the wrist. The right radial artery was accessed via the Seldinger technique. A 6 Persian sheath was placed in the right radial artery. 2.5 mg of Verapamil, 800 mcg of nitroglycerin, 1mg Lidocaine and 5000 U Heparin were given through the arterial sheath. The EBU 3.75 guide catheter was placed in left main artery followed by Choice PT extra-support wire placed down the LAD. A 4 mm x 18 mm Sukhdev frontier stent was placed at 20 evert in the proximal LAD reducing the stenosis to 0%. An additional 4 mm x 12 mm Sukhdev frontier stent was then deployed in the ostial proximal left main artery at 24 evert reducing the stenosis. An additional 2.25 x 38 mm Hurst frontier stent was placed distally in the mid LAD and then deployed at 18 evert. A 2.5 x 26 mm Sukhdev frontier stent was then placed proximal to this yet still overlapping the 2.25 mm stent and was deployed at 20 evert just distal to the first diagonal artery. The balloon was then advanced to half the length and deployed at 20 evert to post dilate the 2.25 mm stent in the proximal and midportion. An additional 4 mm x 15 mm Sukhdev frontier stent was placed in the distal left main artery extending to the proximal LAD and then deployed at 24 evert. Excellent angiograph results were obtained with KRISTI-3 flow being present before and after the procedure. Following this the catheter was removed and a JR4 guide catheter was placed in the right coronary followed by Choice PT extra-support wire placed distally in the posterior descending artery. A 2.5 x 26 mm Sukhdev frontier stent was deployed at 20 evert reducing the severe to critical stenosis to 0% KRISTI-3 flow was present before and after the procedure at the end the procedure the apparatus was removed the sheath was removed and hemostasis was achieved and TR banding patient was transferred to the postop putting in stable condition IMPRESSION Successful stenting of the left main artery as described above Successful stenting of the proximal and mid LAD in a noncontiguous manner Successful stenting of the right coronary artery's posterior descending artery critical disease reduced to 0% with 1 drug-eluting stent PLAN 1. Dual antiplatelet therapy 2. Cardiac rehabilitation 3. Avoidance of tobacco products 4. LDL less than 55 to be achieved with high intensity statin 5. Standard therapy for systolic heart failure Electronically signed by : Sven Clark MD 07/07/2024 12:25:26
== END 2024-05-17 13:46 | disposition home or self-care (01) ==
PROVIDERS: PCP Family Medicine; Visit Provider Internal Medicine
PROC: 0JPT0PZ Removal of Cardiac Rhythm Related Device from Trunk Subcutaneous Tissue and Fascia, Open Approach (ICD-10-PCS; principal; 2024-05-17 08:30)
DX: Z45.02 Encounter for adjustment and management of automatic implantable cardiac defibrillator (principal); I48.11 Longstanding persistent atrial fibrillation; I25.10 Atherosclerotic heart disease of native coronary artery without angina pectoris; I11.0 Hypertensive heart disease with heart failure; I50.22 Chronic systolic (congestive) heart failure; E11.9 Type 2 diabetes mellitus without complications; Z79.01 Long term (current) use of anticoagulants; Z79.84 Long term (current) use of oral hypoglycemic drugs; Z79.899 Other long term (current) drug therapy
CPT/HCPCS: 33264; 80048; 85025; C1882; J1200; J3010

== ENCOUNTER 2024-07-07 08:33 | Day surgery (SDC) | payer MEDICARE, SELFPAY ==
[2024-07-07] VITALS (11 sets, daily range): BP systolic 127–162; BP diastolic 71–96; PULSE 59–91; RESP 16–20; TEMP 36.9; O2SAT 91–98; BMI 30.9
[2024-07-07 09:20] LABS: Basophils % 0.5 % (0.1-2.0); Eosinophils # 0.2 K/mm3 (0.0-0.4); Eosinophils % 3.3 % (0.1-12.0); Hemoglobin 15.2 g/dL (14.1-18.0); Lymphocytes # 0.9 K/mm3 (0.7-4.5); Lymphocytes % 16.5 % (10-50); Mean Corpuscular Hemoglobin 29.7 pg (27.0-31.2); Mean Corpuscular Volume 89.8 fl (80-94); Mean Platelet Volume 11.1 fl (7.4-10.4); Monocytes # 0.5 K/mm3 (0.1-1.0); Monocytes % 8.2 % (1.7-9.3); Neutrophils # 4.1 K/mm3 (1.8-7.8); Neutrophils % 71.3 % (37.0-80.0); Platelet Count 155 K/mm3 (142-424); Red Blood Count 5.12 M/mm3 (4.60-6.20); Red Cell Distribution Width 13.3 % (11.5-17.5); White Blood Count 5.7 K/mm3 (4.8-10.8)
[2024-07-07 09:26] LABS: Chloride 104 mmol/L (98-107)
[2024-07-07 09:27] LABS: Potassium 3.6 mmoL/L (3.5-5.1); Sodium 140 mmol/L (136-145)
[2024-07-07 09:30] LABS: Anion Gap 10.6 mEq/L (5-15); Blood Urea Nitrogen 14 mg/dl (9-20); Carbon Dioxide 29 mmol/L (22.0-30.0); Creatinine Clearance Estimated 90 mL/min (50-200); Estimated Glomerular Filt Rate 73 ml/min (>60); GFR (African American) 88 ML/MIN (>60); Glucose 147 mg/dl (74-100)
[2024-07-07] MEDS: FENTANYL 100MCG/2ML VIAL 50 MCG IV (11:22)
[2024-07-07] MEDS: MIDAZOLAM HCL 1MG/ML 5ML VIAL 1 MG IV (11:22)
[2024-07-07] MEDS: diphenhydrAMINE 50MG/ML VIAL 50 MG IV (11:22)
[2024-07-07] MEDS: HEPARIN 1,000 UNITS/500ML NS (CATH LAB) 3000 UNIT IV (11:22)
[2024-07-07] MEDS: HEPARIN 1,000 UNITS/ML 10ML VIAL (CATH LAB) 10000 UNIT IV (11:23)
[2024-07-07] MEDS: VERAPAMIL 2.5MG/ML 2ML VIAL 2.5 MG IV (11:23)
[2024-07-07] MEDS: LIDOCAINE 1% 10ML MDV 20 ML IJ (11:24)
[2024-07-07] MEDS: 0.9 % SODIUM CHLORIDE 500 ML 25 ML IV (11:24)
[2024-07-07] MEDS: NITROGLYCERIN 800MCG/8ML SYR (CATH LAB) 800 MCG IA (11:25)
[2024-07-07] MEDS: CLOPIDOGREL 300MG TABLET 600 MG PO (12:20)
[2024-07-07] MEDS: IOPAMIDOL-370 (76%);100ML BOTTLE 175 ML IV (13:38)
[2024-07-07 13:40] LABS: CATHL Activated Clotting Time 390 SEC (74-125)
== END 2024-07-07 14:40 | disposition home or self-care (01) ==
PROVIDERS: PCP Family Medicine; Visit Provider Internal Medicine
DX: I25.5 Ischemic cardiomyopathy (principal); I25.118 Atherosclerotic heart disease of native coronary artery with other forms of angina pectoris; I77.1 Stricture of artery; I48.11 Longstanding persistent atrial fibrillation; Z95.0 Presence of cardiac pacemaker; Z79.01 Long term (current) use of anticoagulants; Z79.899 Other long term (current) drug therapy; Z95.5 Presence of coronary angioplasty implant and graft; E11.9 Type 2 diabetes mellitus without complications; Z79.84 Long term (current) use of oral hypoglycemic drugs
CPT/HCPCS: 80048; 85025; 85347; 92928; 99152; 99153; C1725; C1769; C1874; C9600; J1200; J1644; J2250; J3010; Q9967

== ENCOUNTER 2024-07-14 10:11 | Outpatient (CLI) | payer MEDICARE, SELFPAY ==
--- NOTE | 2024-07-14 10:15 | XR_ITS ---
FINAL REPORT CLINICAL HISTORY: on amiodarone, cough FINDINGS: No acute pulmonary density is evident. There is no evidence of effusion or other pleural disease. The mediastinum has a normal appearance. Left-sided pacer is identified. The cardiac silhouette is unremarkable. IMPRESSION: Unremarkable chest exam. Reviewed, Interpreted and Dictated by Samson Arroyo MD Transcribed by Adrianna Blue Authenticated and [facility]
== END 2024-07-14 23:59 | disposition home or self-care (01) ==
LOC: RAD 10:13
PROVIDERS: PCP Family Medicine; Visit Provider Physician Assistant
DX: I20.89 Other forms of angina pectoris (principal); Z79.899 Other long term (current) drug therapy
CPT/HCPCS: 71046

== ENCOUNTER 2024-07-22 09:24 | Outpatient (CLI) | payer MEDICARE, SELFPAY ==
[2024-07-22 11:07] LABS: PHA INR Fingerstick 1.2 (0.9-1.1)
== END 2024-07-22 11:13 ==
LOC: ACC 09:25
PROVIDERS: PCP Family Medicine; Visit Provider Physician Assistant
DX: Z79.01 Long term (current) use of anticoagulants (principal); I48.91 Unspecified atrial fibrillation
CPT/HCPCS: 85610; 99211; G0463

== ENCOUNTER 2024-07-29 10:05 | Outpatient (CLI) | payer MEDICARE, SELFPAY ==
[2024-07-29 14:57] LABS: PHA INR Fingerstick 1.6 (0.9-1.1)
== END 2024-07-29 15:36 ==
LOC: ACC 10:06
PROVIDERS: PCP Family Medicine; Visit Provider Physician Assistant
DX: Z79.01 Long term (current) use of anticoagulants (principal); I48.91 Unspecified atrial fibrillation
CPT/HCPCS: 85610; 99211; G0463

== ENCOUNTER 2024-08-12 10:58 | Outpatient (CLI) | payer MEDICARE, SELFPAY ==
[2024-08-12 11:47] LABS: PHA INR Fingerstick 1.1 (0.9-1.1)
== END 2024-08-12 11:49 ==
LOC: ACC 10:59
PROVIDERS: PCP Family Medicine; Visit Provider Physician Assistant
DX: Z79.01 Long term (current) use of anticoagulants (principal); I48.91 Unspecified atrial fibrillation
CPT/HCPCS: 85610; 99211; G0463

== ENCOUNTER 2024-08-26 10:09 | Outpatient (CLI) | payer MEDICARE, SELFPAY | END 2024-08-26 10:27 | LOC: ACC 10:09 | PROVIDERS: PCP Family Medicine; Visit Provider Physician Assistant | DX: Z79.01 Long term (current) use of anticoagulants (principal); I48.91 Unspecified atrial fibrillation | CPT/HCPCS: 85610; 99211; G0463 ==

== ENCOUNTER 2024-09-29 10:04 | Outpatient (CLI) | payer MEDICARE, SELFPAY ==
--- NOTE | 2024-09-29 10:26 | XR_ITS ---
FINAL REPORT CLINICAL HISTORY: left rib pain COMPARISON: Chest x-ray 07/14/2024 FINDINGS: A single view of the chest with 3 views of the left ribs were obtained. Mild cardiomegaly is noted. There is a biventricular pacemaker. There is no acute cardiopulmonary process. No pneumothorax is identified. No displaced rib fracture identified. IMPRESSION: No acute process. Reviewed, Interpreted and Dictated by David Laboy MD Transcribed by Ese Benton Authenticated and [facility]
[2024-09-29 11:52] LABS: PHA INR Fingerstick 2.3 (0.9-1.1)
== END 2024-09-29 11:54 ==
LOC: ACC 10:05
PROVIDERS: PCP Family Medicine; Visit Provider Physician Assistant
DX: J18.9 Pneumonia, unspecified organism (principal); R07.81 Pleurodynia; Z79.01 Long term (current) use of anticoagulants; I48.91 Unspecified atrial fibrillation
CPT/HCPCS: 71101; 85610; 99211; G0463

== ENCOUNTER 2024-11-16 14:22 | Inpatient (IN) | payer MEDICARE, SELFPAY ==
[2024-11-16] VITALS (12 sets, daily range): BP systolic 108–148; BP diastolic 60–92; PULSE 65–72; RESP 14–24; TEMP 36.4–36.8; O2SAT 90–99; BMI 32.5; BMI 30.9
--- NOTE | 2024-11-16 14:31 | CT_ITS ---
FINAL REPORT TECHNIQUE: The patient was injected with IV contrast. Axial images were obtained through the chest in a PE protocol. 3-D reconstruction images were also performed. Individualized dose reduction techniques using automated exposure control or adjustment of the MA and/or KV according to patient's size were employed. CLINICAL HISTORY: shortness of breath COMPARISON: None FINDINGS: There is a left upper anterior chest wall pacer. Mediastinal vasculature is adequately opacified. No pulmonary artery filling defects are identified to suggest PE. There is no aortic aneurysm or dissection. There is no axillary adenopathy. There is no hilar or mediastinal adenopathy. The heart size is normal. There is near-complete opacification of the left hemithorax. A large left pleural effusion is noted. There is collapse of the left lower lobe. Atelectasis is noted in the posterior left upper lobe. There is scarring or atelectasis of the right lung base. IMPRESSION: No pulmonary embolus, aneurysm, or dissection. Large left pleural effusion. Left lower lobe consolidation. Atelectasis posterior left upper lobe and right lower lobe. Reviewed, Interpreted and Dictated by David Laboy MD Transcribed by Ese Benton Authenticated and [facility]
--- NOTE | 2024-11-16 14:31 | CT_ITS ---
FINAL REPORT TECHNIQUE: After the administration of intravenous contrast, axial images were obtained through the abdomen and pelvis by computed tomography. The study was performed with techniques to keep radiation dose as low as reasonably achievable, (ALARA). Individual dose reduction techniques using automated exposure control or adjustment of mA and/or kV according to the patient's size were employed. CLINICAL HISTORY: left flank pain COMPARISON: None FINDINGS: Abdomen: The liver parenchyma is homogeneous. The gallbladder is present. The spleen, pancreas, and adrenal glands appear unremarkable. There is a benign-appearing cyst in the lower pole of the right kidney measuring 10 mm. Mild vascular calcifications are noted of the abdominal aorta and iliac vessels. Pelvis: The appendix is not identified. The urinary bladder is incompletely distended. There is no free fluid or adenopathy. There is moderate diffuse disc bulge at L5-S1 with moderate to high-grade bilateral neural foraminal narrowing. There are advanced changes of osteoarthritis of the right hip with prominent subchondral sclerosis and degenerative cyst formation. IMPRESSION: No acute intra-abdominal process. Advanced osteoarthritis of the right hip. Please see CT chest report. Reviewed, Interpreted and Dictated by David Laboy MD Transcribed by Ese Benton Authenticated and . [facility]
--- OUTSIDE RECORDS SUMMARY | 2024-11-16 14:31 | XMS_ITS | Clinical Summary ---
Author Organization Healthcare Address [address] [place] [address] Care Team Providers Care Title Specialist Name Role Phone Jose Valdez MD Primary Care Provider [phone] Sven Clark MD Unavailable [phone] Allergies No known active allergies Medications amiodarone (Pacerone) 200 MG tablet Take 2 tablets (400 mg) by mouth 2 (two) times a day. 04/27/2024 Active amLODIPine (Norvasc) 10 MG tablet Take 1 tablet (10 mg) by mouth 1 (one) time each day. 04/27/2024 Active Aspirin 81 MG capsule Take 81 mg by mouth 1 (one) time each day. Active bisoprolol (Zebeta) 5 MG tablet Take 1 tablet (5 mg) by mouth 1 (one) time each day. 04/27/2024 Active empagliflozin (Jardiance) 10 MG Take 1 tablet (10 mg) by mouth 1 (one) time each day. Active irbesartan-hydr oCHLOROthiazide (Avalide) 300-12.5 MG tablet Take 1 tablet by mouth 1 (one) time each day. 03/29/2024 Active rivaroxaban (Xarelto) 20 MG tablet Take 1 tablet (20 mg) by mouth 1 (one) time each day with dinner. 02/16/2024 Active rosuvastatin (Crestor) 20 MG tablet Take 1 tablet (20 mg) by mouth every night. 04/27/2024 Active sertraline (Zoloft) 50 MG tablet Take 1 tablet (50 mg) by mouth 1 (one) time each day. Active carvedilol (Coreg) 25 MG tablet Take 2 tablets (50 mg) by mouth 2 (two) times a day with meals. Active METFORMIN HCL PO Take by mouth. Active Active Problems Problem Noted Date Diagnosed Date Obesity (BMI 30-39.9) 06/09/2024 Degenerative disc disease, lumbar 06/08/2024 Right sided sciatica 06/08/2024 Neoplasm of skin of face 06/08/2024 Actinic keratosis 06/08/2024 Systolic heart failure 06/08/2024 Presence of combination inte rnal cardiac defibrillator (ICD) and pacemaker 06/08/2024 Benign prostatic hyperplasia 06/08/2024 Hyperlipemia 06/08/2024 CAD (coronary artery disease) 06/08/2024 Paroxysmal atrial fibrillation 03/04/2019 Overview (06/08/2024): Noted on device interrogation Hypertension 06/11/2016 Type 2 diabetes mellitus 06/11/2016 Overview (06/08/2024): Continuing with Jardiance samples Family History Medical History Relation Name Comments Cancer Father Relation Name Status Comments Father Social History Tobacco Use Types Packs/Day Years Used Date Smoking Tobacco: Former Cigarettes Smokeless Tobacco: Never Tobacco Cessation:Counseling Given: Not Answered Comments:Quit 1970 smoked 25 yrs 1ppd Alcohol Use Standard Drinks/Week Comments Yes 3 (1 standard drink = 0.6 oz pur e alcohol) Sex and Gender Information Value Date Recorded Sex Assigned at Male 06/09/2024 10:46 AM EST Legal Sex Male 8:47 PM EDT Gender Identity Not on file Sexual Orientation Not on file Last Filed Vital Signs Vital Sign Reading Time Taken Comments Blood Pressure 137/82 06/09/2024 11:18 AM EST Pulse 70 06/09/2024 11:18 AM EST Temperature - - Respiratory Rate - - Oxygen Saturation 96% 06/09/2024 11:18 AM EST Inhaled Oxygen Concentration - - Weight 98 kg (216 lb 0.8 oz) 06/09/2024 11:18 AM EST Height 177.8 cm (5' 10 ) 06/09/2024 11:18 AM EST Body Mass Index 31 06/09/2024 11:18 AM EST Plan of Treatment Health Maintenance Due Date Last Done Comments [facility]-Depression Screening 1950 [facility]-Infant/Child/Adol SDOH Screenings 1950 [facility]- SDOH Screenings 1968 [facility]-Adult SDOH Screenings 1968 CT Colonography 1995 Colonoscopy 1995 FIT-DNA 1995 FIT 1995 FOBT 1995 Sigmoidoscopy 1995 [facility]-Colorectal Cancer Screening 1995 [facility]-Zoster Vaccines (1 of 2) 2000 [facility]-DTaP,Tdap,and Td Vaccines (2 - Td or Tdap) 04/21/2021 04/21/2011, 08/03/1996 [facility]-Pneumococcal Vaccine: 50+ Years (2 of 2 - PCV) 07/06/2021 07/06/2020 [id number] Vaccine (3 - season) 2024 07/24/2020, 06/27/2020 [facility]-Influenza Vaccine (Season Ended) 2025 03/24/2023, 04/08/2022, 05/10/2021, Additional history exists [facility]-RSV Vaccine: 60+ Years or (1 - 1-dose 75+ series) 2025 HPV Vaccines Aged Out No longer eligi ble based on patient's age to complete this topic [facility]-HIB Vaccines Aged Out No longer e [...] age to complete this topic Insurance MEDICARE Care Teams Title Specialist Relationship Specialty Start Date End Date Jose Valdez MD [address] [place] [facility] [address] [address] PCP - General 06/03/24 Sven Clark MD [address] [place] [address] Referring Physician 06/07/24
--- OUTSIDE RECORDS SUMMARY | 2024-11-16 14:31 | XMS_ITS | Clinical Summary ---
Author Organization [facility] Address [address] [place] [address] Phone Care Team Providers Care Store Manager Name Role Phone Unavailable Primary Care Provider [...] Date Last Done Comments Wellness Exam Medicare 1953 Hepatitis C Screening 1968 DTaP/TDaP/Td (1 - Tdap) 1969 Cologuard 1995 Colon Cancer Screening 1995 Colonoscopy 1995 FIT 1995 Sigmoidoscopy 1995 Virtual Colonography 1995 Pneumococcal Vaccine 50+ (1 of 1 - PCV) 2000 Zoster (1 of 2) 2000 COVID-19 Vaccine (2023-2 5 season) 2024 Influenza Vaccine (Season Ended) 2025 Hepatitis B Vaccine Aged Out No longe r eligible based on patient's age to complete this topic Meningococcal B Vaccine Aged Out No l onger eligible based on patient's age to complete this topic Insurance MEDICARE [place] PART A AND B [employer] [facility]
--- NOTE | 2024-11-16 14:36 | [facility].EDCP ---
Discharge Plan Disposition Patient Disposition: Admitted Clinical Impressions Clinical Impression: Pleural effusion, Hypoxemia Atrial fibrillation Qualifiers: Atrial fibrillation type: longstanding persistent Qualified Code(s): I48.11 - Longstanding persistent atrial fibrillation Discharge ED Provider: Juliano Fan [facility] <Johana Toyinaysha (ED), [employer] - Last Filed: 11/16/24 17:24> General Chief Complaint: Shortness of Breath/Dyspnea Stated Complaint: left flank pain Time Seen by Provider: 11/16/24 14:25 History of Present Illness HPI narrative: This is a 74-year-old male who presents to the ED today for left sided flank pain that started Thursday. EMS was called for shortness of breath today. However, he says that left flank pain started Thursday and got worse throughout the last few days. He has had no urination problems. No history of kidney stones. No nausea, vomiting or diarrhea. He says yesterday he started feeling like he may have a fever but he never checked it. He started today with some shortness of air. He has no history of lung problems. He does have history of stent placement. He does also have a pacemaker and defibrillator. He is on warfarin for A-fib. He is also on Plavix. Patient also has history of hypertension, diabetes, BPH, A-fib, CAD. Patient does come here to see Ravindra for his INR and he is due for that tomorrow. He does not wear oxygen at home. Related Data Home Medications ?Medication ?Instructions ?Recorded ?Confirmed aspirin 81 mg tablet,delayed 81 mg PO DAILY 01/31/20 11/16/24 release (Adult Aspirin Regimen) warfarin 5 mg tablet 7.5 mg PO SUTUTHSA 07/22/24 11/16/24 warfarin 5 mg tablet 5 mg PO MOWEFR 08/12/24 11/16/24 rosuvastatin 5 mg tablet 5 mg PO HS 11/16/24 11/16/24 Previous Rx's ?Medication ?Instructions ?Recorded sertraline 50 mg tablet 50 mg PO DAILY #30 tabs 05/30/24 clopidogrel 75 mg tablet (Plavix) 75 mg PO DAILY #30 tabs 07/14/24 bisoprolol fumarate 10 mg tablet 10 mg PO DAILY #30 tabs 07/18/24 potassium chloride 10 mEq 10 meq PO DAILY #30 caps 08/09/24 capsule,extended release metformin 500 mg tablet 500 mg PO DAILY DM #30 tabs 08/10/24 albuterol sulfate 90 mcg/actuation 2 puff inhalation Q4-6H PRN 09/28/24 aerosol inhaler shortness of breath or wheezing #8.5 grams benzonatate 200 mg capsule 200 mg PO TID PRN cough #30 caps 09/28/24 dextromethorphan-guaifenesin ER 60 1 tab PO Q12H #60 tabs 09/28/24 mg-1,200 mg tab,extend release,12hr irbesartan 300 1 tab PO DAILY #90 tabs 10/04/24 mg-hydrochlorothiazide 12.5 mg tablet Allergies Allergy/AdvReac Type Severity Reaction Status Date / Time No Known Allergies Allergy Verified 11/16/24 13:27 PFS <Johana Szymanski (ED), [employer]ER - Last Filed: 11/16/24 17:24> PFS Disclaimer: The information contained in this section may have been updated after the patient was seen, as this information can be updated by other users. Medical History Spontaneous ecchymoses Rib pain on left side Dyspnea History of pacemaker Elective replacement indicated for implantable cardioverter-defibrillator (ICD) Heart failure of unknown etiology Acute retention of urine Malaise Abdominal pain Caregiver role strain Hearing difficulty Situational depression Degenerative disc disease, lumbar Right sided sciatica Actinic keratosis Neoplasm of skin of face Encounter for immunization Atrial fibrillation Systolic heart failure Presence of combination internal cardiac defibrillator (ICD) and pacemaker Benign prostatic hyperplasia Hyperlipemia Hypertension Type 2 diabetes mellitus Surgical History History of coronary angioplasty with insertion of stent History of cardiac cath Social History (Updated 11/16/24 @ 18:28 by Josie Howe RN) Smoking Status: Never smoker alcohol intake: current alcohol intake frequency: holidays/special occasions only substance use type: denies use current occupational status: retired Travel in the last 8 weeks?: None household members: family housing: house Have you lived/traveled outside [place] in past 30 days?: No Contact w/someone who lives/traveled outside US past 30 days?: No Exposure to someone with infectious disease in past 14 days?: No Do you have a fever (greater than 100.4 F or 38 C)?: No Have you tested positive for COVID-19?: No Exposed to someone with COVID-19 in past 14 days?: No Do you have a sore throat?: No Do you have a cough?: No Do you have any weakness?: No Are you experiencing any nausea/vomitting?: No Do you have any diarrhea?: No Are you experiencing any unusual bleeding?: No Do you have any muscle aches/pain?: No Do you have any abdominal pain?: No Are you experiencing loss of taste or smell?: No Other Medical History Have you received the Flu Vaccine for this season: No Have you received the Pneumonia Vaccine: Yes <Johana Szymanski (ED), [employer] - Last Filed: 11/16/24 17:24> ROS Obtained: Yes Systems reviewed as appropriate & no additional complaints except as documented Constitutional Constitutional: Reports as per HPI Physical Exam <Johana Szymanski (ED), [employer]ER - Last Filed: 11/16/24 17:24> General General appearance: alert Head Head exam: atraumatic and normocephalic Eye Eye exam: Present normal appearance, PERRL and EOMI ENT ENT exam: Present normal oropharynx and mucous membranes moist Neck Neck exam: Present full ROM and trachea midline Respiratory Respiratory exam: Present normal lung sounds bilaterally Cardiovascular Cardiovascular exam: Present regular rate, normal rhythm, normal heart sounds, +S1 and +S2 Abdominal Exam Abdominal exam: Present soft and normal bowel sounds Abdominal tenderness: Present mild Comment: Left flank pain and tenderness Extremities Exam Extremities exam: Present normal inspection, full ROM and normal capillary refill Back Exam Back exam: Present CVA tenderness (L) Neurological Exam Neurological exam: Present alert, oriented X3 and normal gait Skin Skin exam: Present warm, dry and intact HEART Score <Johana Szymanski (ED), [employer] OFFICER - Last Filed: 11/16/24 17:24> HEART Score HEART Score assessment performed?: Yes History (anamnesis): Slightly suspicious ECG: Normal Age: >65 years Risk factors: 3 or more risk factors Troponin: </= normal limit HEART Score: 4 <Juliano Fan MD - Last Filed: 11/16/24 18:56> HEART Score HEART Score: 4 <Teto Hall MD - Last Filed: 11/17/24 07:22> HEART Score HEART Score: 4 Critical Care <Johana Szymanski (ED), [employer] OFFICER - Last Filed: 11/16/24 17:24> Critical Care Time Critical Care Time: No <Juliano Fan MD - Last Filed: 11/16/24 18:56> Critical Care Time Critical Care Time: Yes (pulmonary) Attestation: On 11/16/24, the high probability of a clinically significant, sudden or life threatening deterioration of the following system(s) required my full and direct attention, intervention and personal management. The time I documented below is in addition to time spent performing reported procedures but includes the following listed in this critical care notation. Total Time Total Critical Care Time: 35 Medical Decision Making <Johana Szymanski (ED), [employer] OFFICER - Last Filed: 11/16/24 17:24> Luigi Inquiry Pt receiving controlled substance: No Luigi was queried for this patient: No Vital Signs Vital Signs: 11/16/24 14:30 11/16/24 14:36 11/16/24 15:00 Temperature 98.2 F Temperature Source Oral Pulse Rate 69 70 Pulse Rate [Left Radial] 70 Respiratory Rate 20 20 18 Blood Pressure 108/60 L 122/65 Blood Pressure [Right Arm] 108/60 L Blood Pressure Mean 82 84 Blood Pressure Mean [Right Arm] 76 02 Sat by Pulse Oximetry 95 94 L 99 Oxygen Delivery Method Room Air 11/16/24 15:30 11/16/24 16:00 11/16/24 16:30 Temperature Temperature Source Pulse Rate 72 65 69 Pulse Rate [Left Radial] Respiratory Rate 20 14 24 Blood Pressure 128/65 139/75 145/92 H Blood Pressure [Right Arm] Blood Pressure Mean 86 99 Blood Pressure Mean [Right Arm] 02 Sat by Pulse Oximetry 99 95 92 L Oxygen Delivery Method Room Air 11/16/24 17:00 11/16/24 17:30 11/16/24 17:41 Temperature Temperature Source Pulse Rate 70 67 Pulse Rate [Left Radial] Respiratory Rate 18 18 Blood Pressure 148/77 H 146/87 H Blood Pressure [Right Arm] Blood Pressure Mean 100 103 Blood Pressure Mean [Right Arm] 02 Sat by Pulse Oximetry 95 95 94 L Oxygen Delivery Method Room Air 11/16/24 17:57 Temperature 98.2 F Temperature Source Pulse Rate 71 Pulse Rate [Left Radial] Respiratory Rate 20 Blood Pressure 146/87 H Blood Pressure [Right Arm] Blood Pressure Mean Blood Pressure Mean [Right Arm] 02 Sat by Pulse Oximetry Oxygen Delivery Method Room Air Lab Data Labs: Lab Results 11/16/24 14:25: WBC 7.8, RBC 3.25 L, Hgb 10.1 L, Hct 30.2 L, MCV 92.9, MCH 31.1, MCHC 33.4, RDW 14.4, Plt Count 158, MPV 12.1 H, Neut % (Auto) 87.0 H, Lymph % (Auto) 7.0 L, [place] % (Auto) 5.4, Eos % (Auto) 0.0 L, Baso % (Auto) 0.3, Neut # (Auto) 6.8, Lymph # (Auto) 0.6 L, [place] # (Auto) 0.4, Eos # (Auto) 0.0, Baso # (Auto) 0.0, PT 57.0 H, INR 5.85 H, APTT 49.0 H, D-Dimer 0.37, Sodium 133 L, Potassium 4.1, Chloride 105, Carbon Dioxide 25, Anion Gap 7.1, BUN 24 H, Creatinine 1.40 H, Estimated Creat Clear 65, Estimated GFR 50 L, Est GFR ( Amer) 60, Glucose 221 H, Hemoglobin A1c 6.3 H, Calcium 8.6, Magnesium 1.9, Total Bilirubin 1.3, AST 23, ALT 21, Alkaline Phosphatase 58, Troponin I < 0.01, NT-Pro-B Natriuret Pep 325 H, Total Protein 5.8 L, Albumin 3.6, Globulin 2.2, Albumin/Globulin Ratio 1.6, Lipase 51 11/16/24 14:37: VBG pH 7.28 L, VBG pCO2 46.0, VBG pO2 30.0, VBG HCO3 20.9 L, VBG Total CO2 22.3 L, VBG O2 Saturation 57.8, VBG Base Excess -5.9 L, VBG Lactic Acid 2.6 H 11/16/24 15:52: Urine Color Yellow, Urine Appearance Clear, Urine pH 6.0, Ur Specific Institute 1.025, Urine Protein Trace, Urine Glucose (UA) Negative, Urine Ketones Negative, Urine Blood Negative, Urine Nitrate Negative, Urine Bilirubin 1+ A, Urine Urobilinogen 1.0, Ur Leukocyte Esterase Trace, Urine WBC 10-20 11/16/24 17:26: Troponin I < 0.01 11/17/24 05:22 11/17/24 05:22 Response Orders (Tests/Meds): ED MEDICATIONS Generic Name Dose Route Start Last Admin Trade Name Brigid PRN Reason Stop Dose Admin Empagliflozin 10 mg 11/17/24 09:00 Empagliflozin 10mg Tablet PO 12/17/24 08:59 DAILY MABEL Insulin Human Lispro 0 unit 11/16/24 21:00 11/17/24 05:33 Humalog 100 Units/Ml 10ml Vial ([facility]) SUBCUT 12/16/24 20:59 4 unit ACHS MABEL Administration Protocol Non-Formulary Medication 10 mg 11/17/24 09:00 Bisoprolol Fumarate PO 12/17/24 08:59 DAILY MABEL Sertraline HCl 50 mg 11/17/24 09:00 Sertraline 50mg Tablet PO 12/17/24 08:59 DAILY MABEL Discontinued Medications Generic Name Dose Route Start Last Admin Trade Name Brigid PRN Reason Stop Dose Admin Albuterol/Ipratropium 3 ml 11/16/24 14:37 11/16/24 15:04 Ipratropium/Albuterol 3 Ml Neb IH 11/16/24 14:38 3 ml ONCE ONE Administration Magnesium Sulfate 2 gm in 50 mls @ 50 mls/hr 11/16/24 14:37 11/16/24 15:04 Magnesium Sulfate 2gm/50ml Premix IV 11/16/24 15:36 50 mls/hr ONCE ONE Administration Sodium Chloride 1,000 mls @ 500 mls/hr 11/16/24 15:15 11/16/24 15:15 Sod Chlor 0.9% 1000ml Bag IV 12/16/24 15:14 500 mls/hr .Q2H MABEL Administration Phytonadione 5 mg/ Sodium 50.5 mls @ 100 mls/hr 11/16/24 17:28 11/16/24 17:37 Chloride IV 11/16/24 17:58 100 mls/hr ONCE ONE Administration Iopamidol 70 ml 11/16/24 15:57 11/16/24 15:59 Iopamidol-370 (76%);100ml Bottle IV 11/16/24 15:58 70 ml ONCE ONE Administration Ketorolac Tromethamine 30 mg 11/16/24 14:37 11/16/24 15:04 Ketorolac 30mg/Ml Vial IV 11/16/24 14:38 30 mg ONCE ONE Administration Sodium Chloride 50 ml 11/16/24 15:57 11/16/24 15:59 0.9 % Sodium Chloride 50 Ml Vial IV 11/16/24 15:58 50 ml ONCE ONE Administration Sodium Chloride 10 ml 11/16/24 15:57 11/16/24 15:59 Sodium Chloride 0.9% 10ml Syr (Rad Only) IV 11/16/24 15:58 10 ml ONCE ONE Administration ORDERS Category Date Time Status CT abdomen pelvis w con Stat Cat Scan 11/16/24 14:31 Completed CTA Chest [CT angio chest PE protocol] Stat Cat Scan 11/16/24 14:31 Completed BNP [NT Pro Brain Natriuretic Pep.] Stat Lab 11/16/24 14:25 Completed CBC [Complete Blood Count Auto Diff] Stat Lab 11/16/24 14:25 Completed Complete Blood Count Auto Diff AMLAB Lab 11/17/24 05:22 Results Comprehensive Metabolic Panel AMLAB Lab 11/17/24 05:22 Completed Comprehensive Metabolic Panel Stat Lab 11/16/24 14:25 Completed D-Dimer Stat Lab 11/16/24 14:25 Completed Lipase Stat Lab 11/16/24 14:25 Completed Magnesium AMLAB Lab 11/17/24 05:22 Completed Magnesium Stat Lab 11/16/24 14:25 Completed PT INR [Prothrombin Time INR] Stat Lab 11/16/24 14:25 Completed PTT [Activated Partial Thrombo Time] Stat Lab 11/16/24 14:25 Completed Prothrombin Time INR AMLAB Lab 11/17/24 05:22 Completed Trop I [Troponin I] Stat Lab 11/16/24 14:25 Completed Troponin I Q3H Lab 11/16/24 17:26 Completed Troponin I Q3H Lab 11/16/24 20:54 Completed Urinalysis and Microscopic Stat Lab 11/16/24 15:52 Completed Urine Culture Stat Micro 11/16/24 15:52 Received Venous Blood Gas Stat RT 11/16/24 14:37 Completed MDM Narrative Medical Decision Narrative: patient is a 74-year-old male presenting to the emergency department for evaluation of shortness of breath and left-sided flank pain. Patient started on Thursday with left-sided flank pain and says it got worse. He started with shortness of breath today. Patient is hemodynamically stable and nontoxic-appearing upon arrival, afebrile. Differential diagnosis includes kidney stone,, viral illness, CAD, CHF, among others. Workup will be conducted with hematologic labs, specific imaging. Initial inventions include crystalloid bolus, analgesics. Initial workup reviewed by me white count was 7.8, INR was 5.8. Her BUN and creatinine were [address] shows left lower lung collapse with a left pleural effusion. This is new and initially interpreted by myself and Dr. Fan. Please see radiology read for formal imaging. Upon repeat evaluation patient is doing okay, O2 sats 88-89 on room air, 2 L nasal cannula placed back on patient and brings O2 back up to 94%. I spoke with Dr. Olsen who accepted patient for large pleural effusion and left lower lung collapse for admission to speak with pulmonary about treatment options. Patient safe for admission to hospital. <Juliano Fan MD - Last Filed: 11/16/24 18:56> Vital Signs Vital Signs: 11/16/24 14:30 11/16/24 14:36 11/16/24 15:00 Temperature 98.2 F Temperature Source Oral Pulse Rate 69 70 Pulse Rate [Left Radial] 70 Respiratory Rate 20 20 18 Blood Pressure 108/60 L 122/65 Blood Pressure [Right Arm] 108/60 L Blood Pressure Mean 82 84 Blood Pressure Mean [Right Arm] 76 02 Sat by Pulse Oximetry 95 94 L 99 Oxygen Delivery Method Room Air 11/16/24 15:30 11/16/24 16:00 11/16/24 16:30 Temperature Temperature Source Pulse Rate 72 65 69 Pulse Rate [Left Radial] Respiratory Rate 20 14 24 Blood Pressure 128/65 139/75 145/92 H Blood Pressure [Right Arm] Blood Pressure Mean 86 99 Blood Pressure Mean [Right Arm] 02 Sat by Pulse Oximetry 99 95 92 L Oxygen Delivery Method Room Air 11/16/24 17:00 11/16/24 17:30 11/16/24 17:41 Temperature Temperature Source Pulse Rate 70 67 Pulse Rate [Left Radial] Respiratory Rate 18 18 Blood Pressure 148/77 H 146/87 H Blood Pressure [Right Arm] Blood Pressure Mean 100 103 Blood Pressure Mean [Right Arm] 02 Sat by Pulse Oximetry 95 95 94 L Oxygen Delivery Method Room Air 11/16/24 17:57 Temperature 98.2 F Temperature Source Pulse Rate 71 Pulse Rate [Left Radial] Respiratory Rate 20 Blood Pressure 146/87 H Blood Pressure [Right Arm] Blood Pressure Mean Blood Pressure Mean [Right Arm] 02 Sat by Pulse Oximetry Oxygen Delivery Method Room Air Lab Data Labs: Lab Results 11/16/24 14:25: WBC 7.8, RBC 3.25 L, Hgb 10.1 L, Hct 30.2 L, MCV 92.9, MCH 31.1, MCHC 33.4, RDW 14.4, Plt Count 158, MPV 12.1 H, Neut % (Auto) 87.0 H, Lymph % (Auto) 7.0 L, [place] % (Auto) 5.4, Eos % (Auto) 0.0 L, Baso % (Auto) 0.3, Neut # (Auto) 6.8, Lymph # (Auto) 0.6 L, [place] # (Auto) 0.4, Eos # (Auto) 0.0, Baso # (Auto) 0.0, PT 57.0 H, INR 5.85 H, APTT 49.0 H, D-Dimer 0.37, Sodium 133 L, Potassium 4.1, Chloride 105, Carbon Dioxide 25, Anion Gap 7.1, BUN 24 H, Creatinine 1.40 H, Estimated Creat Clear 65, Estimated GFR 50 L, Est GFR ( Amer) 60, Glucose 221 H, Hemoglobin A1c 6.3 H, Calcium 8.6, Magnesium 1.9, Total Bilirubin 1.3, AST 23, ALT 21, Alkaline Phosphatase 58, Troponin I < 0.01, NT-Pro-B Natriuret Pep 325 H, Total Protein 5.8 L, Albumin 3.6, Globulin 2.2, Albumin/Globulin Ratio 1.6, Lipase 51 11/16/24 14:37: VBG pH 7.28 L, VBG pCO2 46.0, VBG pO2 30.0, VBG HCO3 20.9 L, VBG Total CO2 22.3 L, VBG O2 Saturation 57.8, VBG Base Excess -5.9 L, VBG Lactic Acid 2.6 H 11/16/24 15:52: Urine Color Yellow, Urine Appearance Clear, Urine pH 6.0, Ur Specific Institute 1.025, Urine Protein Trace, Urine Glucose (UA) Negative, Urine Ketones Negative, Urine Blood Negative, Urine Nitrate Negative, Urine Bilirubin 1+ A, Urine Urobilinogen 1.0, Ur Leukocyte Esterase Trace, Urine WBC 10-20 11/16/24 17:26: Troponin I < 0.01 Response Orders (Tests/Meds): ED MEDICATIONS Generic Name Dose Route Start Last Admin Trade Name Brigid PRN Reason Stop Dose Admin Empagliflozin 10 mg 11/17/24 09:00 Empagliflozin 10mg Tablet PO 12/17/24 08:59 DAILY [facility] Insulin Human Lispro 0 unit 11/16/24 21:00 11/17/24 05:33 Humalog 100 Units/Ml 10ml Vial ([facility]) SUBCUT 12/16/24 20:59 4 unit ACHS MABEL Administration Protocol Non-Formulary Medication 10 mg 11/17/24 09:00 Bisoprolol Fumarate PO 12/17/24 08:59 DAILY MABEL Sertraline HCl 50 mg 11/17/24 09:00 Sertraline 50mg Tablet PO 12/17/24 08:59 DAILY MABEL Discontinued Medications Generic Name Dose Route Start Last Admin Trade Name Brigid PRN Reason Stop Dose Admin Albuterol/Ipratropium 3 ml 11/16/24 14:37 11/16/24 15:04 Ipratropium/Albuterol 3 Ml Neb IH 11/16/24 14:38 3 ml ONCE ONE Administration Magnesium Sulfate 2 gm in 50 mls @ 50 mls/hr 11/16/24 14:37 11/16/24 15:04 Magnesium Sulfate 2gm/50ml Premix IV 11/16/24 15:36 50 mls/hr ONCE ONE Administration Sodium Chloride 1,000 mls @ 500 mls/hr 11/16/24 15:15 11/16/24 15:15 Sod Chlor 0.9% 1000ml Bag IV 12/16/24 15:14 500 mls/hr .Q2H MABEL Administration Phytonadione 5 mg/ Sodium 50.5 mls @ 100 mls/hr 11/16/24 17:28 11/16/24 17:37 Chloride IV 11/16/24 17:58 100 mls/hr ONCE ONE Administration Iopamidol 70 ml 11/16/24 15:57 11/16/24 15:59 Iopamidol-370 (76%);100ml Bottle IV 11/16/24 15:58 70 ml ONCE ONE Administration Ketorolac Tromethamine 30 mg 11/16/24 14:37 11/16/24 15:04 Ketorolac 30mg/Ml Vial IV 11/16/24 14:38 30 mg ONCE ONE Administration Sodium Chloride 50 ml 11/16/24 15:57 11/16/24 15:59 0.9 % Sodium Chloride 50 Ml Vial IV 11/16/24 15:58 50 ml ONCE ONE Administration Sodium Chloride 10 ml 11/16/24 15:57 11/16/24 15:59 Sodium Chloride 0.9% 10ml Syr (Rad Only) IV 11/16/24 15:58 10 ml ONCE ONE Administration ORDERS Category Date Time Status CT abdomen pelvis w con Stat Cat Scan 11/16/24 14:31 Completed CTA Chest [CT angio chest PE protocol] Stat Cat Scan 11/16/24 14:31 Completed BNP [NT Pro Brain Natriuretic Pep.] Stat Lab 11/16/24 14:25 Completed CBC [Complete Blood Count Auto Diff] Stat Lab 11/16/24 14:25 Completed Complete Blood Count Auto Diff AMLAB Lab 11/17/24 05:22 Results Comprehensive Metabolic Panel AMLAB Lab 11/17/24 05:22 Completed Comprehensive Metabolic Panel Stat Lab 11/16/24 14:25 Completed D-Dimer Stat Lab 11/16/24 14:25 Completed Lipase Stat Lab 11/16/24 14:25 Completed Magnesium AMLAB Lab 11/17/24 05:22 Completed Magnesium Stat Lab 11/16/24 14:25 Completed PT INR [Prothrombin Time INR] Stat Lab 11/16/24 14:25 Completed PTT [Activated Partial Thrombo Time] Stat Lab 11/16/24 14:25 Completed Prothrombin Time INR AMLAB Lab 11/17/24 05:22 Completed Trop I [Troponin I] Stat Lab 11/16/24 14:25 Completed Troponin I Q3H Lab 11/16/24 17:26 Completed Troponin I Q3H Lab 11/16/24 20:54 Completed Urinalysis and Microscopic Stat Lab 11/16/24 15:52 Completed Urine Culture Stat Micro 11/16/24 15:52 Received Venous Blood Gas Stat RT 11/16/24 14:37 Completed ECG Data Tracing #1: Attestation: I reviewed this ECG and interpreted as documented below: (69 bpm what appears to be an atrial paced rhythm. Ventricular paced rhythm as well. Wide QRS 120 with VA 193, QTc 469. Sgarbossa negative no acute ischemic change) MDM Narrative Medical Decision Narrative: patient is a 74-year-old male presenting to the emergency department for evaluation of shortness of breath and left-sided flank pain. Patient started on Thursday with left-sided flank pain and says it got worse. He started with shortness of breath today. Patient is hemodynamically stable and nontoxic-appearing upon arrival, afebrile. Differential diagnosis includes kidney stone,, viral illness, CAD, CHF, among others. Workup will be conducted with hematologic labs, specific imaging. Initial inventions include crystalloid bolus, analgesics. Initial workup reviewed by me white count was 7.8, INR was 5.8. Her BUN and creatinine were [address] shows left lower lung collapse with a left pleural effusion. This is new and initially interpreted by myself and Dr. Fan. Please see radiology read for formal imaging. Upon repeat evaluation patient is doing okay, O2 sats 88-89 on room air, 2 L nasal cannula placed back on patient and brings O2 back up to 94%. I spoke with Dr. Olsen who accepted patient for large pleural effusion and left lower lung collapse for admission to speak with pulmonary about treatment options. Patient safe for admission to hospital.. I was consulted by the MADIHA, and we discussed the complexity of the problems being addressed. I approved the treatment and management plan for this patient's care in the Emergency Department, thus performing a substantive portion of the medical decision making. Juliano Fan MD <Teto Hall MD - Last Filed: 11/17/24 07:22> Vital Signs Vital Signs: 11/16/24 14:30 11/16/24 14:36 11/16/24 15:00 Temperature 98.2 F Temperature Source Oral Pulse Rate 69 70 Pulse Rate [Left Radial] 70 Respiratory Rate 20 20 18 Blood Pressure 108/60 L 122/65 Blood Pressure [Right Arm] 108/60 L Blood Pressure Mean 82 84 Blood Pressure Mean [Right Arm] 76 02 Sat by Pulse Oximetry 95 94 L 99 Oxygen Delivery Method Room Air 11/16/24 15:30 11/16/24 16:00 11/16/24 16:30 Temperature Temperature Source Pulse Rate 72 65 69 Pulse Rate [Left Radial] Respiratory Rate 20 14 24 Blood Pressure 128/65 139/75 145/92 H Blood Pressure [Right Arm] Blood Pressure Mean 86 99 Blood Pressure Mean [Right Arm] 02 Sat by Pulse Oximetry 99 95 92 L Oxygen Delivery Method Room Air 11/16/24 17:00 11/16/24 17:30 11/16/24 17:41 Temperature Temperature Source Pulse Rate 70 67 Pulse Rate [Left Radial] Respiratory Rate 18 18 Blood Pressure 148/77 H 146/87 H Blood Pressure [Right Arm] Blood Pressure Mean 100 103 Blood Pressure Mean [Right Arm] 02 Sat by Pulse Oximetry 95 95 94 L Oxygen Delivery Method Room Air 11/16/24 17:57 Temperature 98.2 F Temperature Source Pulse Rate 71 Pulse Rate [Left Radial] Respiratory Rate 20 Blood Pressure 146/87 H Blood Pressure [Right Arm] Blood Pressure Mean Blood Pressure Mean [Right Arm] 02 Sat by Pulse Oximetry Oxygen Delivery Method Room Air Lab Data Labs: Lab Results 11/16/24 14:25: WBC 7.8, RBC 3.25 L, Hgb 10.1 L, Hct 30.2 L, MCV 92.9, MCH 31.1, MCHC 33.4, RDW 14.4, Plt Count 158, MPV 12.1 H, Neut % (Auto) 87.0 H, Lymph % (Auto) 7.0 L, [place] % (Auto) 5.4, Eos % (Auto) 0.0 L, Baso % (Auto) 0.3, Neut # (Auto) 6.8, Lymph # (Auto) 0.6 L, [place] # (Auto) 0.4, Eos # (Auto) 0.0, Baso # (Auto) 0.0, PT 57.0 H, INR 5.85 H, APTT 49.0 H, D-Dimer 0.37, Sodium 133 L, Potassium 4.1, Chloride 105, Carbon Dioxide 25, Anion Gap 7.1, BUN 24 H, Creatinine 1.40 H, Estimated Creat Clear 65, Estimated GFR 50 L, Est GFR ( Amer) 60, Glucose 221 H, Hemoglobin A1c 6.3 H, Calcium 8.6, Magnesium 1.9, Total Bilirubin 1.3, AST 23, ALT 21, Alkaline Phosphatase 58, Troponin I < 0.01, NT-Pro-B Natriuret Pep 325 H, Total Protein 5.8 L, Albumin 3.6, Globulin 2.2, Albumin/Globulin Ratio 1.6, Lipase 51 11/16/24 14:37: VBG pH 7.28 L, VBG pCO2 46.0, VBG pO2 30.0, VBG HCO3 20.9 L, VBG Total CO2 22.3 L, VBG O2 Saturation 57.8, VBG Base Excess -5.9 L, VBG Lactic Acid 2.6 H 11/16/24 15:52: Urine Color Yellow, Urine Appearance Clear, Urine pH 6.0, Ur Specific [place] 1.025, Urine Protein Trace, Urine Glucose (UA) Negative, Urine Ketones Negative, Urine Blood Negative, Urine Nitrate Negative, Urine Bilirubin 1+ A, Urine Urobilinogen 1.0, Ur Leukocyte Esterase Trace, Urine WBC 10-20 11/16/24 17:26: Troponin I < 0.01 Response Orders (Tests/Meds): ED MEDICATIONS Generic Name Dose Route Start Last Admin Trade Name Jairoq PRN Reason Stop Dose Admin Empagliflozin 10 mg 11/17/24 09:00 Empagliflozin 10mg Tablet PO 12/17/24 08:59 DAILY MABEL Insulin Human Lispro 0 unit 11/16/24 21:00 11/17/24 05:33 Humalog 100 Units/Ml 10ml Vial ([facility]) SUBCUT 12/16/24 20:59 4 unit ACHS MABEL Administration Protocol Non-Formulary Medication 10 mg 11/17/24 09:00 Bisoprolol Fumarate PO 12/17/24 08:59 DAILY MABEL Sertraline HCl 50 mg 11/17/24 09:00 Sertraline 50mg Tablet PO 12/17/24 08:59 DAILY MABEL Discontinued Medications Generic Name Dose Route Start Last Admin Trade Name Freq PRN Reason Stop Dose Admin Albuterol/Ipratropium 3 ml 11/16/24 14:37 11/16/24 15:04 Ipratropium/Albuterol 3 Ml Neb IH 11/16/24 14:38 3 ml ONCE ONE Administration Magnesium Sulfate 2 gm in 50 mls @ 50 mls/hr 11/16/24 14:37 11/16/24 15:04 Magnesium Sulfate 2gm/50ml Premix IV 11/16/24 15:36 50 mls/hr ONCE ONE Administration Sodium Chloride 1,000 mls @ 500 mls/hr 11/16/24 15:15 11/16/24 15:15 Sod Chlor 0.9% 1000ml Bag IV 12/16/24 15:14 500 mls/hr .Q2H MABEL Administration Phytonadione 5 mg/ Sodium 50.5 mls @ 100 mls/hr 11/16/24 17:28 11/16/24 17:37 Chloride IV 11/16/24 17:58 100 mls/hr ONCE ONE Administration Iopamidol 70 ml 11/16/24 15:57 11/16/24 15:59 Iopamidol-370 (76%);100ml Bottle IV 11/16/24 15:58 70 ml ONCE ONE Administration Ketorolac Tromethamine 30 mg 11/16/24 14:37 11/16/24 15:04 Ketorolac 30mg/Ml Vial IV 11/16/24 14:38 30 mg ONCE ONE Administration Sodium Chloride 50 ml 11/16/24 15:57 11/16/24 15:59 0.9 % Sodium Chloride 50 Ml Vial IV 11/16/24 15:58 50 ml ONCE ONE Administration Sodium Chloride 10 ml 11/16/24 15:57 11/16/24 15:59 Sodium Chloride 0.9% 10ml Syr (Rad Only) IV 11/16/24 15:58 10 ml ONCE ONE Administration ORDERS Category Date Time Status CT abdomen pelvis w con Stat Cat Scan 11/16/24 14:31 Completed CTA Chest [CT angio chest PE protocol] Stat Cat Scan 11/16/24 14:31 Completed BNP [NT Pro Brain Natriuretic Pep.] Stat Lab 11/16/24 14:25 Completed CBC [Complete Blood Count Auto Diff] Stat Lab 11/16/24 14:25 Completed Complete Blood Count Auto Diff AMLAB Lab 11/17/24 05:22 Results Comprehensive Metabolic Panel AMLAB Lab 11/17/24 05:22 Completed Comprehensive Metabolic Panel Stat Lab 11/16/24 14:25 Completed D-Dimer Stat Lab 11/16/24 14:25 Completed Lipase Stat Lab 11/16/24 14:25 Completed Magnesium AMLAB Lab 11/17/24 05:22 Completed Magnesium Stat Lab 11/16/24 14:25 Completed PT INR [Prothrombin Time INR] Stat Lab 11/16/24 14:25 Completed PTT [Activated Partial Thrombo Time] Stat Lab 11/16/24 14:25 Completed Prothrombin Time INR AMLAB Lab 11/17/24 05:22 Completed Trop I [Troponin I] Stat Lab 11/16/24 14:25 Completed Troponin I Q3H Lab 11/16/24 17:26 Completed Troponin I Q3H Lab 11/16/24 20:54 Completed Urinalysis and Microscopic Stat Lab 11/16/24 15:52 Completed Urine Culture Stat Micro 11/16/24 15:52 Received Venous Blood Gas Stat RT 11/16/24 14:37 Completed
[2024-11-16 14:39] LABS: Basophils % 0.3 % (0.1-2.0); Hematocrit 30.2 % (42.0-52.0); Hemoglobin 10.1 g/dL (14.1-18.0); Immature Granulocytes # 0.02 10^3uL; Immature Granulocytes % 0.3 %; Lymphocytes # 0.6 K/mm3 (0.7-4.5); Mean Corpuscular HGB Conc 33.4 g/dL (31.8-35.4); Mean Corpuscular Hemoglobin 31.1 pg (27.0-31.2); Mean Corpuscular Volume 92.9 fl (80-94); Mean Platelet Volume 12.1 fl (7.4-10.4); Monocytes # 0.4 K/mm3 (0.1-1.0); Monocytes % 5.4 % (1.7-9.3); Neutrophils # 6.8 K/mm3 (1.8-7.8); Nucleated Red Blood Cells # 0 10^3/uL; Nucleated Red Blood Cells % 0 %; Platelet Count 158 K/mm3 (142-424); Red Blood Count 3.25 M/mm3 (4.60-6.20); Red Cell Distribution Width 14.4 % (11.5-17.5); Red Cell Distribution Width-SD 48.9 fL; White Blood Count 7.8 K/mm3 (4.8-10.8)
--- NOTE | 2024-11-16 14:41 | ECG_ITS ---
APPROVED REPORT Exam: Resting ECG HR:69 bpm ECG Measurements Heart Rate 69 AXES ND 193 P 160 QRSd 120 QRS 9 QT 449 T 21 QTc 469 Conclusion ELECTRONIC ATRIAL PACEMAKER ELECTRONIC VENTRICULAR PACEMAKER ABNORMAL RHYTHM ECG UNCONFIRMED REPORT Electronically signed by : Mynor Hall, 11/17/2024 15:40:34
[2024-11-16 14:52] LABS: Alanine Aminotransferase 21 U/L (12-78); Albumin Level 3.6 g/dl (3.5-5.0); Albumin/Globulin Ratio 1.6 (1.1-1.8); Alkaline Phosphatase 58 U/L (38-126); Anion Gap 7.1 mEq/L (5-15); Aspartate Amino Transferase 23 U/L (17-59); Bilirubin,Total 1.3 mg/dl (0.2-1.3); Blood Urea Nitrogen 24 mg/dl (9-20); Calcium 8.6 mg/dl (8.4-10.2); Carbon Dioxide 25 mmol/L (22.0-30.0); Chloride 105 mmol/L (98-107); Creatinine Clearance Estimated 65 mL/min (50-200); Estimated Glomerular Filt Rate 50 ml/min (>60); GFR (African American) 60 ML/MIN (>60); Globulin 2.2 g/dL (1.3-3.2); Glucose 221 mg/dl (74-100); Lipase 51 U/L (23-300); Magnesium 1.9 mg/dl (1.6-2.3); Potassium 4.1 mmoL/L (3.5-5.1); Sodium 133 mmol/L (136-145); Total Protein,Serum 5.8 g/dl (6.3-8.2)
[2024-11-16 14:58] LABS: VBG Base Excess -5.9 mmol/L (-2.4-2.3); VBG HCO3 20.9 mmol/L (23-30); VBG Oxygen Saturation 57.8 % (50-70); VBG PH 7.28 mmol/L (7.31-7.41); VBG Total CO2 22.3 mmol/L (23-27)
[2024-11-16 15:01] LABS: Lactate Venous 2.6 mmol/L (0.4-2.0)
[2024-11-16 15:02] LABS: NT Pro Brain Natriuretic Pep. 325 pg/mL (0-125)
[2024-11-16 15:03] LABS: D-Dimer 0.37 ug/mL (0.0-0.5)
[2024-11-16] MEDS: KETOROLAC 30MG/ML VIAL 30 MG IV (15:04)
[2024-11-16] MEDS: IPRATROPIUM/ALBUTEROL 3 ML NEB IH (15:04)
[2024-11-16] MEDS: MAGNESIUM SULFATE IN WATER 2 GM/50 ML PIGGYBACK IV (15:04)
[2024-11-16 15:05] LABS: Troponin I < 0.01 ng/ml (0.00-0.034)
[2024-11-16 15:06] LABS: INR 5.85 (0.9-1.1)
[2024-11-16] MEDS: 0.9 % SODIUM CHLORIDE 1000ML 1,000 ML 500 ML IV (15:15)
[2024-11-16 15:58] LABS: Microscopic, Urine URINE MICROSCOPIC (MICROSCOPIC)
[2024-11-16 15:59] LABS: Appearance,Urine CLEAR (Clear); Blood, Urine Negative (Negative); Color,Urine YELLOW (Yellow); Glucose,Urine (UA) Negative (Negative); Ketones,Urine Negative (Negative); Leukocyte Esterase,Urine TRACE (Negative); Nitrate,Urine Negative (Negative); Protein,Urine TRACE (Negative); Specific Gravity, Urine 1.025 (1.005-1.030)
[2024-11-16] MEDS: 0.9 % SODIUM CHLORIDE 50 ML VIAL IV (15:59)
[2024-11-16] MEDS: SODIUM CHLORIDE 0.9% 10ML SYR (RAD ONLY) 10 ML IV (15:59)
[2024-11-16] MEDS: IOPAMIDOL-370 (76%);100ML BOTTLE 70 ML IV (15:59)
[2024-11-16 16:19] LABS: Bilirubin,Urine 1+ (Negative)
--- NOTE | 2024-11-16 17:22 | PC.NURSE ---
I NOTIFIED HS OF THE NEED FOR A BED FOR ADMISSION
--- NOTE | 2024-11-16 17:25 | PC.NURSE ---
pt admitted, room 206. all staff notified
--- NOTE | 2024-11-16 17:26 | P.HP_ITS ---
History of Present Illness *Admission Date: 11/16/24 *Reason for visit:: dyspnea *History of present illness: Mr. Bolivar is a 74-year-old male with history of CAD, ICD in place, paroxysmal A-fib, diabetes, hypertension. He is on triple therapy with aspirin, Plavix, warfarin. Presented to the ER because of complaint of left-sided flank pain that started a few days ago. He has become more short of breath today. Pain is gotten worse over the last few days in his left side. Denies any fever, nausea, vomiting, coughing. Hemodynamically stable in the ER. Workup with chest imaging showing large left-sided effusion. Mild anemia. Coagulopathy with INR of 5.6. Discussed case with ER, request admission for further management of large effusion. On arrival to the floor, patient appears comfortable on room air. Eating dinner. Does not appear in respiratory distress. Afebrile. Alert and oriented x 4. Does have recent travel to [place] but denies any known trauma or injury to his chest or other signs of bleeding [facility] Disclaimer: The information contained in this section may have been updated after the patient was seen, as this information can be updated by other users. Medical History Spontaneous ecchymoses Rib pain on left side Dyspnea History of pacemaker Elective replacement indicated for implantable cardioverter-defibrillator (ICD) Heart failure of unknown etiology Acute retention of urine Malaise Abdominal pain Caregiver role strain Hearing difficulty Situational depression Degenerative disc disease, lumbar Right sided sciatica Actinic keratosis Neoplasm of skin of face Encounter for immunization Atrial fibrillation Systolic heart failure Presence of combination internal cardiac defibrillator (ICD) and pacemaker Benign prostatic hyperplasia Hyperlipemia Hypertension Type 2 diabetes mellitus Surgical History History of coronary angioplasty with insertion of stent History of cardiac cath Social History (Updated 11/16/24 @ 18:28 by Josie Howe RN) Smoking Status: Never smoker alcohol intake: current alcohol intake frequency: holidays/special occasions only substance use type: denies use current occupational status: retired Travel in the last 8 weeks?: None household members: family housing: house Have you lived/traveled outside US in past 30 days?: No Contact w/someone who lives/traveled outside US past 30 days?: No Exposure to someone with infectious disease in past 14 days?: No Do you have a fever (greater than 100.4 F or 38 C)?: No Have you tested positive for COVID-19?: No Exposed to someone with COVID-19 in past 14 days?: No Do you have a sore throat?: No Do you have a cough?: No Do you have any weakness?: No Are you experiencing any nausea/vomitting?: No Do you have any diarrhea?: No Are you experiencing any unusual bleeding?: No Do you have any muscle aches/pain?: No Do you have any abdominal pain?: No Are you experiencing loss of taste or smell?: No Other Medical History Have you received the Flu Vaccine for this season: No Have you received the Pneumonia Vaccine: Yes Review of Systems Review of Systems Review of systems (narrative): 14 point review of systems performed, pertinent positives and negatives as per HPI Meds Home Medications and Allergies Home Medications ?Medication ?Instructions ?Recorded ?Confirmed ?Type aspirin 81 mg tablet,delayed 81 mg PO DAILY 01/31/20 0 11/16/24 History release (Adult Aspirin Regimen) sertraline 50 mg tablet 50 mg PO DAILY #30 tabs 05/03 011/16/24 Rx clopidogrel 75 mg tablet (Plavix) 75 mg PO DAILY #30 t abs 07/14/24 11/16/24 Rx bisoprolol fumarate 10 mg tablet 10 mg PO DAILY #30 ta bs 07/18/24 11/16/24 Rx warfarin 5 mg tablet 7.5 mg PO SUTUTHSA 07/22/24 11/16/24 History potassium chloride 10 mEq 10 meq PO DAILY #30 caps 04/2511/16/24 Rx capsule,extended release metformin 500 mg tablet 500 mg PO DAILY DM #30 tabs 08/10/24 11/16/24 Rx warfarin 5 mg tablet 5 mg PO MOWEFR 08/12/2410/30 History albuterol sulfate 90 mcg/actuation 2 puff inhalation Q 4-6H PRN 09/28/24 11/16/24 Rx aerosol inhaler shortness of breath or [place] ing #8.5 grams benzonatate 200 mg capsule 200 mg PO TID PRN cough #30 caps 09/28/24 11/16/24 Rx dextromethorphan-guaifenesin ER 60 1 tab PO Q12H #60 t abs 09/28/24 11/16/24 Rx mg-1,200 mg tab,extend release,12hr irbesartan 300 1 tab PO DAILY #90 tabs 05/11/2311/16/24 Rx mg-hydrochlorothiazide 12.5 mg tablet rosuvastatin 5 mg tablet 5 mg PO HS 11/16/24 11/16/24 History New Prescriptions to Start Prescriptions: Allergies Allergy/AdvReac Type Severity Reaction Status Date / Time No Known Allergies Allergy Verified 11/16/24 13:27 Exam Data for Last 24 hours Vital signs and Labs for Last 24 Hours: Temp Pulse Resp BP Pulse Ox O2 Del Method 98.2 F 69 24 145/92 H 92 L Room Air 11/16/24 14:36 11/16/24 16:30 11/16/24 16:30 11/16/24 16:30 11/16/24 16:30 11/16/24 16:00 Laboratory Results - last 24 hr 11/16/24 14:25: WBC 7.8, RBC 3.25 L, Hgb 10.1 L, Hct 30.2 L, MCV 92.9, MCH 31.1, MCHC 33.4, RDW 14.4, Plt Count 158, MPV 12.1 H, Neut % (Auto) 87.0 H, Lymph % (Auto) 7.0 L, [place] % (Auto) 5.4, Eos % (Auto) 0.0 L, Baso % (Auto) 0.3, Neut # (Auto) 6.8, Lymph # (Auto) 0.6 L, [place] # (Auto) 0.4, Eos # (Auto) 0.0, Baso # (Auto) 0.0, PT 57.0 H, INR 5.85 H, APTT 49.0 H, D-Dimer 0.37, Sodium 133 L, Potassium 4.1, Chloride 105, Carbon Dioxide 25, Anion Gap 7.1, BUN 24 H, Creatinine 1.40 H, Estimated Creat Clear 65, Estimated GFR 50 L, Est GFR ( Amer) 60, Glucose 221 H, Calcium 8.6, Magnesium 1.9, Total Bilirubin 1.3, AST 23, ALT 21, Alkaline Phosphatase 58, Troponin I < 0.01, NT-Pro-B Natriuret Pep 325 H, Total Protein 5.8 L, Albumin 3.6, Globulin 2.2, Albumin/Globulin Ratio 1.6, Lipase 51 11/16/24 14:37: VBG pH 7.28 L, VBG pCO2 46.0, VBG pO2 30.0, VBG HCO3 20.9 L, VBG Total CO2 22.3 L, VBG O2 Saturation 57.8, VBG Base Excess -5.9 L, VBG Lactic Acid 2.6 H 11/16/24 15:52: Urine Color Yellow, Urine Appearance Clear, Urine pH 6.0, Ur Specific [place] 1.025, Urine Protein Trace, Urine Glucose (UA) Negative, Urine Ketones Negative, Urine Blood Negative, Urine Nitrate Negative, Urine Bilirubin 1+ A, Urine Urobilinogen 1.0, Ur Leukocyte Esterase Trace, Urine WBC 10-20 I & O for Last 24 hours: Intake & Output 11/13/24 11/14/24 11/15/24 11/16/24 23:59 23:59 23:59 23:59 Weight 99.79 kg Constitutional Constitutional: mild distress, obese and cooperative *Routine HEENT Exam Head: Present normocephalic Eye: Present EOMI and PERRL ENT: Present mucous membranes moist *Routine Neck Exam Neck: Present supple; Absent lymphadenopathy Routine Chest/Breast/Axilla Exam Chest wall: Present pacemaker *Routine Respiratory Exam Respiratory: Present crackles, distant breath sounds (Left) and diminished air movement (On left); Absent rhonchi or wheezes Comments: Right side clear to auscultation. Left side has presence of egophony throughout lung field in posterior thorax *Routine Cardiovascular Exam Cardiovascular: Present RRR *Routine Abdominal Exam Abdominal: Present soft and normoactive bowel sounds; Absent tenderness *Routine Rectal Exam Rectal:: deferred *Routine Genitalia Exam Genitalia:: deferred *Routine Extremities Exam Extremities: Absent cyanosis, clubbing or edema *Routine Skin Exam Skin: Present warm; Absent rash *Routine Neurological Exam Neurological: Present alert and oriented X3 Assessment and Plan *Assessment and plan (1) Rib pain on left side: Status: Acute Category: Medical Code(s): R07.81 - Pleurodynia (2) Pleural effusion: Status: Acute Category: Medical Code(s): J90 - Pleural effusion, not elsewhere classified (3) ICD (implantable cardioverter-defibrillator) discharge: Status: Resolved Category: Medical Code(s): Z45.02 - Encounter for adjustment and management of automatic implantable cardiac defibrillator (4) Coronary artery disease: Status: Acute Qualifiers: Associated angina: without angina Coronary Disease-Associated Artery/ Lesion type: [place] artery [place] vs. transplanted heart: [place] heart Qualified Code(s): I25.10 - Atherosclerotic heart disease of [place] coronary artery without angina pectoris Category: Medical Code(s): I25.10 - Atherosclerotic heart disease of [place] coronary artery without angina pectoris (5) History of coronary angioplasty with insertion of stent: Status: Acute Category: Surgical Code(s): Z95.5 - Presence of coronary angioplasty implant and graft (6) Hypertension: Status: Acute Qualifiers: Hypertension type: primary hypertension Qualified Code(s): I10 - Ess ential (primary) hypertension Category: Medical Code(s): I10 - Essential (primary) hypertension (7) Atrial fibrillation: Status: Acute Qualifiers: Atrial fibrillation type: longstanding persistent Qualified Code(s): I48.11 - Longstanding persistent atrial fibrillation Category: Medical Code(s): I48.91 - Unspecified atrial fibrillation (8) Warfarin-induced coagulopathy: Status: Acute Category: Medical Code(s): D68.32 - Hemorrhagic disorder due to extrinsic circulating anticoagulants; T45.515A - Adverse effect of anticoagulants, initial encounter Plan 74-year-old male who presents with onset of left sided chest/rib pain over the past 2 to 3 days. Workup in the ER with finding of large left-sided pleural effusion and anemia. Discussed case with ER physician, request admission for further evaluation of effusion. Agreed to admit for further care. Pulmonology consulted to evaluate in the morning and perform possible thoracentesis. Problems addressed as follows: Large pleural effusion Anemia -Presented with shortness of breath, left-sided chest pain. - hemoglobin low at 10.1 down from level of 15 in July. White count 7.8. Platelets 158. INR elevated 5.8, supratherapeutic. On warfarin for A-fib. Goal 2-3. Given his coagulopathy, concern for possible component of hemothorax with his effusion. hemodynamically stable at this time with blood pressure 146/87. Heart rate 67. Satting mid 90s on 2 L oxygen. -INR ordered daily -5 mg phytonadione IV once - Transfusion threshold hemoglobin less than 7 - In the setting of normal white count, no respiratory distress, no fever, no oxygen requirement, will hold on antibiotics for possible underlying pneumonia. Reevaluate if patient has hemodynamic instability or shows acute signs of infection - pulmonology consulted to evaluate in the morning for possible thoracentesis WILLAM vs CKD 3: - Kidney function has fluctuated over the past year as low as 1.0 creatinine as high as 1.3. Current kidney function and electrolytes suspected to be at baseline with BUN 24, creatinine 1.4, sodium 133 and potassium 4.1. - Repeat CBC, CMP, magnesium ordered for the more Diabetes - A1c 6.1 in April. A1c 6.3 on presentation. Glucose elevated above 200 on presentation. Will initiate sliding scale insulin with fingersticks ACHS - Resume empagliflozin 10 mg daily - Holding metformin 500 mg daily Paroxysmal A-fib Warfarin induced coagulopathy Heart failure with improved ejection fraction Status post ICD CAD -Heart rate controlled at this time, will hold warfarin and due to supratherapeutic state/coagulopathy. - Continue bisoprolol 10 mg daily - Reevaluate need for irbesartan and HCTZ in the morning. Holding aspirin and Plavix as he is over 3 months out from stent placement and in the setting of coagulopathy with anemia. Will resume when appropriate after thoracentesis - Echo in April 2024 with EF of 50%. Continue Zoloft 50 mg daily for mood Full code holding warfarin due to hypercoagulable state cardiac diet, NPO at midnight
[2024-11-16] MEDS: PHYTONADIONE 5 MG in 0.9 % SODIUM CHLORIDE 50 ML 100 MG IV (17:37)
--- NOTE | 2024-11-16 17:56 | PC.NURSE ---
called report to 2nd floor hakeem jung
[2024-11-16 18:12] LABS: Troponin I < 0.01 ng/ml (0.00-0.034)
--- NOTE | 2024-11-16 18:12 | PC.NURSE ---
arrived by w/c from ED
--- NOTE | 2024-11-16 18:35 | PC.NURSE ---
Med rec completed using external med list and pt
[2024-11-16 18:37] LABS: Hemoglobin A1C 6.3 % (4.0-6.0)
[2024-11-16 19:00] LABS: Reflex Lactic Add Lactic Reflex
[2024-11-16 19:57] LABS: POC Glucose,Bedside 361 (70-110)
[2024-11-16] MEDS: humaLOG 100 UNITS/ML 10ML VIAL (SSI) SUBCUT (20:27)
[2024-11-16 21:32] LABS: Lactic Acid Follow Up (RFLX 1) 2.4 mmol/L (0.7-2.1); Troponin I < 0.01 ng/ml (0.00-0.034)
[2024-11-16 22:47] LABS: Reflex Lactic (2 hrs) Add Lactic Reflex
[2024-11-17 04:00] VITALS: BP 138/50; PULSE 77; RESP 18; TEMP 36.6; O2SAT 90; BMI 30.8
[2024-11-17 05:02] LABS: POC Glucose,Bedside 219 (70-110)
[2024-11-17] MEDS: humaLOG 100 UNITS/ML 10ML VIAL (SSI) SUBCUT ×3 (05:33→21:06)
[2024-11-17 05:56] LABS: Basophils % 0.1 % (0.1-2.0); Hematocrit 27.9 % (42.0-52.0); Hemoglobin 9.4 g/dL (14.1-18.0); Immature Granulocytes # 0.07 10^3uL; Immature Granulocytes % 0.7 %; Lymphocytes # 0.4 K/mm3 (0.7-4.5); Lymphocytes % 3.7 % (10-50); Mean Corpuscular HGB Conc 33.7 g/dL (31.8-35.4); Mean Corpuscular Hemoglobin 30.8 pg (27.0-31.2); Mean Corpuscular Volume 91.5 fl (80-94); Monocytes # 0.2 K/mm3 (0.1-1.0); Monocytes % 2.3 % (1.7-9.3); Neutrophils # 9.8 K/mm3 (1.8-7.8); Neutrophils % 93.2 % (37.0-80.0); Nucleated Red Blood Cells # 0 10^3/uL; Nucleated Red Blood Cells % 0 %; Platelet Count 156 K/mm3 (142-424); Red Blood Count 3.05 M/mm3 (4.60-6.20); Red Cell Distribution Width 14.2 % (11.5-17.5); Red Cell Distribution Width-SD 47.7 fL; White Blood Count 10.6 K/mm3 (4.8-10.8)
[2024-11-17 05:59] LABS: Alanine Aminotransferase 21 U/L (12-78); Albumin Level 3.7 g/dl (3.5-5.0); Albumin/Globulin Ratio 1.5 (1.1-1.8); Alkaline Phosphatase 58 U/L (38-126); Anion Gap 7.4 mEq/L (5-15); Aspartate Amino Transferase 20 U/L (17-59); Bilirubin,Total 1.5 mg/dl (0.2-1.3); Blood Urea Nitrogen 28 mg/dl (9-20); Calcium 9.1 mg/dl (8.4-10.2); Carbon Dioxide 24 mmol/L (22.0-30.0); Chloride 105 mmol/L (98-107); Creatinine Clearance Estimated 69 mL/min (50-200); Estimated Glomerular Filt Rate 54 ml/min (>60); GFR (African American) 65 ML/MIN (>60); Globulin 2.5 g/dL (1.3-3.2); Glucose 201 mg/dl (74-100); Magnesium 2.4 mg/dl (1.6-2.3); Potassium 4.4 mmoL/L (3.5-5.1); Sodium 132 mmol/L (136-145); Total Protein,Serum 6.2 g/dl (6.3-8.2)
[2024-11-17 06:03] LABS: MANUAL DIFFERENTIAL MANUAL DIFFERENTIAL (MANUAL DIFF)
--- NOTE | 2024-11-17 06:03 | PC.NURSE ---
Ice water was passed, the patients room was cleaned, trash and linen were collected and the patients bedside table was cleared off and wiped down with a bleach wipe. Personal items and call light within reach and patient had no needs at this time.
--- NOTE | 2024-11-17 06:04 | PC.NURSE ---
Pt. was admitted last night with c/o left sided Pleural effusion. Pt. presented to the ED with c/o left flank pain that started 3 days ago. Pt. also c/o shortness of breath. that has progressively gotten worse. Pt. is alert and orientated x 4. Pt. is on room air. Pt. has slept most of the shift. He states that his breathing has improved since being admitted to the hospital. Pt. has been up independently to bathroom ambulates with a steady gait. Pt. has been NPO since midnight for possible thoracentesis today. Personal items and call sam in reach. Safety measures in place.
[2024-11-17 06:05] LABS: INR 1.43 (0.9-1.1); Prothrombin Time 15.5 seconds (10.1-12.5)
--- NOTE | 2024-11-17 06:05 | PC.NURSE ---
No ice water was passed because the patient is NPO at this time, the patients room was cleaned, trash and linen were collected and the patients bedside table was cleared off and wiped down with a bleach wipe. Personal items and call light within reach and patient had no needs at this time.
[2024-11-17 07:45] VITALS: BP 143/66; PULSE 75; RESP 16; TEMP 36.6; O2SAT 91
[2024-11-17] MEDS: BISOPROLOL 5MG TABLET 10 MG PO (08:10)
[2024-11-17] MEDS: SERTRALINE 50MG TABLET 50 MG PO (08:10)
[2024-11-17] MEDS: EMPAGLIFLOZIN 10MG TABLET 10 MG PO (08:10)
--- NOTE | 2024-11-17 08:47 | HMH.PHAINT1 ---
Pharmacy Intervention Comments: MEDICATION RECONCILIATION COMPLETE USING EXTERNAL PHARMACY FILL HISTORY, RECENT ACC VISIT NOTE, AND RECENT MD OFFICE VISIT NOTE.
[2024-11-17 08:48] LABS: Lymphocytes % 2 % (10-50); Monocytes % 2 % (2-9); Neutrophils % 96 % (42-76); Total Cells Counted 100
[2024-11-17 08:49] LABS: Platelet Estimate Normal; RBC Morphology Normal
--- NOTE | 2024-11-17 09:01 | EXP.PULM.CON ---
History of Present Illness History of present illness: Mr. Bolivar is a 74-year-old male last smoked greater than 35 years ago history of CAD ICD in place A-fib, diabetes hypertension on aspirin Plavix and warfarin presented to ER with complaining of left-sided flank pain started few days ago with worsening shortness of breath found to have large left-sided pleural effusion and pulmonary was called for further evaluation and management [facility] Disclaimer: The information contained in this section may have been updated after the patient was seen, as this information can be updated by other users. Medical History (Updated 11/17/24 @ 12:34 by Kenai Jauregui APRN) Hemothorax Spontaneous ecchymoses Rib pain on left side Dyspnea History of pacemaker Elective replacement indicated for implantable cardioverter-defibrillator (ICD) Heart failure of unknown etiology Acute retention of urine Malaise Abdominal pain Caregiver role strain Hearing difficulty Situational depression Degenerative disc disease, lumbar Right sided sciatica Actinic keratosis Neoplasm of skin of face Encounter for immunization Atrial fibrillation Systolic heart failure Presence of combination internal cardiac defibrillator (ICD) and pacemaker Benign prostatic hyperplasia Hyperlipemia Hypertension Type 2 diabetes mellitus Surgical History History of coronary angioplasty with insertion of stent History of cardiac cath Social History (Updated 11/16/24 @ 18:28 by Josie Howe RN) Smoking Status: Never smoker alcohol intake: current alcohol intake frequency: holidays/special occasions only substance use type: denies use current occupational status: retired Travel in the last 8 weeks?: None household members: family housing: house Have you lived/traveled outside [place] in past 30 days?: No Contact w/someone who lives/traveled outside US past 30 days?: No Exposure to someone with infectious disease in past 14 days?: No Do you have a fever (greater than 100.4 F or 38 C)?: No Have you tested positive for COVID-19?: No Exposed to someone with COVID-19 in past 14 days?: No Do you have a sore throat?: No Do you have a cough?: No Do you have any weakness?: No Are you experiencing any nausea/vomitting?: No Do you have any diarrhea?: No Are you experiencing any unusual bleeding?: No Do you have any muscle aches/pain?: No Do you have any abdominal pain?: No Are you experiencing loss of taste or smell?: No Review of Systems Constitutional Constitutional: Reports anorexia, Reports body ache(s) and Reports fatigue Eyes Eyes: Denies eye discharge, Denies dry eyes, Denies irritation and Denies itchy eyes ENT Ears, Nose, Mouth, and Throat: Denies epistaxis, Denies facial pain, Denies lip swelling and Denies throat swelling *Cardiovascular Cardiovascular: Reports chest pain, Reports dyspnea and Reports dyspnea on exertion *Respiratory Respiratory: Denies change in phlegm color, Reports chest congestion, Reports cough, Reports dyspnea, Reports dyspnea on exertion, Denies excessive phlegm production, Denies hemoptysis, Denies pain on inspiration, Denies pain with cough and Reports wheezing *Gastrointestinal Gastrointestinal: Denies abdominal pain, Denies belching and Denies cramping *Musculoskeletal Musculoskeletal: Reports back pain, Reports myalgias and Reports other (No small joint swelling or Pain) Psychiatric Psychiatric: Denies homicidal ideation and Denies suicidal ideation Endocrine Endocrine: Reports fatigue and Denies heat intolerance Hematologic/Lymphatic Hematologic/Lymphatic: Denies easy bleeding and Denies lymphadenopathy Allergic/Immunologic Allergic/Immunologic: Denies itchy eyes, Denies lip swelling, Denies throat swelling and Reports wheezing Pulmonology Exam Inpatient Vital signs and Labs for Last 24 Hours: Temp Pulse Resp BP Pulse Ox O2 Del Method 97.9 F 75 16 143/66 H 91 L Room Air 11/17/24 07:45 11/17/24 07:45 11/17/24 07:45 11/17/24 07:45 11/17/24 07:45 11/17/24 08:19 Laboratory Results - last 24 hr 11/16/24 14:25: WBC 7.8, RBC 3.25 L, Hgb 10.1 L, Hct 30.2 L, MCV 92.9, MCH 31.1, MCHC 33.4, RDW 14.4, Plt Count 158, MPV 12.1 H, Neut % (Auto) 87.0 H, Lymph % (Auto) 7.0 L, Mccone % (Auto) 5.4, Eos % (Auto) 0.0 L, Baso % (Auto) 0.3, Neut # (Auto) 6.8, Lymph # (Auto) 0.6 L, Mccone # (Auto) 0.4, Eos # (Auto) 0.0, Baso # (Auto) 0.0, PT 57.0 H, INR 5.85 H, APTT 49.0 H, D-Dimer 0.37, Sodium 133 L, Potassium 4.1, Chloride 105, Carbon Dioxide 25, Anion Gap 7.1, BUN 24 H, Creatinine 1.40 H, Estimated Creat Clear 65, Estimated GFR 50 L, Est GFR ( Amer) 60, Glucose 221 H, Hemoglobin A1c 6.3 H, Calcium 8.6, Magnesium 1.9, Total Bilirubin 1.3, AST 23, ALT 21, Alkaline Phosphatase 58, Troponin I < 0.01, NT-Pro-B Natriuret Pep 325 H, Total Protein 5.8 L, Albumin 3.6, Globulin 2.2, Albumin/Globulin Ratio 1.6, Lipase 51 11/16/24 14:37: VBG pH 7.28 L, VBG pCO2 46.0, VBG pO2 30.0, VBG HCO3 20.9 L, VBG Total CO2 22.3 L, VBG O2 Saturation 57.8, VBG Base Excess -5.9 L, VBG Lactic Acid 2.6 H 11/16/24 15:52: Urine Color Yellow, Urine Appearance Clear, Urine pH 6.0, Ur Specific [place] 1.025, Urine Protein Trace, Urine Glucose (UA) Negative, Urine Ketones Negative, Urine Blood Negative, Urine Nitrate Negative, Urine Bilirubin 1+ A, Urine Urobilinogen 1.0, Ur Leukocyte Esterase Trace, Urine WBC 10-20 11/16/24 17:26: Troponin I < 0.01 11/16/24 19:42: POC Glucose 361 H* 11/16/24 20:54: Lactate 2.4 H, Troponin I < 0.01 11/16/24 23:05: Lactate 2.0 11/17/24 04:52: POC Glucose 219 H 11/17/24 05:22: WBC 10.6 D, RBC 3.05 L, Hgb 9.4 L, Hct 27.9 L, MCV 91.5, MCH 30.8, MCHC 33.7, RDW 14.2, Plt Count 156, MPV 12.0 H, Neut % (Auto) 93.2 H, Lymph % (Auto) 3.7 L, Mccone % (Auto) 2.3, Eos % (Auto) 0.0 L, Baso % (Auto) 0.1, Neut # (Auto) 9.8 H, Lymph # (Auto) 0.4 L, Mccone # (Auto) 0.2, Eos # (Auto) 0.0, Baso # (Auto) 0.0, Total Counted 100, Neutrophils % (Manual) 96 H, Lymphocytes % (Manual) 2 L, Monocytes % (Manual) 2, Platelet Estimate Normal, RBC Morphology Normal, PT 15.5 H, INR 1.43 H, Sodium 132 L, Potassium 4.4, Chloride 105, Carbon Dioxide 24, Anion Gap 7.4, BUN 28 H, Creatinine 1.30 H, Estimated Creat Clear 69, Estimated GFR 54 L, Est GFR ( Amer) 65, Glucose 201 H, Calcium 9.1, Magnesium 2.4 H D, Total Bilirubin 1.5 H, AST 20, ALT 21, Alkaline Phosphatase 58, Total Protein 6.2 L, Albumin 3.7, Globulin 2.5, Albumin/Globulin Ratio 1.5 I & O for Labs for Last 24 Hours: Intake & Output 11/14/24 11/15/24 11/16/24 11/17/24 23:59 23:59 23:59 23:59 Intake Total 1100 / 1100 Output Total 0 / 0 Balance 1100 / 1100 Weight 215 lb 8 oz 215 lb 4.8 oz Constitutional: Present moderate distress Head: Present normocephalic and atraumatic ENT: Present normal exam, normal oropharynx and mucous membranes moist Neck: Present normal inspection and full ROM Respiratory: Present respiratory distress, distant breath sounds, diminished air movement and able to speak in complete sentences; Absent wheezes or crackles Cardiac: Present S1/S2, Tachycardia and radial pulses present GI: Present soft and distention; Absent tenderness or guarding Skin: Present intact; Absent cyanosis or jaundice Neuro: Present alert, awake and oriented x 3 Extremities: Present normal inspection; Absent clubbing or cyanosis Psychiatric: Present normal affect and cooperative Meds Home Medications and Allergies Home Medications ?Medication ?Instructions ?Recorded ?Confirmed ?Type aspirin 81 mg tablet,delayed 81 mg PO DAILY 01/31/20 11/16/24 History release (Adult Aspirin Regimen) sertraline 50 mg tablet 50 mg PO DAILY #30 tabs 05/30/24 11/16/24 Rx clopidogrel 75 mg tablet (Plavix) 75 mg PO DAILY #30 tabs 07/14/24 11/16/24 Rx bisoprolol fumarate 10 mg tablet 10 mg PO DAILY #30 tabs 07/18/24 11/16/24 Rx warfarin 5 mg tablet 7.5 mg PO SUTUTHSA 07/22/24 11/17/24 History potassium chloride 10 mEq 10 meq PO DAILY #30 caps 08/09/24 11/16/24 Rx capsule,extended release metformin 500 mg tablet 500 mg PO DAILY DM #30 tabs 08/10/24 11/16/24 Rx warfarin 5 mg tablet 5 mg PO MOWEFR 08/12/24 11/17/24 History dextromethorphan-guaifenesin ER 60 1 tab PO Q12H #60 tabs 09/28/24 11/16/24 Rx mg-1,200 mg tab,extend release,12hr irbesartan 300 1 tab PO DAILY #90 tabs 10/04/24 11/16/24 Rx mg-hydrochlorothiazide 12.5 mg tablet rosuvastatin 5 mg tablet 5 mg PO HS 11/16/24 11/16/24 History albuterol sulfate 90 mcg/actuation 2 puff inhalation Q4HP PRN 11/17/24 11/17/24 History aerosol inhaler (Ventolin HFA) Shortness Of Breath empagliflozin 10 mg tablet 10 mg PO DAILY 11/17/24 11/17/24 History (Jardiance) New Prescriptions to Start Prescriptions: Allergies Allergy/AdvReac Type Severity Reaction Status Date / Time No Known Allergies Allergy Verified 11/16/24 13:27 Results Laboratory Findings 11/17/24 10:30 11/17/24 05:22 PT/INR, D-dimer PT 15.5 seconds (10.1-12.5) H 11/17/24 05:22 INR 1.43 (0.9-1.1) H 11/17/24 05:22 D-Dimer 0.37 ug/mL (0.0-0.5) 11/16/24 14:25 Abnormal lab findings: Abnormal Labs 11/16/24 11/16/24 11/16/24 14:25 14:37 15:52 RBC 3.25 L Hgb 10.1 L Hct 30.2 L MPV 12.1 H Neut % (Auto) 87.0 H Lymph % (Auto) 7.0 L Eos % (Auto) 0.0 L Neut # (Auto) Lymph # (Auto) 0.6 L Neutrophils % (Manual) Lymphocytes % (Manual) PT 57.0 H INR 5.85 H APTT 49.0 H VBG pH 7.28 L VBG HCO3 20.9 L VBG Total CO2 22.3 L VBG Base Excess -5.9 L VBG Lactic Acid 2.6 H Sodium 133 L BUN 24 H Creatinine 1.40 H Estimated GFR 50 L Glucose 221 H POC Glucose Hemoglobin A1c 6.3 H Lactate Magnesium Total Bilirubin NT-Pro-B Natriuret Pep 325 H Total Protein 5.8 L Urine Bilirubin 1+ A 11/16/24 11/16/24 11/17/24 19:42 20:54 04:52 RBC Hgb Hct MPV Neut % (Auto) Lymph % (Auto) Eos % (Auto) Neut # (Auto) Lymph # (Auto) Neutrophils % (Manual) Lymphocytes % (Manual) PT INR APTT VBG pH VBG HCO3 VBG Total CO2 VBG Base Excess VBG Lactic Acid Sodium BUN Creatinine Estimated GFR Glucose POC Glucose 361 H* 219 H Hemoglobin A1c Lactate 2.4 H Magnesium Total Bilirubin NT-Pro-B Natriuret Pep Total Protein Urine Bilirubin 11/17/24 05:22 RBC 3.05 L Hgb 9.4 L Hct 27.9 L MPV 12.0 H Neut % (Auto) 93.2 H Lymph % (Auto) 3.7 L Eos % (Auto) 0.0 L Neut # (Auto) 9.8 H Lymph # (Auto) 0.4 L Neutrophils % (Manual) 96 H Lymphocytes % (Manual) 2 L PT 15.5 H INR 1.43 H APTT VBG pH VBG HCO3 VBG Total CO2 VBG Base Excess VBG Lactic Acid Sodium 132 L BUN 28 H Creatinine 1.30 H Estimated GFR 54 L Glucose 201 H POC Glucose Hemoglobin A1c Lactate Magnesium 2.4 H D Total Bilirubin 1.5 H NT-Pro-B Natriuret Pep Total Protein 6.2 L Urine Bilirubin Assessment and Plan *Assessment and plan (1) Hemothorax: Status: Acute Category: Medical Code(s): J94.2 - Hemothorax Plan Mr. Bolivar is a 74-year-old male last smoked greater than 35 years ago history of CAD ICD in place A-fib, diabetes hypertension on aspirin Plavix and warfarin presented to ER with complaining of left-sided flank pain started few days ago with worsening shortness of breath found to have large left-sided pleural effusion and pulmonary was called for further evaluation and management CT chest large left-sided pleural effusion. INR supratherapeutic upon admission received vitamin K improved to 1.43 this morning. Concern for hemothorax especially in setting of supratherapeutic INR and drop in hemoglobin. Status post thoracentesis, H&H from pleural fluid consistent with hemothorax 11.2 and 38.2. 22 L so far. Chest tube clamped. Will follow with repeat chest x-ray. No respiratory distress. On room air. Plan: Hold antiplatelets and anticoagulant at this point of time including aspirin Plavix and warfarin pending clinical evaluation. Clamp the chest tube. Follow-up with chest x-ray in 4 hours Recommend repeating H&H at least twice daily
--- NOTE | 2024-11-17 09:04 | US_ITS ---
FINAL REPORT CLINICAL HISTORY: Pleural effusion - LT PLEURAL EFFUSION - 60 ML REMOVED FINDINGS: ULTRASOUND LOCALIZATION FOR LEFT THORACENTESIS: Ultrasound localization was performed by the systems technologist for . Ultrasound examination of the left hemithorax demonstrates a left pleural effusion. The localization was approved by Dr. Matos, who performed the thoracentesis, during which 60 cc of left pleural fluid was removed. IMPRESSION: Thoracentesis performed by Dr. Matos, after ultrasound localization and spinning supervisor approval. Reviewed, Interpreted and Dictated by David aLboy MD Transcribed by Mary Sierra Authenticated and [facility]
[2024-11-17 09:18] LABS: Lactate Dehydrogenase 168 U/L (313-618)
[2024-11-17 10:43] LABS: Hematocrit 38.2 % (42.0-52.0)
[2024-11-17 10:59] LABS: Hemoglobin 11.2 g/dL (14.1-18.0)
--- NOTE | 2024-11-17 11:03 | XR_ITS ---
FINAL REPORT CLINICAL HISTORY: Effusion COMPARISON: 09/29/2024 FINDINGS: SINGLE VIEW CHEST There is mild cardiomegaly. Small to moderate left effusion is identified. Pigtail chest tube is present. There is patchy overlying airspace opacity. The mediastinum is unremarkable. Left subclavian pacer is identified. There is no pneumothorax. IMPRESSION: Left effusion and consolidation with pigtail chest tube. No pneumothorax identified. Reviewed, Interpreted and Dictated by David Laboy MD Transcribed by Adrianna Blue Authenticated and [facility]
[2024-11-17 11:09] LABS: POC Glucose,Bedside 178 (70-110)
--- OUTSIDE RECORDS SUMMARY | 2024-11-17 11:23 | XMS_ITS | Clinical Summary ---
Author Organization Healthcare Address [address] [place] [address] Care Team Providers Care Chemistry Account Manager Name Role Phone Jose Valdez MD Primary Care Provider [phone] Sven Clark MD Unavailable [phone] Allergies No known active allergies Medications amiodarone [...] (2 of 2 - PCV) 07/06/2021 07/06/2020 [id number] Vaccine (3 - season) 2024 07/24/2020, 06/27/2020 [...] complete this topic Insurance MEDICARE Care Teams Chemistry Account Manager Relationship Specialty Start Date End Date Jose Valdez MD [address] [facility] [address] [address] PCP - General 06/03/24 Sven Clark MD [address] [place] [address] Referring Physician 06/07/24
--- OUTSIDE RECORDS SUMMARY | 2024-11-17 11:23 | XMS_ITS | Clinical Summary ---
Author Organization [facility] Address [address] [place] [place] [address] Phone Care Team Providers Care Rod Puller Name Role Phone Unavailable Primary Care Provider [...] MEDICARE [place] PART A AND B [facility]
--- NOTE | 2024-11-17 12:23 | P.CONCA_ITS ---
History of Present Illness History of Present Illness Consult date: 11/17/24 Requesting physician: Jose Whatley Consult reason: shortness of breath Chief complaint: L flank pain, shortness of breath History of present illness: This is a 74-year-old white gentleman who presented to the emergency department with left flank pain. He states that this left flank pain started around approximately Thursday afternoon. He states that the flank pain has just continued to worsen since then. And then on Thursday he became short of breath. He states that the shortness of breath got worse since Thursday and became severe so he decided to come to the emergency department. He denies any chest pain or pressure. No edema. No fever, chills, nausea, vomiting or diarrhea. While in the emergency department the patient was found to have a large left-sided pleural effusion and mild anemia. His INR was elevated at 5.6. The patient was subsequently admitted to the hospital. He did undergo thoracentesis today and was found to have a bloody hemothorax which is suspected to be from his supratherapeutic INR. He was treated with vitamin K yesterday and his INR is down to 1.4 today. The patient does have a past medical history of coronary artery disease, AICD, paroxysmal atrial fibrillation, hypertension, hyperlipidemia and diabetes. He is currently on triple therapy with aspirin, Plavix and warfarin. [facility] Disclaimer: The information contained in this section may have been updated after the patient was seen, as this information can be updated by other users. Medical History (Updated 11/17/24 @ 15:15 by Kenia Jauregui APRN) Hemothorax Spontaneous ecchymoses Rib pain on left side Dyspnea History of pacemaker Elective replacement indicated for implantable cardioverter-defibrillator (ICD) Heart failure of unknown etiology Acute retention of urine Malaise Abdominal pain Caregiver role strain Hearing difficulty Situational depression Degenerative disc disease, lumbar Right sided sciatica Actinic keratosis Neoplasm of skin of face Encounter for immunization Atrial fibrillation Systolic heart failure Presence of combination internal cardiac defibrillator (ICD) and pacemaker Benign prostatic hyperplasia Hyperlipemia Hypertension Type 2 diabetes mellitus Surgical History History of coronary angioplasty with insertion of stent History of cardiac cath Social History (Updated 11/16/24 @ 18:28 by Josie Howe RN) Smoking Status: Never smoker alcohol intake: current alcohol intake frequency: holidays/special occasions only substance use type: denies use current occupational status: retired Travel in the last 8 weeks?: None household members: family housing: house Have you lived/traveled outside [place] in past 30 days?: No Contact w/someone who lives/traveled outside US past 30 days?: No Exposure to someone with infectious disease in past 14 days?: No Do you have a fever (greater than 100.4 F or 38 C)?: No Have you tested positive for COVID-19?: No Exposed to someone with COVID-19 in past 14 days?: No Do you have a sore throat?: No Do you have a cough?: No Do you have any weakness?: No Are you experiencing any nausea/vomitting?: No Do you have any diarrhea?: No Are you experiencing any unusual bleeding?: No Do you have any muscle aches/pain?: No Do you have any abdominal pain?: No Are you experiencing loss of taste or smell?: No Review of Systems Review of Systems Review of systems:: pertinent systems reviewed and negative unless documented below Constitutional Constitutional: Reports system reviewed and no additional complaints, except as documented and Reports lethargy Eyes Eyes: Reports system reviewed and no additional complaints, except as documented ENT Ears, Nose, Mouth, and Throat: Reports system reviewed and no additional complaints, except as documented *Cardiovascular Cardiovascular: Reports system reviewed and no additional complaints, except as documented, Denies chest pain, Reports dyspnea and Reports dyspnea on exertion *Respiratory Respiratory: Reports system reviewed and no additional complaints, except as documented, Reports dyspnea and Reports dyspnea on exertion *Gastrointestinal Gastrointestinal: Reports system reviewed and no additional complaints, except as documented *Genitourinary Genitourinary: Reports system reviewed and no additional complaints, except as documented *Musculoskeletal Musculoskeletal: Reports system reviewed and no additional complaints, except as documented and Reports other (Left flank pain) Integumentary/Breasts Skin/Breast: Reports system reviewed and no additional complaints, except as documented *Neurologic Neurologic: Reports system reviewed and no additional complaints, except as documented Psychiatric Psychiatric: Reports system reviewed and no additional complaints, except as documented Endocrine Endocrine: Reports system reviewed and no additional complaints, except as documented Hematologic/Lymphatic Hematologic/Lymphatic: Reports system reviewed and no additional complaints, except as documented Allergic/Immunologic Allergic/Immunologic: Reports system reviewed and no additional complaints, except as documented Exam Data for Last 24 hours Vital signs and Labs for Last 24 Hours: Temp Pulse Resp BP Pulse Ox O2 Del Method 97.9 F 75 16 143/66 H 91 L Room Air 11/17/24 07:45 11/17/24 07:45 11/17/24 07:45 11/17/24 07:45 11/17/24 07:45 11/17/24 08:19 Laboratory Results - last 24 hr 11/16/24 14:25: WBC 7.8, RBC 3.25 L, Hgb 10.1 L, Hct 30.2 L, MCV 92.9, MCH 31.1, MCHC 33.4, RDW 14.4, Plt Count 158, MPV 12.1 H, Neut % (Auto) 87.0 H, Lymph % (Auto) 7.0 L, Christian % (Auto) 5.4, Eos % (Auto) 0.0 L, Baso % (Auto) 0.3, Neut # (Auto) 6.8, Lymph # (Auto) 0.6 L, Christian # (Auto) 0.4, Eos # (Auto) 0.0, Baso # (Auto) 0.0, PT 57.0 H, INR 5.85 H, APTT 49.0 H, D-Dimer 0.37, Sodium 133 L, Potassium 4.1, Chloride 105, Carbon Dioxide 25, Anion Gap 7.1, BUN 24 H, Creatinine 1.40 H, Estimated Creat Clear 65, Estimated GFR 50 L, Est GFR ( Amer) 60, Glucose 221 H, Hemoglobin A1c 6.3 H, Calcium 8.6, Magnesium 1.9, Total Bilirubin 1.3, AST 23, ALT 21, Alkaline Phosphatase 58, Troponin I < 0.01, NT-Pro-B Natriuret Pep 325 H, Total Protein 5.8 L, Albumin 3.6, Globulin 2.2, Albumin/Globulin Ratio 1.6, Lipase 51 11/16/24 14:37: VBG pH 7.28 L, VBG pCO2 46.0, VBG pO2 30.0, VBG HCO3 20.9 L, VBG Total CO2 22.3 L, VBG O2 Saturation 57.8, VBG Base Excess -5.9 L, VBG Lactic Acid 2.6 H 11/16/24 15:52: Urine Color Yellow, Urine Appearance Clear, Urine pH 6.0, Ur Specific Marty 1.025, Urine Protein Trace, Urine Glucose (UA) Negative, Urine Ketones Negative, Urine Blood Negative, Urine Nitrate Negative, Urine Bilirubin 1+ A, Urine Urobilinogen 1.0, Ur Leukocyte Esterase Trace, Urine WBC 10-20 11/16/24 17:26: Troponin I < 0.01 11/16/24 19:42: POC Glucose 361 H* 11/16/24 20:54: Lactate 2.4 H, Troponin I < 0.01 11/16/24 23:05: Lactate 2.0 11/17/24 04:52: POC Glucose 219 H 11/17/24 05:22: WBC 10.6 D, RBC 3.05 L, Hgb 9.4 L, Hct 27.9 L, MCV 91.5, MCH 30.8, MCHC 33.7, RDW 14.2, Plt Count 156, MPV 12.0 H, Neut % (Auto) 93.2 H, Lymph % (Auto) 3.7 L, Christian % (Auto) 2.3, Eos % (Auto) 0.0 L, Baso % (Auto) 0.1, Neut # (Auto) 9.8 H, Lymph # (Auto) 0.4 L, Christian # (Auto) 0.2, Eos # (Auto) 0.0, Baso # (Auto) 0.0, Total Counted 100, Neutrophils % (Manual) 96 H, Lymphocytes % (Manual) 2 L, Monocytes % (Manual) 2, Platelet Estimate Normal, RBC Morphology Normal, PT 15.5 H, INR 1.43 H, Sodium 132 L, Potassium 4.4, Chloride 105, Carbon Dioxide 24, Anion Gap 7.4, BUN 28 H, Creatinine 1.30 H, Estimated Creat Clear 69, Estimated GFR 54 L, Est GFR ( Amer) 65, Glucose 201 H, Calcium 9.1, Magnesium 2.4 H D, Total Bilirubin 1.5 H, AST 20, ALT 21, Alkaline Phosphatase 58, Lactate Dehydrogenase 168 L, Total Protein 6.2 L, Albumin 3.7, Globulin 2.5, Albumin/Globulin Ratio 1.5 11/17/24 10:30: Hgb 11.2 L D, Hct 38.2 L 11/17/24 10:59: POC Glucose 178 H I & O for Last 24 hours: Intake & Output 11/14/24 11/15/24 11/16/24 11/17/24 23:59 23:59 23:59 23:59 Intake Total 1100 / 1100 Output Total 1999 Balance -900 / -900 Weight 215 lb 8 oz 215 lb 4.8 oz Constitutional Constitutional: no acute distress and average body habitus *Routine HEENT Exam Head: Present normocephalic and atraumatic ENT: Present mucous membranes moist *Routine Neck Exam Neck: Present supple, full ROM and normal carotid upstroke; Absent JVD, carotid bruit or lymphadenopathy *Routine Respiratory Exam Respiratory: Present crackles, normal respiratory effort, able to speak in complete sentences and symmetric chest movement *Routine Cardiovascular Exam Cardiovascular: Present RRR, Normal S1 and Normal S2; Absent murmur or gallop *Routine Abdominal Exam Abdominal: Present soft and normoactive bowel sounds; Absent tenderness, distended or organomegaly *Routine Extremities Exam Extremities: Present full ROM, pulses intact and normal capillary refill; Absent cyanosis, clubbing or edema *Routine Skin Exam Skin: Present intact and warm; Absent erythema *Routine Neurological Exam Neurological: Present alert, oriented X3 and CN II-XII intact; Absent sensory deficit or motor deficit Routine Psychiatric Exam Psychiatric: Present normal affect Meds Home Medications and Allergies Home Medications ?Medication ?Instructions ?Recorded ?Confirmed ?Type aspirin 81 mg tablet,delayed 81 mg PO DAILY 01/31/20 0 11/16/24 History release (Adult Aspirin Regimen) sertraline 50 mg tablet 50 mg PO DAILY #30 tabs 05/0311/16/24 Rx clopidogrel 75 mg tablet (Plavix) 75 mg PO DAILY #30 t abs 07/14/24 11/16/24 Rx bisoprolol fumarate 10 mg tablet 10 mg PO DAILY #30 ta bs 07/18/24 11/16/24 Rx warfarin 5 mg tablet 7.5 mg PO SUTUTHSA 07/22/24 11/17/24 History potassium chloride 10 mEq 10 meq PO DAILY #30 caps 04/2511/16/24 Rx capsule,extended release metformin 500 mg tablet 500 mg PO DAILY DM #30 tabs 08/10/24 11/16/24 Rx warfarin 5 mg tablet 5 mg PO MOWEFR 08/12/2410/30 History dextromethorphan-guaifenesin ER 60 1 tab PO Q12H #60 t abs 09/28/24 11/16/24 Rx mg-1,200 mg tab,extend release,12hr irbesartan 300 1 tab PO DAILY #90 tabs /11/2311/16/24 Rx mg-hydrochlorothiazide 12.5 mg tablet rosuvastatin 5 mg tablet 5 mg PO HS 11/16/24 11/16/24 History albuterol sulfate 90 mcg/actuation 2 puff inhalation Q 4HP PRN 11/17/24 11/17/24 History aerosol inhaler (Ventolin HFA) Shortness Of Breath empagliflozin 10 mg tablet 10 mg PO DAILY 11/17/24 History (Jardiance) New Prescriptions to Start Prescriptions: Allergies Allergy/AdvReac Type Severity Reaction Status Date / Time No Known Allergies Allergy Verified 11/16/24 13:27 Assessment and Plan *Assessment and plan (1) Pleural effusion: Status: Acute Category: Medical Code(s): J90 - Pleural effusion, not elsewhere classified (2) Hemothorax: Status: Acute Category: Medical Code(s): J94.2 - Hemothorax (3) Warfarin-induced coagulopathy: Status: Acute Category: Medical Code(s): D68.32 - Hemorrhagic disorder due to extrinsic circulating anticoagulants; T45.515A - Adverse effect of anticoagulants, initial encounter (4) Coronary artery disease: Status: Acute Qualifiers: Associated angina: without angina Coronary Disease-Associated Artery/Lesion type: [place] artery [place] vs. transplanted heart: [place] heart Qualified Code(s): I25.10 - Atherosclerotic heart disease of [place] coronary artery without angina pectoris Category: Medical Code(s): I25.10 - Atherosclerotic heart disease of [place] coronary artery without angina pectoris (5) Atrial fibrillation: Status: Acute Qualifiers: Atrial fibrillation type: paroxysmal Qualified Code(s): I48.0 - Paroxysmal atrial fibrillation Category: Medical Code(s): I48.91 - Unspecified atrial fibrillation (6) Presence of combination internal cardiac defibrillator (ICD) and pacemaker: Status: Acute Category: Medical Code(s): Z95.810 - Presence of automatic (implantable) cardiac defibrillator (7) Hypertension: Status: Acute Qualifiers: Hypertension type: primary hypertension Qualified Code(s): I10 - Essential (primary) hypertension Category: Medical Code(s): I10 - Essential (primary) hypertension (8) Type 2 diabetes mellitus: Problem Comment: Continuing with Jardiance samples Status: Chronic Qualifiers: Diabetes mellitus complication detail: with other circulatory complicati ons Diabetes mellitus complication status: with circulatory complication Diabetes mellitus termite control servicer insulin use: without termite control servicer use Qualified Code(s): E11.59 - Type 2 diabetes mellitus with other circulatory complications Category: Medical Code(s): E11.9 - Type 2 diabetes mellitus without complications (9) Hyperlipemia: Status: Acute Qualifiers: Hyperlipidemia type: mixed hyperlipidemia Qualified Code(s): E78.2 - Mixed hyperlipidemia Category: Medical Code(s): E78.5 - Hyperlipidemia, unspecified Plan Plan: 1. Patient was admitted to the hospital with a large left pleural effusion. Pulmonology was consulted and did a thoracentesis. The patient does have a hemothorax and a chest tube was In place following the thoracentesis. 2. On admission the patient was found to have a supratherapeutic INR at 5.6, this in addition to his triple therapy is most likely the cause of his hemothorax. His aspirin, Plavix and Coumadin have been put on hold. 3. Once the chest tube has been removed we can restart aspirin 81 mg daily for his coronary artery disease. 4. Coumadin can be restarted on an outpatient basis at a later time once he is fully recovered from his hemothorax as he declines a history of CVA. 5. Coronary artery disease is present. Recent stenting in July 2024. He was on aspirin and Plavix. As mentioned above the aspirin and Plavix have both been stopped due to his hemothorax. He denies any chest pain or pressure. No plans for invasive left cardiac catheterization at this time. 6. His blood pressure is acceptable. Continue bisoprolol and irbesartan HCT. 7. His LDL goal is less than 55. He is on a statin. Will get a liver and lipid panel in the morning. 8. The patient does have a history of paroxysmal atrial fibrillation. His last AICD interrogation showed his AT/AF burden is 1% with the longest episode approximately an hour. Due to his hemothorax anticoagulation will be held at this time. 9. Further recommendations were made pending the patient's response to treatment. Thank you for the opportunity to help participate in the care of this patient. All recommendations and orders are per Dr. Burroughs.
--- NOTE | 2024-11-17 12:44 | [facility].PROCNOTE ---
[facility] Procedure Note Date: 11/17/24 Time: 12:44 Procedure Note:: Procedure: LEFT chest tube placement Indication for procedure: Pleural effusion / Hemothorax A time out was performed, and the chest x-ray was reviewed, the appropriate side was confirmed and marked. My hands were washed immediately prior to the procedure. I wore a surgical cap, mask with protective eyewear, sterile gown, and sterile gloves throughout the procedure. The patient was prepped and draped in a sterile manner using chlorhexidine scrub after the appropriate level was percussed and confirmed by ultrasound. 1% lidocaine was used to anesthetize the skin, ?subcutaneous tissue, superior aspect of the rib periosteum and parietal pleura.? A finder needle was then introduced at the?seventh intercoastal space posteriorly?to locate the pleural fluid and?blood-tinged?fluid was aspirated.?The syringe? was removed and a guidewire was advanced into the introducer needle.? The guidewire was visualized in the pleural space by ultrasound.? A small incision was made at the skin surface with a scalpel and the? introducer needle was exchanged for a dilator over the guidewire. After? appropriate dilation was obtained, the dilator was exchanged over the wire for chest tube.??The chest tube in a sterile fashion was connected to atrium and suction at ?negative 20 cm water 60 ml of?bloody-colored?fluid was removed without difficulty.? No immediate complications were noted during the procedure. A post-procedure chest X-ray is pending at the time of this note. The fluid will be sent for routine pleural studies, cultures along with cytopathology and hemoglobin and hematocrit as concerning for Hemothorax Patient tolerated the procedure well? Estimated blood loss is 5cc.
[2024-11-17 13:51] LABS: Appearance,Body Fld. Bloody; Source, Body Fld. Thoracentesis Fluid; Volume,Body Fld. 60 mL
[2024-11-17 13:52] LABS: Mononuclear WBCs,Body Fluid 11 %; Polynuclear WBC,Body Fluid 89 %; RBC,Body Fluid 3611000 cells/uL (< 10 X 10^3); TNC,Body Fluid 3565 cells/uL (< 1000)
--- NOTE | 2024-11-17 13:53 | PC.NURSE ---
cleared pt's table in preparation for lunch
--- NOTE | 2024-11-17 14:11 | XR_ITS ---
FINAL REPORT CLINICAL HISTORY: Hemothorax COMPARISON: 11/17/2024 FINDINGS: SINGLE VIEW CHEST There is mild cardiomegaly. Left subclavian pacer is identified. The mediastinum is unremarkable. There is dense bibasilar atelectasis. Previously identified left effusion is smaller in size. Pigtail chest tube is stable. There is no pneumothorax. IMPRESSION: Left effusion with bibasilar atelectasis. Reviewed, Interpreted and Dictated by David Laboy MD Transcribed by Adrianna Blue Authenticated and [facility]
[2024-11-17 15:41] VITALS: BP 146/75; PULSE 71; RESP 19; TEMP 36.6; O2SAT 93
[2024-11-17] MEDS: HYDROCODONE/APAP 5/325 MG TABLET 1 TAB PO (15:53)
[2024-11-17] MEDS: MORPHINE 2MG/ML SYRINGE 2 MG IV (16:17)
--- NOTE | 2024-11-17 16:30 | ECG_ITS ---
APPROVED REPORT Exam: Resting ECG HR:71 bpm ECG Measurements Heart Rate 71 AXES TX 179 P 212 QRSd 141 QRS 28 QT 439 T 4 QTc 461 Conclusion ELECTRONIC ATRIAL PACEMAKER ELECTRONIC VENTRICULAR PACEMAKER ABNORMAL RHYTHM ECG UNCONFIRMED REPORT Electronically signed by : Andres Murphy MD 11/19/2024 14:56:29
[2024-11-17] MEDS: HYDROMORPHONE 2MG/ML SYRINGE 1 MG IV (16:42)
[2024-11-17] MEDS: BELLADONNA ALKALOIDS 60 ML ML PO (16:53)
[2024-11-17 16:56] LABS: POC Glucose,Bedside 162 (70-110)
--- NOTE | 2024-11-17 16:56 | PC.NURSE ---
Pt. c/o of pain in the left back where the pigtail drain was placed. Md. aware and several pain meds ordered and given. 02 - 2L applied for comfort. Family at bedside and an ekg and CTA of chest ordered.
--- NOTE | 2024-11-17 17:01 | XR_ITS ---
PROCEDURE INFORMATION: Exam: XR Chest Exam date and time: 11/17/2024 5:30 PM Age: 74 years old Clinical indication: Other: Intractable lower chest pain, left sided chest reese TECHNIQUE: Imaging protocol: Radiologic exam of the chest. Views: 1 view. COMPARISON: CR XR CHEST PORTABLE 11/17/2024 2:12 PM FINDINGS: Tubes, catheters and devices: Left chest wall cardiac pacing device. Lungs: Low lung volumes. Bilateral lower lobe atelectasis. Pleural spaces: Stable small to moderate left pleural effusion with a drainage catheter in place. No pneumothorax. Heart/Mediastinum: Stable cardiomediastinal contours. Bones/joints: No acute findings. IMPRESSION: Stable small to moderate left pleural effusion with a drainage catheter in place.
[2024-11-17 20:00] VITALS: BP 137/73; PULSE 70; RESP 20; TEMP 36.6; O2SAT 92
--- NOTE | 2024-11-17 22:23 | EXP.PN ---
Subjective *Date: 11/17/24 *Time: 22:31 Exam Data for Last 24 hours Vital signs and Labs for Last 24 Hours: Temp Pulse Resp BP Pulse Ox O2 Del Method O2 Flow Rate 97.9 F 70 20 137/73 92 L Room Air 2 11/17/24 20:00 11/17/24 20:00 11/17/24 20:00 11/17/24 20:00 11/17/24 20:00 11/17/24 20:00 11/17/24 17:27 Laboratory Results - last 24 hr 11/16/24 23:05: Lactate 2.0 11/17/24 04:52: POC Glucose 219 H 11/17/24 05:22: WBC 10.6 D, RBC 3.05 L, Hgb 9.4 L, Hct 27.9 L, MCV 91.5, MCH 30.8, MCHC 33.7, RDW 14.2, Plt Count 156, MPV 12.0 H, Neut % (Auto) 93.2 H, Lymph % (Auto) 3.7 L, [place] % (Auto) 2.3, Eos % (Auto) 0.0 L, Baso % (Auto) 0.1, Neut # (Auto) 9.8 H, Lymph # (Auto) 0.4 L, [place] # (Auto) 0.2, Eos # (Auto) 0.0, Baso # (Auto) 0.0, Total Counted 100, Neutrophils % (Manual) 96 H, Lymphocytes % (Manual) 2 L, Monocytes % (Manual) 2, Platelet Estimate Normal, RBC Morphology Normal, PT 15.5 H, INR 1.43 H, Sodium 132 L, Potassium 4.4, Chloride 105, Carbon Dioxide 24, Anion Gap 7.4, BUN 28 H, Creatinine 1.30 H, Estimated Creat Clear 69, Estimated GFR 54 L, Est GFR ( Amer) 65, Glucose 201 H, Calcium 9.1, Magnesium 2.4 H D, Total Bilirubin 1.5 H, AST 20, ALT 21, Alkaline Phosphatase 58, Lactate Dehydrogenase 168 L, Total Protein 6.2 L, Albumin 3.7, Globulin 2.5, Albumin/Globulin Ratio 1.5 11/17/24 10:30: Hgb 11.2 L D, Hct 38.2 L, Fluid Source Thoracentesis fluid, Fluid Volume 60, Fluid Appearance Bloody, Fluid RBC (Auto) [id number], Fld Tot Nucleated Cell 3565, Fld Polynuclear WBCs % 89, Fld Mononuclear WBCs % 11 11/17/24 10:59: POC Glucose 178 H 11/17/24 16:27: POC Glucose 162 H Temp Pulse Resp BP Pulse Ox O2 Del Method 97.9 F 75 16 143/66 H 91 L Room Air 11/17/24 07:45 11/17/24 07:45 11/17/24 07:45 11/17/24 07:45 11/17/24 07:45 11/17/24 08:19 Laboratory Results - last 24 hr 11/16/24 14:25: WBC 7.8, RBC 3.25 L, Hgb 10.1 L, Hct 30.2 L, MCV 92.9, MCH 31.1, MCHC 33.4, RDW 14.4, Plt Count 158, MPV 12.1 H, Neut % (Auto) 87.0 H, Lymph % (Auto) 7.0 L, [place] % (Auto) 5.4, Eos % (Auto) 0.0 L, Baso % (Auto) 0.3, Neut # (Auto) 6.8, Lymph # (Auto) 0.6 L, [place] # (Auto) 0.4, Eos # (Auto) 0.0, Baso # (Auto) 0.0, PT 57.0 H, INR 5.85 H, APTT 49.0 H, D-Dimer 0.37, Sodium 133 L, Potassium 4.1, Chloride 105, Carbon Dioxide 25, Anion Gap 7.1, BUN 24 H, Creatinine 1.40 H, Estimated Creat Clear 65, Estimated GFR 50 L, Est GFR ( Amer) 60, Glucose 221 H, Hemoglobin A1c 6.3 H, Calcium 8.6, Magnesium 1.9, Total Bilirubin 1.3, AST 23, ALT 21, Alkaline Phosphatase 58, Troponin I < 0.01, NT-Pro-B Natriuret Pep 325 H, Total Protein 5.8 L, Albumin 3.6, Globulin 2.2, Albumin/Globulin Ratio 1.6, Lipase 51 11/16/24 14:37: VBG pH 7.28 L, VBG pCO2 46.0, VBG pO2 30.0, VBG HCO3 20.9 L, VBG Total CO2 22.3 L, VBG O2 Saturation 57.8, VBG Base Excess -5.9 L, VBG Lactic Acid 2.6 H 11/16/24 15:52: Urine Color Yellow, Urine Appearance Clear, Urine pH 6.0, Ur Specific [place] 1.025, Urine Protein Trace, Urine Glucose (UA) Negative, Urine Ketones Negative, Urine Blood Negative, Urine Nitrate Negative, Urine Bilirubin 1+ A, Urine Urobilinogen 1.0, Ur Leukocyte Esterase Trace, Urine WBC 10-20 11/16/24 17:26: Troponin I < 0.01 11/16/24 19:42: POC Glucose 361 H* 11/16/24 20:54: Lactate 2.4 H, Troponin I < 0.01 11/16/24 23:05: Lactate 2.0 11/17/24 04:52: POC Glucose 219 H 11/17/24 05:22: WBC 10.6 D, RBC 3.05 L, Hgb 9.4 L, Hct 27.9 L, MCV 91.5, MCH 30.8, MCHC 33.7, RDW 14.2, Plt Count 156, MPV 12.0 H, Neut % (Auto) 93.2 H, Lymph % (Auto) 3.7 L, [place] % (Auto) 2.3, Eos % (Auto) 0.0 L, Baso % (Auto) 0.1, Neut # (Auto) 9.8 H, Lymph # (Auto) 0.4 L, [place] # (Auto) 0.2, Eos # (Auto) 0.0, Baso # (Auto) 0.0, Total Counted 100, Neutrophils % (Manual) 96 H, Lymphocytes % (Manual) 2 L, Monocytes % (Manual) 2, Platelet Estimate Normal, RBC Morphology Normal, PT 15.5 H, INR 1.43 H, Sodium 132 L, Potassium 4.4, Chloride 105, Carbon Dioxide 24, Anion Gap 7.4, BUN 28 H, Creatinine 1.30 H, Estimated Creat Clear 69, Estimated GFR 54 L, Est GFR ( Amer) 65, Glucose 201 H, Calcium 9.1, Magnesium 2.4 H D, Total Bilirubin 1.5 H, AST 20, ALT 21, Alkaline Phosphatase 58, Lactate Dehydrogenase 168 L, Total Protein 6.2 L, Albumin 3.7, Globulin 2.5, Albumin/Globulin Ratio 1.5 11/17/24 10:30: Hgb 11.2 L D, Hct 38.2 L 11/17/24 10:59: POC Glucose 178 H I & O for Last 24 hours: Intake & Output 11/14/24 11/15/24 11/16/24 11/17/24 23:59 23:59 23:59 23:59 Intake Total 1909 / 1909 Output Total 2169 / 2169 Balance -260 / -260 Weight 97.749 kg 97.658 kg Intake & Output 11/14/24 11/15/24 11/16/24 11/17/24 23:59 23:59 23:59 23:59 Intake Total 1099 / 1099 Output Total 1999 Balance -900 / -900 Weight 215 lb 8 oz 215 lb 4.8 oz Constitutional Constitutional: no acute distress and average body habitus *Routine HEENT Exam Head: Present normocephalic and atraumatic ENT: Present mucous membranes moist *Routine Neck Exam Neck: Present supple, full ROM and normal carotid upstroke; Absent JVD, carotid bruit or lymphadenopathy *Routine Respiratory Exam Respiratory: Present crackles, normal respiratory effort, able to speak in complete sentences and symmetric chest movement *Routine Cardiovascular Exam Cardiovascular: Present RRR, Normal S1 and Normal S2; Absent murmur or gallop *Routine Abdominal Exam Abdominal: Present soft and normoactive bowel sounds; Absent tenderness, distended or organomegaly *Routine Extremities Exam Extremities: Present full ROM, pulses intact and normal capillary refill; Absent cyanosis, clubbing or edema *Routine Skin Exam Skin: Present intact and warm; Absent erythema *Routine Neurological Exam Neurological: Present alert, oriented X3 and CN II-XII intact; Absent sensory deficit or motor deficit Routine Psychiatric Exam Psychiatric: Present normal affect Assessment and Plan *Assessment and plan (1) Rib pain on left side: Status: Acute Category: Medical Code(s): R07.81 - Pleurodynia (2) Pleural effusion: Status: Acute Category: Medical Code(s): J90 - Pleural effusion, not elsewhere classified (3) ICD (implantable cardioverter-defibrillator) discharge: Status: Resolved Category: Medical Code(s): Z45.02 - Encounter for adjustment and management of automatic implantable cardiac defibrillator (4) Coronary artery disease: Status: Acute Qualifiers: Coronary Disease-Associated Artery/Lesion type: [place] artery [place] vs. transplanted heart: [place] heart Associated angina: without angina Qualified Code(s): I25.10 - Atherosclerotic heart disease of [place] coronary artery without angina pectoris Category: Medical Code(s): I25.10 - Atherosclerotic heart disease of [place] coronary artery without angina pectoris (5) History of coronary angioplasty with insertion of stent: Status: Acute Category: Surgical Code(s): Z95.5 - Presence of coronary angioplasty implant and graft (6) Hypertension: Status: Acute Qualifiers: Hypertension type: primary hypertension Qualified Code(s): I10 - Essential (primary) hypertension Category: Medical Code(s): I10 - Essential (primary) hypertension (7) Atrial fibrillation: Status: Acute Qualifiers: Atrial fibrillation type: paroxysmal Qualified Code(s): I48.0 - Paroxysmal atrial fibrillation Category: Medical Code(s): I48.91 - Unspecified atrial fibrillation (8) Warfarin-induced coagulopathy: Status: Acute Category: Medical Code(s): D68.32 - Hemorrhagic disorder due to extrinsic circulating anticoagulants; T45.515A - Adverse effect of anticoagulants, initial encounter Plan 74-year-old male who presents with onset of left sided chest/rib pain over the past 2 to 3 days. Workup in the ER with finding of large left-sided pleural effusion and anemia. Discussed case with ER physician, request admission for further evaluation of effusion. Agreed to admit for further care. Pulmonology consulted to evaluate in the morning and perform possible thoracentesis. Problems addressed as follows: Large pleural effusion Anemia - Presented with shortness of breath, left-sided chest pain. - Initial hemoglobin low at 10.1 down from level of 15 in July, INR elevated 5.8, supratherapeutic. On warfarin for A-fib. Goal 2-3. Vitamin K 5 mg given. ? Pulmonology consulted, s/p thoracentesis with ~2 L sanguinous output. Vital signs remained stable. Repeat CXR also reassuring. ? Patient did complain of left sided chest pain this afternoon, improved with Dilaudid. EKG without acute ischemic changes. ? Discussed with pulmonology, water-sealed chest tube for tonight. Follow-up CXR in the morning. ? Discussed with cardiology, recommended discontinuing Plavix and warfarin and continuing aspirin. Cost has been an issue for patient to transition off warfarin to DOAC. WILLAM vs CKD 3: - Kidney function has fluctuated over the past year as low as 1.0 creatinine as high as 1.3. Current kidney function and electrolytes suspected to be at baseline with BUN 24, creatinine 1.4, sodium 133 and potassium 4.1. - Repeat CBC, CMP, magnesium ordered for the more Diabetes - A1c 6.1 in April. A1c 6.3 on presentation. Glucose elevated above 200 on presentation. Will initiate sliding scale insulin with fingersticks ACHS - Resume empagliflozin 10 mg daily - Holding metformin 500 mg daily Paroxysmal A-fib Warfarin induced coagulopathy Heart failure with improved ejection fraction Status post ICD CAD -Heart rate controlled at this time, will hold warfarin and due to supratherapeutic state/coagulopathy. - Continue bisoprolol 10 mg daily - Reevaluate need for irbesartan and HCTZ in the morning. Holding aspirin and Plavix as he is over 3 months out from stent placement and in the setting of coagulopathy with anemia. Will resume when appropriate after thoracentesis - Echo in April 2024 with EF of 50%. Continue Zoloft 50 mg daily for mood Full code holding warfarin due to hypercoagulable state cardiac diet, NPO at midnight
[2024-11-18] VITALS (9 sets, daily range): BP systolic 130–167; BP diastolic 56–77; PULSE 70–75; RESP 16–22; TEMP 36.6–36.8; O2SAT 80–96; BMI 30.4; BMI 30.3
[2024-11-18] MEDS: HYDROMORPHONE 2MG/ML SYRINGE 1 MG IV (01:42)
--- NOTE | 2024-11-18 04:21 | PC.NURSE ---
Pt c/o pain, treated per JUL. Drainage monitored from chest tube. Blood glucose monitored. v/s, ox4. Pt is on 4LNC satting around 92%. Plan of care ongoing.
[2024-11-18] MEDS: IPRATROPIUM/ALBUTEROL 3 ML NEB IH ×2 (05:05→06:30)
--- NOTE | 2024-11-18 05:38 | PC.NURSE ---
trash was taken. Linens were empty so they were not taken. The bed side table was cleans and water and ice was given.
--- NOTE | 2024-11-18 06:00 | XR_ITS ---
PROCEDURE INFORMATION: Exam: XR Chest Exam date and time: 11/18/2024 5:33 AM Age: 74 years old Clinical indication: Other: Hemothorax TECHNIQUE: Imaging protocol: Radiologic exam of the chest. Views: 1 view. COMPARISON: CR XR CHEST PORTABLE 11/17/2024 5:30 PM FINDINGS: Tubes, catheters and devices: Two lead right heart pacemaker. Left-sided pleural tube. Lungs: Hypoinflation. Mild bibasilar atelectasis. Pleural spaces: Unremarkable. Left-sided effusion not well visualized. . No pneumothorax. Heart/Mediastinum: Unremarkable. No cardiomegaly. Bones/joints: Unremarkable. IMPRESSION: Mild bibasilar atelectasis. Left-sided effusion likely present not well visualized due to pacemaker. Left-sided pleural tube.
[2024-11-18 06:14] LABS: Basophils % 0.2 % (0.1-2.0); Eosinophils % 0.2 % (0.1-12.0); Hematocrit 26.9 % (42.0-52.0); Immature Granulocytes # 0.06 10^3uL; Immature Granulocytes % 0.5 %; Lymphocytes # 0.9 K/mm3 (0.7-4.5); Lymphocytes % 7.7 % (10-50); Mean Corpuscular HGB Conc 31.2 g/dL (31.8-35.4); Mean Corpuscular Hemoglobin 29.6 pg (27.0-31.2); Mean Corpuscular Volume 94.7 fl (80-94); Mean Platelet Volume 11.5 fl (7.4-10.4); Monocytes # 1.2 K/mm3 (0.1-1.0); Monocytes % 10.1 % (1.7-9.3); Neutrophils # 9.2 K/mm3 (1.8-7.8); Neutrophils % 81.3 % (37.0-80.0); Nucleated Red Blood Cells # 0 10^3/uL; Nucleated Red Blood Cells % 0 %; Platelet Count 169 K/mm3 (142-424); Red Blood Count 2.84 M/mm3 (4.60-6.20); Red Cell Distribution Width 14.7 % (11.5-17.5); Red Cell Distribution Width-SD 50.8 fL; White Blood Count 11.4 K/mm3 (4.8-10.8)
[2024-11-18 06:22] LABS: Hemoglobin 8.4 g/dL (14.1-18.0)
[2024-11-18 06:29] LABS: Albumin Level 3.7 g/dl (3.5-5.0); Chloride 101 mmol/L (98-107); Sodium 136 mmol/L (136-145)
[2024-11-18 06:30] LABS: Potassium 4.1 mmoL/L (3.5-5.1)
[2024-11-18 06:32] LABS: Alanine Aminotransferase 21 U/L (12-78); Anion Gap 12.1 mEq/L (5-15); Aspartate Amino Transferase 23 U/L (17-59); Bilirubin,Unconjugated 0.8 mg/dL (0.0-1.1); Blood Urea Nitrogen 30 mg/dl (9-20); Carbon Dioxide 27 mmol/L (22.0-30.0); Creatinine Clearance Estimated 63 mL/min (50-200); Estimated Glomerular Filt Rate 50 ml/min (>60); GFR (African American) 60 ML/MIN (>60); Total Protein,Serum 6.1 g/dl (6.3-8.2)
[2024-11-18 06:33] LABS: Alkaline Phosphatase 60 U/L (38-126); Bilirubin,Direct 0.2 mg/dl (0.0-0.4); Bilirubin,Indirect 0.9 mg/dL (0.0-0.9); Bilirubin,Total 1.1 mg/dl (0.2-1.3); Calcium 8.4 mg/dl (8.4-10.2); Chol/HDL Ratio 2.7 (1-3.5); Cholesterol 124 mg/dl (140-200); Glucose 157 mg/dl (74-100); HDL Cholesterol 46 mg/dl (40-60); Triglycerides 91 mg/dl (30-150); VLDL Cholesterol 18 mg/dL (0-40)
[2024-11-18 06:43] LABS: Direct LDL Cholesterol 44.19 mg/dL (100-129)
[2024-11-18 06:54] LABS: POC Glucose,Bedside 157 (70-110)
[2024-11-18] MEDS: BISOPROLOL 5MG TABLET 10 MG PO (07:46)
[2024-11-18] MEDS: EMPAGLIFLOZIN 10MG TABLET 10 MG PO (07:46)
[2024-11-18] MEDS: SERTRALINE 50MG TABLET 50 MG PO (07:46)
--- NOTE | 2024-11-18 08:12 | EXP.PULM.PN ---
Subjective *Date: 11/18/24 *Time: 09:46 Interval history: No acute respiratory vents overnight Pulmonology Exam Inpatient Vital signs and Labs for Last 24 Hours: Temp Pulse Resp BP Pulse Ox O2 Del Method O2 Flow Rate 98.1 F 70 16 130/72 93 L Nasal Cannula 4 11/18/24 07:56 11/18/24 07:56 11/18/24 07:56 11/18/24 07:56 11/18/24 07:56 11/18/24 07:56 11/18/24 07:54 Laboratory Results - last 24 hr 11/17/24 05:22: Total Counted 100, Neutrophils % (Manual) 96 H, Lymphocytes % (Manual) 2 L, Monocytes % (Manual) 2, Platelet Estimate Normal, RBC Morphology Normal, Lactate Dehydrogenase 168 L 11/17/24 10:30: Hgb 11.2 L D, Hct 38.2 L, Fluid Source Thoracentesis fluid, Fluid Volume 60, Fluid Appearance Bloody, Fluid RBC (Auto) [id number], Fld Tot Nucleated Cell 3565, Fld Polynuclear WBCs % 89, Fld Mononuclear WBCs % 11 11/17/24 10:59: POC Glucose 178 H 11/17/24 16:27: POC Glucose 162 H 11/18/24 05:38: WBC 11.4 H, RBC 2.84 L, Hgb 8.4 L D, Hct 26.9 L, MCV 94.7 H, MCH 29.6, MCHC 31.2 L, RDW 14.7, Plt Count 169, MPV 11.5 H, Neut % (Auto) 81.3 H, Lymph % (Auto) 7.7 L, [place] % (Auto) 10.1 H, Eos % (Auto) 0.2, Baso % (Auto) 0.2, Neut # (Auto) 9.2 H, Lymph # (Auto) 0.9, [place] # (Auto) 1.2 H, Eos # (Auto) 0.0, Baso # (Auto) 0.0, Sodium 136, Potassium 4.1, Chloride 101, Carbon Dioxide 27, Anion Gap 12.1, BUN 30 H, Creatinine 1.40 H, Estimated Creat Clear 63, Estimated GFR 50 L, Est GFR ( Amer) 60, Glucose 157 H, Calcium 8.4, Total Bilirubin 1.1, Direct Bilirubin 0.2, Conjugated Bilirubin 0.0, Indirect Bilirubin 0.9, Unconjugated Bilirubin 0.8, AST 23, ALT 21, Alkaline Phosphatase 60, Total Protein 6.1 L, Albumin 3.7, Triglycerides 91, Cholesterol 124 L, LDL Cholesterol Direct 44.19 L, VLDL Cholesterol 18, HDL Cholesterol 46, Cholesterol/HDL Ratio 2.7 11/18/24 06:45: POC Glucose 157 H Temp Pulse Resp BP Pulse Ox O2 Del Method 97.9 F 75 16 143/66 H 91 L Room Air 11/17/24 07:45 11/17/24 07:45 11/17/24 07:45 11/17/24 07:45 11/17/24 07:45 11/17/24 08:19 Laboratory Results - last 24 hr 11/16/24 14:25: WBC 7.8, RBC 3.25 L, Hgb 10.1 L, Hct 30.2 L, MCV 92.9, MCH 31.1, MCHC 33.4, RDW 14.4, Plt Count 158, MPV 12.1 H, Neut % (Auto) 87.0 H, Lymph % (Auto) 7.0 L, [place] % (Auto) 5.4, Eos % (Auto) 0.0 L, Baso % (Auto) 0.3, Neut # (Auto) 6.8, Lymph # (Auto) 0.6 L, [place] # (Auto) 0.4, Eos # (Auto) 0.0, Baso # (Auto) 0.0, PT 57.0 H, INR 5.85 H, APTT 49.0 H, D-Dimer 0.37, Sodium 133 L, Potassium 4.1, Chloride 105, Carbon Dioxide 25, Anion Gap 7.1, BUN 24 H, Creatinine 1.40 H, Estimated Creat Clear 65, Estimated GFR 50 L, Est GFR ( Amer) 60, Glucose 221 H, Hemoglobin A1c 6.3 H, Calcium 8.6, Magnesium 1.9, Total Bilirubin 1.3, AST 23, ALT 21, Alkaline Phosphatase 58, Troponin I < 0.01, NT-Pro-B Natriuret Pep 325 H, Total Protein 5.8 L, Albumin 3.6, Globulin 2.2, Albumin/Globulin Ratio 1.6, Lipase 51 11/16/24 14:37: VBG pH 7.28 L, VBG pCO2 46.0, VBG pO2 30.0, VBG HCO3 20.9 L, VBG Total CO2 22.3 L, VBG O2 Saturation 57.8, VBG Base Excess -5.9 L, VBG Lactic Acid 2.6 H 11/16/24 15:52: Urine Color Yellow, Urine Appearance Clear, Urine pH 6.0, Ur Specific [place] 1.025, Urine Protein Trace, Urine Glucose (UA) Negative, Urine Ketones Negative, Urine Blood Negative, Urine Nitrate Negative, Urine Bilirubin 1+ A, Urine Urobilinogen 1.0, Ur Leukocyte Esterase Trace, Urine WBC 10-20 11/16/24 17:26: Troponin I < 0.01 11/16/24 19:42: POC Glucose 361 H* 11/16/24 20:54: Lactate 2.4 H, Troponin I < 0.01 11/16/24 23:05: Lactate 2.0 11/17/24 04:52: POC Glucose 219 H 11/17/24 05:22: WBC 10.6 D, RBC 3.05 L, Hgb 9.4 L, Hct 27.9 L, MCV 91.5, MCH 30.8, MCHC 33.7, RDW 14.2, Plt Count 156, MPV 12.0 H, Neut % (Auto) 93.2 H, Lymph % (Auto) 3.7 L, [place] % (Auto) 2.3, Eos % (Auto) 0.0 L, Baso % (Auto) 0.1, Neut # (Auto) 9.8 H, Lymph # (Auto) 0.4 L, [place] # (Auto) 0.2, Eos # (Auto) 0.0, Baso # (Auto) 0.0, Total Counted 100, Neutrophils % (Manual) 96 H, Lymphocytes % (Manual) 2 L, Monocytes % (Manual) 2, Platelet Estimate Normal, RBC Morphology Normal, PT 15.5 H, INR 1.43 H, Sodium 132 L, Potassium 4.4, Chloride 105, Carbon Dioxide 24, Anion Gap 7.4, BUN 28 H, Creatinine 1.30 H, Estimated Creat Clear 69, Estimated GFR 54 L, Est GFR ( Amer) 65, Glucose 201 H, Calcium 9.1, Magnesium 2.4 H D, Total Bilirubin 1.5 H, AST 20, ALT 21, Alkaline Phosphatase 58, Total Protein 6.2 L, Albumin 3.7, Globulin 2.5, Albumin/Globulin Ratio 1.5 I & O for Labs for Last 24 Hours: Intake & Output 11/15/24 11/16/24 11/17/24 11/18/24 23:59 23:59 23:59 23:59 Intake Total 2150 / 2150 Output Total 2170 / 2170 900 / 900 Balance -20 / -20 -900 / -900 Weight 215 lb 8 oz 215 lb 4.8 oz 212 lb 4.8 oz Intake & Output 11/14/24 11/15/24 11/16/24 11/17/24 23:59 23:59 23:59 23:59 Intake Total 1100 / 1100 Output Total 0 / 0 Balance 1100 / 1100 Weight 215 lb 8 oz 215 lb 4.8 oz Microbiology Reports for the Last 24 Hours: Microbiology 11/16/24 15:52 Urine,Clean Catch Urine Culture - Final NO GROWTH AFTER 48 HOURS Constitutional: Present moderate distress Head: Present normocephalic and atraumatic ENT: Present normal exam, normal oropharynx and mucous membranes moist Neck: Present normal inspection and full ROM Respiratory: Present respiratory distress, diminished air movement and able to speak in complete sentences; Absent wheezes or crackles Cardiac: Present S1/S2, Tachycardia and radial pulses present GI: Present soft and distention; Absent tenderness or guarding Skin: Present intact; Absent cyanosis or jaundice Neuro: Present alert, awake and oriented x 3 Extremities: Present normal inspection; Absent clubbing or cyanosis Psychiatric: Present normal affect and cooperative Assessment and Plan *Assessment and plan (1) Hemothorax: Status: Acute Category: Medical Code(s): J94.2 - Hemothorax Plan Mr. Bolivar is a 74-year-old male last smoked greater than 35 years ago history of CAD ICD in place A-fib, diabetes hypertension on aspirin Plavix and warfarin presented to ER with complaining of left-sided flank pain started few days ago with worsening shortness of breath found to have large left-sided pleural effusion and pulmonary was called for further evaluation and management CT chest large left-sided pleural effusion. INR supratherapeutic upon admission received vitamin K improved to 1.43 this morning. Concern for hemothorax especially in setting of supratherapeutic INR and drop in hemoglobin. Status post thoracentesis. No respiratory distress. On room air. Interval update: No acute respiratory vents overnight. 2400 cc of pleural fluid evacuated. No concerning for reaccumulation on repeat chest x-ray from yesterday and this morning. Chest tube currently to waterseal. Continued drop in hemoglobin of 8.4. Improved aeration left lung field. Call the lab today for clarification - H&H from yesterday appears not from the pleural fluid but actual blood sample. Unclear. Will follow-up Plan: Chest tube to suction at -20 water suction. F/U output. Follow-up with inventory control clerk resume his antiplatelet and anticoagulation regimen
[2024-11-18 09:59] LABS: POC Glucose,Bedside 157 (70-110)
[2024-11-18] MEDS: humaLOG 100 UNITS/ML 10ML VIAL (SSI) SUBCUT ×2 (10:01→20:15)
--- NOTE | 2024-11-18 10:26 | EXP.CARD.PN ---
Subjective Subjective Date: 11/18/24 Time: 09:00 Principal diagnosis: Pleural effusion/hemothorax Interval history: This is a 74-year-old gentleman who presented to the emergency department with left flank plain and shortness of breath. The patient was found to have a large left pleural effusion. He did undergo thoracentesis yesterday and was found to have a hemothorax. His chest tube with pigtail drain is still in place. This morning he denies any chest pain or pressure. He denies any shortness of breath or edema. He denies any fever, chills, nausea, vomiting or diarrhea. The patient's INR was elevated at 5.6 on admission. He did receive vitamin K and his INR was down to 1.4 yesterday. The supratherapeutic INR was likely the cause of his hemothorax in addition to triple therapy. Exam Data for Last 24 hours Vital signs and Labs for Last 24 Hours: Temp Pulse Resp BP Pulse Ox O2 Del Method O2 Flow Rate 98.1 F 70 16 130/72 93 L Nasal Cannula 4 11/18/24 07:56 11/18/24 07:56 11/18/24 07:56 11/18/24 07:56 11/18/24 07:56 11/18/24 07:56 11/18/24 07:54 Laboratory Results - last 24 hr 11/17/24 10:30: Hgb 11.2 L D, Hct 38.2 L, Fluid Source Thoracentesis fluid, Fluid Volume 60, Fluid Appearance Bloody, Fluid RBC (Auto) [id number], Fld Tot Nucleated Cell 3565, Fld Polynuclear WBCs % 89, Fld Mononuclear WBCs % 11 11/17/24 10:59: POC Glucose 178 H 11/17/24 16:27: POC Glucose 162 H 11/18/24 05:38: WBC 11.4 H, RBC 2.84 L, Hgb 8.4 L D, Hct 26.9 L, MCV 94.7 H, MCH 29.6, MCHC 31.2 L, RDW 14.7, Plt Count 169, MPV 11.5 H, Neut % (Auto) 81.3 H, Lymph % (Auto) 7.7 L, [place] % (Auto) 10.1 H, Eos % (Auto) 0.2, Baso % (Auto) 0.2, Neut # (Auto) 9.2 H, Lymph # (Auto) 0.9, [place] # (Auto) 1.2 H, Eos # (Auto) 0.0, Baso # (Auto) 0.0, Sodium 136, Potassium 4.1, Chloride 101, Carbon Dioxide 27, Anion Gap 12.1, BUN 30 H, Creatinine 1.40 H, Estimated Creat Clear 63, Estimated GFR 50 L, Est GFR ( Amer) 60, Glucose 157 H, Calcium 8.4, Total Bilirubin 1.1, Direct Bilirubin 0.2, Conjugated Bilirubin 0.0, Indirect Bilirubin 0.9, Unconjugated Bilirubin 0.8, AST 23, ALT 21, Alkaline Phosphatase 60, Total Protein 6.1 L, Albumin 3.7, Triglycerides 91, Cholesterol 124 L, LDL Cholesterol Direct 44.19 L, VLDL Cholesterol 18, HDL Cholesterol 46, Cholesterol/HDL Ratio 2.7 11/18/24 06:45: POC Glucose 157 H 11/18/24 09:50: POC Glucose 157 H I & O for Last 24 hours: Intake & Output 11/15/24 11/16/24 11/17/24 11/18/24 23:59 23:59 23:59 23:59 Intake Total 2150 / 2150 240 / 240 Output Total 2170 / 2170 900 / 900 Balance -20 / -20 -660 / -660 Weight 215 lb 8 oz 215 lb 4.8 oz 212 lb 4.8 oz Microbiology Reports for the Last 24 Hours: Microbiology 11/16/24 15:52 Urine,Clean Catch Urine Culture - Final NO GROWTH AFTER 48 HOURS Constitutional Constitutional: no acute distress and average body habitus *Routine HEENT Exam Head: Present normocephalic and atraumatic ENT: Present mucous membranes moist *Routine Neck Exam Neck: Present supple, full ROM and normal carotid upstroke; Absent JVD, carotid bruit or lymphadenopathy *Routine Respiratory Exam Respiratory: Present crackles, normal respiratory effort, able to speak in complete sentences and symmetric chest movement *Routine Cardiovascular Exam Cardiovascular: Present RRR, Normal S1 and Normal S2; Absent murmur or gallop *Routine Abdominal Exam Abdominal: Present soft and normoactive bowel sounds; Absent tenderness, distended or organomegaly *Routine Extremities Exam Extremities: Present full ROM, pulses intact and normal capillary refill; Absent cyanosis, clubbing or edema *Routine Skin Exam Skin: Present intact and warm; Absent erythema *Routine Neurological Exam Neurological: Present alert, oriented X3 and CN II-XII intact; Absent sensory deficit or motor deficit Routine Psychiatric Exam Psychiatric: Present normal affect Progress Note: A&P Assessment and plan (1) Hemothorax: Status: Acute (2) Warfarin-induced coagulopathy: Status: Acute (3) Pleural effusion: Status: Acute (4) History of coronary angioplasty with insertion of stent: Status: Acute (5) Coronary artery disease: Status: Acute (6) Atrial fibrillation: Status: Acute (7) Presence of combination internal cardiac defibrillator (ICD) and pacemaker: Status: Acute (8) Hypertension: Status: Acute (9) Type 2 diabetes mellitus: Problem details: Continuing with Jardiance samples Status: Chronic (10) Hyperlipemia: Status: Acute Assessment and Plan Assessment and Plan for All Diagnoses:: Plan: 1. Patient was admitted to the hospital with a large left pleural effusion. Pulmonology was consulted and did a thoracentesis. The patient does have a hemothorax and a chest tube remains in place this morning. 2. On admission the patient was found to have a supratherapeutic INR at 5.6, this in addition to his triple therapy is most likely the cause of his hemothorax. His aspirin, Plavix and Coumadin have been put on hold. 3. The patient can resume aspirin 81 mg daily at this time. 4. Coumadin can be restarted on an outpatient basis at a later time once he is fully recovered from his hemothorax as he declines a history of CVA. 5. Coronary artery disease is present. Recent stenting in July 2024. He was on aspirin and Plavix. As mentioned above the aspirin and Plavix have both been stopped due to his hemothorax. He denies any chest pain or pressure. No plans for invasive left cardiac catheterization at this time. 6. His blood pressure is acceptable. Continue bisoprolol and irbesartan HCT. 7. His LDL goal is less than 55. He is on a statin. LDL is 44. 8. The patient does have a history of paroxysmal atrial fibrillation. His last AICD interrogation showed his AT/AF burden is 1% with the longest episode approximately an hour. Due to his hemothorax anticoagulation will be held at this time. 9. No further recommendations at this time from a cardiac standpoint. Once he is stable from a medical standpoint and discharged home he will need to follow up in cardiology clinic in 1 to 2 weeks on an outpatient basis. 10. The patient will need to be discharged on the following cardiac medications: Aspirin 81 mg daily, bisoprolol 10 mg daily, Jardiance 10 mg daily, irbesartan HCT 300/12.5 mg daily, rosuvastatin 5 mg daily. Coumadin will be restarted on an outpatient basis when it is safe to do so. Thank you for the opportunity to help participate in the care of this patient. All recommendations and orders are per Dr. Burroughs.
[2024-11-18 10:56] LABS: POC Glucose,Bedside 198 (70-110)
[2024-11-18] MEDS: ASPIRIN EC 81MG TABLET 81 MG PO (11:46)
[2024-11-18 12:13] LABS: Albumin, Body Fluid 2.3 g/dL (Not Estab.); Protein, Body Fluid 9.3 g/dL (.)
[2024-11-18] MEDS: HYDROCODONE 10MG/APAP 325MG TAB 1 TAB PO (12:15)
[2024-11-18 14:11] LABS: Glucose, Body Fluid 86 mg/dL (.); LD, Body Fluid 349 IU/L (.)
[2024-11-18 16:33] LABS: POC Glucose,Bedside 134 (70-110)
--- NOTE | 2024-11-18 18:20 | PC.NURSE ---
Patient disconnected his low wall suction form the wall and was walking down the hallway. Asked him to go back to his room and to call out if he need help with anything. Teaching done on risks of removing suction from the wall to his pigtail drain. Aox 4, up ad linda, fsbg, on 023L nc sats in the 90's, 18g L AC sl.
--- NOTE | 2024-11-18 18:26 | P.PN_ITS ---
Subjective *Date: 11/18/24 *Time: 18:26 Interval history: Patient doing better today, no left-sided chest pain. Pulmonology restarted chest tube suction, will follow-up output. Exam Data for Last 24 hours Vital signs and Labs for Last 24 Hours: Temp Pulse Resp BP Pulse Ox O2 Del Method O2 Flow Rate 98.1 F 75 16 142/77 H 96 Nasal Cannula 3 11/18/24 15:43 11/18/24 15:43 11/18/24 15:43 11/18/24 15:43 11/18/24 15:43 11/18/24 15:59 11/18/24 15:59 Laboratory Results - last 24 hr 11/17/24 10:30: Fluid Glucose 86, Fluid Total Protein 9.3, Fluid Albumin 2.3, Fluid LDH 349 11/17/24 20:57: POC Glucose 198 H 11/18/24 05:38: WBC 11.4 H, RBC 2.84 L, Hgb 8.4 L D, Hct 26.9 L, MCV 94.7 H, MCH 29.6, MCHC 31.2 L, RDW 14.7, Plt Count 169, MPV 11.5 H, Neut % (Auto) 81.3 H, Lymph % (Auto) 7.7 L, [place] % (Auto) 10.1 H, Eos % (Auto) 0.2, Baso % (Auto) 0.2, Neut # (Auto) 9.2 H, Lymph # (Auto) 0.9, [place] # (Auto) 1.2 H, Eos # (Auto) 0.0, Baso # (Auto) 0.0, Sodium 136, Potassium 4.1, Chloride 101, Carbon Dioxide 27, Anion Gap 12.1, BUN 30 H, Creatinine 1.40 H, Estimated Creat Clear 63, Estimated GFR 50 L, Est GFR ( Amer) 60, Glucose 157 H, Calcium 8.4, Total Bilirubin 1.1, Direct Bilirubin 0.2, Conjugated Bilirubin 0.0, Indirect Bilirubin 0.9, Unconjugated Bilirubin 0.8, AST 23, ALT 21, Alkaline Phosphatase 60, Total Protein 6.1 L, Albumin 3.7, Triglycerides 91, Cholesterol 124 L, LDL Cholesterol Direct 44.19 L, VLDL Cholesterol 18, HDL Cholesterol 46, Cholesterol/HDL Ratio 2.7 11/18/24 06:45: POC Glucose 157 H 11/18/24 09:50: POC Glucose 157 H 11/18/24 16:25: POC Glucose 134 H Temp Pulse Resp BP Pulse Ox O2 Del Method 97.9 F 75 16 143/66 H 91 L Room Air 11/17/24 07:45 11/17/24 07:45 11/17/24 07:45 11/17/24 07:45 11/17/24 07:45 11/17/24 08:19 Laboratory Results - last 24 hr 11/16/24 14:25: WBC 7.8, RBC 3.25 L, Hgb 10.1 L, Hct 30.2 L, MCV 92.9, MCH 31.1, MCHC 33.4, RDW 14.4, Plt Count 158, MPV 12.1 H, Neut % (Auto) 87.0 H, Lymph % (Auto) 7.0 L, [place] % (Auto) 5.4, Eos % (Auto) 0.0 L, Baso % (Auto) 0.3, Neut # (Auto) 6.8, Lymph # (Auto) 0.6 L, [place] # (Auto) 0.4, Eos # (Auto) 0.0, Baso # (Auto) 0.0, PT 57.0 H, INR 5.85 H, APTT 49.0 H, D-Dimer 0.37, Sodium 133 L, Potassium 4.1, Chloride 105, Carbon Dioxide 25, Anion Gap 7.1, BUN 24 H, Creatinine 1.40 H, Estimated Creat Clear 65, Estimated GFR 50 L, Est GFR ( Amer) 60, Glucose 221 H, Hemoglobin A1c 6.3 H, Calcium 8.6, Magnesium 1.9, Total Bilirubin 1.3, AST 23, ALT 21, Alkaline Phosphatase 58, Troponin I < 0.01, NT-Pro-B Natriuret Pep 325 H, Total Protein 5.8 L, Albumin 3.6, Globulin 2.2, Albumin/Globulin Ratio 1.6, Lipase 51 11/16/24 14:37: VBG pH 7.28 L, VBG pCO2 46.0, VBG pO2 30.0, VBG HCO3 20.9 L, VBG Total CO2 22.3 L, VBG O2 Saturation 57.8, VBG Base Excess -5.9 L, VBG Lactic Acid 2.6 H 11/16/24 15:52: Urine Color Yellow, Urine Appearance Clear, Urine pH 6.0, Ur Specific [place] 1.025, Urine Protein Trace, Urine Glucose (UA) Negative, Urine Ketones Negative, Urine Blood Negative, Urine Nitrate Negative, Urine Bilirubin 1+ A, Urine Urobilinogen 1.0, Ur Leukocyte Esterase Trace, Urine WBC 10-20 11/16/24 17:26: Troponin I < 0.01 11/16/24 19:42: POC Glucose 361 H* 11/16/24 20:54: Lactate 2.4 H, Troponin I < 0.01 11/16/24 23:05: Lactate 2.0 11/17/24 04:52: POC Glucose 219 H 11/17/24 05:22: WBC 10.6 D, RBC 3.05 L, Hgb 9.4 L, Hct 27.9 L, MCV 91.5, MCH 30.8, MCHC 33.7, RDW 14.2, Plt Count 156, MPV 12.0 H, Neut % (Auto) 93.2 H, Lymph % (Auto) 3.7 L, [place] % (Auto) 2.3, Eos % (Auto) 0.0 L, Baso % (Auto) 0.1, Neut # (Auto) 9.8 H, Lymph # (Auto) 0.4 L, [place] # (Auto) 0.2, Eos # (Auto) 0.0, Baso # (Auto) 0.0, Total Counted 100, Neutrophils % (Manual) 96 H, Lymphocytes % (Manual) 2 L, Monocytes % (Manual) 2, Platelet Estimate Normal, RBC Morphology Normal, PT 15.5 H, INR 1.43 H, Sodium 132 L, Potassium 4.4, Chloride 105, Carbon Dioxide 24, Anion Gap 7.4, BUN 28 H, Creatinine 1.30 H, Estimated Creat Clear 69, Estimated GFR 54 L, Est GFR ( Amer) 65, Glucose 201 H, Calcium 9.1, Magnesium 2.4 H D, Total Bilirubin 1.5 H, AST 20, ALT 21, Alkaline Phosphatase 58, Lactate Dehydrogenase 168 L, Total Protein 6.2 L, Albumin 3.7, Globulin 2.5, Albumin/Globulin Ratio 1.5 11/17/24 10:30: Hgb 11.2 L D, Hct 38.2 L 11/17/24 10:59: POC Glucose 178 H I & O for Last 24 hours: Intake & Output 11/15/24 11/16/24 11/17/24 11/18/24 23:59 23:59 23:59 23:59 Intake Total 2150 / 2150 840 / 840 Output Total 2170 / 2170 1650 / 1650 Balance -20 / -20 -810 / -810 Weight 97.749 kg 97.658 kg 96.2 kg Intake & Output 11/14/24 11/15/24 11/16/24 11/17/24 23:59 23:59 23:59 23:59 Intake Total 1100 / 1100 Output Total 1999 Balance -900 / -900 Weight 215 lb 8 oz 215 lb 4.8 oz Microbiology Reports for the Last 24 Hours: Microbiology 11/17/24 10:32 Pleural Fluid Gram Stain - Final 11/17/24 10:32 Pleural Fluid Body Fluid Culture - Preliminary 11/16/24 15:52 Urine,Clean Catch Urine Culture - Final NO GROWTH AFTER 48 HOURS Constitutional Constitutional: no acute distress and average body habitus *Routine HEENT Exam Head: Present normocephalic and atraumatic ENT: Present mucous membranes moist *Routine Neck Exam Neck: Present supple, full ROM and normal carotid upstroke; Absent JVD, carotid bruit or lymphadenopathy *Routine Respiratory Exam Respiratory: Present crackles, normal respiratory effort, able to speak in complete sentences and symmetric chest movement *Routine Cardiovascular Exam Cardiovascular: Present RRR, Normal S1 and Normal S2; Absent murmur or gallop *Routine Abdominal Exam Abdominal: Present soft and normoactive bowel sounds; Absent tenderness, distended or organomegaly *Routine Extremities Exam Extremities: Present full ROM, pulses intact and normal capillary refill; Absent cyanosis, clubbing or edema *Routine Skin Exam Skin: Present intact and warm; Absent erythema *Routine Neurological Exam Neurological: Present alert, oriented X3 and CN II-XII intact; Absent sensory deficit or motor deficit Routine Psychiatric Exam Psychiatric: Present normal affect Assessment and Plan *Assessment and plan (1) Rib pain on left side: Status: Acute Category: Medical Code(s): R07.81 - Pleurodynia (2) Pleural effusion: Status: Acute Category: Medical Code(s): J90 - Pleural effusion, not elsewhere classified (3) ICD (implantable cardioverter-defibrillator) discharge: Status: Resolved Category: Medical Code(s): Z45.02 - Encounter for adjustment and management of automatic implantable cardiac defibrillator (4) Coronary artery disease: Status: Acute Qualifiers: Coronary Disease-Associated Artery/Lesion type: [place] artery [place] vs. transplanted heart: [place] heart Associated angina: without angina Qualified Code(s): I25.10 - Atherosclerotic heart disease of [place] coronary a rtery without angina pectoris Category: Medical Code(s): I25.10 - Atherosclerotic heart disease of [place] coronary artery without angina pectoris (5) History of coronary angioplasty with insertion of stent: Status: Acute Category: Surgical Code(s): Z95.5 - Presence of coronary angioplasty implant and graft (6) Hypertension: Status: Acute Qualifiers: Hypertension type: primary hypertension Qualified Code(s): I10 - Essential (primary) hypertension Category: Medical Code(s): I10 - Essential (primary) hypertension (7) Atrial fibrillation: Status: Acute Qualifiers: Atrial fibrillation type: paroxysmal Qualified Code(s): I48.0 - Paroxysmal atrial fibrillation Category: Medical Code(s): I48.91 - Unspecified atrial fibrillation (8) Warfarin-induced coagulopathy: Status: Acute Category: Medical Code(s): D68.32 - Hemorrhagic disorder due to extrinsic circulating anticoagulants; T45.515A - Adverse effect of anticoagulants, initial encounter Plan Jos Bolivar is a 74-year-old male who presents with onset of left sided chest/rib pain over the past 2 to 3 days prior to admission. Workup in the ER with finding of large left-sided pleural effusion and anemia. Discussed case with ER physician, request admission for further evaluation of effusion. Agreed to admit for further care. Problems addressed as follows: Large pleural effusion Anemia - Presented with shortness of breath, left-sided chest pain. - Initial hemoglobin low at 10.1 down from level of 15 in July, INR elevated 5.8, supratherapeutic. On warfarin for A-fib. Goal 2-3. Vitamin K 5 mg given. ? Pulmonology consulted, s/p thoracentesis with ~2 L sanguinous output on 11/17/2024. Vital signs remained stable. Repeat CXRs also reassuring. ? Discussed with pulmonology, we started section this morning at -20. Will follow-up output. If minimal, will consider removing chest tube and discharging tomorrow. ? Discussed with cardiology, recommended discontinuing Plavix and warfarin and continuing aspirin. Cost has been an issue for patient to transition off warfarin to DOAC. WILLAM vs CKD 3: - Kidney function has fluctuated over the past year as low as 1.0 creatinine as high as 1.3. Current kidney function and electrolytes suspected to be at baseline with BUN 24, creatinine 1.4, sodium 133 and potassium 4.1. - Repeat CBC, CMP, magnesium ordered for the more Diabetes - A1c 6.1 in April. A1c 6.3 on presentation. Glucose elevated above 200 on presentation. Will initiate sliding scale insulin with fingersticks ACHS - Resume empagliflozin 10 mg daily - Holding metformin 500 mg daily Paroxysmal A-fib Warfarin induced coagulopathy Heart failure with improved ejection fraction Status post ICD CAD -Heart rate controlled at this time, will hold warfarin and due to supratherapeutic state/coagulopathy. - Continue bisoprolol 10 mg daily - Reevaluate need for irbesartan and HCTZ in the morning. Holding aspirin and Plavix as he is over 3 months out from stent placement and in the setting of coagulopathy with anemia. Will resume when appropriate after thoracentesis - Echo in April 2024 with EF of 50%. Continue Zoloft 50 mg daily for mood Full code Lovenox 40 mg
[2024-11-18] MEDS: HYDROCODONE/APAP 5/325 MG TABLET 1 TAB PO (19:34)
[2024-11-18 19:58] LABS: POC Glucose,Bedside 203 (70-110)
[2024-11-19] VITALS (7 sets, daily range): BP systolic 131–151; BP diastolic 59–84; PULSE 70–79; RESP 14–18; TEMP 36.3–37.1; O2SAT 90–95; BMI 30.4
[2024-11-19] MEDS: HYDROCODONE/APAP 5/325 MG TABLET 1 TAB PO ×2 (00:42→16:00)
--- NOTE | 2024-11-19 04:26 | PC.NURSE ---
Pt c/o pain, treated per JUL. v/s, ox4, 3LNC satting in 90's. No acute events to report. Plan of care ongoing.
--- NOTE | 2024-11-19 06:06 | XR_ITS ---
PROCEDURE INFORMATION: Exam: XR Chest Exam date and time: 11/19/2024 6:04 AM Age: 74 years old Clinical indication: Other: Effusion TECHNIQUE: Imaging protocol: Radiologic exam of the chest. Views: 1 view. COMPARISON: CR XR CHEST PORTABLE 11/18/2024 5:33 AM FINDINGS: Tubes, catheters and devices: Left-sided pleural catheter is unchanged. Left-sided effusion is small. Lungs: Unremarkable. No consolidation. Pleural spaces: No pneumothorax clearly identified. Heart/Mediastinum: Unremarkable. No cardiomegaly. Bones/joints: Unremarkable. IMPRESSION: Left-sided pleural catheter is unchanged. Left-sided effusion is small. Basilar atelectasis. No pneumothorax clearly identified.
[2024-11-19 06:40] LABS: POC Glucose,Bedside 146 (70-110)
[2024-11-19 07:01] LABS: Basophils % 0.5 % (0.1-2.0); Eosinophils # 0.3 Kmm3 (0.0-0.4); Eosinophils % 3.5 % (0.1-12.0); Hematocrit 26.8 % (42.0-52.0); Hemoglobin 8.5 g/dL (14.1-18.0); Immature Granulocytes # 0.07 10^3uL; Immature Granulocytes % 0.8 %; Lymphocytes # 1.1 K/mm3 (0.7-4.5); Lymphocytes % 12.8 % (10-50); Mean Corpuscular HGB Conc 31.7 g/dL (31.8-35.4); Mean Corpuscular Hemoglobin 30.4 pg (27.0-31.2); Mean Corpuscular Volume 95.7 fl (80-94); Mean Platelet Volume 11.4 fl (7.4-10.4); Monocytes # 0.9 K/mm3 (0.1-1.0); Monocytes % 10.9 % (1.7-9.3); Neutrophils # 6.2 K/mm3 (1.8-7.8); Neutrophils % 71.5 % (37.0-80.0); Nucleated Red Blood Cells # 0 10^3/uL; Nucleated Red Blood Cells % 0 %; Platelet Count 158 K/mm3 (142-424); Red Cell Distribution Width 14.6 % (11.5-17.5); Red Cell Distribution Width-SD 51.5 fL; White Blood Count 8.6 K/mm3 (4.8-10.8)
[2024-11-19 08:15] LABS: Albumin Level 3.4 g/dl (3.5-5.0); Chloride 106 mmol/L (98-107); Potassium 4.1 mmoL/L (3.5-5.1); Sodium 137 mmol/L (136-145)
[2024-11-19 08:18] LABS: Alanine Aminotransferase 28 U/L (12-78); Albumin/Globulin Ratio 1.5 (1.1-1.8); Alkaline Phosphatase 60 U/L (38-126); Anion Gap 8.1 mEq/L (5-15); Aspartate Amino Transferase 58 U/L (17-59); Bilirubin,Total 1.3 mg/dl (0.2-1.3); Blood Urea Nitrogen 28 mg/dl (9-20); Calcium 8.4 mg/dl (8.4-10.2); Carbon Dioxide 27 mmol/L (22.0-30.0); Creatinine Clearance Estimated 68 mL/min (50-200); Estimated Glomerular Filt Rate 54 ml/min (>60); GFR (African American) 65 ML/MIN (>60); Globulin 2.2 g/dL (1.3-3.2); Glucose 128 mg/dl (74-100); Total Protein,Serum 5.6 g/dl (6.3-8.2)
[2024-11-19] MEDS: SERTRALINE 50MG TABLET 50 MG PO (08:35)
[2024-11-19] MEDS: ASPIRIN EC 81MG TABLET 81 MG PO (08:35)
[2024-11-19] MEDS: EMPAGLIFLOZIN 10MG TABLET 10 MG PO (08:35)
[2024-11-19] MEDS: BISOPROLOL 5MG TABLET 10 MG PO (08:35)
--- NOTE | 2024-11-19 10:16 | XR_ITS ---
PROCEDURE INFORMATION: Exam: XR Chest Exam date and time: 11/19/2024 10:26 AM Age: 74 years old Clinical indication: Other: Follow up on effusion TECHNIQUE: Imaging protocol: Radiologic exam of the chest. Views: 1 view. COMPARISON: CR XR CHEST PORTABLE 11/19/2024 6:04 AM FINDINGS: Tubes, catheters and devices: Left pleural pigtail catheter stable. Implanted cardiac device. Lungs: Unremarkable. No consolidation. Pleural spaces: Small left pleural effusion, essentially stable. Heart/Mediastinum: Unremarkable. No cardiomegaly. Bones/joints: Unremarkable. IMPRESSION: Small left pleural effusion, essentially stable.
--- NOTE | 2024-11-19 10:47 | PC.NURSE ---
pt 94% on RA
[2024-11-19 10:51] LABS: POC Glucose,Bedside 155 (70-110)
[2024-11-19] MEDS: humaLOG 100 UNITS/ML 10ML VIAL (SSI) SUBCUT ×2 (11:09→20:56)
[2024-11-19] MEDS: DORNASE ALFA 1 MG/ML SOLUTION 5 MG IJ ×2 (12:54→23:41)
[2024-11-19] MEDS: CATHFLO 2MG VIAL 10 MG IJ ×2 (12:54→23:41)
--- NOTE | 2024-11-19 14:30 | XR_ITS ---
PROCEDURE INFORMATION: Exam: XR Chest Exam date and time: 11/19/2024 2:21 PM Age: 74 years old Clinical indication: Other: F/u effusion S/P tpa TECHNIQUE: Imaging protocol: Radiologic exam of the chest. Views: 1 view. COMPARISON: CR XR CHEST PORTABLE 11/19/2024 10:26 AM FINDINGS: Tubes, catheters and devices: Left pleural pigtail catheter stable. Implanted cardiac device. Lungs: Unremarkable. No consolidation. Pleural spaces: Small left pleural effusion, essentially stable. Heart/Mediastinum: Unremarkable. No cardiomegaly. Bones/joints: Unremarkable. IMPRESSION: Small left pleural effusion, essentially stable.
--- NOTE | 2024-11-19 15:29 | P.PN_ITS ---
Subjective *Date: 11/19/24 *Time: 15:29 Interval history: Patient is doing well today, disappointed that he cannot go home today. Pulmonology recommended 2 doses of tPA into chest tube to help break down blood clots and debris's. Continue continuous suctioning at -20. Exam Data for Last 24 hours Vital signs and Labs for Last 24 Hours: Temp Pulse Resp BP Pulse Ox O2 Del Method O2 Flow Rate 98.4 F 79 16 134/61 94 L Room Air 3 11/19/24 08:00 11/19/24 08:00 11/19/24 08:00 11/19/24 08:00 11/19/24 10:39 11/19/24 15:00 11/19/24 08:00 Laboratory Results - last 24 hr 11/18/24 16:25: POC Glucose 134 H 11/18/24 19:36: POC Glucose 203 H 11/19/24 06:09: WBC 8.6, RBC 2.80 L, Hgb 8.5 L, Hct 26.8 L, MCV 95.7 H, MCH 30.4, MCHC 31.7 L, RDW 14.6, Plt Count 158, MPV 11.4 H, Neut % (Auto) 71.5, Lymph % (Auto) 12.8, [place] % (Auto) 10.9 H, Eos % (Auto) 3.5, Baso % (Auto) 0.5, Neut # (Auto) 6.2, Lymph # (Auto) 1.1, [place] # (Auto) 0.9, Eos # (Auto) 0.3, Baso # (Auto) 0.0, Sodium 137, Potassium 4.1, Chloride 106, Carbon Dioxide 27, Anion Gap 8.1, BUN 28 H, Creatinine 1.30 H, Estimated Creat Clear 68, Estimated GFR 54 L, Est GFR ( Amer) 65, Glucose 128 H, Calcium 8.4, Total Bilirubin 1.3, AST 58 D, ALT 28 D, Alkaline Phosphatase 60, Total Protein 5.6 L, Albumin 3.4 L, Globulin 2.2, Albumin/Globulin Ratio 1.5 11/19/24 06:34: POC Glucose 146 H 11/19/24 10:40: POC Glucose 155 H Temp Pulse Resp BP Pulse Ox O2 Del Method 97.9 F 75 16 143/66 H 91 L Room Air 11/17/24 07:45 11/17/24 07:45 11/17/24 07:45 11/17/24 07:45 11/17/24 07:45 11/17/24 08:19 Laboratory Results - last 24 hr 11/16/24 14:25: WBC 7.8, RBC 3.25 L, Hgb 10.1 L, Hct 30.2 L, MCV 92.9, MCH 31.1, MCHC 33.4, RDW 14.4, Plt Count 158, MPV 12.1 H, Neut % (Auto) 87.0 H, Lymph % (Auto) 7.0 L, [place] % (Auto) 5.4, Eos % (Auto) 0.0 L, Baso % (Auto) 0.3, Neut # (Auto) 6.8, Lymph # (Auto) 0.6 L, [place] # (Auto) 0.4, Eos # (Auto) 0.0, Baso # (Auto) 0.0, PT 57.0 H, INR 5.85 H, APTT 49.0 H, D-Dimer 0.37, Sodium 133 L, Potassium 4.1, Chloride 105, Carbon Dioxide 25, Anion Gap 7.1, BUN 24 H, Creatinine 1.40 H, Estimated Creat Clear 65, Estimated GFR 50 L, Est GFR ( Amer) 60, Glucose 221 H, Hemoglobin A1c 6.3 H, Calcium 8.6, Magnesium 1.9, Total Bilirubin 1.3, AST 23, ALT 21, Alkaline Phosphatase 58, Troponin I < 0.01, NT-Pro-B Natriuret Pep 325 H, Total Protein 5.8 L, Albumin 3.6, Globulin 2.2, Albumin/Globulin Ratio 1.6, Lipase 51 11/16/24 14:37: VBG pH 7.28 L, VBG pCO2 46.0, VBG pO2 30.0, VBG HCO3 20.9 L, VBG Total CO2 22.3 L, VBG O2 Saturation 57.8, VBG Base Excess -5.9 L, VBG Lactic Acid 2.6 H 11/16/24 15:52: Urine Color Yellow, Urine Appearance Clear, Urine pH 6.0, Ur Specific [place] 1.025, Urine Protein Trace, Urine Glucose (UA) Negative, Urine Ketones Negative, Urine Blood Negative, Urine Nitrate Negative, Urine Bilirubin 1+ A, Urine Urobilinogen 1.0, Ur Leukocyte Esterase Trace, Urine WBC 10-20 11/16/24 17:26: Troponin I < 0.01 11/16/24 19:42: POC Glucose 361 H* 11/16/24 20:54: Lactate 2.4 H, Troponin I < 0.01 11/16/24 23:05: Lactate 2.0 11/17/24 04:52: POC Glucose 219 H 11/17/24 05:22: WBC 10.6 D, RBC 3.05 L, Hgb 9.4 L, Hct 27.9 L, MCV 91.5, MCH 30.8, MCHC 33.7, RDW 14.2, Plt Count 156, MPV 12.0 H, Neut % (Auto) 93.2 H, Lymph % (Auto) 3.7 L, [place] % (Auto) 2.3, Eos % (Auto) 0.0 L, Baso % (Auto) 0.1, Neut # (Auto) 9.8 H, Lymph # (Auto) 0.4 L, [place] # (Auto) 0.2, Eos # (Auto) 0.0, Baso # (Auto) 0.0, Total Counted 100, Neutrophils % (Manual) 96 H, Lymphocytes % (Manual) 2 L, Monocytes % (Manual) 2, Platelet Estimate Normal, RBC Morphology Normal, PT 15.5 H, INR 1.43 H, Sodium 132 L, Potassium 4.4, Chloride 105, Carbon Dioxide 24, Anion Gap 7.4, BUN 28 H, Creatinine 1.30 H, Estimated Creat Clear 69, Estimated GFR 54 L, Est GFR ( Amer) 65, Glucose 201 H, Calcium 9.1, Magnesium 2.4 H D, Total Bilirubin 1.5 H, AST 20, ALT 21, Alkaline Phosphatase 58, Lactate Dehydrogenase 168 L, Total Protein 6.2 L, Albumin 3.7, Globulin 2.5, Albumin/Globulin Ratio 1.5 11/17/24 10:30: Hgb 11.2 L D, Hct 38.2 L 11/17/24 10:59: POC Glucose 178 H I & O for Last 24 hours: Intake & Output 11/16/24 11/17/24 11/18/24 11/19/24 23:59 23:59 23:59 23:59 Intake Total 2150 / 2150 840 / 1080 1080 / 1080 Output Total 2170 / 2170 1650 / 2450 1900 / 1900 Balance -20 / -20 -810 / -1370 -820 / -820 Weight 97.749 kg 97.658 kg 96.2 kg 96.434 kg Intake & Output 11/14/24 11/15/24 11/16/24 11/17/24 23:59 23:59 23:59 23:59 Intake Total 1100 / 1100 Output Total 1999 Balance -900 / -900 Weight 215 lb 8 oz 215 lb 4.8 oz Microbiology Reports for the Last 24 Hours: Microbiology 11/17/24 10:32 Pleural Fluid Gram Stain - Final 11/17/24 10:32 Pleural Fluid Body Fluid Culture - Preliminary Constitutional Constitutional: no acute distress and average body habitus *Routine HEENT Exam Head: Present normocephalic and atraumatic ENT: Present mucous membranes moist *Routine Neck Exam Neck: Present supple, full ROM and normal carotid upstroke; Absent JVD, carotid bruit or lymphadenopathy *Routine Respiratory Exam Respiratory: Present crackles, normal respiratory effort, able to speak in complete sentences and symmetric chest movement *Routine Cardiovascular Exam Cardiovascular: Present RRR, Normal S1 and Normal S2; Absent murmur or gallop *Routine Abdominal Exam Abdominal: Present soft and normoactive bowel sounds; Absent tenderness, distended or organomegaly *Routine Extremities Exam Extremities: Present full ROM, pulses intact and normal capillary refill; Absent cyanosis, clubbing or edema *Routine Skin Exam Skin: Present intact and warm; Absent erythema *Routine Neurological Exam Neurological: Present alert, oriented X3 and CN II-XII intact; Absent sensory deficit or motor deficit Routine Psychiatric Exam Psychiatric: Present normal affect Assessment and Plan *Assessment and plan (1) Rib pain on left side: Status: Acute Category: Medical Code(s): R07.81 - Pleurodynia (2) Pleural effusion: Status: Acute Category: Medical Code(s): J90 - Pleural effusion, not elsewhere classified (3) ICD (implantable cardioverter-defibrillator) discharge: Status: Resolved Category: Medical Code(s): Z45.02 - Encounter for adjustment and management of automatic implantable cardiac defibrillator (4) Coronary artery disease: Status: Acute Qualifiers: Coronary Disease-Associated Artery/Lesion type: [place] artery [place] vs. transplanted heart: [place] heart Associated angina: without angina Qualified Code(s): I25.10 - Atherosclerotic heart disease of [place] coronary artery without angina pectoris Category: Medical Code(s): I25.10 - Atherosclerotic heart disease of [place] coronary artery without angina pectoris (5) History of coronary angioplasty with insertion of stent: Status: Acute Category: Surgical Code(s): Z95.5 - Presence of coronary angioplasty implant and graft (6) Hypertension: Status: Acute Qualifiers: Hypertension type: primary hypertension Qualified Code(s): I10 - Es sential (primary) hypertension Category: Medical Code(s): I10 - Essential (primary) hypertension (7) Atrial fibrillation: Status: Acute Qualifiers: Atrial fibrillation type: paroxysmal Qualified Code(s): I48.0 - Paroxysmal atrial fibrillation Category: Medical Code(s): I48.91 - Unspecified atrial fibrillation (8) Warfarin-induced coagulopathy: Status: Acute Category: Medical Code(s): D68.32 - Hemorrhagic disorder due to extrinsic circulating anticoagulants; T45.515A - Adverse effect of anticoagulants, initial encounter Plan Jos Bolivar is a 74-year-old male who presents with onset of left sided chest/rib pain over the past 2 to 3 days prior to admission. Workup in the ER with finding of large left-sided pleural effusion and anemia. Discussed case with ER physician, request admission for further evaluation of effusion. Agreed to admit for further care. Problems addressed as follows: Large pleural effusion Anemia - Presented with shortness of breath, left-sided chest pain. - Initial hemoglobin low at 10.1 down from level of 15 in July, INR elevated 5.8, supratherapeutic. On warfarin for A-fib. Goal 2-3. Vitamin K 5 mg given with improvement in PT/INR. ? Pulmonology consulted, s/p thoracentesis with ~2 L sanguinous output on 11/17/2024. Vital signs remained stable. Repeat CXRs also reassuring. ? Discussed with pulmonology, will continue suctioning at -20. Has had about 500 mL since yesterday, and an additional 100 mL since tPA was given. Additional tPA dosing will be at 11:30 PM tonight. ? Discussed with cardiology, recommended discontinuing Plavix and warfarin and continuing aspirin. Cost has been an issue for patient to transition off warfarin to DOAC. Patient has not been following up with Coumadin clinic as recommended. ? CXR today reassuring. No reaccumulation of hemothorax. On room air, vital signs stable. WILLAM vs CKD 3: - Kidney function has fluctuated over the past year as low as 1.0 creatinine as high as 1.3. Current kidney function and electrolytes suspected to be at baseline with BUN 24, creatinine 1.4, sodium 133 and potassium 4.1. - Repeat CBC, CMP, magnesium ordered for the more Diabetes - A1c 6.1 in April. A1c 6.3 on presentation. Glucose elevated above 200 on presentation. Will initiate sliding scale insulin with fingersticks ACHS - Resume empagliflozin 10 mg daily - Holding metformin 500 mg daily Paroxysmal A-fib Warfarin induced coagulopathy Heart failure with improved ejection fraction Status post ICD CAD -Heart rate controlled at this time, will hold warfarin and due to supratherapeutic state/coagulopathy. - Continue bisoprolol 10 mg daily - Reevaluate need for irbesartan and HCTZ in the morning. Holding aspirin and Plavix as he is over 3 months out from stent placement and in the setting of coagulopathy with anemia. Will resume when appropriate after thoracentesis - Echo in April 2024 with EF of 50%. Continue Zoloft 50 mg daily for mood Full code Lovenox 40 mg
[2024-11-19 16:36] LABS: POC Glucose,Bedside 148 (70-110)
--- NOTE | 2024-11-19 17:13 | PC.NURSE ---
pt 88-90% on RA at 1600 vital signs. 2L NC applied.
--- NOTE | 2024-11-19 17:29 | PC.NURSE ---
Addendum entered by Lucrecia Henao RN 11/19/24 18:41: 940mL out of chest tube this shift Original Note: Pt is A&Ox4. Vital signs stable tolerating 2L NC at this time. Chest tube to left side intact and is currently to low wall suction. Pt with increased output from chest tube after alteplase and dornase edward administered per JUL. MD notified of increased output. Pt complains of pain. PRN pain medication given per JUL. Pt resting comfortably in bed with no further needs voiced at this time. Call light within reach
[2024-11-19] MEDS: HYDROMORPHONE 2MG/ML SYRINGE 1 MG IV (17:56)
[2024-11-19] MEDS: HYDROCODONE 10MG/APAP 325MG TAB 1 TAB PO (20:56)
[2024-11-19 21:32] LABS: POC Glucose,Bedside 272 (70-110)
[2024-11-20] MEDS: HYDROMORPHONE 2MG/ML SYRINGE 1 MG IV (01:46)
[2024-11-20 04:00] VITALS: BP 156/73; PULSE 74; RESP 14; TEMP 36.9; O2SAT 92; BMI 29.9
--- NOTE | 2024-11-20 05:21 | PC.NURSE ---
Pt given ice water.
--- NOTE | 2024-11-20 05:23 | PC.NURSE ---
v/s, ox4. Pt c/o pain, treated per JUL. Chest tube drainage monitored. Pt has been noncompliant with staying in chair or bed when hooked up to suction for the chest tube. Provider notified. Pt stated he was sick of not being able to walk the halls and that he wanted to go home. Pt was out of breath after he unhooked himself from low wall suction that is connected to his chest tube, and removed his nasal cannula from his nose to walk the hallway. Nurse spotted him coming down the romero, so nurse escorted him back to his room, where 2LNC was placed on pt. Pt's O2 sat was checked and pt was satting at 75%. The pt did this twice. This is when provider was immediately notified of his noncompliance. Plan of care ongoing.
--- NOTE | 2024-11-20 06:26 | PC.NURSE ---
Pt refused insulin, bg was 162
[2024-11-20 06:34] LABS: Basophils % 0.2 % (0.1-2.0); Eosinophils # 0.2 Kmm3 (0.0-0.4); Eosinophils % 1.5 % (0.1-12.0); Hematocrit 27.2 % (42.0-52.0); Hemoglobin 8.6 g/dL (14.1-18.0); Immature Granulocytes % 0.9 %; Lymphocytes # 0.6 K/mm3 (0.7-4.5); Lymphocytes % 5.8 % (10-50); Mean Corpuscular HGB Conc 31.6 g/dL (31.8-35.4); Mean Corpuscular Hemoglobin 30.3 pg (27.0-31.2); Mean Corpuscular Volume 95.8 fl (80-94); Mean Platelet Volume 11.2 fl (7.4-10.4); Monocytes % 9.1 % (1.7-9.3); Neutrophils # 8.8 K/mm3 (1.8-7.8); Neutrophils % 82.5 % (37.0-80.0); Nucleated Red Blood Cells # 0 10^3/uL; Nucleated Red Blood Cells % 0 %; Platelet Count 194 K/mm3 (142-424); Red Blood Count 2.84 M/mm3 (4.60-6.20); Red Cell Distribution Width 14.7 % (11.5-17.5); Red Cell Distribution Width-SD 51.5 fL; White Blood Count 10.7 K/mm3 (4.8-10.8)
[2024-11-20 06:37] LABS: Albumin Level 3.4 g/dl (3.5-5.0); Chloride 102 mmol/L (98-107); Potassium 4.9 mmoL/L (3.5-5.1); Sodium 136 mmol/L (136-145)
[2024-11-20 06:39] LABS: Blood Urea Nitrogen 31 mg/dl (9-20); Creatinine Clearance Estimated 67 mL/min (50-200); Estimated Glomerular Filt Rate 54 ml/min (>60); GFR (African American) 65 ML/MIN (>60)
[2024-11-20 06:39] LABS: POC Glucose,Bedside 162 (70-110)
[2024-11-20 06:40] LABS: Alanine Aminotransferase 28 U/L (12-78); Albumin/Globulin Ratio 1.4 (1.1-1.8); Alkaline Phosphatase 56 U/L (38-126); Anion Gap 13.9 mEq/L (5-15); Aspartate Amino Transferase 51 U/L (17-59); Bilirubin,Total 1.6 mg/dl (0.2-1.3); Calcium 8.4 mg/dl (8.4-10.2); Carbon Dioxide 25 mmol/L (22.0-30.0); Globulin 2.5 g/dL (1.3-3.2); Glucose 156 mg/dl (74-100); Total Protein,Serum 5.9 g/dl (6.3-8.2)
[2024-11-20 08:00] VITALS: BP 144/59; PULSE 79; RESP 16; TEMP 36.9; O2SAT 94
[2024-11-20] MEDS: BISOPROLOL 5MG TABLET 10 MG PO (08:22)
[2024-11-20] MEDS: EMPAGLIFLOZIN 10MG TABLET 10 MG PO (08:22)
[2024-11-20] MEDS: ASPIRIN EC 81MG TABLET 81 MG PO (08:22)
[2024-11-20] MEDS: SERTRALINE 50MG TABLET 50 MG PO (08:22)
--- NOTE | 2024-11-20 10:11 | XR_ITS ---
PROCEDURE INFORMATION: Exam: XR Chest Exam date and time: 11/20/2024 10:29 AM Age: 74 years old Clinical indication: Other: Henothorax TECHNIQUE: Imaging protocol: Radiologic exam of the chest. Views: 1 view. COMPARISON: CR XR CHEST PORTABLE 11/19/2024 2:21 PM FINDINGS: Tubes, catheters and devices: Left pleural pigtail catheter stable. Implanted cardiac device obscures left costophrenic sulcus, limiting evaluation for pleural effusion. Lungs: No focal consolidation. Pleural spaces: As above. No pneumothorax. Heart/Mediastinum: Unremarkable. No cardiomegaly. Bones/joints: Unremarkable. IMPRESSION: Implanted cardiac device obscures left costophrenic sulcus, limiting evaluation for pleural effusion.
[2024-11-20 12:23] LABS: POC Glucose,Bedside 127 (70-110)
--- NOTE | 2024-11-20 14:52 | P.DS_ITS ---
General Admission date:: 11/16/24 HPI HPI HPI: Mr. Bolivar is a 74-year-old male with history of CAD, ICD in place, paroxysmal A-fib, diabetes, hypertension. He is on triple therapy with aspirin, Plavix, warfarin. Presented to the ER because of complaint of left-sided flank pain that started a few days ago. He has become more short of breath today. Pain is gotten worse over the last few days in his left side. Denies any fever, nausea, vomiting, coughing. Hemodynamically stable in the ER. Workup with chest imaging showing large left-sided effusion. Mild anemia. Coagulopathy with INR of 5.6. Discussed case with ER, request admission for further management of large effusion. On arrival to the floor, patient appears comfortable on room air. Eating dinner. Does not appear in respiratory distress. Afebrile. Alert and oriented x 4. Does have recent travel to [place] but denies any known trauma or injury to his chest or other signs of bleeding Hospital Course Hospital Course Hospital Course: Jos Bolivar is a 74-year-old male who presents with onset of left sided chest/rib pain over the past 2 to 3 days prior to admission. Workup in the ER with finding of large left-sided pleural effusion and anemia. Discussed case with ER physician, request admission for further evaluation of effusion. Agreed to admit for further care. Problems addressed as follows: #Large pleural effusion, hemothorax #Supratherapetic PT/INR #Anemia #Medical nonadherence - Presented with shortness of breath, left-sided chest pain. Found ot have large left pleural effusion. Requiring new 3L - Initial hemoglobin low at 10.1 down from level of 15 in July, INR elevated 5.8, supratherapeutic. On warfarin for A-fib, but following-up with Coumadin clinic. Vitamin K 5 mg given with improvement in PT/INR. ? Pulmonology consulted, s/p thoracentesis with ~2 L sanguinous output on 11/17/2024. Vital signs remained stable. Repeat CXRs also reassuring. ? Discussed with pulmonology, administered tPA into chest tube with an additional 2L mostly serous drainage. Vitals and Hgb remained stable at 8.5. ? Discharged with 2L nasal cannula, and close follow-up with pulmonology. Patient was saturating 81% with ambulation on room air. Saturating 86% on room air at rest. Paroxysmal A-fib Warfarin induced coagulopathy Heart failure with improved ejection fraction Status post ICD CAD ? Discussed with cardiology, recommended discontinuing Plavix and warfarin and continuing aspirin for Afib. Cost has been an issue for patient to transition off warfarin to DOAC. Patient has not been following up with Coumadin clinic as recommended. - Continue aspirin, bisoprolol, HCTZ, losartan. WILLAM vs CKD 3 - Cr 1.2, GFR 59. Stable. Diabetes - A1c 6.3 on presentation. - Resume empagliflozin 10 mg daily, metformin 500 mg daily. Continue Zoloft 50 mg daily for mood Total time spent on discharge: 35 minutes on chart review, counseling, documentation, and direct care with patient. Exam Data for Last 24 hours Vital signs and Labs for Last 24 Hours: Temp Pulse Resp BP Pulse Ox O2 Del Method O2 Flow Rate 98.5 F 79 16 144/59 H 94 L Nasal Cannula 2 11/20/24 08:00 11/20/24 08:00 11/20/24 08:00 11/20/24 08:00 11/20/24 08:00 11/20/24 13:00 11/20/24 11:00 Laboratory Results - last 24 hr 11/19/24 16:27: POC Glucose 148 H 11/19/24 20:47: POC Glucose 272 H 11/20/24 06:20: WBC 10.7, RBC 2.84 L, Hgb 8.6 L, Hct 27.2 L, MCV 95.8 H, MCH 30.3, MCHC 31.6 L, RDW 14.7, Plt Count 194, MPV 11.2 H, Neut % (Auto) 82.5 H, Lymph % (Auto) 5.8 L, [place] % (Auto) 9.1, Eos % (Auto) 1.5, Baso % (Auto) 0.2, Neut # (Auto) 8.8 H, Lymph # (Auto) 0.6 L, [place] # (Auto) 1.0, Eos # (Auto) 0.2, Baso # (Auto) 0.0, Sodium 136, Potassium 4.9, Chloride 102, Carbon Dioxide 25, Anion Gap 13.9, BUN 31 H, Creatinine 1.30 H, Estimated Creat Clear 67, Estimated GFR 54 L, Est GFR ( Amer) 65, Glucose 156 H, Calcium 8.4, Total Bilirubin 1.6 H, AST 51, ALT 28, Alkaline Phosphatase 56, Total Protein 5.9 L, Albumin 3.4 L, Globulin 2.5, Albumin/Globulin Ratio 1.4 11/20/24 06:25: POC Glucose 162 H 11/20/24 12:15: POC Glucose 127 H I & O for Last 24 hours: Intake & Output 11/17/24 11/18/24 11/19/24 11/20/24 23:59 23:59 23:59 23:59 Intake Total 2150 / 2150 840 / 1080 1360 / 1600 1200 / 1200 Output Total 2170 / 2170 1650 / 2450 2840 / 2990 1280 / 1280 Balance -20 / -20 -810 / -1370 -1480 / -1390 -80 / -80 Weight 97.658 kg 96.2 kg 96.434 kg 94.71 kg Constitutional Constitutional: no acute distress *Routine HEENT Exam Head: Present normocephalic Eye: Present EOMI and PERRL ENT: Present mucous membranes moist *Routine Neck Exam Neck: Present supple; Absent lymphadenopathy *Routine Respiratory Exam Respiratory: Present CTA bilaterally *Routine Cardiovascular Exam Cardiovascular: Present RRR *Routine Abdominal Exam Abdominal: Present soft and normoactive bowel sounds; Absent tenderness *Routine Extremities Exam Extremities: Absent cyanosis, clubbing or edema *Routine Skin Exam Skin: Present warm; Absent rash *Routine Neurological Exam Neurological: Present alert and oriented X3 Results Data Completed and Pending Labs on day of discharge: Labs from last 24 hours 11/20/24 11/20/24 11/20/24 12:15 06: 06:20 WBC 10.7 RBC 2.84 L Hgb 8.6 L Hct 27.2 L MCV 95.8 H MCH 30.3 MCHC 31.6 L RDW 14.7 Plt Count 194 MPV 11.2 H Neut % (Auto) 82.5 H Lymph % (Auto) 5.8 L [place] % (Auto) 9.1 Eos % (Auto) 1.5 Baso % (Auto) 0.2 Neut # (Auto) 8.8 H Lymph # (Auto) 0.6 L [place] # (Auto) 1.0 Eos # (Auto) 0.2 Baso # (Auto) 0.0 Sodium 136 Potassium 4.9 Chloride 102 Carbon Dioxide 25 Anion Gap 13.9 BUN 31 H Creatinine 1.30 H Estimated Creat Clear 67 Estimated GFR 54 L Est GFR ( Amer) 65 Glucose 156 H POC Glucose 127 H 162 H Calcium 8.4 Total Bilirubin 1.6 H AST 51 ALT 28 Alkaline Phosphatase 56 Total Protein 5.9 L Albumin 3.4 L Globulin 2.5 Albumin/Globulin Ratio 1.4 11/19/24 11/19/24 20:47 16:27 WBC RBC Hgb Hct MCV MCH MCHC RDW Plt Count MPV Neut % (Auto) Lymph % (Auto) [place] % (Auto) Eos % (Auto) Baso % (Auto) Neut # (Auto) Lymph # (Auto) [place] # (Auto) Eos # (Auto) Baso # (Auto) Sodium Potassium Chloride Carbon Dioxide Anion Gap BUN Creatinine Estimated Creat Clear Estimated GFR Est GFR ( Amer) Glucose POC Glucose 272 H 148 H Calcium Total Bilirubin AST ALT Alkaline Phosphatase Total Protein Albumin Globulin Albumin/Globulin Ratio Preliminary micro results at discharge 11/17/24 10:32 Body Fluid Culture - Preliminary Pleural Fluid DS: Diagnosis Discharge Diagnosis (1) Rib pain on left side: Status: Acute Code(s): R07.81 - Pleurodynia (2) Pleural effusion: Status: Acute Code(s): J90 - Pleural effusion, not elsewhere classified (3) ICD (implantable cardioverter-defibrillator) discharge: Status: Resolved Code(s): Z45.02 - Encounter for adjustment and management of automatic implantable cardiac defibrillator (4) Coronary artery disease: Status: Acute Code(s): I25.10 - Atherosclerotic heart disease of [place] coronary artery without angina pectoris Qualifiers: Associated angina: without angina Coronary Disease-Associated Artery/Lesion type: [place] artery [place] vs. transplanted heart: [place] heart Qualified Code(s): I25.10 - Atherosclerotic heart disease of [place] coronary artery without angina pectoris (5) History of coronary angioplasty with insertion of stent: Status: Acute Code(s): Z95.5 - Presence of coronary angioplasty implant and graft (6) Hypertension: Status: Acute Code(s): I10 - Essential (primary) hypertension Qualifiers: Hypertension type: primary hypertension Qualified Code(s): I10 - Essential (primary) hypertension (7) Atrial fibrillation: Status: Acute Code(s): I48.91 - Unspecified atrial fibrillation Qualifiers: Atrial fibrillation type: paroxysmal Qualified Code(s): I48.0 - Paroxysmal atrial fibrillation (8) Warfarin-induced coagulopathy: Status: Acute Code(s): D68.32 - Hemorrhagic disorder due to extrinsic circulating anticoagulants; T45.515A - Adverse effect of anticoagulants, initial encounter Meds Home Medications and Allergies Home Medications ?Medication ?Instructions ?Recorded ?Confirmed ?Type aspirin 81 mg tablet,delayed 81 mg PO DAILY 01/31/20 0 11/23/24 History release (Adult Aspirin Regimen) sertraline 50 mg tablet 50 mg PO DAILY #30 tabs 05/0311/23/24 Rx bisoprolol fumarate 10 mg tablet 10 mg PO DAILY #30 ta bs 07/18/24 11/23/24 Rx potassium chloride 10 mEq 10 meq PO DAILY #30 caps 04/2511/23/24 Rx capsule,extended release metformin 500 mg tablet 500 mg PO DAILY DM #30 tabs 08/10/24 11/23/24 Rx irbesartan 300 1 tab PO DAILY #90 tabs 05/0 11/2311/23/24 Rx mg-hydrochlorothiazide 12.5 mg tablet rosuvastatin 5 mg tablet 5 mg PO HS 11/16/24 11/23/24 History albuterol sulfate 90 mcg/actuation 2 puff inhalation Q 4HP PRN 11/17/24 11/23/24 History aerosol inhaler (Ventolin HFA) Shortness Of Breath empagliflozin 10 mg tablet 10 mg PO DAILY 11/17/24 History (Jardiance) dextromethorphan-guaifenesin ER 60 1 tab PO Q12H PRN c ough #60 tabs 11/20/24 11/23/24 Rx mg-1,200 mg tab,extend release,12hr amiodarone 200 mg tablet 200 mg PO DAILY #90 tabs Rx New Prescriptions to Start Prescriptions: Allergies Allergy/AdvReac Type Severity Reaction Status Date / Time No Known Allergies Allergy Verified 11/23/24 09:27 Discharge Plan Disposition Patient Disposition: Home, Self-Care Condition: Fair Discharge Order Discharge Orders: Discharge Order (Routine); Ordered 11/20/24 Ordered By: Jose Whatley Follow up Plan Follow up with: Kenia Jauregui APRN [Nurse Practitioner, Cardiology] - Enter time for follow up Referral Note: please call for appointment Alex Matos MD [Physician, Pulmonology] - 1 week Referral Note: please call for appointment Prescriptions/Medication Reconciliation: Continued aspirin [Adult Aspirin Regimen] 81 mg tablet,delayed release (DR/EC) 81 mg PO DAILY bisoprolol fumarate 10 mg tablet 10 mg PO DAILY Qty: 30 2RF potassium chloride 10 mEq capsule, extended release 10 meq PO DAILY Qty: 30 3RF sertraline 50 mg tablet 50 mg PO DAILY Qty: 30 2RF metformin 500 mg tablet 500 mg PO DAILY Qty: 30 5RF irbesartan-hydrochlorothiazide 300-12.5 mg tablet 1 tab PO DAILY Qty: 90 0RF rosuvastatin 5 mg tablet 5 mg PO HS albuterol sulfate [Ventolin HFA] 90 mcg/actuation HFA aerosol inhaler 2 puff INHALATION Q4HP PRN (Reason: Shortness Of Breath) Jardiance 10 mg Tablet 10 mg PO DAILY Changed dextromethorphan-guaifenesin 60-1,200 mg tablet extended release 12 hr 1 tab PO Q12H PRN (Reason: cough) Qty: 60 0RF Discontinued clopidogrel [Plavix] 75 mg tablet 75 mg PO DAILY Qty: 30 11RF warfarin 5 mg Tablet 7.5 mg PO SUTUTHSA warfarin 5 mg tablet 5 mg PO MOWEFR No Action amiodarone 200 mg tablet 200 mg PO DAILY Qty: 90 3RF Problem Reconciliation Problems Reviewed?: Yes Patient Discharge Instructions Patient Instructions: Pleural Effusion, Heart-Healthy Diet, DI for Thoracentesis, DI for Surgical Site Infection, DI for Hypoxia, Coumadin Vitamin K/ Diet, Stop Light Infection Print Language: Armenian Providers Primary Care Provider: José Miguel SANTANA Admit Provider: Mynor Olsen Attending Provider: Mynor Olsen
--- NOTE | 2024-11-20 14:55 | PC.NURSE ---
room air saturation after removing chest tube was 92% at rest. after ambulating o2 saturation was 81%. pt is back on 2 l nc. hospitalist notified.
[2024-11-20] MEDS: LIDOCAINE 1% 10ML MDV 10 ML IJ (14:57)
--- NOTE | 2024-11-22 10:28 | SW/DCPLANNER ---
Spoke with patient on the phone. Patient stated that he is doing good. Patient stated that he is aware of his appointment today and did not know about the other 2. I gave the patient a number he can call to schedule his cards and pulm appointments. Patient stated that he is aware of the medicine that they discontinued. Patient stated that he has no concerns or questions at this time. Marco Dietz
== END 2024-11-20 16:21 | disposition home or self-care (01) | DRG 813 ==
LOC: ER 17:25 → 2ND 17:45
PROVIDERS: Internal Medicine Pulmonary Disease; Nurse Practitioner; Nurse Practitioner Family; Student in an Organized Health Care Education/Training Program; Admitting Provider Internal Medicine Adolescent Medicine; Emergency Provider Emergency Medicine; PCP Family Medicine; Visit Provider Internal Medicine Adolescent Medicine
DX: D68.32 Hemorrhagic disorder due to extrinsic circulating anticoagulants (principal); J94.2 Hemothorax; I50.22 Chronic systolic (congestive) heart failure; N17.9 Acute kidney failure, unspecified; I13.0 Hypertensive heart and chronic kidney disease with heart failure and stage 1 through stage 4 chronic kidney disease, or unspecified chronic kidney disease; J91.8 Pleural effusion in other conditions classified elsewhere; D62 Acute posthemorrhagic anemia; I25.10 Atherosclerotic heart disease of native coronary artery without angina pectoris; T45.515A Adverse effect of anticoagulants, initial encounter; N40.0 Benign prostatic hyperplasia without lower urinary tract symptoms; N18.30 Chronic kidney disease, stage 3 unspecified; E11.22 Type 2 diabetes mellitus with diabetic chronic kidney disease; E78.2 Mixed hyperlipidemia; T45.525A Adverse effect of antithrombotic drugs, initial encounter; H91.93 Unspecified hearing loss, bilateral; T39.015A Adverse effect of aspirin, initial encounter; I48.0 Paroxysmal atrial fibrillation; Z79.84 Long term (current) use of oral hypoglycemic drugs; Z95.5 Presence of coronary angioplasty implant and graft; Z95.810 Presence of automatic (implantable) cardiac defibrillator; Z79.01 Long term (current) use of anticoagulants; Z79.02 Long term (current) use of antithrombotics/antiplatelets; Z79.899 Other long term (current) drug therapy; Z85.828 Personal history of other malignant neoplasm of skin; Z59.89 Other problems related to housing and economic circumstances; Z91.199 Patient's noncompliance with other medical treatment and regimen due to unspecified reason; Z97.4 Presence of external hearing-aid
CPT/HCPCS: 32555; 36415; 71045; 71275; 74177; 80048; 80053; 80061; 80076; 81001; 82042; 82803; 82945; 82962; 83036; 83605; 83615; 83690; 83735; 83880; 84155; 84484; 85007; 85014; 85018; 85025; 85378; 85610; 85730; 87070; 87086; 87205; 89051; 93005; 94640; 94761; J1171; J1885; J2003; J2270; J2997; J3430; J3475; J7030; J7639; Q9967

== ENCOUNTER 2024-11-22 14:51 | Outpatient (CLI) | payer MEDICARE, SELFPAY ==
--- NOTE | 2024-11-22 14:53 | XR_ITS ---
FINAL REPORT CLINICAL HISTORY: follow-up COMPARISON: 11/20/2024 FINDINGS: 2 views of the chest were obtained . The heart is normal in size. The mediastinum is within normal limits. There is left base scarring and trace left pleural effusion. Previously seen left pleural catheter is no longer evident. A left-sided pacemaker is in place. There is no pneumothorax. Osseous structures are unremarkable. IMPRESSION: Chronic changes of the left lung without significant effusion or pneumothorax. Reviewed, Interpreted and Dictated by Samson Arroyo MD Transcribed by Leola Gutiérrez Authenticated and [facility]
--- OUTSIDE RECORDS SUMMARY | 2024-11-22 14:54 | XMS_ITS | Clinical Summary ---
Author Organization [facility] Address [address] [place] [address] Phone Care Team Providers Care Laboratory Inspector Name Role Phone Unavailable Primary Care Provider [...]
--- OUTSIDE RECORDS SUMMARY | 2024-11-22 14:54 | XMS_ITS | Clinical Summary ---
Author Organization Healthcare Address [address] [place] [address] Care Team Providers Care Registered Nursing Professor Name Role Phone Jose Valdez MD Primary Care Provider [phone] Sven Clark MD Unavailable [phone] Allergies No known active allergies Medications amiodarone [...] (2 of 2 - PCV) 07/06/2021 07/06/2020 [id number] Vaccine (3 - season) 2024 07/24/2020, 06/27/2020 [...] complete this topic Insurance MEDICARE Care Teams Registered Nursing Professor Relationship Specialty Start Date End Date Jose Valdez MD [address] [place] [facility] [address] [address] PCP - General 06/03/24 Sven Clark MD [address] [place] [address] Referring Physician 06/07/24
[2024-11-22 18:54] LABS: Basophils % 0.5 % (0.1-2.0); Eosinophils # 0.4 Kmm3 (0.0-0.4); Eosinophils % 7.2 % (0.1-12.0); Hematocrit 27.4 % (42.0-52.0); Hemoglobin 8.5 g/dL (14.1-18.0); Immature Granulocytes # 0.06 10^3uL; Immature Granulocytes % 1.1 %; Lymphocytes # 0.7 K/mm3 (0.7-4.5); Lymphocytes % 12.3 % (10-50); Mean Corpuscular Hemoglobin 30.4 pg (27.0-31.2); Mean Corpuscular Volume 97.9 fl (80-94); Mean Platelet Volume 11.2 fl (7.4-10.4); Monocytes # 0.6 K/mm3 (0.1-1.0); Monocytes % 9.9 % (1.7-9.3); Neutrophils # 3.9 K/mm3 (1.8-7.8); Nucleated Red Blood Cells # 0 10^3/uL; Nucleated Red Blood Cells % 0 %; Platelet Count 250 K/mm3 (142-424); Red Cell Distribution Width 14.9 % (11.5-17.5); White Blood Count 5.7 K/mm3 (4.8-10.8)
[2024-11-22 20:02] LABS: Chloride 103 mmol/L (98-107)
[2024-11-22 20:03] LABS: Potassium 4.3 mmoL/L (3.5-5.1); Sodium 140 mmol/L (136-145)
[2024-11-22 20:06] LABS: Anion Gap 13.3 mEq/L (5-15); Blood Urea Nitrogen 18 mg/dl (9-20); Calcium 8.4 mg/dl (8.4-10.2); Carbon Dioxide 28 mmol/L (22.0-30.0); Estimated Glomerular Filt Rate 59 ml/min (>60); GFR (African American) 72 ML/MIN (>60); Glucose 131 mg/dl (74-100)
== END 2024-11-22 23:59 | disposition home or self-care (01) ==
LOC: RAD 14:52
PROVIDERS: PCP Family Medicine; Visit Provider Family Medicine
DX: R91.8 Other nonspecific abnormal finding of lung field (principal); J94.2 Hemothorax; D68.32 Hemorrhagic disorder due to extrinsic circulating anticoagulants; T45.515A Adverse effect of anticoagulants, initial encounter
CPT/HCPCS: 71046; 80048; 85025

== ENCOUNTER 2024-11-30 12:32 | Outpatient (CLI) | payer MEDICARE, SELFPAY ==
--- OUTSIDE RECORDS SUMMARY | 2024-11-30 12:35 | XMS_ITS | Clinical Summary ---
Author Organization [facility] Address [address] [place] [address] Phone Care Team Providers Care Chief Underwriter Name Role Phone Unavailable Primary Care Provider [...] MEDICARE [place] PART A AND B MUTUAL [facility]
--- OUTSIDE RECORDS SUMMARY | 2024-11-30 12:35 | XMS_ITS | Clinical Summary ---
Author Organization Healthcare Address [address] [place] [address] Care Team Providers Care Foundry Hand Name Role Phone Jose Valdez MD Primary Care Provider [phone] Sven Clark MD Unavailable [phone] Allergies No known active allergies Medications amiodarone [...] (2 of 2 - PCV) 07/06/2021 07/06/2020 [id number] Vaccine (3 - 2023- season) 2024 07/24/2020, 06/27/2020 UKY-Influenza Vaccine (#1) 01/30/202503/24, 04/08/2022, 05/10/2021, Additional history exists UKY-RSV Vaccine: [...] complete this topic Insurance MEDICARE Care Teams Foundry Hand Relationship Specialty Start Date End Date Jose Valdez MD [address] [place] [facility] [address] [address] PCP - General 06/03/24 Sven Clark MD [address] [place] [address] Referring Physician 06/07/24
--- NOTE | 2024-11-30 13:53 | XR_ITS ---
PROCEDURE INFORMATION: Exam: XR Chest Exam date and time: 11/30/2024 1:54 PM Age: 74 years old Clinical indication: Dyspnea; Additional info: History of hemothorax. Difficulty breathing x 1 week TECHNIQUE: Imaging protocol: Radiologic exam of the chest. Views: 2 views. COMPARISON: CR XR CHEST 2V 11/22/2024 3:13 PM FINDINGS: Tubes, catheters and devices: A pulse generator device is present with leads in appropriate position. Lungs: There is poor ventilation of the lungs, with perihilar vascular crowding and a diffuse increase in pulmonary parenchymal density. Increased opacity in left lower lobe favored to represent atelectasis. No specific evidence of pneumonia. Pleural spaces: Small pleural effusion. Heart/Mediastinum: Unremarkable. No cardiomegaly. Bones/joints: Unremarkable. IMPRESSION: 1. Small pleural effusion. 2. Increased opacity in left lower lobe favored to represent atelectasis. No specific evidence of pneumonia.
[2024-11-30 14:22] LABS: PHA INR Fingerstick 1.3 (0.9-1.1)
== END 2024-11-30 14:36 ==
LOC: ACC 12:33 → RAD 13:51
PROVIDERS: PCP Family Medicine; Visit Provider Physician Assistant
DX: J90 Pleural effusion, not elsewhere classified (principal); R91.8 Other nonspecific abnormal finding of lung field; J94.2 Hemothorax; Z79.01 Long term (current) use of anticoagulants
CPT/HCPCS: 71046; 85610; 99211; G0463

== ENCOUNTER 2024-12-12 10:42 | Outpatient (CLI) | payer MEDICARE, SELFPAY ==
--- OUTSIDE RECORDS SUMMARY | 2024-12-12 10:48 | XMS_ITS | Clinical Summary ---
Author Organization Healthcare Address [address] [place] [address] Care Team Providers Care Senior Network Architect Name Role Phone Jose Valdez MD Primary Care Provider [phone] Sven Clark MD Unavailable [phone] Allergies No known active allergies Medications amiodarone [...] (2 of 2 - PCV) 07/06/2021 07/06/2020 [id number] Vaccine (3 - 2023- season) 2024 07/24/2020, [...] complete this topic Insurance MEDICARE Care Teams Senior Network Architect Relationship Specialty Start Date End Date Jose Valdez MD [address] [place] [facility] [address] [address] PCP - General 06/03/24 Sven Clark MD [address] [place] [address] Referring Physician 06/07/24
--- OUTSIDE RECORDS SUMMARY | 2024-12-12 10:48 | XMS_ITS | Clinical Summary ---
Author Organization [facility] Address [address] [place] [address] Phone Care Team Providers Care General Manager Farm Name Role Phone Unavailable Primary Care Provider [...] Zoster (1 of 2) 2000 COVID-19 Vaccine ( - 2023-2 5 season) 2024 Influenza Vaccine (#1) 2025 Hepatitis B Vaccine Aged Out No longe r eligible based on patient's age to complete this topic Meningococcal B Vaccine Aged Out No l onger eligible based on patient's age to complete this topic Insurance MEDICARE [place] PART A AND B MUTUAL [facility]
[2024-12-12 15:44] LABS: PHA INR Fingerstick 2.2 (0.9-1.1)
== END 2024-12-12 15:59 ==
LOC: ACC 10:44
PROVIDERS: PCP Family Medicine; Visit Provider Physician Assistant
DX: Z79.01 Long term (current) use of anticoagulants (principal)
CPT/HCPCS: 85610; 99211; G0463

== ENCOUNTER 2024-12-27 09:19 | Outpatient (CLI) | payer MEDICARE, SELFPAY ==
--- OUTSIDE RECORDS SUMMARY | 2024-12-27 09:22 | XMS_ITS | Clinical Summary ---
Author Organization [facility] Address [address] [place] [address] Phone Care Team Providers Care Proof Reader Name Role Phone Unavailable Primary Care [...] MEDICARE [place] PART A [place] B MUTUAL [facility]
--- OUTSIDE RECORDS SUMMARY | 2024-12-27 09:22 | XMS_ITS | Clinical Summary ---
Author Organization Healthcare Address [address] [place] [address] Care Team Providers Care Studio Camera Operator Name Role Phone Jose Valdez MD Primary Care Provider [phone] Sven Clark MD Unavailable [phone] Allergies No known active allergies Medications amiodarone [...] (2 of 2 - PCV) 07/06/2021 07/06/2020 [id number] Vaccine (3 - 2023- season) 2024 07/24/2020, [...] complete this topic Insurance MEDICARE Care Teams Studio Camera Operator Relationship Specialty Start Date End Date Jose Valdez MD [address] [place] [facility] [address] [address] PCP - General 06/03/24 Sven Clark MD [address] [place] [address] Referring Physician 06/07/24
--- OUTSIDE RECORDS SUMMARY | 2024-12-27 09:22 | XMS_ITS | Clinical Summary ---
Author Organization [facility] Address [address] [place] [address] Care Team Providers Care Spanish Moss Picker Name Role Phone Jose Valdez MD Primary Care Provider [phone] Allergies No known active allergies Medications metFORMIN [...] Date Paroxysmal atrial fibrillation 03/04/2019 Overview (03/04/2019): Noted on device interrogation Nonischemic cardiomyopathy 06/11/2016 Overview (08/29/2019): a. [facility] March 2005, showed nonobstructive coronary artery disease. Moderate left ventricular dysfunction with ejection fraction of 45%. b. Echocardiogram in October 2005, showed dilated cardiomyopathy with ejection fraction of 35%. c. [employer] [employer] ICD implant by Dr. Hooper on [...] 80 04/11/2022 1:36 PM EST Temperature 36.5 C (97.7 F) 08/02/2020 9:18 AM EST Respiratory Rate 18 02/21/2019 1:20 PM EDT Oxygen Saturation 98% 04/11/2022 1:36 PM EST Inhaled Oxygen Concentration - - Weight 94.3 kg (208 lb) 04/11/2022 1:36 PM EST Height 177.8 cm (5' 10 ) 04/11/2022 1:36 PM EST Body Mass Index 29.84 04/11/2022 1:36 PM EST Plan of Treatment Health Maintenance Due Date Last Done Comments DIABETIC EYE EXAM 1960 DIABETIC FOOT EXAM 1960 URINE MICROALBUMIN-CREATININ E RATIO (uACR) 1960 COLOGUARD 1995 COLON CANCER SCREENING 5 YEA R SIGMOIDOSCOPY 1995 COLONOSCOPY 1995 COLORECTAL CANCER SCREENING 1995 CT COLONOGRAPHY 1995 FECAL OCCULT BLOOD TEST 1995 FIT Testing (1 year) 1995 ZOSTER VACCINE (1 of 2) 2000 ANNUAL WELLNESS VISIT 12/19/2016 HEMOGLOBIN A1C 12/19/2016 HEPATITIS C SCREENING 12/19/2016 TDAP/TD VACCINES (3 - Td or Tdap) 04/21/2021 011, 08/03/1996 Pneumococcal Vaccine 50+ (2 of 2 - PCV) 07/06/2021 07/06/2020 COVID-19 Vaccine ( - season) 2024 INFLUENZA VACCINE 03/01/2025 04/08/2022, , 03/20/2020 AAA SCREEN ONCE Completed 10/20/2018, 10/20/2018 Medical Devices Implanted Type Area Loom Fixer Supervisor Device Identifier Shelf Expiration Date Model / Serial / Lot Icd-12/27/2012 Implanted:12/27 by Austin Hooper MD (Quantity not on file) ICD [employer] DESIREE Insurance MEDICARE A & B Member Subscriber Plan / Payer (Ef fective 2015-Present) Name:Jos Bolivar Member ID:[id number] Relation to Subscriber:Self Name:Jos Bolivar Subscriber ID:[id number] Payer ID:[id number] Group ID:Not on file Type:Not on file Address: [address] Care Teams Spanish Moss Picker Relationship Specialty Start Date End Date Jose Valdez MD [address] [place] [facility] [address] [place] [address] PCP - General 07/27/15
--- NOTE | 2024-12-27 09:30 | CT_ITS ---
FINAL REPORT TECHNIQUE: Thin section axial images were obtained from the lung apices through the upper abdomen without contrast. This study was performed with techniques to keep radiation doses as low as reasonably achievable (ALARA). Individualized dose reduction techniques using automated exposure control or adjustment of mA and/or kV according to the patient's size were employed. CLINICAL HISTORY: nodule COMPARISON: CTA of the chest 11/16/2024 FINDINGS: There is no mediastinal, hilar, or axillary lymphadenopathy. There has been significant improvement in the previously seen left pleural effusion. There is no right pleural effusion or pericardial effusion. Lingular and left lower lobe atelectasis are noted, otherwise the lung elise are clear. Limited, unenhanced evaluation of the upper abdomen is without acute abnormality. There is a small hypodense right thyroid nodule, stable since the prior CT. There is no acute osseous abnormality. IMPRESSION: No pulmonary nodules are identified on this exam. Significant improvement in the previously seen left pleural effusion. Reviewed, Interpreted and Dictated by Kimberly Phan MD Transcribed by Mary Sierra Authenticated and . [facility]
== END 2024-12-27 23:59 | disposition home or self-care (01) ==
LOC: RAD 09:20
PROVIDERS: PCP Family Medicine; Visit Provider Internal Medicine Pulmonary Disease
DX: J90 Pleural effusion, not elsewhere classified (principal)
CPT/HCPCS: 71250; 94060; 94726; 94729

== ENCOUNTER 2024-12-30 07:52 | Outpatient (CLI) | payer MEDICARE, SELFPAY ==
--- OUTSIDE RECORDS SUMMARY | 2024-12-30 07:54 | XMS_ITS ---
Author Organization Unknown ENCOUNTERS Encounter Performer Location Date Diagnosis Diagnosis Status Inpatient [address] [place] [address] [id number] [facility] [address] [place] [address] [id number] Emergency Juliano Schumacherner [place] [place] [address] [id number] A Pre Admit Teto Hall [place] [address] [place] [address] [id number] Inpatient Jose Carrascolinnetteloy [address] [place] [address] [id number] [place] Emergency Rafael Keller [address] [place] [address] [id number] [place] *Note: Encounters from your own facility or health system may be excluded. Allergies, Adverse Reactions, Alerts Allergen Type Severity Identification Date Medications Name Date Quantity Days Supplied GPI Number
--- OUTSIDE RECORDS SUMMARY | 2024-12-30 07:54 | XMS_ITS | Clinical Summary ---
Author Organization [facility] Address [address] [place] [address] Phone Care Team Providers Care Associate Genetics Professor Name Role Phone Unavailable Primary Care Provider [...] [place] PART A AND B MUTUAL [facility]
--- OUTSIDE RECORDS SUMMARY | 2024-12-30 07:54 | XMS_ITS | Clinical Summary ---
Author Organization [facility] Address [address] [address] Care Team Providers Care Named Account Executive Name Role Phone Jose Valdez MD Primary Care Provider [phone] Allergies No known active allergies Medications metFORMIN [...] interrogation Nonischemic cardiomyopathy 06/11/2016 Overview (08/29/2019): a. [facility] March 2005, showed nonobstructive coronary artery disease. Moderate left ventricular dysfunction with ejection fraction of 45%. b. Echocardiogram in October 2005, showed dilated cardiomyopathy with ejection fraction of 35%. c. [place] [employer] ICD implant by Dr. Hooper on [...] 10/20/2018, 10/20/2018 Medical Devices Implanted Type Area Drill Press Operator For Metal Device Identifier Shelf Expiration Date Model / Serial / Lot Icd-12/27/2012 Implanted:12/27 by Austin Hooper MD (Quantity not on file) ICD [employer] DESIREE Insurance MEDICARE A & B Member Subscriber Plan / Payer (Ef fective 2015-Present) Name:Jos Bolivar Member ID:[id number] Relation to Subscriber:Self Name:Jos Bolivar Subscriber ID:[id number] Payer ID:[id number] Group ID:Not on file Type:Not on file Address: [address] Care Teams Named Account Executive Relationship Specialty Start Date End Date Jose Valdez MD [address] [place] [facility] [address] [place] [address] PCP - General 07/27/15
--- OUTSIDE RECORDS SUMMARY | 2024-12-30 07:54 | XMS_ITS | Clinical Summary ---
Author Organization Healthcare Address [address] [place] [address] Care Team Providers Care Ferry Captain Name Role Phone Jose Valdez MD Primary Care Provider [phone] Sven Clark MD Unavailable [phone] Allergies No known active allergies Medications amiodarone [...] (2 of 2 - PCV) 07/06/2021 07/06/2020 [id number] Vaccine (3 - 2023- season) 2024 07/24/2020, [...] complete this topic Insurance MEDICARE Care Teams Ferry Captain Relationship Specialty Start Date End Date Jose Valdez MD [address] [place] [facility] [address] [address] PCP - General 06/03/24 Sven Clark MD [address] [place] [address] Referring Physician 06/07/24
--- NOTE | 2024-12-30 08:00 | NM_ITS ---
FINAL REPORT CLINICAL HISTORY: Shortness of Breath 8:05AM 36.7 MCI TC DTPA 8:35AM 8.18 MCI TC MAA PRIOR CXR DONE COMPARISON: None FINDINGS: NUCLEAR MEDICINE VENTILATION AND PERFUSION IMAGING TECHNIQUE: V/Q scan is performed utilizing 36.7 technetium 99 M DTPA aerosol and IV administration of 8.18 technetium 99 M MAA. Images were obtained in AP, PA, lateral, and oblique projections. FINDINGS There is no evidence of segmental mismatch perfusion defects. IMPRESSION: Low probability for pulmonary embolus. Reviewed, Interpreted and Dictated by Kimberly Phan MD Transcribed by Mary Sierra Authenticated and . [facility]
[2024-12-30] MEDS: SODIUM CHLORIDE 0.9% 10ML SYR (RAD ONLY) 10 ML IV (08:49)
[2024-12-30] MEDS: ISOTOPE DTPA(AEROSOL);1 DOSE (UP TO 75 MCI) IV (08:49)
[2024-12-30] MEDS: ISOTOPE TC MAA;1 DOE (UP TO 45 MCI) 1 DOSE IV (08:49)
== END 2024-12-30 23:59 | disposition home or self-care (01) ==
LOC: RAD 07:53
PROVIDERS: PCP Family Medicine; Visit Provider Internal Medicine Pulmonary Disease
DX: R06.09 Other forms of dyspnea (principal); R06.02 Shortness of breath
CPT/HCPCS: 78582; A9540; A9567

== ENCOUNTER 2025-01-09 10:22 | Outpatient (CLI) | payer MEDICARE, SELFPAY ==
--- OUTSIDE RECORDS SUMMARY | 2025-01-09 10:26 | XMS_ITS | Clinical Summary ---
Author Organization [facility] Address [address] [place] [address] Phone Care Team Providers Care Automotive Product Engineer Name Role Phone Unavailable Primary Care Provider [...] [place] PART A [place] MUTUAL [facility]
--- OUTSIDE RECORDS SUMMARY | 2025-01-09 10:26 | XMS_ITS | Clinical Summary ---
Author Organization Healthcare Address [address] [place] [address] Care Team Providers Care Food And Nutrition Professor Name Role Phone Jose Valdez MD Primary Care Provider [phone] Sven Clark MD Unavailable [phone] Allergies No known active allergies Medications amiodarone [...] (2 of 2 - PCV) 07/06/2021 07/06/2020 [id number] Vaccine (3 - 2023- season) 2024 07/24/2020, [...] complete this topic Insurance MEDICARE Care Teams Food And Nutrition Professor Relationship Specialty Start Date End Date Jose Valdez MD [address] [place] [facility] [address] [address] PCP - General 06/03/24 Sven Clark MD [address] [place] [address] Referring Physician 06/07/24
--- OUTSIDE RECORDS SUMMARY | 2025-01-09 10:26 | XMS_ITS | Clinical Summary ---
Author Organization [facility] Address [address] [place] [address] Care Team Providers Care Hairspring Setter Name Role Phone Jose Valdez MD Primary Care Provider [phone] Allergies No known active allergies Medications metFORMIN [...] interrogation Nonischemic cardiomyopathy 06/11/2016 Overview (08/29/2019): a. [facility] March 2005, showed nonobstructive coronary artery disease. Moderate left ventricular dysfunction with ejection fraction of 45%. b. Echocardiogram in October 2005, showed dilated cardiomyopathy with ejection fraction of 35%. c. [place] [employer] ICD implant by Dr. Hooper on [...] help finding or keeping work or a allita b? Not on file 03/09/2023 Disabilities Answer [...] 10/20/2018, 10/20/2018 Medical Devices Implanted Type Area Cnc Router Operator Device Identifier Shelf Expiration Date Model / Serial / Lot Icd-12/27/2012 Implanted:12/27 by Austin Hooper MD (Quantity not on file) ICD [employer] DESIREE Insurance MEDICARE A & B Member Subscriber Plan / Payer (Ef fective 2015-Present) Name:Jos Bolivar Member ID:[id number] Relation to Subscriber:Self Name:Jos Bolivar Subscriber ID:[id number] Payer ID:[id number] Group ID:Not on file Type:Not on file Address: [address] Care Teams Hairspring Setter Relationship Specialty Start Date End Date Jose Valdez MD [address] [place] [facility] [address] [place] [address] PCP - General 07/27/15
[2025-01-09 10:43] LABS: PHA INR Fingerstick 2.0 (0.9-1.1)
== END 2025-01-09 10:46 ==
LOC: ACC 10:23
PROVIDERS: PCP Family Medicine; Visit Provider Physician Assistant
DX: Z79.01 Long term (current) use of anticoagulants (principal)
CPT/HCPCS: 85610; 99211; G0463

== ENCOUNTER 2025-01-31 10:45 | Outpatient (CLI) | payer MEDICARE, SELFPAY ==
[2025-01-31 14:57] LABS: Hematocrit 44.1 % (42.0-52.0); Hemoglobin 14.6 g/dL (14.1-18.0); Immature Granulocytes % 0.2 %; Mean Corpuscular HGB Conc 33.1 g/dL (31.8-35.4); Mean Corpuscular Hemoglobin 30.5 pg (27.0-31.2); Mean Corpuscular Volume 92.1 fl (80-94); Nucleated Red Blood Cells % 0 %; Platelet Count 121 K/mm3 (142-424); Red Blood Count 4.79 M/mm3 (4.60-6.20); Red Cell Distribution Width-SD 46.3 fL; White Blood Count 4.7 K/mm3 (4.8-10.8)
[2025-01-31 15:33] LABS: Anion Gap 11.4 mEq/L (5-15); Blood Urea Nitrogen 22 mg/dl (9-20); Calcium 8.9 mg/dl (8.4-10.2); Carbon Dioxide 29 mmol/L (22.0-30.0); Chloride 102 mmol/L (98-107); Creatinine,Serum 1.30 mg/dl (0.66-1.25); Estimated Glomerular Filt Rate 54 ml/min (>60); GFR (African American) 65 ML/MIN (>60); Glucose 113 mg/dl (74-100); Potassium 4.4 mmoL/L (3.5-5.1); Sodium 138 mmol/L (136-145)
[2025-01-31 16:15] LABS: Total Cells Counted 100
[2025-01-31 16:16] LABS: RBC Morphology Normal
--- OUTSIDE RECORDS SUMMARY | 2025-02-02 13:04 | XMS_ITS | Clinical Summary ---
Author Organization Healthcare Address [address] [place] [address] Care Team Providers Care Speech Communication Professor Name Role Phone Jose Valdez MD Primary Care Provider [phone] Sven Clark MD Unavailable [phone] Allergies No known active allergies Medications amiodarone [...] (2 of 2 - PCV) 07/06/2021 07/06/2020 [id number] Vaccine (3 - 2023- season) 2024 07/24/2020, [...] complete this topic Insurance MEDICARE Care Teams Speech Communication Professor Relationship Specialty Start Date End Date Jose Valdez MD [address] [place] [facility] [address] [address] PCP - General 06/03/24 Sven Clark MD [address] [place] [address] Referring Physician 06/07/24
--- OUTSIDE RECORDS SUMMARY | 2025-02-02 13:04 | XMS_ITS | Clinical Summary ---
Author Organization [facility] Address [address] [place] [address] Phone Care Team Providers Care Naumkeag Operator Name Role Phone Unavailable Primary Care Provider [...] MEDICARE [place] PART A AND B MUTUAL [facility]
--- OUTSIDE RECORDS SUMMARY | 2025-02-02 13:04 | XMS_ITS | Clinical Summary ---
Author Organization [facility] Address [address] [place] [address] Care Team Providers Care Offset Second Press Operator Name Role Phone Jose Valdez MD Primary Care Provider [phone] Allergies No known active allergies Medications metFORMIN [...] interrogation Nonischemic cardiomyopathy 06/11/2016 Overview (08/29/2019): a. [facility] March 2005, showed nonobstructive coronary artery disease. Moderate left ventricular dysfunction with ejection fraction of 45%. b. Echocardiogram in October 2005, showed dilated cardiomyopathy with ejection fraction of 35%. c. [place] [employer] ICD implant by Dr. Hooper on [...] 01/2023 Potentially Unsafe Housing Conditions Not on ifaenyi e 03/09/2023 Family and Community Support Answer [...] 07/06/2021 07/06/2020 COVID-19 Vaccine ( - season) 2025 INFLUENZA VACCINE 03/01/2025 04/08/2022, , 03/20/2020 AAA SCREEN ONCE Completed 10/20/2018, 10/20/2018 Medical Devices Implanted Type Area Insurance Loss Assessor Device Identifier Shelf Expiration Date Model / Serial / Lot Icd-12/27/2012 Implanted:12/27 by Austin Hooper MD (Quantity not on file) ICD [employer] DESIREE Insurance MEDICARE A & B Member Subscriber Plan / Payer (Ef fective 2015-Present) Name:Jos Bolivar Member ID:[id number] Relation to Subscriber:Self Name:Jos Bolivar Subscriber ID:[id number] Payer ID:[id number] Group ID:Not on file Type:Not on file Address: [address] Care Teams Offset Second Press Operator Relationship Specialty Start Date End Date Jose Valdez MD [address] [place] [facility] [address] [place] [address] PCP - General 07/27/15
== END 2025-01-31 23:59 | disposition home or self-care (01) ==
LOC: LAB.DROPOF 02-02 13:02
PROVIDERS: PCP Family Medicine; Visit Provider Family Medicine
DX: D50.0 Iron deficiency anemia secondary to blood loss (chronic) (principal); I10 Essential (primary) hypertension
CPT/HCPCS: 80048; 85007; 85025

== ENCOUNTER 2025-02-08 09:26 | Outpatient (CLI) | payer MEDICARE, SELFPAY ==
[2025-02-08 18:24] LABS: Alanine Aminotransferase 91 U/L (12-78); Albumin Level 4.2 g/dl (3.5-5.0); Alkaline Phosphatase 68 U/L (38-126); Aspartate Amino Transferase 51 U/L (17-59); Bilirubin,Direct 0.2 mg/dl (0.0-0.4); Bilirubin,Indirect 0.8 mg/dL (0.0-0.9); Bilirubin,Total 1.0 mg/dl (0.2-1.3); Bilirubin,Unconjugated 0.7 mg/dL (0.0-1.1); Cholesterol 136 mg/dl (140-200); HDL Cholesterol 42 mg/dl (40-60); Total Protein,Serum 6.5 g/dl (6.3-8.2); Triglycerides 107 mg/dl (30-150)
[2025-02-08 18:41] LABS: Free Thyroxine Index 3.6 ug/dL (5.93-13.13); T4 (Thyroxine) 9.2 ug/dl (5.53-11.0); Triiodothryronine (T3) Uptake 39 % (23.5-40.5)
[2025-02-08 18:55] LABS: Thyroid Stimulating Hormone 3.19 uIU/mL (0.465-4.68)
--- OUTSIDE RECORDS SUMMARY | 2025-02-10 09:28 | XMS_ITS ---
Author Organization Unknown ENCOUNTERS Encounter Performer Location Date Diagnosis Diagnosis Status Inpatient [place] [address] [place] [address] [id number] [facility] [facility] [address] [place] [address] [id number] Emergency Juliano Fan [place] [address] [place] [address] [id number] A Pre Admit Teto Hall [place] [place] [address] [id number] Inpatient Jose Glorialoy [place] [address] [place] [address] [id number] [place] *Note: Encounters from your own facility or health system may be excluded. Allergies, Adverse Reactions, Alerts Allergen Type Severity Identification Date Medications Name Date Quantity Days Supplied [facility] Number
--- OUTSIDE RECORDS SUMMARY | 2025-02-10 09:28 | XMS_ITS | Clinical Summary ---
Author Organization [facility] Address [address] [place] [address] Care Team Providers Care Yoghurt Maker Name Role Phone Jose Valdez MD Primary Care Provider [phone] Allergies No known active allergies Medications metFORMIN [...] interrogation Nonischemic cardiomyopathy 06/11/2016 Overview (08/29/2019): a. [facility] March 2005, showed nonobstructive coronary artery disease. Moderate left ventricular dysfunction with ejection fraction of 45%. b. Echocardiogram in October 2005, showed dilated cardiomyopathy with ejection fraction of 35%. c. [place] [employer] ICD implant by Dr. Hooper on [...] 10/20/2018, 10/20/2018 Medical Devices Implanted Type Area Wellness Educator Device Identifier Shelf Expiration Date Model / Serial / Lot Icd-12/27/2012 Implanted:12/27 by Austin Hooper MD (Quantity not on file) ICD [employer] DESIREE Insurance MEDICARE A & B Member Subscriber Plan / Payer (Ef fective 2015-Present) Name:Jos Bolivar Member ID:[id number] Relation to Subscriber:Self Name:Jos Bolivar Subscriber ID:[id number] Payer ID:[id number] Group ID:Not on file Type:Not on file Address: [address] Care Teams Yoghurt Maker Relationship Specialty Start Date End Date Jose Valdez MD [address] [place] [facility] [address] [place] [address] PCP - General 07/27/15
--- OUTSIDE RECORDS SUMMARY | 2025-02-10 09:28 | XMS_ITS | Clinical Summary ---
Author Organization Healthcare Address [address] [place] [address] Care Team Providers Care Cesspool Cleaner Name Role Phone Jose Valdez MD Primary Care Provider [phone] Sven Clark MD Unavailable [phone] Allergies No known active allergies Medications amiodarone [...] Date Last Done Comments [facility]-Depression Screening 1950 [facility]-/Child/Adol SDOH Screenings 1950 [facility]- SDOH Screenings 1968 [facility]-Adult SDOH Screenings 1968 CT Colonography 1995 Colonoscopy 1995 FIT-DNA 1995 FIT 1995 FOBT 1995 Sigmoidoscopy 1995 [facility]-Colorectal Cancer Screening 1995 [facility]-Zoster Vaccines (1 of 2) 2000 [facility]-DTaP,Tdap,and Td Vaccines (2 - Td or Tdap) 04/21/2021 04/21/2011, 08/03/1996 UKY-Pneumococcal Vaccine: 50+ Years (2 of 2 - PCV) 07/06/2021 07/06/2020 [id number] Vaccine (3 - 2024- season) 2025 07/24/2020, 06/27/2020 [facility]-Influenza Vaccine (#1) 01/30/202503/24, 04/08/2022, [...] complete this topic Insurance MEDICARE Care Teams Cesspool Cleaner Relationship Specialty Start Date End Date Jose Valdez MD [address] [place] [facility] [address] [address] PCP - General 06/03/24 Sven Clark MD [address] [place] [address] Referring Physician 06/07/24
--- OUTSIDE RECORDS SUMMARY | 2025-02-10 09:28 | XMS_ITS | Clinical Summary ---
Author Organization [facility] Address [address] [place] [address] Phone Care Team Providers Care Securities And Real Estate Director Name Role Phone Unavailable Primary Care Provider [...] COVID-19 Vaccine ( - 2023-2 5 season) 2025 Influenza Vaccine (#1) 2025 Hepatitis B Vaccine Aged Out No longe r eligible based on patient's age to complete this topic Meningococcal B Vaccine Aged Out No l onger eligible based on patient's age to complete this topic Insurance MEDICARE [place] PART A AND B MUTUAL [facility]
== END 2025-02-08 23:59 | disposition home or self-care (01) ==
LOC: LAB.DROPOF 02-10 09:27
PROVIDERS: PCP Family Medicine; Visit Provider Physician Assistant
DX: E78.2 Mixed hyperlipidemia (principal); I10 Essential (primary) hypertension; Z79.899 Other long term (current) drug therapy
CPT/HCPCS: 80061; 80076; 82088; 84244; 84436; 84443; 84479

== ENCOUNTER 2025-02-21 10:36 | Outpatient (CLI) | payer MEDICARE, SELFPAY ==
--- OUTSIDE RECORDS SUMMARY | 2025-02-21 10:40 | XMS_ITS | Clinical Summary ---
Author Organization [facility] Address [address] [place] [address] Phone Care Team Providers Care Clother In Name Role Phone Unavailable Primary Care Provider [...] [place] PART A [employer] [place] [employer] [facility]
--- OUTSIDE RECORDS SUMMARY | 2025-02-21 10:40 | XMS_ITS | Clinical Summary ---
Author Organization [facility] Address [address] [place] [address] Care Team Providers Care Workers Compensation Claims Specialist Name Role Phone Jose Valdez MD Primary Care Provider [phone] Allergies No known active allergies Medications metFORMIN [...] interrogation Nonischemic cardiomyopathy 06/11/2016 Overview (08/29/2019): a. [facility] March 2005, showed nonobstructive coronary artery disease. Moderate left ventricular dysfunction with ejection fraction of 45%. b. Echocardiogram in October 2005, showed dilated cardiomyopathy with ejection fraction of 35%. c. [employer] ICD implant by Dr. Hooper on [...] (2 of 2 - PCV) 07/06/2021 07/06/2020 INFLUENZA VACCINE 12/30/2024 04/08/2022, , 03/20/2020 COVID-19 Vaccine ( - season) 2025 AAA SCREEN ONCE Completed 10/20/2018, 10/20/2018 Medical Devices Implanted Type Area Door Installer Device Identifier Shelf Expiration Date Model / Serial / Lot Icd-12/27/2012 Implanted:12/27 by Austin Hooper MD (Quantity not on file) ICD [employer] DESIREE Insurance MEDICARE A & B Member Subscriber Plan / Payer (Ef fective 2015-Present) Name:Jos Bolivar Member ID:[id number] Relation to Subscriber:Self Name:Jos Bolivar Subscriber ID:[id number] Payer ID:[id number] Group ID:Not on file Type:Not on file Address: [address] Care Teams Workers Compensation Claims Specialist Relationship Specialty Start Date End Date Jose Valdez MD [address] [facility] [address] [place] [address] PCP - General 07/27/15
--- OUTSIDE RECORDS SUMMARY | 2025-02-21 10:40 | XMS_ITS | Clinical Summary ---
Author Organization [facility] Address [address] [place] [address] Care Team Providers Care Beam Press Operator Name Role Phone Jose Valdez MD Primary Care Provider [phone] Sven Clark MD Unavailable [phone] Allergies No known active allergies Medications amiodarone [...] (2 of 2 - PCV) 07/06/2021 07/06/2020 [id number] Vaccine (3 - 2024- season) 2025 07/24/2020, [...] complete this topic Insurance MEDICARE Care Teams Beam Press Operator Relationship Specialty Start Date End Date Jose Valdez MD [address] [place] [facility] [address] [address] PCP - General 06/03/24 Sven Clark MD [address] [place] [address] Referring Physician 06/07/24
--- OUTSIDE RECORDS SUMMARY | 2025-02-21 10:40 | XMS_ITS ---
Laboratory report Created on: February 16, 2025 HELENE LOPEZYL : 1950 Sex: Male Author Organization Unknown PROBLEMS Problems List Code Description RESULTS Laboratory Orders Date Order Code Test 2025-02-08 [id number] ALDOSTERONE LCMS , SERUM Laboratory Results Date LOINC Test Value Unit Reference Range Interpre tation 2025-02-08 [id number] ALDOSTERONE 4.5 NG/DL 0.0-30.0
[2025-02-21 11:33] LABS: PHA INR Fingerstick 2.6 (0.9-1.1)
== END 2025-02-21 11:41 ==
LOC: ACC 10:38
PROVIDERS: PCP Family Medicine; Visit Provider Physician Assistant
DX: Z79.01 Long term (current) use of anticoagulants (principal)
CPT/HCPCS: 85610; 99211; G0463

== ENCOUNTER 2025-03-08 16:39 | Outpatient (CLI) | payer MEDICARE, SELFPAY ==
[2025-03-08 17:58] LABS: Albumin Level 4.1 g/dl (3.5-5.0)
[2025-03-08 18:01] LABS: Alanine Aminotransferase 60 U/L (12-78); Alkaline Phosphatase 76 U/L (38-126); Aspartate Amino Transferase 38 U/L (17-59); Bilirubin,Direct 0.3 mg/dl (0.0-0.4); Bilirubin,Indirect 1.4 mg/dL (0.0-0.9); Bilirubin,Total 1.7 mg/dl (0.2-1.3); Bilirubin,Unconjugated 1.3 mg/dL (0.0-1.1); Total Protein,Serum 6.7 g/dl (6.3-8.2)
== END 2025-03-08 23:59 | disposition home or self-care (01) ==
LOC: LAB.DROPOF 16:40
PROVIDERS: PCP Physician Assistant; Visit Provider Physician Assistant
DX: R74.8 Abnormal levels of other serum enzymes (principal)
CPT/HCPCS: 80076

== ENCOUNTER 2025-04-04 10:33 | Outpatient (CLI) | payer MEDICARE, SELFPAY ==
--- OUTSIDE RECORDS SUMMARY | 2025-04-04 10:40 | XMS_ITS | Clinical Summary ---
Author Organization [facility] Address [address] [place] [address] Care Team Providers Care Director Of Community Center Name Role Phone Jose Valdez MD Primary Care Provider [phone] Allergies No known active allergies Medications metFORMIN [...] interrogation Nonischemic cardiomyopathy 06/11/2016 Overview (08/29/2019): a. [facility] March 2005, showed nonobstructive coronary artery disease. Moderate left ventricular dysfunction with ejection fraction of 45%. b. Echocardiogram in October 2005, showed dilated cardiomyopathy with ejection fraction of 35%. c. [employer] ICD implant by Dr. Hooper on [...] Health Maintenance Due Date Last Done Comments COVID-19 Vaccine (#1) 1955 DIABETIC EYE EXAM 1960 DIABETIC FOOT EXAM [...] 07/06/2020 INFLUENZA VACCINE 12/30/2024 04/08/2022, , 03/20/2020 RSV Vaccine - Adults (1 - 1- dose 75+ series) 2025 AAA SCREEN ONCE Completed 10/20/2018, 10/20/2018 Medical Devices Implanted Type Area Non Licensed Nuclear Equipment Operator Device Identifier Shelf Expiration Date Model / Serial / Lot Icd-12/27/2012 Implanted:12/27 by Austin Hooper MD (Quantity not on file) ICD [employer] DESIREE Insurance MEDICARE A & B Care Teams Director Of Community Center Relationship Specialty Start Date End Date Jose Valdez MD [address] [place] [facility] [address] [place] [address] PCP - General 07/27/15
--- OUTSIDE RECORDS SUMMARY | 2025-04-04 10:40 | XMS_ITS | Data Portability ---
Author Organization [facility] and [facility] Address [address] [place] [address] Assessment No assessment recorded. Plan of Treatment Reminders Order Date Submit Date Provider Last Modified By Organization Details Last Modified Time Details Appointments None recorded. Lab urinalysis, dipstick 2023 [email or web address], [address], 4 21:19:45 PSA, serum or plasma [email or web address], [address], 4 16:16:55 testosteron e, free + total, serum 2023 024 [facility], [address] [place] [address], [address], 4 07:28:50 urinalysis, dipstick 2023 [email or web address], [address], 4 15:54:54 urinalysis, dipstick 2023 [email or web address], [address], 4 13:21:48 urinalysis, dipstick [address], [address], 3 10:22:38 Referral None recorded. Procedures bladder scan (PROC) [address], [address], 4 21:19:45 bladder scan (PROC) [address], [address], 4 15:54:54 bladder scan (PROC) [address], [address], 4 13:21:48 bladder scan (PROC) [address], [address], 3 11:28:47 Surgeries None recorded. Imaging None recorded. Medication Orders testosteron e cypionate 200 mg/mL intramuscul ar oil 2023 024 [place] [id number] [facility], [address] [place], [address], 4 20:02:55 cefdinir 300 mg capsule 2023 024 [email or web address] [facility], [address] [place], [address], 4 12:32:26 Patient TargetsNo targets recorded. Patient InstructionsNo instructions recorded. Reason for Referral None Reported. Results Created Date Observation Date Name Description Value Unit Range Abnormal Flag Note LastModifiedBy Organization Detail LastModifiedTime 04/17/2004/17/2023 urina lysis , dipst ick Leukocytes (reference range) negati ve Not Available [address], [address], 04/17/2023 09:51:53 04/17/20 23 04/17/2023 urina lysis , dipst ick Nitrite (reference range:) negati ve Not Available [address], [address], 04/17/2023 09:51:53 04/17/2004/17/2023 urina lysis , dipst ick Urobilinogen (reference range) 1 Not Available [address], [address], 04/17/2023 09:51:53 04/17/20 23 04/17/2023 urina lysis , dipst ick Protein (reference range) negati ve Not Available [address], [address], 04/17/2023 09:51:53 04/17/20 23 04/17/2023 urina lysis , dipst ick pH (reference range 5-8.5) 6.0 Not Available [address], [address], 04/17/2023 09:51:53 04/17/20 23 04/17/2023 urina lysis , dipst ick Blood (reference range:) negati ve Not Available [address], [address], 04/17/2023 09:51:53 04/17/20 23 04/17/2023 urina lysis , dipst ick Specific [place] (reference range) 1.010 Not Available [address], [address], 04/17/2023 09:51:53 04/17/20 23 04/17/2023 urina lysis , dipst ick Ketone (reference range) negati ve Not Available [address], [address], 04/17/2023 09:51:53 04/17/20 23 04/17/2023 urina lysis , dipst ick Bilirubin (reference range) negati ve Not Available [address], [address], 04/17/2023 09:51:53 04/17/20 23 04/17/2023 urina lysis , dipst ick Glucose (reference range) 1000 Not Available [address], [address], 04/17/2023 09:51:53 04/17/20 23 04/17/2023 bladd er scan (PROC ) Calculated Residual Urine: 81 cc Not Available [address], [address], 04/17/2023 09:51:54 05/01/20 23 05/01/2023 BASIC METAB OLIC PANEL sodium 142 mmol/ L 137-14 7 Not Available [facility] [address] [place] [address] [place], [address], 05/01/2023 09:07:39 05/01/20 23 05/01/2023 BASIC METAB OLIC PANEL potassium 4.0 mmol/ L 3.5-5. 1 Not Available [facility]) [address] [place] [address] [place], [address], 05/01/2023 09:07:39 05/01/20 23 05/01/2023 BASIC METAB OLIC PANEL chloride 107 mmol/ L 98-110 Not Available [facility] [address] [place], [address], 05/01/2023 09:07:39 05/01/20 23 05/01/2023 BASIC METAB OLIC PANEL carbon dioxide 23 mmol/ L 21-30 Not Available [facility] [address] [place], [address], 05/01/2023 09:07:39 05/01/20 23 05/01/2023 BASIC METAB OLIC PANEL anion gap 12 mmol/ L 6-14 Not Available [facility] [address] [place], [address], 05/01/2023 09:07:39 05/01/20 23 05/01/2023 BASIC METAB OLIC PANEL glucose 144 mg/dL 70-115 high Not Available [facility]) [address] [place] [address] [place], [address], 05/01/2023 09:07:39 05/01/20 23 05/01/2023 BASIC METAB OLIC PANEL BUN 23 mg/dL 9-20 high Not Available [facility]) [address] [place] [address] [place], [address], 05/01/2023 09:07:39 05/01/20 23 05/01/2023 BASIC METAB OLIC PANEL creatinine 1.1 mg/dL 0.5-1. 5 Not Available [facility] [address] [place], [address], 05/01/2023 09:07:39 05/01/20 23 05/01/2023 BASIC METAB OLIC PANEL BUN/creatini ne ratio 21 ratio 10-20 high Not Available [facility]) [address] [place] [address] [place], [address], 05/01/2023 09:07:39 05/01/20 23 05/01/2023 BASIC METAB OLIC PANEL glom filtration rate TNP mL/mi n >60- GFR has only been valid ated for patie nts 18-70 years of age. Not Available [facility]) [address] [place] [address] [place], [address], 05/01/2023 09:07:39 05/01/20 23 05/01/2023 BASIC METAB OLIC PANEL osmolality (calculated) 301 mosmo l/kg 275-30 1 OSMOL ALITY IS A CALCU LATIO N UTILI ZING THE SERUM /PLAS MA SODIU M, GLUCO SE AND UREA NITRO GEN (BUN) LEVEL S. FOR THE MOST ACCUR ATE RESUL T A MEASU RED SERUM OSMOL ALITY IS SUGGE STED. Not Available [facility]) [address] [place] [address] [place], [address], 05/01/2023 09:07:39 05/01/20 23 05/01/2023 BASIC METAB OLIC PANEL calcium 9.2 mg/dL 8.5-10 .8 Not Available [facility]) [address] [place] [address] [place], [address], 05/01/2023 09:07:39 05/01/2005/01/2023 BASIC METAB OLIC PANEL note Unles s other urban noted testi ng perfo rmed at: [facility] [address] [place] [address] James calvert MD Not Available [facility] [address] [place] [address] [place], [address], 05/01/2023 09:07:39 05/01/20 23 05/01/2023 RFS-P ATHOL OGY SPECI MEN REQUE ST pathreq Patho logy [address] [place] [address] Phone or [phone] Fax Otoniel duncan Jr. MLatisha, Medic al Direc tor [facility] [address] : [place] [address] Phone Numbe r: [phone] James calvert M.D. PATHO LOGY REPOR T Patie nt Name: LIZZY VILLALBA Date of : [birth year] Age/S ex: 73/M Accou nt Numbe r: [id number] Medic al Recor d Numbe r: [id number] Order ing MD: DARLENE REEDER AM Date Colle cted : 2022 Date Recei miguel : 2022 Date Repor lulú : 2022 Exam: Biops y Acces angelica# : [id number] Labor atory #: [id number] Copie s To: Techn ician : Clini jacobo Histo ry Neville lulú Benig n prost atic hyper plasi a Previ ous Patie nt Histo ry and Files JOS COLLADO ([birth year] 0 M) i??SS N: [id number] ?? 1. 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 S06-0 [id number] , DateC ollec lulú: 07/28 1: Diagn [...] of neopl dragan is obser miguel. Profe ssion al inter preta tion rende red by James calvert Jr., M.D. at [facility], [address] [place] [address] . Legal ly authe ntica lulú by JAMES REGALADO MD 05-05 09:50 :00 Final Diagn osis BENIG N PROST ATIC HYPER PLASI A EJT/S M Stain *Rec[place] ;[place] [id number] Legal ly authe ntica lulú by JAMES REGALADO MD 05-05 09:50 :00 Not Available [facility] [address] [place] [address] [place], [address], 05/05/2023 10:12:31 05/02/20 23 05/02/2023 CBC W/ AUTO DIFF WBC 11.00 K/uL 4.5-11 .5 Not Available [facility] ([facility]) [address] [place] [address] [place], [address], 05/02/2023 07:30:07 05/02/20 23 05/02/2023 CBC W/ AUTO DIFF RBC 4.36 M/uL 4.0-5. 4 Not Available [facility] ([facility]) [address] [place] [address] [place], [address], 05/02/2023 07:30:07 05/02/20 23 05/02/2023 CBC W/ AUTO DIFF HGB 13.5 g/dL 14.0-1 8.0 low Not Available [facility] ([facility]) [address] [place] [address] [place], [address], 05/02/2023 07:30:07 05/02/20 23 05/02/2023 CBC W/ AUTO DIFF HCT 40.3 % 40-54 Not Available [facility] ([facility]) [address] [place] [address] [place], [address], 05/02/2023 07:30:07 05/02/20 23 05/02/2023 CBC W/ AUTO DIFF MCV 92.4 fL 80.0-1 00.0 Not Available [facility] [address] [place], [address], 05/02/2023 07:30:07 05/02/20 23 05/02/2023 CBC W/ AUTO DIFF MCH 31.0 pg 26.0-3 2.0 Not Available [facility]) [address] [place] [address] [place], [address], 05/02/2023 07:30:07 05/02/20 23 05/02/2023 CBC W/ AUTO DIFF MCHC 33.5 g/dL 32.0-3 6.0 Not Available [facility]) [address] [place] [address] [place], [address], 05/02/2023 07:30:07 05/02/20 23 05/02/2023 CBC W/ AUTO DIFF RDW 12.8 % 11.5-1 4.5 Not Available [facility]) [address] [place] [address] [place], [address], 05/02/2023 07:30:07 05/02/20 23 05/02/2023 CBC W/ AUTO DIFF platelet count 150 K/uL 142-42 4 Not Available [facility] ([facility]) [address] [place] [address] [place], [address], 05/02/2023 07:30:07 05/02/20 23 05/02/2023 CBC W/ AUTO DIFF MPV 10.7 fL 6.8-10 .2 high Not Available [facility]) [address] [place] [address] [place], [address], 05/02/2023 07:30:07 05/02/20 23 05/02/2023 CBC W/ AUTO DIFF neutrophil % 86.2 % 50-70 high Not Available [facility] ([facility]) [address] [place], [address], 05/02/2023 07:30:07 05/02/20 23 05/02/2023 CBC W/ AUTO DIFF lymphocyte % 5.3 % 18.0-4 2.0 low Not Available [facility]) [address] [place] [address] [place], [address], 05/02/2023 07:30:07 05/02/20 23 05/02/2023 CBC W/ AUTO DIFF monocyte % 7.8 % 2.0-11 .0 Not Available [facility]) [address] [place] [address] [place], [address], 05/02/2023 07:30:07 05/02/20 23 05/02/2023 CBC W/ AUTO DIFF eosinophil % 0.1 % 1.0-3. 0 low Not Available [facility]) [address] [place] [address] [place], [address], 05/02/2023 07:30:07 05/02/20 23 05/02/2023 CBC W/ AUTO DIFF basophil % 0.1 % 0.0-2. 0 Not Available [facility]) [address] [place] [address] [place], [address], 05/02/2023 07:30:07 05/02/20 23 05/02/2023 CBC W/ AUTO DIFF immature granulocytes % 0.5 % 0.0-0. 8 Not Available [facility]) [address] [place] [address] [place], [address], 05/02/2023 07:30:07 05/02/20 23 05/02/2023 CBC W/ AUTO DIFF nucleated red blood cells % 0.0 % Not Available [facility]) [address] [place] [address] [place], [address], 05/02/2023 07:30:07 05/02/20 23 05/02/2023 CBC W/ AUTO DIFF neutrophil # 9.49 K/uL Not Available [facility]) [address] [place] [address] [place], [address], 05/02/2023 07:30:07 05/02/20 23 05/02/2023 CBC W/ AUTO DIFF lymphocyte # 0.58 K/uL Not Available [facility] [address] [place] [address] [place], [address], 05/02/2023 07:30:07 05/02/20 23 05/02/2023 CBC W/ AUTO DIFF monocyte # 0.86 K/uL Not Available [facility] [address] [place] [address] [place], [address], 05/02/2023 07:30:07 05/02/20 23 05/02/2023 CBC W/ AUTO DIFF eosinophil # 0.01 K/uL Not Available [facility]) [address] [place] [address] [place], [address], 05/02/2023 07:30:07 05/02/20 23 05/02/2023 CBC W/ AUTO DIFF basophil # 0.01 K/uL Not Available [facility]) [address] [place] [address] [place], [address], 05/02/2023 07:30:07 05/02/20 23 05/02/2023 CBC W/ AUTO DIFF immature gramulocytes # 0.05 K/uL Not Available [facility]) [address] [place] [address] [place], [address], 05/02/2023 07:30:07 05/02/20 23 05/02/2023 CBC W/ AUTO DIFF nucleated red blood cells # 0.00 k/uL Not Available [facility]) [address] [place] [address] [place], [address], 05/02/2023 07:30:07 12/02/20 23 05/02/2023 CBC W/ AUTO DIFF manual differential NO Not Available [facility] [address] [place] [address] [place], [address], 05/02/2023 07:30:07 05/02/20 23 05/02/2023 CBC W/ AUTO DIFF note Unles s other urban noted testi ng perfo rmed at: [facility] [address] [place] [address] James calvert MD Not Available [facility]) [address] [place] [address] [place], [address], 05/02/2023 07:30:07 05/02/20 23 05/02/2023 BASIC METAB OLIC PANEL sodium 138 mmol/ L 137-14 7 Not Available [facility] [address] [place] [address] [place], [address], 05/02/2023 07:59:02 05/02/20 23 05/02/2023 BASIC METAB OLIC PANEL potassium 3.9 mmol/ L 3.5-5. 1 Not Available [facility]) [address] [place] [address] [place], [address], 05/02/2023 07:59:02 05/02/20 23 05/02/2023 BASIC METAB OLIC PANEL chloride 105 mmol/ L 98-110 Not Available [facility] [address] [place] [address] [place], [address], 05/02/2023 07:59:02 05/02/20 23 05/02/2023 BASIC METAB OLIC PANEL carbon dioxide 22 mmol/ L 21-30 Not Available [facility]) [address] [place] [address] [place], [address], 05/02/2023 07:59:02 05/02/20 23 05/02/2023 BASIC METAB OLIC PANEL anion gap 11 mmol/ L 6-14 Not Available [facility] [address] [place] [address] [place], [address], 05/02/2023 07:59:02 05/02/20 23 05/02/2023 BASIC METAB OLIC PANEL glucose 139 mg/dL 70-115 high Not Available [facility] [address] [place] [address] [place], [address], 05/02/2023 07:59:02 05/02/20 23 05/02/2023 BASIC METAB OLIC PANEL BUN 18 mg/dL 9-20 Not Available [facility]) [address] [place] [address] [place], [address], 05/02/2023 07:59:02 05/02/20 23 05/02/2023 BASIC METAB OLIC PANEL creatinine 1.0 mg/dL 0.5-1. 5 Not Available [facility]) [address] [place] [address] [place], [address], 05/02/2023 07:59:02 05/02/20 23 05/02/2023 BASIC METAB OLIC PANEL BUN/creatini ne ratio 18 ratio 10-20 Not Available [facility]) [address] [place] [address] [place], [address], 05/02/2023 07:59:02 05/02/20 23 05/02/2023 BASIC METAB OLIC PANEL glom filtration rate TNP mL/mi n >60- GFR has only been valid ated for patie nts 18-70 years of age. Not Available [facility] ([facility]) [address] [place] [address] [place], [address], 05/02/2023 07:59:02 05/02/20 23 05/02/2023 BASIC METAB OLIC PANEL osmolality (calculated) 291 mosmo l/kg 275-30 1 OSMOL ALITY IS A CALCU LATIO N UTILI ZING THE SERUM /PLAS MA SODIU M, GLUCO SE AND UREA NITRO GEN (BUN) LEVEL S. FOR THE MOST ACCUR ATE RESUL T A MEASU RED SERUM OSMOL ALITY IS SUMANTH CANTU. Not Available [facility]) [address] [place] [address] [place], [address], 05/02/2023 07:59:02 05/02/20 23 05/02/2023 BASIC METAB OLIC PANEL calcium 8.4 mg/dL 8.5-10 .8 low Not Available [facility] [address] [place] [address] [place], [address], 05/02/2023 07:59:02 05/02/20 23 05/02/2023 BASIC METAB OLIC PANEL note Unles s other urban noted testi ng perfo rmed at: [facility] [address] [place] [address] James calvert MD Not Available [facility] [address] [place] [address] [place], [address], 05/02/2023 07:59:02 06/10/19 24 06/10/2023 urina lysis , dipst ick Leukocytes (reference range) large Not Available [facility] [address], [address], 06/10/2023 11:58:10 06/10/19 24 06/10/2023 urina lysis , dipst ick Nitrite (reference range:) negati ve Not Available [facility] [address], [address], 06/10/2023 11:58:10 06/10/19 24 06/10/2023 urina lysis , dipst ick Urobilinogen (reference range) 0.2 Not Available [facility] [address], [address], 06/10/2023 11:58:10 06/10/19 24 06/10/2023 urina lysis , dipst ick Protein (reference range) 100 Not Available [address], [address], 06/10/2023 11:58:10 06/10/19 24 06/10/2023 urina lysis , dipst ick pH (reference range 5-8.5) 6.0 Not Available [address], [address], 06/10/2023 11:58:10 06/10/19 24 06/10/2023 urina lysis , dipst ick Blood (reference range:) modera te Not Available [address], [address], 06/10/2023 11:58:10 06/10/19 24 06/10/2023 urina lysis , dipst ick Specific [place] (reference range) 1.015 Not Available [address], [address], 06/10/2023 11:58:10 06/10/19 24 06/10/2023 urina lysis , dipst ick Ketone (reference range) negati ve Not Available [address], [address], 06/10/2023 11:58:10 06/10/19 24 06/10/2023 urina lysis , dipst ick Bilirubin (reference range) negati ve Not Available [address], [address], 06/10/2023 11:58:10 06/10/19 24 06/10/2023 urina lysis , dipst ick Glucose (reference range) 100 Not Available [address], [address], 06/10/2023 11:58:10 06/10/19 24 06/10/2023 bladd er scan (PROC ) Calculated Residual Urine: 43 ML Not Available [facility] [place] [address] [place], [address], 06/10/2023 11:58:12 01/27/20 24 01/27/2024 PROST ATE SPECI FIC AG (PSA) prostate specific Ag (PSA) 1.09 NG/mL 0.0-4. 0 Not Available [facility] (Lab Registration) [address] , [place], [address], 01/27/2024 16:16:54 01/27/20 24 01/27/2024 PROST ATE SPECI FIC AG (PSA) note Unles s other urban noted testi ng perfo rmed at: [facility] [address] [place] [address] [phone] James calvert MD CLIA: [id number] Not Available [facility] (Lab Registration) [address] , [place], [address], 01/27/2024 16:16:54 01/27/20 24 01/27/2024 TESTO STERO NE TOTAL note Unles s other urban noted testi ng perfo rmed at: [facility] [address] [place] [address] [phone] James calvert MD CLIA: [id number] Not Available [facility] (Lab Registration) [address] , [place], [address], 01/29/2024 03:37:48 01/27/20 24 01/29/2024 TESTO STERO NE TOTAL testosterone , serum 261 NG/dL 264-91 6 low Adult male refer ence inter naveed is based on a popul ation of healt hy nonob fili males (BMI <30) betwe en 19 and 39 years old. Jed lujan et.al . JCEM 2017, 102;1 161-1 173. PMID: 08083 103. Perfo rmed at: [facility] Jacky n [address] [facility], [place] [address] 2804 Lab Direc tor: Henrique arroyo PhD, Phone : [phone] Not Available [facility] (Lab Registration) [address] , [place], [address], 01/29/2024 03:37:48 01/27/20 24 01/27/2024 TESTO STERO NE FREE note Unles s other urban noted testi ng perfo rmed at: [facility] [address] [place] [address] [phone] James calvert MD CLIA: [id number] Not Available [facility] (Lab Registration) [address] , [place], [address], 01/30/2024 23:08:44 01/27/20 24 01/30/2024 TESTO STERO NE FREE free testosterone (direct) 4.8 pg/mL 6.6-18 .1 low Perfo rmed at: [facility] Abhilash pierre [address] [facility] , [place] [address] Lab Direc tor: Edelmira mcbride MD, Phone : [phone] SENT TO REFER ENCE LAB Not Available [facility] (Lab Registration) [address] , [place], [address], 01/30/2024 23:08:44 01/27/20 24 01/27/2024 urina lysis , dipst ick Leukocytes (reference range) negati ve Not Available [facility] [place] [address] [place], [address], 01/27/2024 14:04:47 01/27/20 24 01/27/2024 urina lysis , dipst ick Nitrite (reference range:) negati ve Not Available [facility] [place] [address] [place], [address], 01/27/2024 14:04:47 01/27/20 24 01/27/2024 urina lysis , dipst ick Urobilinogen (reference range) 0.2 Not Available [address], [address], 01/27/2024 14:04:47 01/27/20 24 01/27/2024 urina lysis , dipst ick Protein (reference range) negati ve Not Available [address], [address], 01/27/2024 14:04:47 01/27/20 24 01/27/2024 urina lysis , dipst ick pH (reference range 5-8.5) 6.0 Not Available [address], [address], 01/27/2024 14:04:47 01/27/20 24 01/27/2024 urina lysis , dipst ick Blood (reference range:) negati ve Not Available [address], [address], 01/27/2024 14:04:47 01/27/20 24 01/27/2024 urina lysis , dipst ick Specific [place] (reference range) 1.015 Not Available [address], [address], 01/27/2024 14:04:47 01/27/20 24 01/27/2024 urina lysis , dipst ick Ketone (reference range) negati ve Not Available [address], [address], 01/27/2024 14:04:47 01/27/20 24 01/27/2024 urina lysis , dipst ick Bilirubin (reference range) negati ve Not Available [address], [address], 01/27/2024 14:04:47 01/27/20 24 01/27/2024 urina lysis , dipst ick Glucose (reference range) 1000 Not Available [address], [address], 01/27/2024 14:04:47 01/27/20 24 01/27/2024 bladd er scan (PROC ) Calculated Residual Urine: 43 ML Not Available [address], [address], 01/27/2024 14:04:48 02/24/20 24 02/24/2024 urina lysis , dipst ick Leukocytes (reference range) negati ve Not Available [address], [address], 02/24/2024 11:45:57 02/24/20 24 02/24/2024 urina lysis , dipst ick Nitrite (reference range:) negati ve Not Available [address], [address], 02/24/2024 11:45:57 02/24/20 24 02/24/2024 urina lysis , dipst ick Urobilinogen (reference range) 0.2 Not Available [address], [address], 02/24/2024 11:45:57 02/24/20 24 02/24/2024 urina lysis , dipst ick Protein (reference range) negati ve Not Available [address], [address], 02/24/2024 11:45:57 02/24/20 24 02/24/2024 urina lysis , dipst ick pH (reference range 5-8.5) 6.0 Not Available [facility] [address], [address], 02/24/2024 11:45:57 02/24/20 24 02/24/2024 urina lysis , dipst ick Blood (reference range:) negati ve Not Available [address], [address], 02/24/2024 11:45:57 02/24/20 24 02/24/2024 urina lysis , dipst ick Specific [place] (reference range) 1.020 Not Available [address], [address], 02/24/2024 11:45:57 02/24/20 24 02/24/2024 urina lysis , dipst ick Ketone (reference range) negati ve Not Available [address], [address], 02/24/2024 11:45:57 02/24/20 24 02/24/2024 urina lysis , dipst ick Bilirubin (reference range) negati ve Not Available [address], [address], 02/24/2024 11:45:57 02/24/20 24 02/24/2024 urina lysis , dipst ick Glucose (reference range) 500 Not Available [address], [address], 02/24/2024 11:45:57 02/24/20 24 02/24/2024 urina lysis , dipst ick Color (reference range: yellow-brown ) Yellow Not Available [address], [address], 02/24/2024 11:45:57 02/24/20 24 02/24/2024 [address] scan (PROC ) Calculated Residual Urine: 52 ml Not Available [facility] [address], [place], [address], 02/24/2024 11:45:59 04/28/20 23 04/28/2023 cardi ac clear ance* No observ ation record ed. [email or web address] Psychiatric (Med Record) [address], [place], [address], 05/19/2023 06:54:22 Result Notes None recorded. Problems Name Problem SNOMED Code Status Onset Date Resolution Date Notes Provider Name and Address Organization Details Recorded Time Benign prostatic hyperplasia with outflow obstruction 800932219 Active Zeenat Brody null, [place] - [facility] & [place] 3 11:00:49 Cardiac pacemaker in situ 206869695 Active 2022 Zeenat Brody null, [place] - [place] - [place] & [place] 3 11:00:49 Irregular heart beat 882976144 Active 2022 Zeenat Brody null, [place] - [place] & [place] 3 11:00:49 Problem Notes None recorded. Procedures Surgical History Date Name Laterality Status Provider Name and Address Organization Details Recorded Time 04/17/2023 Cystoscopy -Male completed Roberto Reeder Jr, MD [address] [place] [address], [address], [place], [address], [place] [facility] [facility] & [place] 04/17/2023 11:27:38 Imaging Results None recorded. Procedure Notes None recorded. Medical Equipment None Reported. Allergies Allergen ID Allergen Name Allergen Category Reaction Reaction Severity Criticality Documentation Date Start Date Code Code System Note Provider Name and Address Organization Details Recorded Time [id number] No known allergy (situatio n) Not available Not available Not available Not available 05/05/2023 42024 6003 SNOMED Zeenat Brody null, [place] - [place] - [place] & [place] 3 11:00:48 Medications Name Sig Start Date [...] Updated DateTime 06/10/2023 177.8 cm 30.3 kg/m2 57060.99 g 98.1 [degF] Mary Alice Byrnes [facility] & [place] 06/10/2023 11:45:46 Date Recorded Body height Body mass index (BMI) Body weight Provider Name and Address Organization Details Last Updated DateTime 01/27/2024 177.8 cm 30.3 kg/m2 75690.99 g Kellen Kat [facility] & [place] 01/27/2024 13:41:25 Date Recorded Body height Body mass index (BMI) Body weight Body temperature Provider Name and Address Organization Details Last Updated DateTime 02/24/2024 177.8 cm 30.3 kg/m2 01447.99 g 98.2 [degF] Mary Alice PALOMINO [facility] & [place] 02/24/2024 11:30:19 Date Recorded Body height Body mass index (BMI) Body weight Body temperature Provider Name and Address Organization Details Last Updated DateTime 04/17/2023 177.8 cm 30.3 kg/m2 95236.99 g 97.7 [degF] Mary Alice PALOMINO [facility] & [place] 04/17/2023 08:53:05 Date Recorded Body height Body mass index (BMI) Body weight Body temperature Provider Name and Address Organization Details Last Updated DateTime 05/05/2023 177.8 cm 30.3 kg/m2 04534.99 g 98 [degF] Zeenat Brody [facility] & [place] 05/05/2023 11:00:35 Social History None recorded. Functional Status Question Answer Note LastModified by Organizat ion Details LastModified Time What is your level of alcohol consumption? Occasional [email or web address] Information not available 04/17/2023 Mental Status None recorded. Family History Nothing Reported. Medical History No medical history recorded. Past Encounters Encounter ID Performer Location Encounter Start Date Encounter Closed Date Diagnosis/Indication Diagnosis SNOMED-CT Code Diagnosis ICD10 Code Diagnosis IMO Codes Diagnosis Note [id number] Roberto Reeder Jr, MD [facility] [address] [address] 04/17/2023 08:32:59 04/17/2023 09:45:36 Benign prostatic hyperplasia with outflow obstruction 652906838 N40.1 Patient with recent episode of urinary retention. He has significan t voiding symptoms with an IPSS of 32. Cystoscopy today shows trilobar hyperplasi a and chronic bladder outlet obstructiv e changes. We discussed TURP as treatment of choice.Elizabeth sumner is currently on Xarelto and aspirin. He has a history of atrial fibrillati on. He is scheduled to see his cardiologi st on Thursday. He is did discuss whether he can go off of his blood thinners prior to the procedure. We are going to increase his tamsulosin to 2 pills a day in the interim. [id number] Roberto Reeder Jr, MD [facility] [address] [place] [address] 05/05/2023 10:57:49 05/05/2023 12:11:00 Benign prostatic hyperplasia with outflow obstruction 674712709 N40.1 patient is status post TURP 4 days ago. Voiding trial performed today and he was able void 275 cc of 300 cc placed into his bladder. Patient reassured that he is emptying out well. We discussed his pathology results and he was reassured there is no evidence of cancer. He is to continue restricted activity and push fluids. Will see him back in 1 month with a bladder scan. [id number] Roberto Reeder Jr, MD [facility] [address] [address] 06/10/2023 11:34:58 06/10/2023 11:57:15 Benign prostatic hyperplasia with outflow obstruction 721102473 N40.1 patient is status post TURP Five weeks ago. Patient feels like his stream is much stronger and he is very happy with the results. He is continuing to hold his Xarelto we discussed he should be able to restart it soon as thing she would be pretty well healed up as he was about 5 weeks out. Bladder scan today indicates he is emptying out well with only 43 cc residual. Pain of ri ght testicle 8066218392 5849801 N50.811 patient with 2 week history of some right testicular discomfort . He likely has some epididymit is and we will cover him with cefdinir. [id number] Roberto Reeder Jr, MD [facility] [address] [address] 01/27/2024 13:23:10 01/27/2024 13:55:28 Screening for malignant neoplasm of prostate 731141548 Z12.5 We will check a PSA today. Benign pro static hyperplasia with outflow obstruction 156893898 N40.1 Patient with history of bladder outlet obstructio n. He underwent a TURP in May 2023. He is very pleased with the results and continues to void without complaint. His bladder scan today is 43 cc. Pathology from his TURP showed no evidence of prostate cancer. Fatigue 69882945 R53.83 patient complains of decreased energy and easy fatigue. We discussed possible causes and check testostero ne levels. He will return in 1 month to discuss the findings. Pain of ri ght testicle 4463756452 5738026 N50.811 his last visit patient had right testicular pain. He states this resolved with treatment. No further pain noted. [id number] Roberto Reeder Jr, MD [facility] [address] [address] 02/24/2024 11:04:39 02/24/2024 11:49:00 Benign prostatic hyperplasia without outflow obstruction 179226857 N40.0 Pt s/p TURP and voiding well. Bladder scan 52 cc. 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 Discussed tx options. Will give 400 mg dose of T today.RTO 4 wks to discuss results. Screening for malignant neoplasm of prostate 397258673 Z12.5 PSA in December 300. Pt reassured. Pain of ri ght testicle 9839691425 9959859 N50.811 Resolved. Health Concerns Section Related Observation LastModified by Organization Detai ls LastModified Time None Recorded Concern Status LastModified by Organization Details LastModified Time None Recorded Advance Directives Directive None Recorded Payers Insurance Date Sequence Insurance Name Policy Number Policy Cline Covered Member ID Cline Member ID Guarantor Name 03/22/2024 2 [employer] (MEDICARE SUPPLEMENT) Jos Bolivar [id number] Jos Bolivar 03/22/2024 1 [place] Jos Bolivar [id number] Jos Bolivar Notes Date Note Type Note Provider Name and Address Organization Details Recorded Time 04/17/2023 text/html Patient is a 73-year-old white male referred for recent urinary retention. Saw this patient Alyssa Hernandez in April 2021 and he wishes to transfer care to [facility]. Patient states he was on a road trip to [place] a couple of weeks ago and had difficulty voiding and went to the emergency room where a catheter was placed. He states that 1 L came out once it was placed but he was not discharged with his Carter. Patient went on to [place] and states he had to stop frequently. [...] mg a day. Roberto Reeder Jr, MD [address] [place] [address], [address], [place], [address], [facility] & [place] 04/17/2023 11:30:01 05/05/2023 text/html patient is a 73-year-old white male status post a TURP on May 01. Was discharged home the following day with his Carter catheter and returns today for a voiding trial. He denies any problems at home other than some difficulty sleeping. Urine in his catheter bag today is clear. His pathology showed only BPH. Roberto Reeder Jr, MD [address], [address], [place], [address], [facility] & [place] 05/05/2023 12:16:43 06/10/2023 text/html ROS as noted in the HPI Patient is a 73 white male with [...] any focal tenderness. Roberto Reeder Jr, MD [address], [address], [place], [address], [facility] & [place] 06/10/2023 12:30:56 01/27/2024 text/html ROS as noted in the HPI Patient is a 73-year-old white male with [...] decreased energy levels. Roberto Reeder Jr, MD [address] [place] [address], [address], [place], [address], [facility] & [place] 01/27/2024 15:17:59 02/24/2024 text/html ROS as noted in the HPI 73 yo male with h/o BPH, fatigue and R testicular pain returns for 1 mo f/u.Pt underwent a TURP 05/2023 and is voiding well.At last visit we checked T levels and he returns to discuss those. Total T was 261 and free was 4.8.R testicular pain resolved. Roberto Reeder Jr, MD [address], [address], [place], [address], [facility] & [place] 02/24/2024 20:06:42
--- OUTSIDE RECORDS SUMMARY | 2025-04-04 10:40 | XMS_ITS | Clinical Summary ---
Author Organization Healthcare Address [address] [place] [address] Care Team Providers Care Paralegal Assistant Name Role Phone Jose Valdez MD Primary Care Provider [phone] Sven Clark MD Unavailable [phone] Allergies No known active allergies Medications amiodarone [...] (2 of 2 - PCV) 07/06/2021 07/06/2020 [id number] Vaccine (3 - 2024- season) 2025 07/24/2020, [...] complete this topic Insurance MEDICARE Care Teams Paralegal Assistant Relationship Specialty Start Date End Date Jose Valdez MD [address] [facility] [address] [address] PCP - General 06/03/24 Sven Clark MD [address] [place] [address] Referring Physician 06/07/24
[2025-04-04 15:13] LABS: PHA INR Fingerstick 1.9 (0.9-1.1)
== END 2025-04-04 15:19 ==
LOC: ACC 10:34
PROVIDERS: PCP Family Medicine; Visit Provider Physician Assistant
DX: Z79.01 Long term (current) use of anticoagulants (principal)
CPT/HCPCS: 85610; 99211; G0463

== ENCOUNTER 2025-05-08 13:45 | Outpatient (CLI) | payer MEDICARE, SELFPAY ==
[2025-05-08 19:31] LABS: Alanine Aminotransferase 52 U/L (12-78); Albumin Level 4.0 g/dl (3.5-5.0); Albumin/Globulin Ratio 1.7 (1.1-1.8); Alkaline Phosphatase 86 U/L (38-126); Anion Gap 16.1 mEq/L (5-15); Aspartate Amino Transferase 40 U/L (17-59); Bilirubin,Total 1.3 mg/dl (0.2-1.3); Blood Urea Nitrogen 15 mg/dl (9-20); Calcium 8.8 mg/dl (8.4-10.2); Carbon Dioxide 22 mmol/L (22.0-30.0); Chloride 103 mmol/L (98-107); Creatinine,Serum 1.10 mg/dl (0.66-1.25); Estimated Glomerular Filt Rate 65 ml/min (>60); GFR (African American) 79 ML/MIN (>60); Globulin 2.4 g/dL (1.3-3.2); Glucose 159 mg/dl (74-100); Potassium 4.1 mmoL/L (3.5-5.1); Sodium 137 mmol/L (136-145); Total Protein,Serum 6.4 g/dl (6.3-8.2)
== END 2025-05-08 23:59 | disposition home or self-care (01) ==
LOC: LAB.DROPOF 05-09 11:28
PROVIDERS: PCP Family Medicine; Visit Provider Nurse Practitioner
DX: E11.59 Type 2 diabetes mellitus with other circulatory complications (principal)
CPT/HCPCS: 80053

== ENCOUNTER 2025-05-18 10:29 | Outpatient (CLI) | payer MEDICARE, SELFPAY ==
--- OUTSIDE RECORDS SUMMARY | 2025-05-18 11:46 | XMS_ITS | Clinical Summary ---
Author Organization [facility] Address [address] [place] [address] Care Team Providers Care Linen Folder Name Role Phone Jose Valdez MD Primary Care Provider [phone] Allergies No known active allergies Medications metFORMIN [...] cardiomyopathy 06/11/2016 Overview (08/29/2019): a. [facility] March 2005, showed nonobstructive coronary artery disease. Moderate left ventricular dysfunction with ejection fraction of 45%. b. Echocardiogram in October 2005, showed dilated cardiomyopathy with ejection fraction of 35%. c. [employer] ICD implant by Dr. Hooper on [...] Maintenance Due Date Last Done Comments COLOGUARD 1995 COLON CANCER SCREENING 5 YEA R SIGMOIDOSCOPY 1995 COLONOSCOPY 1995 COL[address]AL CANCER SCREENING 1995 CT COLONOGRAPHY 1995 FECAL OCCULT BLOOD TEST 1995 FIT Testing (1 year) 1995 ZOSTER VACCINE (1 of 2) 2000 ANNUAL PHYSICAL 12/19/2016 HEPATITIS C SCREENING 12/19/2016 TDAP/TD VACCINES (2 - Td or Tdap) 04/21/2021 011, 08/03/1996 Pneumococcal Vaccine 50+ (2 of 2 - PCV) 07/06/2021 07/06/2020 INFLUENZA VACCINE 12/30/2024 04/08/2022, , 03/20/2020 COVID-19 Vaccine (1 - season) 2025 RSV Vaccine - Adults (1 - 1- dose 75+ series) 2025 AAA SCREEN ONCE Completed 10/20/2018, 10/20/2018 Medical Devices Implanted Type Area Second Worker Device Identifier Shelf Expiration Date Model / Serial / Lot Icd-12/27/2012 Implanted:12/27 by Austin Hooper MD (Quantity not on file) [employer] Insurance MEDICARE A & B Care Teams Linen Folder Relationship Specialty Start Date End Date Jose Valdez MD [address] [facility] [address] [facility] [address] [place] [address] PCP - General 07/27/15
--- OUTSIDE RECORDS SUMMARY | 2025-05-18 11:46 | XMS_ITS | Clinical Summary ---
Author Organization [facility] Address [address] [place] [address] Phone Care Team Providers Care Rip And Groove Machine Operator Name Role Phone Unavailable Primary Care [...] Zoster (1 of 2) 2000 COVID-19 Vaccine (2024-2 6 season) 2025 Influenza Vaccine (#1) 2025 RSV or 60+ (1 - 1-d ose 75+ series) 2025 Hepatitis B Vaccine Aged Out No longe r eligible based on patient's age to complete this topic Meningococcal B Vaccine Aged Out No l onger eligible based on patient's age to complete this topic Insurance MEDICARE [place] PART A AND B
--- OUTSIDE RECORDS SUMMARY | 2025-05-18 11:46 | XMS_ITS | Clinical Summary ---
Author Organization Healthcare Address [address] [place] [address] Care Team Providers Care Sheeter Operator Name Role Phone Jose Valdez MD Primary Care Provider [phone] Sven Clark MD Unavailable [phone] Allergies No known active allergies Medications amiodarone [...] (2 of 2 - PCV) 07/06/2021 07/06/2020 [id number] Vaccine (3 - 2024- season) 2025 07/24/2020, 06/27/2020 UKY-Influenza Vaccine (#1) 01/30/202503/24, 04/08/2022, 05/10/2021, Additional history exists UKY-RSV Vaccine: 60+ Years or (1 - 1-dose 75+ series) 2025 HPV Vaccines (No Doses Required) Completed UKY-HIB Vaccines Aged Out No longer e [...] age to complete this [place] [phone] Care Teams Sheeter Operator Relationship Specialty Start Date End Date Jose Vladez MD [address] [facility] [address] [address] PCP - General 06/03/24 Sven Clark MD [address] [facility] [address] [place] [address] Referring Physician 06/07/24
[2025-05-18 12:57] LABS: PHA INR Fingerstick 1.5 (0.9-1.1)
== END 2025-05-18 13:19 ==
LOC: ACC 10:30
PROVIDERS: PCP Family Medicine; Visit Provider Physician Assistant
DX: Z79.01 Long term (current) use of anticoagulants (principal)
CPT/HCPCS: 85610; 99211; G0463